=== PATIENT | female | born 1965 ===

== ENCOUNTER 2024-06-14 14:05 | Emergency (ER) | payer OTHER, SELFPAY ==
[2024-06-14 14:12] VITALS: BP 120/70; PULSE 83; RESP 18; TEMP 36.8; O2SAT 98; BMI 14.7
--- NOTE | 2024-06-14 14:12 | ED_ITS ---
HPI - General Adult General Chief complaint: GI Bleed Stated complaint: rectal bleeding Related Data Previous Rx's ?Medication ?Instructions ?Recorded ketorolac 10 mg tablet 10 mg PO TID PRN pain 5 days #15 06/15/24 tabs lidocaine 5 % topical patch 1 patch topical DAILY PRN pain #15 06/15/24 ea Allergies Allergy/AdvReac Type Severity Reaction Status Date / Time No Known Allergies Allergy Verified 06/15/24 07:52 [facility] Social History Social History Advance Directives: No Advance Directives Information Provided: No Physical Exam ED Vital Signs: BMI result Body Mass Index 14.7 Course Course Course Narrative: This is an RME performed by Valentina Sotelo CNP: Additional HPI, ROS, PE not included below will be deferred to primary provider. Patient is a 58-year-old female with past medical history of colorectal cancer For which she underwent chemotherapy and radiation in 2007, she states she was due to have a repeat colonoscopy about 6 years ago but did not 2 days ago noted small amount of bright red blood in bowel movements, has had recurrent episodes of this usually at least once a week. She is concerned today as she is experiencing diffuse abdominal pain with pain radiating to her back. Medical Decision Making Lab Data 06/14/24 15:18 06/14/24 15:18 Labs: Lab Results 06/14/24 Range/Units 15:18 WBC 5.1 (4.8-10.8) X10*3/uL RBC 3.95 L (4.20-5.50) X10*6/uL Hgb 12.7 (12.0-16.0) g/dl Hct 37.8 (37.0-47.0) % MCV 95.7 (80.0-98.0) fL MCH 32.2 (27.0-33.0) pg MCHC 33.6 (31.0-35.0) g/dl RDW 12.8 (11.0-16.0) % Plt Count 239 (160-400) X10*3/uL MPV 8.9 L (9.4-12.3) fL Immature Gran % (Auto) 0.4 (0.0-0.4) % Neut % (Auto) 60.8 (45-73) % Lymph % (Auto) 25.0 (20-40) % [place] % (Auto) 10.5 (2-11) % Eos % (Auto) 2.7 (0-4) % Baso % (Auto) 0.6 (0-2) % Lymph # (Auto) 1.3 (1.2-4.9) X10*3/uL [place] # (Auto) 0.5 (0.1-1.2) X10*3/uL Eos # (Auto) 0.1 (0.0-0.4) X10*3/uL Baso # (Auto) 0.0 (0.0-0.2) X10*3/uL Abs Immat Gran (auto) 0.02 (0.00-0.03) X10*3/uL Absolute Neuts (auto) 3.1 (2.0-8.3) x10*3/uL Absolute Nucleated RBC 0.000 (0.0-0.012) X10*3/uL Nucleated RBC % (auto) 0.0 (0.0-0.2) /100WBC Sodium 145 (135-145) mmol/L Potassium 3.5 (3.3-5.1) mmol/L Chloride 107 (96-108) mmol/L Carbon Dioxide 31 H (22-29) mmol/L Anion Gap 11 L (12-20) BUN 10 (9-16) mg/dL Creatinine 0.74 (0.5-1.4) mg/dL Estim Creat Clear Calc 57.0 Estimated GFR > 60 Random Glucose 88 (60-115) mg/dL Calcium 9.3 (8.4-10.2) mg/dL Total Bilirubin 0.3 (0.0-1.0) mg/dL AST 25 (5-31) U/L ALT 28 (0-31) U/L Alkaline Phosphatase 68 (39-117) U/L Total Protein 6.7 (6.5-8.0) g/dL Albumin 3.6 (3.5-5.0) g/dL Lipase 28 (8-78) U/L Discharge Plan Discharge Clinical Impression: Hematochezia Patient Disposition: Left W/O Completing Treatment Prescriptions: No Action ketorolac 10 mg tablet 10 mg PO TID PRN (Reason: pain) 5 Days Qty: 15 0RF Rx Instructions: Tolerated IM or IV in department lidocaine 5 % adhesive patch,medicated 1 patch topical DAILY PRN (Reason: pain) Qty: 15 0RF Rx Instructions: leave on most painful area for up to 12 hrs Discharge Date/Time: 06/14/24 20:19
[2024-06-14 15:27] LABS: MANUAL DIFF FLAG NO
[2024-06-14 15:29] LABS: Basophils Percent Auto 0.6 % (0-2); Eosinophils Absolute Auto 0.1 X10*3/uL (0.0-0.4); Eosinophils Percent Auto 2.7 % (0-4); Hematocrit 37.8 % (37.0-47.0); Hemoglobin 12.7 g/dl (12.0-16.0); Imm Gran Abs Auto 0.02 X10*3/uL (0.00-0.03); Imm Gran Pct Auto 0.4 % (0.0-0.4); Lymphocytes Absolute Auto 1.3 X10*3/uL (1.2-4.9); Mean Corpuscular HGB Conc 33.6 g/dl (31.0-35.0); Mean Corpuscular Hemoglobin 32.2 pg (27.0-33.0); Mean Corpuscular Volume 95.7 fL (80.0-98.0); Mean Platelet Volume 8.9 fL (9.4-12.3); Monocytes Absolute Auto 0.5 X10*3/uL (0.1-1.2); Monocytes Percent Auto 10.5 % (2-11); Neutrophils Absolute Auto 3.1 x10*3/uL (2.0-8.3); Neutrophils Percent Auto 60.8 % (45-73); Platelet Count 239 X10*3/uL (160-400); Red Blood Count 3.95 X10*6/uL (4.20-5.50); Red Cell Distribution Width 12.8 % (11.0-16.0); White Blood Count 5.1 X10*3/uL (4.8-10.8)
[2024-06-14 15:42] LABS: Alanine Aminotransferase 28 U/L (0-31); Albumin Level 3.6 g/dL (3.5-5.0); Alkaline Phosphatase 68 U/L (39-117); Anion Gap 11 (12-20); Aspartate Amino Transferase 25 U/L (5-31); Bilirubin Total 0.3 mg/dL (0.0-1.0); Blood Urea Nitrogen 10 mg/dL (9-16); Calcium 9.3 mg/dL (8.4-10.2); Carbon Dioxide 31 mmol/L (22-29); Chloride 107 mmol/L (96-108); Estimated Glomerular Filt Rate > 60; Glucose Random 88 mg/dL (60-115); Lipase 28 U/L (8-78); Potassium 3.5 mmol/L (3.3-5.1); Sodium 145 mmol/L (135-145); Total Protein 6.7 g/dL (6.5-8.0)
== END 2024-06-14 20:19 | disposition left against medical advice (07) ==
LOC: HO.ED 20:15
PROVIDERS: Nurse Practitioner Family; Emergency Provider Emergency Medicine; PCP Internal Medicine
DX: K62.5 Hemorrhage of anus and rectum (principal); Z79.899 Other long term (current) drug therapy
CPT/HCPCS: 36415; 80053; 83690; 85025; 99281

== ENCOUNTER 2024-06-15 07:44 | Emergency (ER) | payer OTHER, SELFPAY ==
--- NOTE | ~2024-06-15 | CT_ITS ---
EXAMINATION: CT ABDOMEN AND PELVIS WITH CONTRAST CLINICAL INFORMATION: History of colorectal cancer. Back pain. COMPARISON: None available. TECHNIQUE: Multidetector volumetric images were obtained from the superior aspect of the liver through the pubic symphysis following administration 85 mL of Omnipaque 350 intravenous contrast. Sagittal and coronal reformatted images were obtained on the technologist's workstation. Oral contrast: No This CT examination was performed using dose optimization techniques as appropriate, variously including the following: *Automated exposure control *Adjustment of mA and/or kV according to patient size (this includes techniques or standardized protocols for targeted exams where dose is matched to indication/reason for exam; i.e. extremities or head) *Use of iterative reconstruction technique DLP: 260 mGy-cm FINDINGS: LUNG BASES: No pleural or pericardial effusion. LIVER, GALLBLADDER, AND BILIARY TREE: The liver is normal in size and contour. Subtle periportal edema. No focal hepatic lesion or biliary ductal dilatation is present. The gallbladder is unremarkable with no evidence of radiopaque gallstones, gallbladder wall thickening, or obvious pericholecystic inflammatory changes. PANCREAS: No ductal dilatation. SPLEEN: Not enlarged. ADRENAL GLANDS: No adrenal mass. KIDNEYS AND URETERS: The kidneys are normal in size, shape, and attenuation. Bilateral subcentimeter hypodensities likely representing cysts. No hydronephrosis. No perinephric stranding. BLADDER: Decompressed. GASTROINTESTINAL TRACT: Diffuse small bowel and large bowel wall thickening with mucosal hyperenhancement and mesenteric edema and hyperemia. Small free fluid in the pelvis. ABDOMINAL WALL: No significant hernia is appreciated. LYMPH NODES: No bulky lymphadenopathy. VASCULAR: Normal caliber abdominal aorta. PELVIC VISCERA: Unremarkable. OSSEOUS STRUCTURES: L5-S1 spondylolysis and spondylolisthesis. Unilateral left L5 pars defect. Severe degenerative disc disease at L5-S1. CT/CT abdomen pelvis w IV con IMPRESSION: Diffuse small and large bowel wall thickening with mucosal hyperenhancement and mesenteric edema and hyperemia. Small free fluid in the pelvis. The differential diagnosis includes enterocolitis both infectious and inflammatory etiologies versus posttreatment changes in the setting of treatment for colorectal cancer. Advise clinical correlation. Electronically signed by: Rick Sanchez MD 06/15/2024 10:13 AM EDT
[2024-06-15 07:51] VITALS: BP 132/70; PULSE 90; RESP 18; TEMP 36.4; O2SAT 100; BMI 15.7
--- NOTE | 2024-06-15 07:59 | ED.BACK ---
HPI - Back Pain/Injury General Chief Complaint: Back Pain/Injury Stated Complaint: Back pain Time Seen by Provider: 06/15/24 07:53 Source: patient Mode of arrival: ambulatory Limitations: no limitations History of Present Illness ED Provider: Enedelia Wagner HPI Narrative: 58yo F PMHx colorectal cancer s/p chemo and radiation in remission since 2007 presenting with 9/10 low back pain and intermittent bloody stools ( none at this time) ongoing for the lasta few months. Since having the radiation, she's had residual back pain but recently she's been having more severe episodes of low back and pelvic pain. Patient endorses new weight loss, denies back injury, excessive fatigue, fevers, chills, CP, SOB, N/V/D, numbness, tingling, urine/ bowel incontinence/retention. Recently moved from [place] States her father from [place]. Related Data Previous Rx's ?Medication ?Instructions ?Recorded ketorolac 10 mg tablet 10 mg PO TID PRN pain 5 days #15 06/15/24 tabs lidocaine 5 % topical patch 1 patch topical DAILY PRN pain #15 06/15/24 ea Allergies Allergy/AdvReac Type Severity Reaction Status Date / Time No Known Allergies Allergy Verified 06/15/24 07:52 Review of Systems Review of Systems: Yes all other systems are reviewed and are negative PMFSH Past Medical History Attestation statement: The following information was validated with the patient. Source: old records reviewed and nursing notes reviewed Social History Social History Advance Directives: No Advance Directives Information Provided: No Physical Exam Vital Signs: Vital Signs: Last Vital Signs Temp 97.6 F 06/15/24 07:51 Pulse 90 06/15/24 07:51 Resp 18 06/15/24 07:51 BP 132/70 06/15/24 07:51 Pulse Ox 100 06/15/24 07:51 O2 Del Method Room Air 06/15/24 07:51 BMI result Body Mass Index 15.7 vss Appearance: Alert.? Oriented X3.? No acute distress.?Cachetic Head: Normocephalic, atraumatic Eyes: Pupils equal, round and reactive to light.? Neck: Normal inspection.? Neck supple.? CVS: Normal heart rate and rhythm.? Pulses normal.? Respiratory: No respiratory distress.? Breath sounds normal.? Abdomen: Soft and nontender.?(+) bowel sounds Skin: Skin warm and dry.? Normal skin color.? Normal skin turgor.? Extremities: No lower extremity edema.? No calf ttp. 3/5 strength to LEs b/l. No saddle paresthesias. Ambulating w/ steady gait normal corrdination Neuro: Oriented X 3.?Normal sensory and motor funtion. Course Reevaluation(s) Reevaluation #1: CBC stable x2 ( yesterday and today). No signs of acute hypovolemic shock or acute blood loss anemia. Not currently having blood in stool. She is hemodynamically stable. Chemistry no acute findings needing intervention. CT abdomen and pelvis with diffuse small and large bowel wall thickening and mucosal hyperenhancement mesenteric edema and hyperemia small free fluid in the pelvis differential is concerning for enterocolitis both infectious and inflammatory etiologies this is likely inflammatory not infectious, also concerning for inflammatory changes status post treatment for colorectal cancer or reoccurrence. Will have her follow-up with GI and Hematology Oncology. Will repeat CBC today and ensure it is stable. Time: 10:56 Reevaluation #2: CBC stable. No bleeding while here. States Toradol helped a lot. Will discharge her with the same. Will have her follow-up with GI. I did express to her that this could be a recurrence of malignancy. Educated patient on diagnosis and treatment plan, answered all question, patient verbalizes understanding. At this time patient will be discharged home, advised to return with new or worsening symptoms. Educated on worrisome signs and symptoms and when to return. At this time I feel comfortable discharge home. Time: 12:19 Reevaluation #3: patient walked out of the dept w/o difficulty Time: 12:34 Medications Administered Discontinued Medications Generic Name Dose Route Start Last Admin Trade Name Freq PRN Reason Stop Dose Admin Iohexol 100 ml 06/15/24 09:37 06/15/24 09:38 Iohexol 350 Mg/Ml 100 Ml Infus..Btl IV 06/15/24 09:38 85 ml ONCE ONE Administration Ketorolac Tromethamine 30 mg 06/15/24 10:02 06/15/24 10:24 Ketorolac Tromethamine 30 Mg/Ml Vial IM 06/15/24 10:03 30 mg ONCE ONE Administration Lidocaine 1 patch 06/15/24 10:02 06/15/24 10:24 Lidocaine 4 % Patch Adh..Patch TRANSDERMA 06/15/24 10:03 1 patch ONCE ONE Administration Protocol Magnesium Oxide 400 mg 06/15/24 10:55 06/15/24 11:56 Magnesium Oxide 400 Mg Tablet PO 06/15/24 10:56 400 mg ONCE ONE Administration Medical Decision Making Medical Decision Making MDM Narrative: 58yo F PMHx colorectal cancer s/p chemo and radiation presenting with 9/10 low back pain and intermittent bloody stools. PE: cachetic, 3/5 strength to LEs b/l, (+) bowel sounds Hx and PE concerning for metastatic colorectal cancer vs reccurance vs hemorrhoids versus acute lower GI bleed. Unlikely cauda equina, epidural abscess, vertebral fx, cord compression, acute abdomen, diverticulitis, perf, obstruction Plan: CT abd & pelvis, labs, pain control Differential Diagnosis Differential Diagnoses: The differential diagnosis associated with the presentation includes ( Hx and PE concerning for metastatic colorectal cancer vs reccurance vs hemorrhoids versus acute lower GI bleed. Unlikely cauda equina, epidural abscess, vertebral fx, cord compression, acute abdomen, diverticulitis, perf, obstruction) Admission/Observation Consideration of admission/observation: Escalation of care including admission/observation considered Likely Lab Data [facility] Lab Attestation statement: I reviewed the patient's lab results. 06/15/24 11:52 06/15/24 08:12 Labs: Lab Results 06/15/24 06/15/24 Range/Units 08:12 11:52 WBC 4.9 5.1 (4.8-10.8) X10*3/uL RBC 4.19 L 3.89 L (4.20-5.50) X10*6/uL Hgb 13.4 12.3 (12.0-16.0) g/dl Hct 40.5 36.8 L (37.0-47.0) % MCV 96.7 94.6 (80.0-98.0) fL MCH 32.0 31.6 (27.0-33.0) pg MCHC 33.1 33.4 (31.0-35.0) g/dl RDW 12.9 12.7 (11.0-16.0) % Plt Count 243 227 (160-400) X10*3/uL MPV 8.6 L 9.0 L (9.4-12.3) fL Immature Gran % (Auto) 0.4 0.4 (0.0-0.4) % Neut % (Auto) 62.1 63.2 (45-73) % Lymph % (Auto) 24.3 23.4 (20-40) % [place] % (Auto) 10.4 9.6 (2-11) % Eos % (Auto) 2.2 2.8 (0-4) % Baso % (Auto) 0.6 0.6 (0-2) % Lymph # (Auto) 1.2 1.2 (1.2-4.9) X10*3/uL [place] # (Auto) 0.5 0.5 (0.1-1.2) X10*3/uL Eos # (Auto) 0.1 0.1 (0.0-0.4) X10*3/uL Baso # (Auto) 0.0 0.0 (0.0-0.2) X10*3/uL Abs Immat Gran (auto) 0.02 0.02 (0.00-0.03) X10*3/uL Absolute Neuts (auto) 3.0 3.2 (2.0-8.3) x10*3/uL Absolute Nucleated RBC 0.000 0.000 (0.0-0.012) X10*3/uL Nucleated RBC % (auto) 0.0 0.0 (0.0-0.2) /100WBC PT 11.2 (10.9-12.4) SEC INR 1.0 (0.9-1.1) Sodium 142 (135-145) mmol/L Potassium 3.6 (3.3-5.1) mmol/L Chloride 108 (96-108) mmol/L Carbon Dioxide 28 (22-29) mmol/L Anion Gap 10 L (12-20) BUN 11 (9-16) mg/dL Creatinine 0.74 (0.5-1.4) mg/dL Estim Creat Clear Calc 60.8 Estimated GFR > 60 Random Glucose 94 (60-115) mg/dL Calcium 9.0 (8.4-10.2) mg/dL Magnesium 1.5 L (1.6-2.6) mg/dL Total Bilirubin 0.3 (0.0-1.0) mg/dL AST 30 (5-31) U/L ALT 29 (0-31) U/L Alkaline Phosphatase 77 (39-117) U/L Total Protein 6.7 (6.5-8.0) g/dL Albumin 3.5 (3.5-5.0) g/dL Lipase 33 (8-78) U/L Independent Interpretation I performed an independent interpretation of an: CT Scan (CT/CT abdomen pelvis w IV con IMPRESSION: Diffuse small and large bowel wall thickening with mucosal hyperenhancement and mesenteric edema and hyperemia. Small free fluid in the pelvis. The differential diagnosis includes enterocolitis both infectious and inflammatory etiologies versus posttreatm) Radiology Impression Discussion of test interpretation with radiology: I have reviewed the radiologist's reading. External Record Review External record reviewed: Outpatient record Critical Care Time Critical Care Time Critical Care Time: Yes Total Critical Care Time: 35 Attestation: I attest to this time spent taking care of the patient, obtaining history, physical, reviewing labs, imaging, treatment of patients condition +/- specialist/hospitalist consult Discharge Plan Discharge Clinical Impression: Lower back pain, GI bleed Patient Disposition: Home, Self-Care Instructions: Back Pain (ED) Additional Instructions: Take your medications as prescribed. If you were prescribed antibiotics today, it is important that you take your medication to their entirety, do not skip any doses, do not finish them early. Follow-up with your primary care provider this week. Return to the emergency department with new or worsening symptoms. Such as fevers, chills, chest pain, shortness of breath, nausea, vomiting, dizziness, headache, vision changes, lethargy In case of emergency call 911 Toradol has been sent to your pharmacy, you tolerated this well in the department. Please take this as prescribed do not take this with ibuprofen, or other NSAIDs, do not mix this with alcohol. Side effects of this medication including increased risk for bleeding and possible kidney injury. CT/CT abdomen pelvis w IV con IMPRESSION: Diffuse small and large bowel wall thickening with mucosal hyperenhancement and mesenteric edema and hyperemia. Small free fluid in the pelvis. The differential diagnosis includes enterocolitis both infectious and inflammatory etiologies versus posttreatment changes in the setting of treatment for colorectal cancer. Advise clinical correlation. Prescriptions: New ketorolac 10 mg tablet 10 mg PO TID PRN (Reason: pain) 5 Days Qty: 15 0RF Rx Instructions: Tolerated IM or IV in department lidocaine 5 % adhesive patch,medicated 1 patch topical DAILY PRN (Reason: pain) Qty: 15 0RF Rx Instructions: leave on most painful area for up to 12 hrs Referrals: [facility] [Provider Group] - 1 day July Aguirre MD [Primary Care Provider] - 2 days Stand Alone Forms: Work/School Release Print Language: Yakut
[2024-06-15 08:17] LABS: MANUAL DIFF FLAG NO
[2024-06-15 08:19] LABS: Basophils Percent Auto 0.6 % (0-2); Eosinophils Absolute Auto 0.1 X10*3/uL (0.0-0.4); Eosinophils Percent Auto 2.2 % (0-4); Hematocrit 40.5 % (37.0-47.0); Hemoglobin 13.4 g/dl (12.0-16.0); Imm Gran Abs Auto 0.02 X10*3/uL (0.00-0.03); Imm Gran Pct Auto 0.4 % (0.0-0.4); Lymphocytes Absolute Auto 1.2 X10*3/uL (1.2-4.9); Lymphocytes Percent Auto 24.3 % (20-40); Mean Corpuscular HGB Conc 33.1 g/dl (31.0-35.0); Mean Corpuscular Volume 96.7 fL (80.0-98.0); Mean Platelet Volume 8.6 fL (9.4-12.3); Monocytes Absolute Auto 0.5 X10*3/uL (0.1-1.2); Monocytes Percent Auto 10.4 % (2-11); Neutrophils Percent Auto 62.1 % (45-73); Platelet Count 243 X10*3/uL (160-400); Red Blood Count 4.19 X10*6/uL (4.20-5.50); Red Cell Distribution Width 12.9 % (11.0-16.0); White Blood Count 4.9 X10*3/uL (4.8-10.8)
[2024-06-15 08:23] LABS: Prothrombin Time 11.2 SEC (10.9-12.4)
[2024-06-15 08:35] LABS: Alanine Aminotransferase 29 U/L (0-31); Albumin Level 3.5 g/dL (3.5-5.0); Alkaline Phosphatase 77 U/L (39-117); Anion Gap 10 (12-20); Aspartate Amino Transferase 30 U/L (5-31); Bilirubin Total 0.3 mg/dL (0.0-1.0); Blood Urea Nitrogen 11 mg/dL (9-16); Carbon Dioxide 28 mmol/L (22-29); Chloride 108 mmol/L (96-108); Creatinine Clr Calc Pharmacy 60.8; Estimated Glomerular Filt Rate > 60; Glucose Random 94 mg/dL (60-115); Lipase 33 U/L (8-78); Magnesium 1.5 mg/dL (1.6-2.6); Potassium 3.6 mmol/L (3.3-5.1); Sodium 142 mmol/L (135-145); Total Protein 6.7 g/dL (6.5-8.0)
[2024-06-15] MEDS: iohexoL 350 MG/ML 100 ML INFUS..BTL IV (09:38)
[2024-06-15] MEDS: Ketorolac Tromethamine 30 MG/ML VIAL IM (10:24)
[2024-06-15] MEDS: Lidocaine 4 % Patch ADH..PATCH 1 PATCH TRANSDERMA (10:24)
[2024-06-15] MEDS: Magnesium Oxide 400 MG TABLET PO (11:56)
[2024-06-15 12:00] LABS: MANUAL DIFF FLAG NO
[2024-06-15 12:06] LABS: Basophils Percent Auto 0.6 % (0-2); Eosinophils Absolute Auto 0.1 X10*3/uL (0.0-0.4); Eosinophils Percent Auto 2.8 % (0-4); Hematocrit 36.8 % (37.0-47.0); Hemoglobin 12.3 g/dl (12.0-16.0); Imm Gran Abs Auto 0.02 X10*3/uL (0.00-0.03); Imm Gran Pct Auto 0.4 % (0.0-0.4); Lymphocytes Absolute Auto 1.2 X10*3/uL (1.2-4.9); Lymphocytes Percent Auto 23.4 % (20-40); Mean Corpuscular HGB Conc 33.4 g/dl (31.0-35.0); Mean Corpuscular Hemoglobin 31.6 pg (27.0-33.0); Mean Corpuscular Volume 94.6 fL (80.0-98.0); Monocytes Absolute Auto 0.5 X10*3/uL (0.1-1.2); Monocytes Percent Auto 9.6 % (2-11); Neutrophils Absolute Auto 3.2 x10*3/uL (2.0-8.3); Neutrophils Percent Auto 63.2 % (45-73); Platelet Count 227 X10*3/uL (160-400); Red Blood Count 3.89 X10*6/uL (4.20-5.50); Red Cell Distribution Width 12.7 % (11.0-16.0); White Blood Count 5.1 X10*3/uL (4.8-10.8)
[2024-06-15 13:18] VITALS: BP 132/70; PULSE 90; RESP 18; TEMP 36.4; O2SAT 100
== END 2024-06-15 13:19 | disposition home or self-care (01) ==
PROVIDERS: Physician Assistant; Emergency Provider Emergency Medicine; PCP Internal Medicine
DX: M54.50 Low back pain, unspecified (principal); K92.2 Gastrointestinal hemorrhage, unspecified
CPT/HCPCS: 36415; 74177; 80053; 83690; 83735; 85025; 85610; 96372; 99283; 99284; J1885; Q9967

== ENCOUNTER 2024-07-14 08:53 | Outpatient (REF) | payer OTHER, SELFPAY ==
[2024-07-14 10:53] LABS: MANUAL DIFF FLAG NO
[2024-07-14 10:58] LABS: Basophils Percent Auto 0.6 % (0-2); Eosinophils Absolute Auto 0.1 X10*3/uL (0.0-0.4); Eosinophils Percent Auto 2.2 % (0-4); Hematocrit 40.6 % (37.0-47.0); Hemoglobin 13.5 g/dl (12.0-16.0); Imm Gran Abs Auto 0.01 X10*3/uL (0.00-0.03); Imm Gran Pct Auto 0.2 % (0.0-0.4); Lymphocytes Absolute Auto 1.2 X10*3/uL (1.2-4.9); Lymphocytes Percent Auto 25.9 % (20-40); Mean Corpuscular HGB Conc 33.3 g/dl (31.0-35.0); Mean Corpuscular Hemoglobin 31.8 pg (27.0-33.0); Mean Corpuscular Volume 95.5 fL (80.0-98.0); Mean Platelet Volume 9.7 fL (9.4-12.3); Monocytes Absolute Auto 0.6 X10*3/uL (0.1-1.2); Monocytes Percent Auto 11.9 % (2-11); Neutrophils Absolute Auto 2.7 x10*3/uL (2.0-8.3); Neutrophils Percent Auto 59.2 % (45-73); Platelet Count 261 X10*3/uL (160-400); Red Blood Count 4.25 X10*6/uL (4.20-5.50); Red Cell Distribution Width 12.3 % (11.0-16.0); White Blood Count 4.6 X10*3/uL (4.8-10.8)
[2024-07-14 12:09] LABS: Alanine Aminotransferase 34 U/L (0-31); Albumin Level 3.7 g/dL (3.5-5.0); Alkaline Phosphatase 74 U/L (39-117); Anion Gap 9 (12-20); Aspartate Amino Transferase 39 U/L (5-31); Bilirubin Total 0.2 mg/dL (0.0-1.0); Blood Urea Nitrogen 11 mg/dL (9-16); Calcium 9.6 mg/dL (8.4-10.2); Carbon Dioxide 31 mmol/L (22-29); Chloride 105 mmol/L (96-108); Estimated Glomerular Filt Rate > 60; Glucose Random 94 mg/dL (60-115); Potassium 4.3 mmol/L (3.3-5.1); Sodium 141 mmol/L (135-145); Total Protein 7.3 g/dL (6.5-8.0)
[2024-07-14 12:15] LABS: Thyroid Stimulating Hormone 2.19 uIU/mL (0.32-4.0)
== END 2024-07-14 08:54 | disposition home or self-care (01) ==
LOC: HO.10HDL 08:53
PROVIDERS: Visit Provider Internal Medicine
DX: Z00.01 Encounter for general adult medical examination with abnormal findings (principal); F32.9 Major depressive disorder, single episode, unspecified; J45.909 Unspecified asthma, uncomplicated; R05.9 Cough, unspecified; R63.6 Underweight; Z72.0 Tobacco use; Z85.038 Personal history of other malignant neoplasm of large intestine
CPT/HCPCS: 36415; 80053; 84443; 85025

== ENCOUNTER 2024-09-23 11:27 | Outpatient (REF) | payer OTHER, SELFPAY ==
--- NOTE | ~2024-09-23 | MM_ITS ---
EXAMINATION: MM SCREENING DIGITAL BREAST TOMOSYNTHESIS, BILATERAL CLINICAL INFORMATION: Screening. Asymptomatic. COMPARISON: Mammography: Baseline. TECHNIQUE: Digital breast mammography with tomosynthesis is performed in both the craniocaudal and mediolateral oblique views along with computer-aided detection (CAD). FINDINGS: The breasts are extremely dense, which lowers the sensitivity of mammography (ACR BI-RADS breast composition Category d). There are no significant masses, abnormal calcifications, or other abnormalities. MM/MM tomosynthesis screening BI IMPRESSION: No mammographic evidence of malignancy. ASSESSMENT: BI-RADS BI-RADS 1 - Negative RECOMMENDATION: Routine annual mammography screening. 1 year F/U This examination should not preclude the clinical evaluation of a suspicious palpable abnormality. This patient's information was entered into a reminder system with a target due date for their next mammogram. Electronically signed by: Daylin Campbell DO 09/29/2024 05:53 PM [facility]
== END 2024-09-23 11:28 | disposition home or self-care (01) ==
LOC: HO.MAMMO 11:27
PROVIDERS: PCP Internal Medicine; Visit Provider Internal Medicine
DX: Z12.31 Encounter for screening mammogram for malignant neoplasm of breast (principal)
CPT/HCPCS: 77063; 77067

== ENCOUNTER → 2024-09-23 11:45 | Outpatient (BNV) | payer OTHER, SELFPAY | PROVIDERS: PCP Internal Medicine; Visit Provider Internal Medicine | DX: Z12.31 Encounter for screening mammogram for malignant neoplasm of breast (principal) | CPT/HCPCS: 77063; 77067 ==

== ENCOUNTER 2024-12-09 11:07 | Outpatient (RCR) | payer OTHER, SELFPAY ==
--- NOTE | 2024-12-09 12:34 | MHC.PT.EP ---
[facility] [place] Office [place] Office [place] Office [address] [phone] F: [phone] F: [phone] F: [phone] F: [phone] Physical Therapy Plan of Care Date of Evaluation: 12/09/24 Date of Surgery: Diagnosis: LUMBAR SPONDYLOSIS Assessment: 58 YO FEMALE REF TO PT WITH A 2+ YEAR H/O LORENA L/S PAIN AND INTERM Lt LE RADICULAR SXS- OF IMPORTANCE, SHE HAS A H/O COLORECTAL CA W RADIATION AND CHEMOTHERAPY Rx IN 2007 AND HAS HAD LBP SINCE. OBJECTIVELY THE Pt HAS DECR POSTURAL AWARENESS-> HABITUAL ANTERIOR PELVIC TILT W TISSUE TENSION IN LORENA LS PS MM, MILD SCOLIOSIS, LIMITED TRUNK AROM, STRENGTH DEFICITS IN LUMBOPELVIC / PROX HIPS, AND FLUCTUATING PAIN IN LORENA L/S AND INTERM INTO Lt LE. SHE HAS A MORE SEDENTARY LIFESTYLE- DECR BASIM TO PROLONGED STANDING, SITTING, OR FUNCTIONAL MOB. SHE TRIES TO PERFORM REG ADLs, BUT THIS IS DEPENDENT ON HER PAIN LEVEL. WE DISCUSSED A GRADUAL PROGRESSION IN PT, ADDRESSING TISSUE TENSION/ POSTURE/ BODY MECH TO EASE TISUE TENSION AND HER SXS- THE Pt IS IN AGREEMENT AND WE WILL PROCEED ACCORDINGLY. Frequency and Duration: The patient will be seen 2 x WK x 4 WKS Short Term Goals: *DECR LBP TO 2-3/10 AND Lt LE RADIC SXS DECR BY 75% *Pt INDEP W SELF CORRECTION OF POSTURE *Pt DEMON WNL SQUAT MECHANICS, WFL TRUNK AROM *INITIATE HEP Assisted Goals: *Pt INDEP W HEP AND SELF SX MGMT TECHN *Pt INCR HER ADL BASIM/ ACTIVITY LEVEL / FITNESS WALKING *IMPROVED OSWESTRY (AT EVAL ) *Pt DMEON 3:3 SIMUL ADLs W EFFICIENMT TECHN/ MECHANICS Treatment Plan: Modalities to reduce pain, spasms and effusion. Manual therapy to restore motion and function. Therapeutic exercise to improve strength and flexibility. Neuromuscular re-education for posture and balance. Therapeutic activities to return to functional activities of daily living. Electronically signed by: BRIE LLANOS,PT Please sign and return to therapist. Thank you for your referral.
== END 2024-12-25 11:30 | disposition home or self-care (01) ==
LOC: HO.PT 11:07
PROVIDERS: PCP Internal Medicine; Visit Provider Internal Medicine
DX: M47.816 Spondylosis without myelopathy or radiculopathy, lumbar region (principal)
CPT/HCPCS: 97110; 97162

== ENCOUNTER 2024-12-09 12:17 | Outpatient (REF) | payer OTHER, SELFPAY ==
[2024-12-09 14:11] LABS: Alanine Aminotransferase 18 U/L (0-31); Albumin Level 3.6 g/dL (3.5-5.0); Alkaline Phosphatase 78 U/L (39-117); Anion Gap 9 (12-20); Aspartate Amino Transferase 28 U/L (5-31); Bilirubin Total 0.2 mg/dL (0.0-1.0); Blood Urea Nitrogen 8 mg/dL (9-16); Calcium 9.4 mg/dL (8.4-10.2); Carbon Dioxide 31 mmol/L (22-29); Chloride 104 mmol/L (96-108); Estimated Glomerular Filt Rate > 60; Glucose Random 95 mg/dL (60-115); Potassium 3.6 mmol/L (3.3-5.1); Sodium 140 mmol/L (135-145); Total Protein 6.9 g/dL (6.5-8.0)
== END 2024-12-09 12:18 | disposition home or self-care (01) ==
LOC: HO.10HDL 12:17
PROVIDERS: Visit Provider Internal Medicine
DX: G47.00 Insomnia, unspecified (principal); J45.20 Mild intermittent asthma, uncomplicated; M47.816 Spondylosis without myelopathy or radiculopathy, lumbar region
CPT/HCPCS: 36415; 80053

== ENCOUNTER 2024-12-11 19:27 | Inpatient (IN) | payer OTHER, SELFPAY ==
--- NOTE | ~2024-12-11 | NM_ITS ---
EXAMINATION: NM BONE SCAN WHOLE BODY HISTORY: Lytic bone lesion seen on CT scan. TECHNIQUE: A total body bone scan was performed following intravenous administration of 20 mCi technetium 99m-MDP. Whole body planar images were obtained. COMPARISON: Correlation is made with a CT of the abdomen and pelvis dated 12/11/2024. FINDINGS: There is a bandlike focus of increased activity at the L5-S1 level corresponding to severe degenerative disc disease and spondylolisthesis on CT. The remainder of the visualized osseous structures demonstrate a normal distribution of activity. There is normal bilateral renal uptake. NM/NM bone scan whole body IMPRESSION: No evidence of osteoblastic metastatic disease. The appearance of small lucencies on CT in the hips and pelvis could represent multiple myeloma, which is occult on bone scan. Laboratory correlation is recommended. Electronically signed by: Dean Lopez MD 12/15/2024 02:57 PM EDT
--- NOTE | ~2024-12-11 | XR_ITS ---
CLINICAL HISTORY: abominal pain and distention 1 view abdomen Comparison: CT/SR - CT ABDOMEN PELVIS W IV CON - 12/11/24 21:45 EDT Findings: Suspect mural thickening normally distended air-filled loops of distal small bowel. Normal stool quantity. No pneumoperitoneum or pneumatosis. Equivocal gastric mural thickening. Renal and psoas margins are normal. No organomegaly. No acute fracture. Impression: 1. Mural thickening distal loops of small bowel. 2. Equivocal gastric mural thickening as well. Consider gastro enteritis This document has been electronically signed by: Soto Mejia MD on 12/13/2024 10:16:15
--- NOTE | ~2024-12-11 | CT_ITS ---
CLINICAL HISTORY: LLQ pain, hx colon CA in remission CT abdomen and pelvis with contrast Comparison: CT/HI/SR - CT ABDOMEN PELVIS W IV CON - 06/15/24 09:27 EDT Findings: No consolidation or effusion. Mild emphysema within the bilateral lung bases. The gallbladder and solid organs are within normal limits. No hydronephrosis. No free intraperitoneal air. There is dilation of the proximal jejunum up to 5.2 cm in diameter, best visualized on coronal image number 21 of series 5. Minimal free fluid present at the lower abdomen. Mildly limited evaluation of the stomach related to gastric underdistention. Mild bowel wall thickening identified diffusely throughout the abdomen. No intra-abdominal or intrapelvic lymphadenopathy by CT size criteria identified. Pelvic contents unremarkable. No bladder wall thickening. Nondilated tubular structure identified medial to the cecum extending toward the midline, possibly consistent with a nondilated appendix. Heterogeneity of the bone identified, most prominent at the level of the bony pelvis. There is a left L5 pars interarticularis defect with grade 2 anterolisthesis of L5 on S1. IMPRESSION: 1. Dilation of the proximal jejunum up to 5.2 cm in diameter, suggesting an underlying small bowel obstruction or bowel ileus. 2. Diffuse bowel wall thickening redemonstrated, which may be related to a nonspecific enterocolitis or posttreatment change. 3. Vague heterogeneity of the osseous structures visualized, most prominent at the level of the bony pelvis, increased in conspicuity as compared to the prior examination. This may be related to small lytic lesions in the setting of malignancy/metastatic disease or interval increase in bony demineralization. This document has been electronically signed by: Kennedy Monroe MD on 12/11/2024 22:32:50
--- NOTE | ~2024-12-11 | CT_ITS ---
CLINICAL HISTORY: headache CT head without contrast Comparison: None Findings: No intra-axial mass, midline shift, hydrocephalus, or acute hemorrhage. No significant atrophy-like change or white matter disease. There is mild left maxillary sinusitis. There is right sphenoid sinusitis. The orbits are within normal limits. There is no acute fracture. IMPRESSION: 1. No acute intracranial findings. 2. Mild left maxillary sinusitis and right sphenoid sinusitis. This document has been electronically signed by: Serge Gaona MD on 12/15/2024 13:08:27
[2024-12-11 19:36] VITALS: BP 96/52; PULSE 80; PULSE 96; RESP 14; TEMP 36.8; O2SAT 96; BMI 16.4
--- NOTE | 2024-12-11 19:55 | ECG_ITS ---
Test Reason : SOB Blood Pressure : */* mmHG Vent. Rate : 80 BPM Atrial Rate : 80 BPM P-R Int : 124 ms QRS Dur : 88 ms QT Int : 378 ms P-R-T Axes : 76 8 65 degrees QTcB Int : 435 ms Normal sinus rhythm Possible Left atrial enlargement Borderline ECG No previous ECGs available Referred By: Generic ED Physician Electronically Signed By: PAVAN HARMON MD
[2024-12-11 20:08] LABS: MANUAL DIFF FLAG NO
[2024-12-11 20:09] LABS: Basophils Percent Auto 0.4 % (0-2); Eosinophils Absolute Auto 0.1 X10*3/uL (0.0-0.4); Eosinophils Percent Auto 1.5 % (0-4); Hematocrit 34.2 % (37.0-47.0); Hemoglobin 11.5 g/dl (12.0-16.0); Imm Gran Abs Auto 0.02 X10*3/uL (0.00-0.03); Imm Gran Pct Auto 0.3 % (0.0-0.4); Lymphocytes Absolute Auto 0.9 X10*3/uL (1.2-4.9); Lymphocytes Percent Auto 12.6 % (20-40); Mean Corpuscular HGB Conc 33.6 g/dl (31.0-35.0); Mean Corpuscular Hemoglobin 30.7 pg (27.0-33.0); Mean Corpuscular Volume 91.2 fL (80.0-98.0); Mean Platelet Volume 8.8 fL (9.4-12.3); Monocytes Absolute Auto 0.6 X10*3/uL (0.1-1.2); Monocytes Percent Auto 8.3 % (2-11); Neutrophils Absolute Auto 5.6 x10*3/uL (2.0-8.3); Neutrophils Percent Auto 76.9 % (45-73); Platelet Count 332 X10*3/uL (160-400); Red Blood Count 3.75 X10*6/uL (4.20-5.50); Red Cell Distribution Width 13.6 % (11.0-16.0); White Blood Count 7.2 X10*3/uL (4.8-10.8)
[2024-12-11 20:26] LABS: Alanine Aminotransferase 17 U/L (0-31); Albumin Level 3.2 g/dL (3.5-5.0); Alkaline Phosphatase 56 U/L (39-117); Anion Gap 10 (12-20); Aspartate Amino Transferase 39 U/L (5-31); Bilirubin Total 0.4 mg/dL (0.0-1.0); Blood Urea Nitrogen 15 mg/dL (9-16); Calcium 8.4 mg/dL (8.4-10.2); Carbon Dioxide 30 mmol/L (22-29); Chloride 105 mmol/L (96-108); Estimated Glomerular Filt Rate > 60; Glucose Random 110 mg/dL (60-115); Potassium 3.8 mmol/L (3.3-5.1); Sodium 141 mmol/L (135-145); Total Protein 6.2 g/dL (6.5-8.0)
[2024-12-11 20:36] LABS: Troponin-I High Sensitivity < 2.7 ng/L (<3.5-17.0)
[2024-12-11 20:51] LABS: Influenza A PCR NEGATIVE (Negative); Influenza B PCR NEGATIVE (Negative); Resp Syncy Virus RNA Qual PCR NEGATIVE (Negative); SARS COV2 PCR INHOUSE NEGATIVE (Negative)
--- NOTE | 2024-12-11 21:27 | ED_ITS ---
HPI - Abdominal Pain General Chief Complaint: Abdominal Pain Stated Complaint: STOMACH PAIN X3DAYS, DIZZY PER EMS Time Seen by Provider: 12/11/24 20:45 Source: patient Mode of arrival: EMS Limitations: no limitations History of Present Illness ED Provider: Dr. Trinity Anguiano HPI narrative: Patient comes to the emergency room complaining of abdominal pain. Patient states that she was celebrating her birthday, And had sudden onset of lightheadedness. Emesis and started having distention and abdominal pain. Patient states that she has history of colon cancer status post chemotherapy and radiation, no resection. Patient states that she was instructed to get colonoscopies every 5 years. Patient states that she is overdue 2 years. Patient admits that over last year or so she has lost approximately 30 lb. Patient states that about 3 weeks ago she has a blood in the stool. Related Data Previous Rx's ?Medication ?Instructions ?Recorded ketorolac 10 mg tablet 10 mg PO TID PRN pain 5 days #15 06/15/24 tabs lidocaine 5 % topical patch 1 patch topical DAILY PRN pain #15 06/15/24 ea Allergies Allergy/AdvReac Type Severity Reaction Status Date / Time No Known Allergies Allergy Verified 12/11/24 19:39 Review of Systems Review of Systems Constitutional : admits to a 30 lb weight loss in 1 year, No Fever, No Chills, No Night Sweats, No Fatigue, No Malaise ENT/Mouth : No Hearing loss, No Ear Pain, No Nasal Congestion, No Sinus Pain, No Hoarseness, No sore throat, No Rhinorrhea, No Swallowing Difficulty Eyes: No Eye Pain, No Swelling, No Redness, No Foreign Body, No Discharge, No Vision Changes Cardiovascular : No Chest Pain, No SOB, No Dyspnea on Exertion, No Orthopnea, No Edema, No Palpitations Respiratory : No Cough, No Sputum, No Wheezing, No Smoke Exposure, No Dyspnea Gastrointestinal : complaining of nausea and vomiting No Diarrhea, No Constipation, No abdominal Pain, No Hematochezia, No Melena Genitourinary : no irregular bleeding, No Dysuria, No Urinary Frequency, No Hematuria, No Urinary Incontinence, No Urgency, No Flank Pain, No Urinary Flow Changes, No Hesitancy Musculoskeletal : No joint pain, No Myalgias, No Joint Swelling Skin : No Skin Lesions, No rash Neuro : No Weakness, No Numbness, No Paresthesias, No Loss of Consciousness, No Dizziness, No Headache Psych : No Anxiety/Panic, No Depression, No SI/HI/AH/VH, No Social Issues, Heme/Lymph: No Bruising, No Bleeding,No Lymphadenopathy Endocrine : No Polyuria, No Polydipsia, No Temperature Intolerance [facility] Past Medical History Medical History (Updated 12/11/24 @ 23:04 by Trinity Anguiano MD) Asthma Colon cancer Social History Social History Smoked in Last 30 Days: No Use of substances other than those prescribed or required for medical reasons: Yes Substance Use Type: Marijuana Substance Use Frequency: Daily Advance Directives: No Advance Directives Information Provided: No Do you have a plan to hurt others: No Plan Patient : No Physical Exam ED Vital Signs: Vital Signs - 24 hr 12/11/24 19:36 12/11/24 22:03 Temperature 98.2 F 98.2 F Pulse Rate 80 92 Respiratory Rate 14 19 Blood Pressure 96/52 L 103/55 L Pulse Oximetry 96 94 Oxygen Delivery Method Room Air Room Air BMI result Body Mass Index 16.4 Const Other: Appearance: Alert. Oriented X3. No acute distress. Eyes: Pupils equal, round and reactive to light. ENT: Pharynx normal. Neck: Normal inspection. Neck supple. No lymph nodes noted. No crepitus CVS: Normal heart rate and rhythm. Pulses normal. Normal S1 and S2 Respiratory: No respiratory distress. Breath sounds normal. No Wheezing. No rales Abdomen: Soft , nondistended, tenderness to palpation in the left lower quadrant Skin: Skin warm and dry. Normal skin color. Normal skin turgor. Extremities: No lower extremity edema. No Lacerations. No Rash Neuro: Oriented X 3. No motor deficit. No sensory deficit. Moving all extremities. No slurred speech. CN 2 through 12 grossly intact Psych: calm, cooperative, normal affect Course Course Course Narrative: patient receiving IV fluids, Zofran and morphine. All of patient's labs pending Medical Decision Making Medical Decision Making MDM Narrative: my interpretation of EKG: Normal sinus rhythm, heart rate 80, no ST segment depression or elevation, no T-wave inversion, QTC 435 my interpretation of labs: Patient's hemoglobin 11.5, previously 5 months ago was 13.5. No significant abnormality patient's chemistry, at baseline LFTs, normal troponin. Occult blood test positive CT scan shows dilation of the jejunum, likely an underlying small bowel obstruction or bowel ileus. Diffuse bowel wall thickening, possible enterocolitis. Increase conspicuity of heterogeneous osseous lesions in the pelvis, bony demineralization versus malignancy/metastases in the setting of malignancy after the IV medication and nausea meds, the patient has stopped vomiting. I discussed the patient with Dr. Campa, unlikely to be a small bowel obstruction, most likely ileus versus colitis, he will be consulting. Requesting admission to medicine. I discussed the patient with Dr. Waggoner, patient being admitted. it is likely that patient may need a GI consult I discussed the above-mentioned with the patient, patient agreeable with plan Differential Diagnosis Differential Diagnoses: The differential diagnosis associated with the presentation includes ( Small-bowel obstruction, malignancy, colitis) Admission/Observation Consideration of admission/observation: Escalation of care including admission/observation considered Consult Healthcare Provider Management of the patient was discussed with: Hospitalist and Continuous Process [employer] Lab Data MDM Lab Attestation statement: I reviewed the patient's lab results. 12/11/24 20:04 12/11/24 20:04 Labs: Lab Results 12/11/24 12/11/24 12/11/24 Range/Units 20:00 20:04 22:02 WBC 7.2 (4.8-10.8) X10*3/uL RBC 3.75 L (4.20-5.50) X10*6/uL Hgb 11.5 L (12.0-16.0) g/dl Hct 34.2 L (37.0-47.0) % MCV 91.2 (80.0-98.0) fL MCH 30.7 (27.0-33.0) pg MCHC 33.6 (31.0-35.0) g/dl RDW 13.6 (11.0-16.0) % Plt Count 332 D (160-400) X10*3/uL MPV 8.8 L (9.4-12.3) fL Immature Gran % (Auto) 0.3 (0.0-0.4) % Neut % (Auto) 76.9 H (45-73) % Lymph % (Auto) 12.6 L (20-40) % Kid[place] % (Auto) 8.3 (2-11) % Eos % (Auto) 1.5 (0-4) % Baso % (Auto) 0.4 (0-2) % Lymph # (Auto) 0.9 L (1.2-4.9) X10*3/uL [place] # (Auto) 0.6 (0.1-1.2) X10*3/uL Eos # (Auto) 0.1 (0.0-0.4) X10*3/uL Baso # (Auto) 0.0 (0.0-0.2) X10*3/uL Abs Immat Gran (auto) 0.02 (0.00-0.03) X10*3/uL Absolute Neuts (auto) 5.6 (2.0-8.3) x10*3/uL Absolute Nucleated RBC 0.000 (0.0-0.012) X10*3/uL Nucleated RBC % (auto) 0.0 (0.0-0.2) /100WBC Sodium 141 (135-145) mmol/L Potassium 3.8 (3.3-5.1) mmol/L Chloride 105 (96-108) mmol/L Carbon Dioxide 30 H (22-29) mmol/L Anion Gap 10 L (12-20) BUN 15 (9-16) mg/dL Creatinine 0.63 (0.5-1.4) mg/dL Estim Creat Clear Calc 74.0 Estimated GFR > 60 Random Glucose 110 (60-115) mg/dL Calcium 8.4 D (8.4-10.2) mg/dL Total Bilirubin 0.4 (0.0-1.0) mg/dL AST 39 H (5-31) U/L ALT 17 (0-31) U/L Alkaline Phosphatase 56 (39-117) U/L Troponin I High Sens < 2.7 (<3.5-17.0) ng/L Total Protein 6.2 L (6.5-8.0) g/dL Albumin 3.2 L (3.5-5.0) g/dL Lipase 24 (8-78) U/L Stool Occult Blood POSITIVE (NEGATIVE) Influenza Type A (PCR) NEGATIVE (Negative) Influenza Type B (PCR) NEGATIVE (Negative) RSV RNA Qual (PCR) NEGATIVE (Negative) SARS-CoV-2 RNA (RT-PCR) NEGATIVE (Negative) Independent Interpretation I performed an independent interpretation of an: CT Scan Radiology Impression Discussion of test interpretation with radiology: I have reviewed the radiologist's reading. Radiologist Impression: No consolidation or effusion. Mild emphysema within the bilateral lung bases. The gallbladder and solid organs are within normal limits. No hydronephrosis. No free intraperitoneal air. There is dilation of the proximal jejunum up to 5.2 cm in diameter, best visualized on coronal image number 21 of series 5. Minimal free fluid present at the lower abdomen. Mildly limited evaluation of the stomach related to gastric underdistention. Mild bowel wall thickening identified diffusely throughout the abdomen. No intra-abdominal or intrapelvic lymphadenopathy by CT size criteria identified. Pelvic contents unremarkable. No bladder wall thickening. Nondilated tubular structure identified medial to the cecum extending toward the midline, possibly consistent with a nondilated appendix. Heterogeneity of the bone identified, most prominent at the level of the bony pelvis. There is a left L5 pars interarticularis defect with grade 2 anterolisthesis of L5 on S1. IMPRESSION: 1. Dilation of the proximal jejunum up to 5.2 cm in diameter, suggesting an underlying small bowel obstruction or bowel ileus. 2. Diffuse bowel wall thickening redemonstrated, which may be related to a nonspecific enterocolitis or posttreatment change. 3. Vague heterogeneity of the osseous structures visualized, most prominent at the level of the bony pelvis, increased in conspicuity as compared to the prior examination. This may be related to small lytic lesions in the setting of malignancy/metastatic disease or interval increase in bony demineralization. Medications Administered Discontinued Medications Generic Name Dose Route Start Last Admin Trade Name Freq PRN Reason Stop Dose Admin Sodium Chloride 1,000 mls @ 999 mls/hr 12/11/24 21:23 12/11/24 21:36 Ns IVCONT 12/11/24 22:23 999 mls/hr .Q1H1M ONE Administration Iohexol 85 ml 12/11/24 22:06 12/11/24 22:07 Iohexol 350 Mg/Ml 100 Ml Infus..Btl IV 12/11/24 22:07 85 ml ONCE ONE Administration Morphine Sulfate 2 mg 12/11/24 21:23 12/11/24 21:30 Morphine Sulfate 2 Mg/Ml Cartridge IVPUSH 12/11/24 21:24 2 mg ONCE ONE Administration Protocol Ondansetron HCl 4 mg 12/11/24 21:33 12/11/24 21:33 Ondansetron Hcl 4 Mg/2 Ml Vial IVPUSH 12/11/24 21:34 4 mg ONCE ONE Administration Critical Care Time Critical Care Time Critical Care Time: Yes Total Critical Care Time: 60 Attestation: I have personally provided critical care time. Time includes review of lab data, radiology results, discussion with consultants, and monitoring for potential decompensation. Intervention performed as documented. Discharge Plan Discharge Clinical Impression: Abdominal pain, Nausea & vomiting, Occult GI bleeding Patient Disposition: Admitted As Inpatient Prescriptions: No Action ketorolac 10 mg tablet 10 mg PO TID PRN (Reason: pain) 5 Days Qty: 15 0RF Rx Instructions: Tolerated IM or IV in department lidocaine 5 % adhesive patch,medicated 1 patch topical DAILY PRN (Reason: pain) Qty: 15 0RF Rx Instructions: leave on most painful area for up to 12 hrs Print Language: Occitan
[2024-12-11] MEDS: Morphine Sulfate 2 MG/ML CARTRIDGE IVPUSH (21:30)
[2024-12-11] MEDS: ondansetron HCL 4 MG/2 ML VIAL IVPUSH (21:33)
[2024-12-11] MEDS: 0.9 % Sodium Chloride 1,000 ML 999 ML IVCONT (21:36)
[2024-12-11 21:41] LABS: Lipase 24 U/L (8-78)
[2024-12-11 22:03] VITALS: BP 103/55; PULSE 92; RESP 19; TEMP 36.8; O2SAT 94
[2024-12-11] MEDS: iohexoL 350 MG/ML 100 ML INFUS..BTL 85 ML IV (22:07)
[2024-12-11 22:08] LABS: OBS Int Ctl Valid YES; OBS1 POSITIVE (NEGATIVE)
--- NOTE | 2024-12-11 23:17 | PM.IMHP ---
History of Present Illness Date of Service: 12/11/24 Chief Complaint: Abdominal pain 59-year-old female with a past medical history of colon cancer status post chemotherapy/radiotherapy in 2010; tobacco dependence presented to the hospital today with a chief complaint of nausea vomiting and abdominal pain. Patient reports that for the past 3 days she has been having abdominal pain associated nausea and vomiting. Denies any blood in the vomitus. Also reports she has been having regular bowel movements. Last bowel movement was yesterday. And has been passing gas. Denies any chest pain or palpitations. Denies any fever chills cough or sputum production. Denies any urinary symptoms. Patient reports that she had blood in the stool recently. Denies any shortness of the dyspnea on exertion. Review of all other systems is negative except mentioned above ER course: Per ER team, patient had diffuse abdominal tenderness; CT abdomen pelvis showed findings concerning for SBO/ileus. Discussed with general surgery who suggested admission to the medicine service. Also noted to have leading bone lesions on the CT scan. [facility] Medical History (Updated 12/11/24 @ 23:04 by Trinity Anguiano MD) Asthma Colon cancer Social History Smoked in Last 30 Days: No Use of substances other than those prescribed or required for medical reasons: Yes Substance Use Type: Marijuana Substance Use Frequency: Daily Advance Directives: No Advance Directives Information Provided: No Do you have a plan to hurt others: No Plan Patient : No Meds Allergies Allergy/AdvReac Type Severity Reaction Status Date / Time No Known Allergies Allergy Verified 12/11/24 19:39 Physical Exam Vital Signs and Narrative: Vital Signs: Last Vital Signs Temp 98.2 F 12/11/24 22:03 Pulse 92 12/11/24 22:03 Resp 19 12/11/24 22:03 BP 103/55 L 12/11/24 22:03 Pulse Ox 94 12/11/24 22:03 O2 Del Method Room Air 12/11/24 22:03 BMI result Body Mass Index 16.4 Gen: Appears be in no acute distress HEENT: NCAT, Moist mucosa. Pulmonary: Vesicular breath sounds, fair air entry CVS: Normal S1-S2 Abdomen: BS+, Soft, tender diffusely, no guarding no rigidity Extremities: Warm well perfused Neuro: Alert and awake. Results Labs 12/11/24 20:04 12/11/24 20:04 Labs: Laboratory Results - last 24 hr 12/11/24 12/11/24 12/11/24 20:00 20:04 22:02 MCV 91.2 MCH 30.7 MCHC 33.6 RDW 13.6 Plt Count 332 D MPV 8.8 L Immature Gran % (Auto) 0.3 Neut % (Auto) 76.9 H Lymph % (Auto) 12.6 L [place]on % (Auto) 8.3 Eos % (Auto) 1.5 Baso % (Auto) 0.4 Lymph # (Auto) 0.9 L [place] # (Auto) 0.6 Eos # (Auto) 0.1 Baso # (Auto) 0.0 Abs Immat Gran (auto) 0.02 Absolute Neuts (auto) 5.6 Absolute Nucleated RBC 0.000 Nucleated RBC % (auto) 0.0 Anion Gap 10 L Estim Creat Clear Calc 74.0 Estimated GFR > 60 Random Glucose 110 Calcium 8.4 D Total Bilirubin 0.4 AST 39 H ALT 17 Alkaline Phosphatase 56 Total Protein 6.2 L Albumin 3.2 L Lipase 24 Stool Occult Blood POSITIVE Influenza Type A (PCR) NEGATIVE Influenza Type B (PCR) NEGATIVE RSV RNA Qual (PCR) NEGATIVE SARS-CoV-2 RNA (RT-PCR) NEGATIVE Assessment and Plan (1) Occult GI bleeding: Status: Acute Plan 59-year-old female with a past medical history of colon cancer status post chemotherapy/radiotherapy in 2010; tobacco dependence presented to the hospital today with a chief complaint of nausea vomiting and abdominal pain. Admitted for following SBO/ileus: Enterocolitis: CT scan shows Dilation of the proximal jejunum up to 5.2 cm in diameter, suggesting an underlying small bowel obstruction or bowel ileus. Also concern for possible enterocolitis. Patient reports passing gas. Notify General surgery-blue suggested continuation of management. NPO Gentle IV fluids General surgery follow-up in a.m.. Empirically covered with ceftriaxone and Flagyl GI bleed: Stool guaiac positive per ER physician. Hemoglobin 11.5 compared to baseline of 13. Serial H&H GI consult IV ppi HX colon cancer: Current CT scan showed lytic lesions. Oncology follow-up. DVT prophylaxis: SCD boots Code status: Code Quality Stroke Does the patient have a stroke diagnosis?: No VTE Prior VTE?: No VTE Risk Level:: Medical - moderate - high VTE Device Contraindication: N/A - Device Ordered VTE Drug Contraindication: Treatment Not Indicated
[2024-12-11 23:50] VITALS: BP 114/66; PULSE 84; RESP 13; TEMP 36.8; O2SAT 97
[2024-12-12] VITALS (8 sets, daily range): BP systolic 91–104; BP diastolic 55–57; PULSE 58–78; RESP 14–20; TEMP 36.1–36.8; O2SAT 97–99
[2024-12-12 00:12] LABS: Appearance Urine Clear; Color Urine Yellow; Glucose Urine UA Negative (Negative); Leukocyte Esterase Urine Negative (Negative); Nitrite Urine Negative (Negative); PH 8.5 (5.0-9.0); Specific Gravity - Urine >= 1.030 (1.005-1.025); UMIC TRIGGER UACC YES; Urine Blood Negative (Negative); Urine Ketones Negative (Negative); Urine Protein 30 (1+) mg/dL (Neg-Trace)
[2024-12-12 00:23] LABS: Bacteria Urine 1+ (None Seen); Hyaline Casts Urine 0-2 /LPF (0-2); RBC Urine 0-2 /HPF (0-2); Squamous Epithelial Cell Urine 0-2 /HPF (0-2); WBC Urine 0-5 /HPF (0-5)
[2024-12-12] MEDS: 0.9 % Sodium Chloride Flush 3 ML SYRINGE IVFLUSH ×2 (00:34→20:48)
[2024-12-12] MEDS: cefTRIAXone sodium 1 GM VIAL IVPUSH ×2 (00:34→20:48)
[2024-12-12] MEDS: Dextrose 5 % and 0.45 % NaCl 1,000 ML 100 ML IVCONT (00:35)
[2024-12-12] MEDS: metroNIDAZOLE/NS 500 MG/100 ML PIGGYBACK 100 MG IV ×3 (00:35→16:13)
[2024-12-12] MEDS: HYDROmorphone HCl 0.5 MG/0.5 ML SYRINGE IVPUSH (02:43)
[2024-12-12] MEDS: Pantoprazole Sodium 40 MG/10 ML VIAL IVPUSH (06:14)
[2024-12-12 07:57] LABS: MANUAL DIFF FLAG NO
[2024-12-12 08:02] LABS: Basophils Percent Auto 0.4 % (0-2); Eosinophils Absolute Auto 0.2 X10*3/uL (0.0-0.4); Eosinophils Percent Auto 5.1 % (0-4); Hematocrit 31.6 % (37.0-47.0); Hemoglobin 10.4 g/dl (12.0-16.0); Imm Gran Abs Auto 0.01 X10*3/uL (0.00-0.03); Imm Gran Pct Auto 0.2 % (0.0-0.4); Lymphocytes Absolute Auto 1.2 X10*3/uL (1.2-4.9); Lymphocytes Percent Auto 26.7 % (20-40); Mean Corpuscular HGB Conc 32.9 g/dl (31.0-35.0); Mean Corpuscular Hemoglobin 30.8 pg (27.0-33.0); Mean Corpuscular Volume 93.5 fL (80.0-98.0); Mean Platelet Volume 9.1 fL (9.4-12.3); Monocytes Absolute Auto 0.6 X10*3/uL (0.1-1.2); Monocytes Percent Auto 12.6 % (2-11); Neutrophils Absolute Auto 2.5 x10*3/uL (2.0-8.3); Platelet Count 276 X10*3/uL (160-400); Red Blood Count 3.38 X10*6/uL (4.20-5.50); Red Cell Distribution Width 13.7 % (11.0-16.0); White Blood Count 4.5 X10*3/uL (4.8-10.8)
[2024-12-12 08:17] LABS: Alanine Aminotransferase 14 U/L (0-31); Albumin Level 2.7 g/dL (3.5-5.0); Alkaline Phosphatase 47 U/L (39-117); Anion Gap 6 (12-20); Aspartate Amino Transferase 24 U/L (5-31); Bilirubin Total 0.3 mg/dL (0.0-1.0); Blood Urea Nitrogen 12 mg/dL (9-16); Calcium 7.8 mg/dL (8.4-10.2); Carbon Dioxide 30 mmol/L (22-29); Chloride 109 mmol/L (96-108); Creatinine Clr Calc Pharmacy 77.7; Estimated Glomerular Filt Rate > 60; Glucose Random 93 mg/dL (60-115); Potassium 4.1 mmol/L (3.3-5.1); Sodium 141 mmol/L (135-145)
--- NOTE | 2024-12-12 09:00 | P.PNIM_ITS ---
Subjective Subjective Date of Service: 12/12/24 Interval History: f/u on possible sbo, enterocolitis with n/v still with abdominal pain of 8/10, no n/v Physical Exam 2 Vital Signs: Vital Signs: Last Vital Signs Temp 97.6 F 12/12/24 07:27 Pulse 78 12/12/24 07:27 Resp 18 12/12/24 07:27 BP 96/56 L 12/12/24 07:27 Pulse Ox 98 12/12/24 07:27 O2 Del Method Room Air 12/12/24 07:27 BMI result Body Mass Index 16.4 Const: Other: Appearance: Alert. Oriented X3. No acute distress. CVS: Normal heart rate and rhythm. Pulses normal. Normal S1 and S2 Respiratory: No respiratory distress. Breath sounds normal. No Wheezing. No rales Abdomen: Soft , nondistended, +tenderness to palpation in the left lower quadrant Skin: Skin warm and dry. Normal skin color. Normal skin turgor. Extremities: No lower extremity edema. No Lacerations. No Rash Neuro: Oriented X 3. No motor deficit. No sensory deficit. Moving all extremities. No slurred speech. CN 2 through 12 grossly intact Psych: calm, cooperative, normal affect Objective Data Active Medications Acetaminophen (Acetaminophen 325 Mg Tablet) 650 mg PO Q6H PRN PRN Reason: Pain, Mild 1-3,fever,headache Calcium Carbonate (Calcium Carbonate 750 Mg Tab.Chew) 750 mg PO Q4H PRN PRN Reason: Heartburn Ceftriaxone Sodium (Ceftriaxone Sodium 1 Gm Vial) 1 gm IVPUSH BEDTIME [facility] Last Admin: 12/12/24 00:34 Dose: 1 gm Documented By: SANDY Dextrose/Sodium Chloride (D51/2ns) 1,000 mls @ 100 mls/hr IVCONT .Q10H [facility] Last Infusion: 12/12/24 03:22 Dose: 100 mls/hr Documented By: MICHELLE Metronidazole (Flagyl) 500 mg in 100 mls @ 100 mls/hr IV Q8H [facility] Last Admin: 12/12/24 08:54 Dose: 100 mls/hr Documented By: GAYATRI Magnesium Hydroxide (Milk Of Magnesia 30 Ml Oral.Susp) 30 ml PO DAILY PRN PRN Reason: Constipation Melatonin (Melatonin 3 Mg Tablet) 6 mg PO BEDTIME PRN PRN Reason: Insomnia Pantoprazole Sodium (Pantoprazole Sodium 40 Mg/10 Ml Vial) 40 mg IVPUSH DAILY@0630 [facility] Last Admin: 12/12/24 06:14 Dose: 40 mg Documented By: MICHELLE Sodium Chloride (0.9 % Sodium Chloride Flush 3 Ml Syringe) 3 ml IVFLUSH QSHIFT [facility] Last Admin: 12/12/24 08:56 Dose: Not Given Documented By: GAYATRI Non-Admin Reason: IV Running Labs 12/12/24 07:37 12/12/24 07:37 Labs: Laboratory Results - last 24 hr 12/11/24 12/11/24 12/11/24 20:00 20:04 22:02 MCV 91.2 MCH 30.7 MCHC 33.6 RDW 13.6 Plt Count 332 D MPV 8.8 L Immature Gran % (Auto) 0.3 Neut % (Auto) 76.9 H Lymph % (Auto) 12.6 L Island % (Auto) 8.3 Eos % (Auto) 1.5 Baso % (Auto) 0.4 Lymph # (Auto) 0.9 L [place] # (Auto) 0.6 Eos # (Auto) 0.1 Baso # (Auto) 0.0 Abs Immat Gran (auto) 0.02 Absolute Neuts (auto) 5.6 Absolute Nucleated RBC 0.000 Nucleated RBC % (auto) 0.0 Anion Gap 10 L Estim Creat Clear Calc 74.0 Estimated GFR > 60 Random Glucose 110 Calcium 8.4 D Total Bilirubin 0.4 AST 39 H ALT 17 Alkaline Phosphatase 56 Total Protein 6.2 L Albumin 3.2 L Lipase 24 Urine Color Urine Appearance Urine pH Ur Specific [place] Urine Protein Urine Glucose (UA) Urine Ketones Urine Blood Urine Nitrite Ur Leukocyte Esterase Urine RBC Urine WBC Ur Squamous Epith Cells Urine Bacteria Hyaline Casts Stool Occult Blood POSITIVE Influenza Type A (PCR) NEGATIVE Influenza Type B (PCR) NEGATIVE RSV RNA Qual (PCR) NEGATIVE SARS-CoV-2 RNA (RT-PCR) NEGATIVE 12/12/24 12/12/24 00:01 07:37 MCV 93.5 MCH 30.8 MCHC 32.9 RDW 13.7 Plt Count 276 MPV 9.1 L Immature Gran % (Auto) 0.2 Neut % (Auto) 55.0 Lymph % (Auto) 26.7 Island % (Auto) 12.6 H Eos % (Auto) 5.1 H Baso % (Auto) 0.4 Lymph # (Auto) 1.2 [place] # (Auto) 0.6 Eos # (Auto) 0.2 Baso # (Auto) 0.0 Abs Immat Gran (auto) 0.01 Absolute Neuts (auto) 2.5 Absolute Nucleated RBC 0.000 Nucleated RBC % (auto) 0.0 Anion Gap 6 L Estim Creat Clear Calc 77.7 Estimated GFR > 60 Random Glucose 93 Calcium 7.8 L D Total Bilirubin 0.3 AST 24 ALT 14 Alkaline Phosphatase 47 Total Protein 5.0 L Albumin 2.7 L Lipase Urine Color Yellow Urine Appearance Clear Urine pH 8.5 Ur Specific [place] >= 1.030 H Urine Protein 30 (1+) H Urine Glucose (UA) Negative Urine Ketones Negative Urine Blood Negative Urine Nitrite Negative Ur Leukocyte Esterase Negative Urine RBC 0-2 Urine WBC 0-5 Ur Squamous Epith Cells 0-2 Urine Bacteria 1+ Hyaline Casts 0-2 Stool Occult Blood Influenza Type A (PCR) Influenza Type B (PCR) RSV RNA Qual (PCR) SARS-CoV-2 RNA (RT-PCR) Assessment and Plan (1) Nausea & vomiting: Status: Acute (2) Abdominal pain: Status: Acute (3) Occult GI bleeding: Status: Acute Plan 59-year-old female with a past medical history of colon cancer status post chemotherapy/radiotherapy in 2010; tobacco dependence presented to the hospital today with a chief complaint of nausea vomiting and abdominal pain and found to have Ileus vs SBO and enterocolitis SBO/ileus: Enterocolitis: CT scan shows Dilation of the proximal jejunum up to 5.2 cm in diameter, suggesting an underlying small bowel obstruction or bowel ileus. Also concern for possible enterocolitis. Patient reports passing gas. Surgery evaluation NPO Gentle IV fluids morphine for pain, zofran for n/v Empirically covered with ceftriaxone and Flagyl for possible enterocolitis GI bleed/acute blood loss anemia Stool guaiac positive per ER physician. Hemoglobin 10 compared to baseline of 13 Serial H&H GI consult IV ppi and follow H/H HX colon cancer: Current CT scan showed lytic lesions. Oncology follow-up. DVT prophylaxis: SCD boots Code status: Code Quality Stroke Does the patient have a stroke diagnosis?: No VTE Prior VTE?: No VTE Risk Level:: Medical - moderate - high VTE Device Contraindication: N/A - Device Ordered VTE Drug Contraindication: Treatment Not Indicated
--- NOTE | 2024-12-12 09:08 | PHA.MEDREC ---
Addendum entered by Gilmar Caballero [facility] 12/12/24 09:15: MED REC CHECKED BY [facility] Original Note: Pharmacy Consult ? Medication Reconciliation Pharmacy has completed the medication reconciliation. Spoke with patient to confirm medications. She currently does not have a nicotine patch on, last had one yesterday. She reports naproxen is as needed. Patient said she took her medications yesterday.
--- NOTE | 2024-12-12 09:21 | P.CONGS_ITS ---
History of Present Illness Consult details Consult date: 12/12/24 Narrative: [age] year old female referred for question of small-bowel obstruction She came to the ER yesterday because of nausea and vomiting. She describes some crampy abdominal pain as well yesterday. She describes seeing some dark blood in her stools a few weeks ago She has a history of rectal cancer in 2010 treated with chemotherapy and radiation. She says she never had surgery for this. This was done in [place]. She says she went back to [place] for several years and came back again to the [place] this year. She says that she has not had any surveillance colonoscopy in a while. She also says she has not seen any oncologist for several years She admits to having had episodes of nausea, vomiting, abdominal pain, loose stools after her radiation treatment chemotherapy. Describes some weight loss as well. Review of Systems 2 Constitutional: Constitutional: Denies chills and Denies fever(s) Cardiovascular: Cardiovascular: Denies chest pain, Denies dyspnea and Denies dyspnea on exertion Respiratory: Respiratory: Denies cough, Denies dyspnea and Denies dyspnea on exertion Gastrointestinal: Gastrointestinal: Reports GI cramping Genitourinary: Genitourinary: Denies hematuria Musculoskeletal: Musculoskeletal: Denies back pain and Denies limited range of motion Neurologic: Denies focal weakness and Denies convulsions Psychiatric: Psychiatric: Denies depression and Denies mood swings PMFSH Past Medical History Medical History Asthma Colon cancer Social History Social History Household Members: Other Household Members Other:: sister Housing: House Patient Tobacco Use Status: Current someday Tobacco user Smoked in Last 30 Days: No Use of substances other than those prescribed or required for medical reasons: Yes Substance Use Type: Marijuana Substance Use Frequency: Daily Currently Displaying Signs/Symptoms of Drug Intoxication Withdrawal: No Do you feel safe in your current relationship?: No Advance Directives: No Advance Directives Information Provided: No Do you have a plan to hurt others: No Plan Recently lost weight without trying: Yes How much weight loss: Unsure Nutrition Risks: No Nutritional Risk Patient : No service: No Meds Allergies Allergy/AdvReac Type Severity Reaction Status Date / Time No Known Allergies Allergy Verified 12/11/24 19:39 Active Medications: Current Medications Acetaminophen (Acetaminophen 325 Mg Tablet) 650 mg PO Q6H PRN PRN Reason: Pain, Mild 1-3,fever,headache Calcium Carbonate (Calcium Carbonate 750 Mg Tab.Chew) 750 mg PO Q4H PRN PRN Reason: Heartburn Ceftriaxone Sodium (Ceftriaxone Sodium 1 Gm Vial) 1 gm IVPUSH BEDTIME [facility] Last Admin: 12/12/24 00:34 Dose: 1 gm Dextrose/Sodium Chloride (D51/2ns) 1,000 mls @ 125 mls/hr IVCONT .Q8H [facility] Last Infusion: 12/12/24 03:22 Dose: 100 mls/hr Metronidazole (Flagyl) 500 mg in 100 mls @ 100 mls/hr IV Q8H [facility] Last Admin: 12/12/24 08:54 Dose: 100 mls/hr Magnesium Hydroxide (Milk Of Magnesia 30 Ml Oral.Susp) 30 ml PO DAILY PRN PRN Reason: Constipation Melatonin (Melatonin 3 Mg Tablet) 6 mg PO BEDTIME PRN PRN Reason: Insomnia Morphine Sulfate (Morphine Sulfate 2 Mg/Ml Cartridge) 2 mg IVPUSH Q4H PRN; Protocol PRN Reason: Pain, Severe (Pain Scale 7-10) Ondansetron HCl (Ondansetron Hcl 4 Mg/2 Ml Vial) 4 mg IVPUSH Q8H PRN PRN Reason: Nausea and Vomiting Pantoprazole Sodium (Pantoprazole Sodium 40 Mg/10 Ml Vial) 40 mg IVPUSH DAILY@0630 [facility] Last Admin: 12/12/24 06:14 Dose: 40 mg Sodium Chloride (0.9 % Sodium Chloride Flush 3 Ml Syringe) 3 ml IVFLUSH QSHIFT [facility] Last Admin: 12/12/24 08:56 Dose: Not Given Home Medications ?Medication ?Instructions ?Recorded ?Confirmed ?Last Taken ?Type albuterol sulfate 90 mcg/actuation 2 puff inhalation QID PRN 12/12/24 12/12/24 Unknown History aerosol inhaler (Ventolin HFA) Shortness Of Breath Or Wheezing fluticasone furoate 100 1 inh inhalation DAILY 12/12/24 12/12/24 12/11/24 History mcg/actuation blister powder for inhalation (Arnuity Ellipta) fluticasone propionate 50 1 spray intranasal BID PRN Allergy 12/12/24 12/12/24 Unknown History mcg/actuation nasal Symptoms spray,suspension loratadine 10 mg tablet 10 mg PO DAILY 12/12/24 12/12/24 12/11/24 History montelukast 10 mg tablet 10 mg PO DAILY 12/12/24 12/12/24 12/11/24 History kbfgpmkv-qfhz-nuet 8 mg-folic 400 1 tab PO DAILY 12/12/24 12/12/24 12/11/24 History mcg-K 50 mcg-lutein 300 mcg tablet (Spectravite Women 50 Plus) naproxen 500 mg tablet 500 mg PO BID PRN Pain (Scale 12/12/24 12/12/24 Unknown History Score 1-3) nicotine 21 mg/24 hr daily 1 patch topical DAILY 12/12/24 12/12/24 12/11/24 History transdermal patch sertraline 100 mg tablet 100 mg PO QAM 12/12/24 12/12/24 12/11/24 History trazodone 50 mg tablet 50 mg PO BEDTIME insomnia 12/12/24 12/12/24 Unknown History Physical Exam 2 Vital Signs: Vital Signs: Last Vital Signs Temp 97.6 F 12/12/24 07:27 Pulse 78 12/12/24 07:27 Resp 18 12/12/24 07:27 BP 96/56 L 12/12/24 07:27 Pulse Ox 98 12/12/24 07:27 O2 Del Method Room Air 12/12/24 07:27 BMI result Body Mass Index 16.4 Const: General: comfortable and no acute distress O rientation/consciousness: patient oriented x3 Neck: Neck: Yes no lymphadenopathy Resp: Auscultation: clear to auscultation bilaterally Cardio: Rhythm: regular rhythm GI: Palpation (GI): Soft to palpation, Tenderness to palpation present (GI) (Mild diffuse tenderness) and no guarding Neuro: General: patient oriented x3 Results Labs 12/13/24 07:39 12/13/24 07:39 Labs: Abnormal lab results 12/11/24 12/12/24 12/12/24 Range/Units 20:04 00:01 07:37 WBC 4.5 L (4.8-10.8) X10*3/uL RBC 3.75 L 3.38 L (4.20-5.50) X10*6/uL Hgb 11.5 L 10.4 L (12.0-16.0) g/dl Hct 34.2 L 31.6 L (37.0-47.0) % MPV 8.8 L 9.1 L (9.4-12.3) fL Neut % (Auto) 76.9 H (45-73) % Lymph % (Auto) 12.6 L (20-40) % [place] % (Auto) 12.6 H (2-11) % Eos % (Auto) 5.1 H (0-4) % Lymph # (Auto) 0.9 L (1.2-4.9) X10*3/uL Chloride 109 H (96-108) mmol/L Carbon Dioxide 30 H 30 H (22-29) mmol/L Anion Gap 10 L 6 L (12-20) Calcium 7.8 L D (8.4-10.2) mg/dL AST 39 H (5-31) U/L Total Protein 6.2 L 5.0 L (6.5-8.0) g/dL Albumin 3.2 L 2.7 L (3.5-5.0) g/dL Ur Specific [place] >= 1.030 H (1.005-1.025) Urine Protein 30 (1+) H (Neg-Trace) mg/dL Short CBC 12/11/24 12/12/24 Range/Units 20:04 07:37 WBC 7.2 4.5 L (4.8-10.8) X10*3/uL Hgb 11.5 L 10.4 L (12.0-16.0) g/dl Hct 34.2 L 31.6 L (37.0-47.0) % Plt Count 332 D 276 (160-400) X10*3/uL BMP 12/11/24 12/12/24 20:04 07:37 Sodium 141 141 Potassium 3.8 4.1 Chloride 105 109 H Carbon Dioxide 30 H 30 H BUN 15 12 Creatinine 0.63 0.60 Calcium 8.4 D 7.8 L D Liver Function 12/11/24 12/12/24 Range/Units 20:04 07:37 Total Bilirubin 0.4 0.3 (0.0-1.0) mg/dL AST 39 H 24 (5-31) U/L ALT 17 14 (0-31) U/L Alkaline Phosphatase 56 47 (39-117) U/L Albumin 3.2 L 2.7 L (3.5-5.0) g/dL Urine 12/12/24 Range/Units 00:01 Urine Color Yellow Urine Appearance Clear Urine pH 8.5 (5.0-9.0) Ur Specific [place] >= 1.030 H (1.005-1.025) Urine Protein 30 (1+) H (Neg-Trace) mg/dL Urine Glucose (UA) Negative (Negative) mg/dL All other labs normal. Assessment and Plan (1) Abdominal pain: Status: Acute She came in because of abdominal pain, nausea and vomiting. She has a history of radiation and chemotherapy for rectal cancer in 2010. She apparently has had poor follow-up and has not seen an oncologist in years Review of her CAT scan shows dilated jejunal bowel loops with an obvious transition point distally. She does have significant thickening of multiple loops of small bowel. She is passing flatus and actually has had bowel movements. Overall clinical picture suggest more of an enteritis. I would keep her NPO on bowel rest for now. Her CEA levels should be checked. It may be good to consult Gastroenterology as well. Her abdominal exam is benign at this time. I will follow along while she is in the hospital. Procedures Date of Service Date of Service: 12/13/24
--- NOTE | 2024-12-12 09:21 | MHC.CM.PN ---
CM met with Patient at bedside. Patient lives in a house with her Sister; either her Sister or her Mother will transport to home at time of dc. Patient uses a cane only when she is experiencing back pain. Home/self care is Patient's goal and CM has initiated and will follow for dc planning. PCP is Dr. Aguirre
[2024-12-12] MEDS: ondansetron HCL 4 MG/2 ML VIAL IVPUSH (10:12)
[2024-12-12] MEDS: Morphine Sulfate 2 MG/ML CARTRIDGE IVPUSH ×3 (10:12→20:49)
[2024-12-12] MEDS: Dextrose 5 % and 0.45 % NaCl 1,000 ML 125 ML IVCONT ×2 (13:47→20:48)
[2024-12-12] MEDS: Acetaminophen 325 MG TABLET 650 MG PO ×2 (16:22→22:06)
--- NOTE | 2024-12-12 17:12 | PM.EVENT ---
Event Note Date of Service: 12/12/24 Event Note: GI Consult-Full note dictated-History from patient and EMR Imp: Clinical course c/w a resolving SBO vs. ileus. She describes that things are much better, as compared to yesterday, in regard to much improved abdominal distention and discomfort, as well as no further vomiting. This may have been some type of infectious enteritis with an associated ileus vs. a mechanical obstruction. I don't think it is related to her distant history of rectal cancer in 2007 as she did not have surgery for that. She did have XRT, but it would be an unusual place for a XRT-associated stricture to cause a problem given that it was XRT for a low-lying rectal cancer. Rec: Continue supportive care. Advance diet as tolerated to low residue over the next 24-48 hours as long as it is OK with Dr. Campa. She has not had a colonoscopy in about 7 years. However, she advises me that she has a 2PM appointment on Saturday, 12/14 with what sounds like a provider at [facility]. Therefore, it would be best to try to have her be discharged on 12/14, if stable, and make that appointment. D/W patient in detail and she is comfortable with that plan. Thanks. Time Spent With Patient Time: Total time managing care of this patient today ____ minutes.
[2024-12-12] MEDS: Sertraline HCL 100 MG TABLET PO (17:43)
[2024-12-12] MEDS: Fluticasone Propionate 100 MCG BLST.W.DEV 1 PUFF INHALE (19:05)
[2024-12-12] MEDS: traZODone HCL 50 MG TABLET PO (20:48)
--- NOTE | 2024-12-12 21:48 | CONS_ITS ---
DATE OF SERVICE: 12/12/2024 REASON FOR CONSULTATION: Vomiting, diarrhea, and abnormal CT scan of GI tract. HISTORY OF PRESENT ILLNESS: The patient is a 59-year-old female with a notable history for a rectal cancer treated in 2007 in [place], [place]. She describes that she did not require surgery, but did receive chemotherapy and radiation treatments. She describes that she had periodic colonoscopies in [place] and [place] thereafter, but her last 1 was about 7 years ago. She reports that she does have intermittent problems with some diarrhea and abdominal discomfort at times, but nothing particularly prolonged or requiring hospitalization. However, she describes about 3 days now persistent issues with abdominal distention, abdominal cramping and pain, vomiting, and occasionally loose stools. Due to the symptoms, she came to the ER and was evaluated. She was admitted after a CT scan revealed a dilated area of small intestine. She has not required a nasogastric tube, but reports that things are much better today than they were yesterday. She describes that she has much less abdominal distention, is no longer vomiting, and has passed some gas rectally. She presently reports that she is comfortable and denies abdominal pain. She has been afebrile. She reports her only surgery is that of a tubal ligation. She denies any abdominal surgeries otherwise. She thinks her father may have had rectal cancer or some type of colon cancer. MEDICATIONS AT HOME: Albuterol inhaler p.r.n. MEDICATIONS HERE IN THE HOSPITAL: Include acetaminophen p.r.n., albuterol inhaler p.r.n., IV ceftriaxone, Flonase, loratadine, melatonin p.r.n., IV Flagyl, Singulair, morphine p.r.n., multivitamins, nicotine patch, Zofran p.r.n., IV pantoprazole, sertraline, and trazodone. PAST MEDICAL HISTORY: Tubal ligation. Rectal cancer as above. She describes some asthma. Anxiety. She denies any history of heart disease, diabetes, or stroke. SOCIAL HISTORY: She does smoke. She denies any significant alcohol use. FAMILY HISTORY: As above. PHYSICAL EXAMINATION: GENERAL: The patient is a pleasant, thin, alert, comfortable female in no distress. SKIN: Warm and dry. HEENT: Anicteric sclerae. Moist mucous membranes. CHEST: Clear. CARDIAC: Normal S1, S2. ABDOMEN: Soft and nondistended. Bowel sounds are present. There is no significant tenderness, rebound, or guarding. EXTREMITIES: Without edema. LABORATORY DATA: White blood cell count 4.5, hemoglobin 10.4, MCV 94, and platelets 276,000. Normal electrolytes. BUN 12, creatinine 0.6. LFTs normal. Albumin 2.7. Lipase level was 24. Stool was Hemoccult positive. Her CT scan of the abdomen and pelvis describes a dilatation of the proximal jejunum up to 5 cm in diameter. There is only minimal intraabdominal fluid. There is some mild bowel wall thickening diffusely in the abdomen, but no evidence of any significant lymphadenopathy. IMPRESSION: Given the patient's symptomatology and rapid improvement, this may very well have represented some type of ileus due to an infectious enteritis causing her presentation with fairly prompt improvement. The other possibility would be that of some type of mechanical obstruction, although she has not had any abdominal surgeries. She has had radiation treatments for the rectal cancer, but given the location of the cancer and the location of the radiation this would be unusual to cause intraabdominal adhesions and obstruction on that basis. In any event, this does seem to be improving. At this point, I will continue supportive care and advance her diet as tolerated to low residue as long as that is okay with Dr. Campa. She has not had a colonoscopy in about 7 years as mentioned above although, she does advise me that she has a 2 o'clock appointment on December 14 with what sounds like 1 of the providers at [facility]. I did advise her that would be an important appointment to keep such that she can schedule an outpatient colonoscopy for sometime down the road as she has not had 1 in many years and does have a history of rectal cancer. Hopefully she will able to be discharged by December 14 and make it over for that appointment. At this point, I do not think she needs an inpatient evaluation with colonoscopy or upper endoscopy. This has all been discussed in detail with the patient and she is comfortable with that plan. Thank you for the consultation. MD PHILLIP Diaz/KANDACE / [id number] KEV
[2024-12-13] VITALS (7 sets, daily range): BP systolic 107–117; BP diastolic 51–59; PULSE 54–67; RESP 14–20; TEMP 36.1–36.8; O2SAT 96–99
[2024-12-13] MEDS: metroNIDAZOLE/NS 500 MG/100 ML PIGGYBACK 100 MG IV ×4 (00:19→22:54)
[2024-12-13] MEDS: Acetaminophen 325 MG TABLET 650 MG PO ×2 (03:13→13:35)
[2024-12-13] MEDS: Morphine Sulfate 2 MG/ML CARTRIDGE IVPUSH ×4 (03:13→20:43)
[2024-12-13] MEDS: Dextrose 5 % and 0.45 % NaCl 1,000 ML 125 ML IVCONT ×3 (05:43→20:57)
[2024-12-13] MEDS: Pantoprazole Sodium 40 MG/10 ML VIAL IVPUSH (06:12)
[2024-12-13] MEDS: Fluticasone Propionate 100 MCG BLST.W.DEV 1 PUFF INHALE (07:41)
[2024-12-13 08:16] LABS: Hematocrit 32.2 % (37.0-47.0); Hemoglobin 10.6 g/dl (12.0-16.0); Mean Corpuscular HGB Conc 32.9 g/dl (31.0-35.0); Mean Corpuscular Hemoglobin 30.6 pg (27.0-33.0); Mean Corpuscular Volume 93.1 fL (80.0-98.0); Mean Platelet Volume 9.1 fL (9.4-12.3); Platelet Count 252 X10*3/uL (160-400); Red Blood Count 3.46 X10*6/uL (4.20-5.50); Red Cell Distribution Width 13.2 % (11.0-16.0); White Blood Count 3.2 X10*3/uL (4.8-10.8)
[2024-12-13 08:32] LABS: Iron 73 mcg/dL (30-160); Percent Iron Saturation 28 % (15-50); Total Iron Binding Capacity 259 mcg/dL (228-428); Unsaturated Iron Binding 186 ug/dL
[2024-12-13] MEDS: Nicotine 21 MG PATCH.TD24 TRANSDERMA (08:38)
[2024-12-13] MEDS: Montelukast Sodium 10 MG TABLET PO (08:38)
[2024-12-13] MEDS: Loratadine 10 MG TABLET PO (08:38)
[2024-12-13] MEDS: Sertraline HCL 100 MG TABLET PO (08:38)
[2024-12-13] MEDS: Multivitamin TABLET 1 TAB PO (08:38)
[2024-12-13 08:39] LABS: Blood Urea Nitrogen 4 mg/dL (9-16); Estimated Glomerular Filt Rate > 60; Glucose Random 95 mg/dL (60-115)
[2024-12-13 08:43] LABS: Anion Gap 11 (12-20); Carbon Dioxide 25 mmol/L (22-29); Chloride 109 mmol/L (96-108); Potassium 3.2 mmol/L (3.3-5.1); Sodium 142 mmol/L (135-145)
[2024-12-13 08:52] LABS: Ferritin 110 ng/mL (10-250)
[2024-12-13 09:07] LABS: Folate 14.3 ng/mL (> or = 4.0); Vitamin B12 263 pg/mL (200-900)
[2024-12-13] MEDS: ondansetron HCL 4 MG/2 ML VIAL IVPUSH ×2 (09:36→16:54)
--- NOTE | 2024-12-13 09:49 | PM.PNGS ---
Subjective Subjective Date of Service: 12/13/24 Interval history: Feels much better this morning Describes some mild abdominal pain this is much improved Passing flatus No nausea or vomiting Physical Exam Vital Signs: Vital Signs: Last Vital Signs Temp 97.2 F 12/13/24 07:24 Pulse 67 12/13/24 07:42 Resp 18 12/13/24 07:42 BP 112/55 L 12/13/24 07:24 Pulse Ox 98 12/13/24 07:24 O2 Del Method Room Air 12/13/24 07:24 BMI result Body Mass Index 16.4 Const: General: comfortable and no acute distress Resp: Effort & Inspection: normal respiratory effort Cardio: Rate: regular rate GI: Inspection: No distended Palpation (GI): Soft to palpation, not firm, nontender and no guarding Objective Data Active Medications Acetaminophen (Acetaminophen 325 Mg Tablet) 650 mg PO Q6H PRN PRN Reason: Pain, Mild 1-3,fever,headache Last Admin: 12/13/24 03:13 Dose: 650 mg Documented By: JANNET Albuterol Sulfate (Albuterol Sulfate 90 Mcg 8 Gm Inhaler) 2 puff INHALE QID PRN PRN Reason: Shortness Of Breath Or Wheezing Calcium Carbonate (Calcium Carbonate 750 Mg Tab.Chew) 750 mg PO Q4H PRN PRN Reason: Heartburn Ceftriaxone Sodium (Ceftriaxone Sodium 1 Gm Vial) 1 gm IVPUSH BEDTIME [facility] Last Admin: 12/12/24 20:48 Dose: 1 gm Documented By: JANNET Fluticasone Propionate (Fluticasone Propionate Nasal 16 Gm [place]) 1 spray NOSTRIL-B BID PRN PRN Reason: Allergy Symptoms Fluticasone Propionate (Fluticasone Propionate 100 Mcg Blst.W.Dev) 1 puff INHALE RBID [facility] Last Admin: 12/13/24 07:41 Dose: 1 puff Documented By: CELESTE Dextrose/Sodium Chloride (D51/2ns) 1,000 mls @ 125 mls/hr IVCONT .Q8H [facility] Last Admin: 12/13/24 05:43 Dose: 125 mls/hr Documented By: NEVIN Metronidazole (Flagyl) 500 mg in 100 mls @ 100 mls/hr IV Q8H [facility] Last Infusion: 12/13/24 09:41 Dose: Infused Documented By: GAYATRI Loratadine (Loratadine 10 Mg Tablet) 10 mg PO DAILY [facility] Last Admin: 12/13/24 08:38 Dose: 10 mg Documented By: GAYATRI Magnesium Hydroxide (Milk Of Magnesia 30 Ml Oral.Susp) 30 ml PO DAILY PRN PRN Reason: Constipation Melatonin (Melatonin 3 Mg Tablet) 6 mg PO BEDTIME PRN PRN Reason: Insomnia Montelukast Sodium (Montelukast Sodium 10 Mg Tablet) 10 mg PO DAILY [facility] Last Admin: 12/13/24 08:38 Dose: 10 mg Documented By: GAYATRI Morphine Sulfate (Morphine Sulfate 2 Mg/Ml Cartridge) 2 mg IVPUSH Q4H PRN; Protocol PRN Reason: Pain, Severe (Pain Scale 7-10) Last Admin: 12/13/24 08:40 Dose: 2 mg Documented By: GAYATRI Multivitamins/Vitamin C (Multivitamin Tablet) 1 tab PO DAILY [facility] Last Admin: 12/13/24 08:38 Dose: 1 tab Documented By: GAYATRI Nicotine (Nicotine 21 Mg Patch.Td24) 21 mg TRANSDERMA DAILY [facility] Last Admin: 12/13/24 08:38 Dose: 21 mg Documented By: GAYATRI Ondansetron HCl (Ondansetron Hcl 4 Mg/2 Ml Vial) 4 mg IVPUSH Q8H PRN PRN Reason: Nausea and Vomiting Last Admin: 12/13/24 09:36 Dose: 4 mg Documented By: GAYATRI Pantoprazole Sodium (Pantoprazole Sodium 40 Mg/10 Ml Vial) 40 mg IVPUSH DAILY@0630 [facility] Last Admin: 12/13/24 06:12 Dose: 40 mg Documented By: NEVIN Sertraline HCl (Sertraline Hcl 100 Mg Tablet) 100 mg PO DAILY [facility] Last Admin: 12/13/24 08:38 Dose: 100 mg Documented By: GAYATRI Sodium Chloride (0.9 % Sodium Chloride Flush 3 Ml Syringe) 3 ml IVFLUSH QSHIFT [facility] Last Admin: 12/13/24 07:42 Dose: Not Given Documented By: GAYATRI Non-Admin Reason: IV Running Trazodone HCl (Trazodone Hcl 50 Mg Tablet) 50 mg PO BEDTIME [facility] Last Admin: 12/12/24 20:48 Dose: 50 mg Documented By: JANNET Labs 12/13/24 07:39 12/13/24 07:39 Labs: Laboratory Results - last 24 hr 12/13/24 12/13/24 07:34 07:39 MCV 93.1 MCH 30.6 MCHC 32.9 RDW 13.2 Plt Count 252 MPV 9.1 L Absolute Nucleated RBC 0.000 Nucleated RBC % (auto) 0.0 Hold Purple Top SEE NOTE Anion Gap 11 L Estim Creat Clear Calc 74.0 Estimated GFR > 60 Random Glucose 95 Calcium 8.0 L Iron 73 TIBC 259 % Saturation 28 Unsat Iron Binding 186 Ferritin 110 Carcinoembryonic Ag 5.90 Vitamin B12 263 Folate 14.3 Microbiology Microbiology Results: Microbiology 12/12/24 00:01 Blood Culture - Preliminary Blood - Venous No growth after 24 hours. 12/12/24 00:01 Blood Culture - Preliminary Blood - Venous No growth after 24 hours. Procedures Date of Service Date of Service: 12/13/24 Progress Note: A&P Assessment and plan (1) Nausea & vomiting: Status: Acute Assessment and Plan: Clinically not obstructed She is much improved Hemoglobin steady She has a history of rectal cancer - we will need surveillance colonoscopy as she has had poor follow-up Have had some enteritis as well Okay to slowly advance diet as tolerated GI following Time Spent With Patient Time: Total time managing care of this patient today ____ minutes. Quality Stroke Does the patient have a stroke diagnosis?: No VTE Prior VTE?: No VTE Risk Level:: Medical - moderate - high VTE Device Contraindication: N/A - Device Ordered VTE Drug Contraindication: Treatment Not Indicated
--- NOTE | 2024-12-13 09:50 | PC.NURSE ---
pt did not tolerate clear liquid diet. reporting N, abd distention and increase in abd pain now 06/25. Dr. galvin notified. medicated per NOV. see new orders
--- NOTE | 2024-12-13 10:37 | HO.PM.IMPN ---
Subjective Subjective Date of Service: 12/13/24 Interval History: f/u on possible sbo, enterocolitis with n/v was feeling better this morning with minimal pain and exam bening, started on liquid and subsequently experienced nause and pain, kub showed no obstruction mural thickening as before Physical Exam Vital Signs: Vital Signs: Last Vital Signs Temp 97.2 F 12/13/24 07:24 Pulse 67 12/13/24 07:42 Resp 18 12/13/24 07:42 BP 112/55 L 12/13/24 07:24 Pulse Ox 98 12/13/24 07:24 O2 Del Method Room Air 12/13/24 07:24 BMI result Body Mass Index 16.4 Const: Other: General: AO X 3, no acute distress Resp: CTA bilateral CVS: S1,S2,RRR GI: +BS, minimal tenderness, and no distention Skin: No rash Neuro: motor grossly intact Psych: appropriate affect Objective Data Active Medications Acetaminophen (Acetaminophen 325 Mg Tablet) 650 mg PO Q6H PRN PRN Reason: Pain, Mild 1-3,fever,headache Last Admin: 12/13/24 03:13 Dose: 650 mg Documented By: JANNET Albuterol Sulfate (Albuterol Sulfate 90 Mcg 8 Gm Inhaler) 2 puff INHALE QID PRN PRN Reason: Shortness Of Breath Or Wheezing Calcium Carbonate (Calcium Carbonate 750 Mg Tab.Chew) 750 mg PO Q4H PRN PRN Reason: Heartburn Ceftriaxone Sodium (Ceftriaxone Sodium 1 Gm Vial) 1 gm IVPUSH BEDTIME [facility] Last Admin: 12/12/24 20:48 Dose: 1 gm Documented By: JANNET Fluticasone Propionate (Fluticasone Propionate Nasal 16 Gm [place]) 1 spray NOSTRIL-B BID PRN PRN Reason: Allergy Symptoms Fluticasone Propionate (Fluticasone Propionate 100 Mcg Blst.W.Dev) 1 puff INHALE RBID [facility] Last Admin: 12/13/24 07:41 Dose: 1 puff Documented By: CELESTE Dextrose/Sodium Chloride (D51/2ns) 1,000 mls @ 125 mls/hr IVCONT .Q8H [facility] Last Admin: 12/13/24 05:43 Dose: 125 mls/hr Documented By: NEVIN Metronidazole (Flagyl) 500 mg in 100 mls @ 100 mls/hr IV Q8H [facility] Last Infusion: 12/13/24 09:41 Dose: Infused Documented By: GAYATRI Loratadine (Loratadine 10 Mg Tablet) 10 mg PO DAILY [facility] Last Admin: 12/13/24 08:38 Dose: 10 mg Documented By: GAYATRI Magnesium Hydroxide (Milk Of Magnesia 30 Ml Oral.Susp) 30 ml PO DAILY PRN PRN Reason: Constipation Melatonin (Melatonin 3 Mg Tablet) 6 mg PO BEDTIME PRN PRN Reason: Insomnia Montelukast Sodium (Montelukast Sodium 10 Mg Tablet) 10 mg PO DAILY [facility] Last Admin: 12/13/24 08:38 Dose: 10 mg Documented By: GAYATRI Morphine Sulfate (Morphine Sulfate 2 Mg/Ml Cartridge) 2 mg IVPUSH Q4H PRN; Protocol PRN Reason: Pain, Severe (Pain Scale 7-10) Last Admin: 12/13/24 08:40 Dose: 2 mg Documented By: GAYATRI Multivitamins/Vitamin C (Multivitamin Tablet) 1 tab PO DAILY [facility] Last Admin: 12/13/24 08:38 Dose: 1 tab Documented By: GAYATRI Nicotine (Nicotine 21 Mg Patch.Td24) 21 mg TRANSDERMA DAILY [facility] Last Admin: 12/13/24 08:38 Dose: 21 mg Documented By: GAYATRI Ondansetron HCl (Ondansetron Hcl 4 Mg/2 Ml Vial) 4 mg IVPUSH Q8H PRN PRN Reason: Nausea and Vomiting Last Admin: 12/13/24 09:36 Dose: 4 mg Documented By: GAYATRI Pantoprazole Sodium (Pantoprazole Sodium 40 Mg/10 Ml Vial) 40 mg IVPUSH DAILY@0630 [facility] Last Admin: 12/13/24 06:12 Dose: 40 mg Documented By: NEVIN Sertraline HCl (Sertraline Hcl 100 Mg Tablet) 100 mg PO DAILY [facility] Last Admin: 12/13/24 08:38 Dose: 100 mg Documented By: GAYATRI Sodium Chloride (0.9 % Sodium Chloride Flush 3 Ml Syringe) 3 ml IVFLUSH QSHIFT [facility] Last Admin: 12/13/24 07:42 Dose: Not Given Documented By: HO.RICCIAV Non-Admin Reason: IV Running Trazodone HCl (Trazodone Hcl 50 Mg Tablet) 50 mg PO BEDTIME [facility] Last Admin: 12/12/24 20:48 Dose: 50 mg Documented By: JANNET Labs 12/13/24 07:39 12/13/24 07:39 Labs: Laboratory Results - last 24 hr 12/13/24 12/13/24 07:34 07:39 MCV 93.1 MCH 30.6 MCHC 32.9 RDW 13.2 Plt Count 252 MPV 9.1 L Absolute Nucleated RBC 0.000 Nucleated RBC % (auto) 0.0 Hold Purple Top SEE NOTE Anion Gap 11 L Estim Creat Clear Calc 74.0 Estimated GFR > 60 Random Glucose 95 Calcium 8.0 L Iron 73 TIBC 259 % Saturation 28 Unsat Iron Binding 186 Ferritin 110 Carcinoembryonic Ag 5.90 Vitamin B12 263 Folate 14.3 Microbiology Microbiology Results: Microbiology 12/12/24 00:01 Blood Culture - Preliminary Blood - Venous No growth after 24 hours. 12/12/24 00:01 Blood Culture - Preliminary Blood - Venous No growth after 24 hours. Assessment and Plan (1) Nausea & vomiting: Status: Acute (2) Abdominal pain: Status: Acute (3) Occult GI bleeding: Status: Acute Plan 59-year-old female with a past medical history of colon cancer status post chemotherapy/radiotherapy in 2010; tobacco dependence presented to the hospital today with a chief complaint of nausea vomiting and abdominal pain and found to have Ileus vs SBO and enterocolitis SBO vs ileus, no clinical evidence of obstruction, exam bening, and passing fltus, kub no evidence of obstruction. Enterocolitis: Patient reports passing gas. Surgery following advance diet, starting with clear liquid iet Gentle IV fluids morphine for pain, zofran for n/v Empirically covered with ceftriaxone and Flagyl for possible enterocolitis GI bleed/acute blood loss anemia Stool guaiac positive Hemoglobin 10 compared to baseline of 13, H/H unchanged stable at 10 GI following, no intervention at this time, but may need colonoscopy, will discuss with primary GI team tomorrow IV ppi and follow H/H HX colon cancer: Current CT scan showed lytic lesions. Oncology follow-up. DVT prophylaxis: SCD boots given anemia, positive occult blood Code status: Code Quality Stroke Does the patient have a stroke diagnosis?: No VTE Prior VTE?: No VTE Risk Level:: Medical - moderate - high VTE Device Contraindication: N/A - Device Ordered VTE Drug Contraindication: Treatment Not Indicated
[2024-12-13] MEDS: traZODone HCL 50 MG TABLET PO (20:43)
[2024-12-13] MEDS: cefTRIAXone sodium 1 GM VIAL IVPUSH (20:43)
[2024-12-14] VITALS (10 sets, daily range): BP systolic 91–124; BP diastolic 50–68; PULSE 58–73; RESP 15–20; TEMP 36.6–37.7; O2SAT 95–98; BMI 16.4
--- NOTE | 2024-12-14 | ECG_ITS ---
Test Reason : chest pain Blood Pressure : */* mmHG Vent. Rate : 66 BPM Atrial Rate : 66 BPM P-R Int : 130 ms QRS Dur : 86 ms QT Int : 416 ms P-R-T Axes : 73 -37 57 degrees QTcB Int : 436 ms Normal sinus rhythm Possible Left atrial enlargement Left axis deviation Nonspecific T wave abnormality Abnormal ECG When compared with ECG of 11-Dec-2024 20:05, QRS axis Shifted left Referred By: Jose Vasquez Electronically Signed By: DINA GARCES
[2024-12-14] MEDS: Dextrose 5 % and 0.45 % NaCl 1,000 ML 50 ML IVCONT ×2 (00:14→15:42)
--- NOTE | 2024-12-14 00:16 | MHC.PIE ---
p; ivf d5 1/2ns at 125ml/h dc'd? note; pt still on npo with abd pain i; dr kelly notified. new order d5 1/2ns at 50ml/h e; will cont to monitor
[2024-12-14] MEDS: Morphine Sulfate 2 MG/ML CARTRIDGE IVPUSH ×3 (02:24→12:53)
[2024-12-14] MEDS: Pantoprazole Sodium 40 MG/10 ML VIAL IVPUSH (05:41)
[2024-12-14 06:41] LABS: Hematocrit 34.2 % (37.0-47.0); Hemoglobin 11.6 g/dl (12.0-16.0); Mean Corpuscular HGB Conc 33.9 g/dl (31.0-35.0); Mean Corpuscular Hemoglobin 31.1 pg (27.0-33.0); Mean Corpuscular Volume 91.7 fL (80.0-98.0); Mean Platelet Volume 9.5 fL (9.4-12.3); Platelet Count 287 X10*3/uL (160-400); Red Blood Count 3.73 X10*6/uL (4.20-5.50); Red Cell Distribution Width 12.9 % (11.0-16.0); White Blood Count 3.6 X10*3/uL (4.8-10.8)
[2024-12-14 07:03] LABS: Anion Gap 9 (12-20); Blood Urea Nitrogen < 3 mg/dL (9-16); Calcium 8.6 mg/dL (8.4-10.2); Carbon Dioxide 31 mmol/L (22-29); Chloride 106 mmol/L (96-108); Creatinine Clr Calc Pharmacy 71.7; Estimated Glomerular Filt Rate > 60; Glucose Random 95 mg/dL (60-115); Potassium 3.1 mmol/L (3.3-5.1); Sodium 143 mmol/L (135-145)
[2024-12-14] MEDS: Fluticasone Propionate 100 MCG BLST.W.DEV 1 PUFF INHALE ×2 (07:46→18:51)
--- NOTE | 2024-12-14 07:52 | PM.PNGS ---
Subjective Subjective Date of Service: 12/14/24 Interval history: Main complaint is headaches Admits to having some abdominal pain periodically although less in intensity No diarrhea No vomiting Physical Exam Vital Signs: Vital Signs: Last Vital Signs Temp 98.2 F 12/14/24 07:02 Pulse 58 12/14/24 07:47 Resp 16 12/14/24 07:47 BP 121/58 L 12/14/24 07:02 Pulse Ox 97 12/14/24 07:02 O2 Del Method Room Air 12/14/24 07:02 BMI result Body Mass Index 16.4 Const: General: comfortable and no acute distress Resp: Effort & Inspection: normal respiratory effort Cardio: Rate: regular rate GI: Palpation (GI): Soft to palpation, not firm, nontender and no guarding Objective Data Active Medications Acetaminophen (Acetaminophen 325 Mg Tablet) 650 mg PO Q6H PRN PRN Reason: Pain, Mild 1-3,fever,headache Last Admin: 12/13/24 13:35 Dose: 650 mg Documented By: GAYATRI Albuterol Sulfate (Albuterol Sulfate 90 Mcg 8 Gm Inhaler) 2 puff INHALE QID PRN PRN Reason: Shortness Of Breath Or Wheezing Calcium Carbonate (Calcium Carbonate 750 Mg Tab.Chew) 750 mg PO Q4H PRN PRN Reason: Heartburn Ceftriaxone Sodium (Ceftriaxone Sodium 1 Gm Vial) 1 gm IVPUSH BEDTIME [facility] Last Admin: 12/13/24 20:43 Dose: 1 gm Documented By: DESTINEE Fluticasone Propionate (Fluticasone Propionate Nasal 16 Gm [place]) 1 spray NOSTRIL-B BID PRN PRN Reason: Allergy Symptoms Fluticasone Propionate (Fluticasone Propionate 100 Mcg Blst.W.Dev) 1 puff INHALE RBID [facility] Last Admin: 12/14/24 07:46 Dose: 1 puff Documented By: ALESSIO Metronidazole (Flagyl) 500 mg in 100 mls @ 100 mls/hr IV Q8H [facility] Last Infusion: 12/13/24 23:55 Dose: Infused Documented By: DESTINEE Dextrose/Sodium Chloride (D51/2ns) 1,000 mls @ 50 mls/hr IVCONT .Q20H [facility] Last Admin: 12/14/24 00:14 Dose: 50 mls/hr Documented By: DESTINEE Loratadine (Loratadine 10 Mg Tablet) 10 mg PO DAILY [facility] Last Admin: 12/13/24 08:38 Dose: 10 mg Documented By: GAYATRI Magnesium Hydroxide (Milk Of Magnesia 30 Ml Oral.Susp) 30 ml PO DAILY PRN PRN Reason: Constipation Melatonin (Melatonin 3 Mg Tablet) 6 mg PO BEDTIME PRN PRN Reason: Insomnia Montelukast Sodium (Montelukast Sodium 10 Mg Tablet) 10 mg PO DAILY [facility] Last Admin: 12/13/24 08:38 Dose: 10 mg Documented By: GAYATRI Morphine Sulfate (Morphine Sulfate 2 Mg/Ml Cartridge) 2 mg IVPUSH Q4H PRN; Protocol PRN Reason: Pain, Severe (Pain Scale 7-10) Last Admin: 12/14/24 02:24 Dose: 2 mg Documented By: DESTINEE Multivitamins/Vitamin C (Multivitamin Tablet) 1 tab PO DAILY [facility] Last Admin: 12/13/24 08:38 Dose: 1 tab Documented By: GAYATRI Nicotine (Nicotine 21 Mg Patch.Td24) 21 mg TRANSDERMA DAILY [facility] Last Admin: 12/13/24 08:38 Dose: 21 mg Documented By: GAYATRI Ondansetron HCl (Ondansetron Hcl 4 Mg/2 Ml Vial) 4 mg IVPUSH Q8H PRN PRN Reason: Nausea and Vomiting Last Admin: 12/13/24 16:54 Dose: 4 mg Documented By: JONH Pantoprazole Sodium (Pantoprazole Sodium 40 Mg/10 Ml Vial) 40 mg IVPUSH DAILY@0630 [facility] Last Admin: 12/14/24 05:41 Dose: 40 mg Documented By: DESTINEE Sertraline HCl (Sertraline Hcl 100 Mg Tablet) 100 mg PO DAILY [facility] Last Admin: 12/13/24 08:38 Dose: 100 mg Documented By: GAYATRI Sodium Chloride (0.9 % Sodium Chloride Flush 3 Ml Syringe) 3 ml IVFLUSH QSHIFT [facility] Last Admin: 12/13/24 22:03 Dose: Not Given Documented By: DESTINEE Non-Admin Reason: IV Running Trazodone HCl (Trazodone Hcl 50 Mg Tablet) 50 mg PO BEDTIME [facility] Last Admin: 12/13/24 20:43 Dose: 50 mg Documented By: DESTINEE Labs 12/14/24 05:43 12/14/24 05:43 Labs: Laboratory Results - last 24 hr 12/13/24 12/13/24 12/14/24 07:34 07:39 05:43 MCV 93.1 91.7 MCH 30.6 31.1 MCHC 32.9 33.9 RDW 13.2 12.9 Plt Count 252 287 MPV 9.1 L 9.5 Absolute Nucleated RBC 0.000 0.000 Nucleated RBC % (auto) 0.0 0.0 Hold Purple Top SEE NOTE Anion Gap 11 L 9 L Estim Creat Clear Calc 74.0 71.7 Estimated GFR > 60 > 60 Random Glucose 95 95 Calcium 8.0 L 8.6 D Iron 73 TIBC 259 % Saturation 28 Unsat Iron Binding 186 Ferritin 110 Carcinoembryonic Ag 5.90 Vitamin B12 263 Folate 14.3 Microbiology Microbiology Results: Microbiology 12/12/24 00:01 Blood Culture - Preliminary Blood - Venous No growth after 48 hours. 12/12/24 00:01 Blood Culture - Preliminary Blood - Venous No growth after 48 hours. Procedures Date of Service Date of Service: 12/14/24 Progress Note: A&P Assessment and plan (1) Abdominal pain: Status: Acute Assessment and Plan: Clinically not obstructed Abdomen is soft and benign Okay to advance diet again as tolerated Hemoglobin stable GI workup Looks well overall For CAT scan of the head today in view of her headaches Time Spent With Patient Time: Total time managing care of this patient today ____ minutes. Quality Stroke Does the patient have a stroke diagnosis?: No VTE Prior VTE?: No VTE Risk Level:: Medical - moderate - high VTE Device Contraindication: N/A - Device Ordered VTE Drug Contraindication: Treatment Not Indicated
[2024-12-14] MEDS: metroNIDAZOLE/NS 500 MG/100 ML PIGGYBACK 100 MG IV ×3 (08:24→23:16)
[2024-12-14] MEDS: 0.9 % Sodium Chloride Flush 3 ML SYRINGE IVFLUSH (08:25)
[2024-12-14] MEDS: Nicotine 21 MG PATCH.TD24 TRANSDERMA (08:27)
--- NOTE | 2024-12-14 08:29 | P.PNIM_ITS ---
Subjective Subjective Date of Service: 12/14/24 Interval History: f/u on possible sbo, enterocolitis with n/v still with some abdominal discomfort, nausea Physical Exam 2 Vital Signs: Vital Signs: Last Vital Signs Temp 98.2 F 12/14/24 07:02 Pulse 58 12/14/24 07:47 Resp 16 12/14/24 07:47 BP 121/58 L 12/14/24 07:02 Pulse Ox 97 12/14/24 07:02 O2 Del Method Room Air 12/14/24 07:02 BMI result Body Mass Index 16.4 Const: Other: General: AO X 3, no acute distress Resp: CTA bilateral CVS: S1,S2,RRR GI: +BS, minimal tenderness, and no distention Skin: No rash Neuro: motor grossly intact Psych: appropriate affect Objective Data Active Medications Acetaminophen (Acetaminophen 325 Mg Tablet) 650 mg PO Q6H PRN PRN Reason: Pain, Mild 1-3,fever,headache Last Admin: 12/13/24 13:35 Dose: 650 mg Documented By: GAYATRI Albuterol Sulfate (Albuterol Sulfate 90 Mcg 8 Gm Inhaler) 2 puff INHALE QID PRN PRN Reason: Shortness Of Breath Or Wheezing Calcium Carbonate (Calcium Carbonate 750 Mg Tab.Chew) 750 mg PO Q4H PRN PRN Reason: Heartburn Ceftriaxone Sodium (Ceftriaxone Sodium 1 Gm Vial) 1 gm IVPUSH BEDTIME [facility] Last Admin: 12/13/24 20:43 Dose: 1 gm Documented By: DESTINEE Fluticasone Propionate (Fluticasone Propionate Nasal 16 Gm [place]) 1 spray NOSTRIL-B BID PRN PRN Reason: Allergy Symptoms Fluticasone Propionate (Fluticasone Propionate 100 Mcg Blst.W.Dev) 1 puff INHALE RBID [facility] Last Admin: 12/14/24 07:46 Dose: 1 puff Documented By: ALESSIO Metronidazole (Flagyl) 500 mg in 100 mls @ 100 mls/hr IV Q8H [facility] Last Admin: 12/14/24 08:24 Dose: 100 mls/hr Documented By: WERO Dextrose/Sodium Chloride (D51/2ns) 1,000 mls @ 50 mls/hr IVCONT .Q20H [facility] Last Admin: 12/14/24 00:14 Dose: 50 mls/hr Documented By: DESTINEE Loratadine (Loratadine 10 Mg Tablet) 10 mg PO DAILY [facility] Last Admin: 12/13/24 08:38 Dose: 10 mg Documented By: GAYATRI Magnesium Hydroxide (Milk Of Magnesia 30 Ml Oral.Susp) 30 ml PO DAILY PRN PRN Reason: Constipation Melatonin (Melatonin 3 Mg Tablet) 6 mg PO BEDTIME PRN PRN Reason: Insomnia Montelukast Sodium (Montelukast Sodium 10 Mg Tablet) 10 mg PO DAILY [facility] Last Admin: 12/13/24 08:38 Dose: 10 mg Documented By: GAYATRI Morphine Sulfate (Morphine Sulfate 2 Mg/Ml Cartridge) 2 mg IVPUSH Q4H PRN; Protocol PRN Reason: Pain, Severe (Pain Scale 7-10) Last Admin: 12/14/24 02:24 Dose: 2 mg Documented By: DESTINEE Multivitamins/Vitamin C (Multivitamin Tablet) 1 tab PO DAILY [facility] Last Admin: 12/13/24 08:38 Dose: 1 tab Documented By: GAYATRI Nicotine (Nicotine 21 Mg Patch.Td24) 21 mg TRANSDERMA DAILY [facility] Last Admin: 12/14/24 08:27 Dose: 21 mg Documented By: WERO Ondansetron HCl (Ondansetron Hcl 4 Mg/2 Ml Vial) 4 mg IVPUSH Q8H PRN PRN Reason: Nausea and Vomiting Last Admin: 12/13/24 16:54 Dose: 4 mg Documented By: JONH Pantoprazole Sodium (Pantoprazole Sodium 40 Mg/10 Ml Vial) 40 mg IVPUSH DAILY@0630 [facility] Last Admin: 12/14/24 05:41 Dose: 40 mg Documented By: DESTINEE Potassium Chloride (Potassium Chloride Er 20 Meq Tab.Er.Prt) 40 meq PO ONCE ONE Stop: 12/14/24 08:29 Sertraline HCl (Sertraline Hcl 100 Mg Tablet) 100 mg PO DAILY [facility] Last Admin: 12/13/24 08:38 Dose: 100 mg Documented By: GAYATRI Sodium Chloride (0.9 % Sodium Chloride Flush 3 Ml Syringe) 3 ml IVFLUSH QSHIFT [facility] Last Admin: 12/14/24 08:25 Dose: 3 ml Documented By: WERO Trazodone HCl (Trazodone Hcl 50 Mg Tablet) 50 mg PO BEDTIME [facility] Last Admin: 12/13/24 20:43 Dose: 50 mg Documented By: DESTINEE Labs 12/14/24 05:43 12/14/24 05:43 Labs: Laboratory Results - last 24 hr 12/13/24 12/14/24 07:39 05:43 MCV 91.7 MCH 31.1 MCHC 33.9 RDW 12.9 Plt Count 287 MPV 9.5 Absolute Nucleated RBC 0.000 Nucleated RBC % (auto) 0.0 Anion Gap 11 L 9 L Estim Creat Clear Calc 74.0 71.7 Estimated GFR > 60 > 60 Random Glucose 95 95 Calcium 8.0 L 8.6 D Iron 73 TIBC 259 % Saturation 28 Unsat Iron Binding 186 Ferritin 110 Carcinoembryonic Ag 5.90 Vitamin B12 263 Folate 14.3 Microbiology Microbiology Results: Microbiology 12/12/24 00:01 Blood Culture - Preliminary Blood - Venous No growth after 48 hours. 12/12/24 00:01 Blood Culture - Preliminary Blood - Venous No growth after 48 hours. Assessment and Plan (1) Nausea & vomiting: Status: Acute (2) Abdominal pain: Status: Acute (3) Occult GI bleeding: Status: Acute Plan 59-year-old female with a past medical history of colon cancer status post chemotherapy/radiotherapy in 2010; tobacco dependence presented to the hospital today with a chief complaint of nausea vomiting and abdominal pain and found to have Ileus vs SBO and enterocolitis SBO vs ileus, no clinical evidence of obstruction, exam bening, and passing fltus, kub no evidence of obstruction. clinically no SBO Enterocolitis: Patient reports passing gas. Surgery following advance diet, starting with clear liquid iet Gentle IV fluids morphine for pain, zofran for n/v Empirically covered with ceftriaxone and Flagyl for possible enterocolitis GI bleed/acute blood loss anemia Stool guaiac positive Hemoglobin 10 compared to baseline of 13, H/H unchanged stable at 11 GI following, no intervention at this time, but may need colonoscopy, will discuss with primary GI team tomorrow IV ppi and follow H/H HX colon cancer: Current CT scan showed lytic lesions. Oncology follow-up. DVT prophylaxis: SCD boots given anemia, positive occult blood Code status: Code Quality Stroke Does the patient have a stroke diagnosis?: No VTE Prior VTE?: No VTE Risk Level:: Medical - moderate - high VTE Device Contraindication: N/A - Device Ordered VTE Drug Contraindication: Treatment Not Indicated
[2024-12-14] MEDS: Sertraline HCL 100 MG TABLET PO (08:38)
[2024-12-14] MEDS: Acetaminophen 325 MG TABLET 650 MG PO (08:38)
[2024-12-14] MEDS: Montelukast Sodium 10 MG TABLET PO (08:38)
[2024-12-14] MEDS: Multivitamin TABLET 1 TAB PO (08:38)
[2024-12-14] MEDS: Loratadine 10 MG TABLET PO (08:38)
[2024-12-14] MEDS: Potassium Chloride ER 20 MEQ TAB.ER.PRT 40 MEQ PO (08:46)
[2024-12-14] MEDS: Albuterol Sulfate 90 MCG 8 GM INHALER 2 PUFF INHALE (09:42)
--- NOTE | 2024-12-14 11:13 | MHC.CLN ---
NUTRITION CLEAR LIQUID DIET. ADDING ENSURE CLEAR TID (720 KCAL, 24 G PROTEIN). 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 QUALIFIES MODERATELY MALNOURISHED IN THE CONTEXT OF CHRONIC ILLNESS. FOLLOW FOR DIET ADVANCEMENT AND CONTINUE NUTRITIONAL SUPPLEMENTS. SEE CLINICAL NUTRITION ASSESSMENT 12/14/24.
--- NOTE | 2024-12-14 12:30 | PC.NURSE ---
At approx 1148, pt c/o L sided chest pain radiating down L arm. Pt unable to provide pain description, said it was lasting for approx thirty seconds, going away for approx 30 seconds, and coming back again. MD aware. EKG done. Labs ordered.
--- NOTE | 2024-12-14 12:31 | MHC.CM.PN ---
Per MD rounds patient is not clear to discharge today. MD plans to advance diet today. If patient tolerates diet she may discharge tomorrow. DP Home self care. Mother will provide transportation home.
[2024-12-14 12:46] LABS: Troponin-I High Sensitivity < 2.7 ng/L (<3.5-17.0)
[2024-12-14] MEDS: oxyCODONE HCl Immed Release 5 MG TABLET PO (18:25)
[2024-12-14] MEDS: traZODone HCL 50 MG TABLET PO (20:20)
[2024-12-14] MEDS: cefTRIAXone sodium 1 GM VIAL IVPUSH (20:21)
--- NOTE | 2024-12-14 23:32 | P.CNHO_ITS ---
Subjective - Subjective Chief complaint: Consult for: 1. H/O Rectal cancer. 2. Lytic lesions. Patient: new to practice Consult date: 12/14/24 Requesting Physician: Christina. Primary Care Provider: July Aguirre MD Family Provider: Carla. Medical Summary: DIAGNOSIS: 1. LYTIC LESIONS. 2. History of rectal carcinoma. Supervisor Mapping Utilized?: No - Kiswahili Speaking HPI - Consult Narrative Reason for consult: 1. Duodenal mass. 2. Lytic lesion. Narrative: Yamileth Contreras is a 59 year old lady, with a past medical history of colon cancer status post chemotherapy/radiotherapy in 2010. She presented to the hospital with complaints of nausea, vomiting and abdominal pain. She reported that for the past 3 days she has been having abdominal pain associated nausea and vomiting. Denies any blood in the vomitus. Also reported she had been having regular bowel movements. She has been passing gas. Patient reports that she had blood in the stool recently. Denies any chest pain or palpitations. Denies any shortness of the dyspnea on exertion. Denies any fever chills cough or sputum production. Denies any urinary symptoms. ER course: Patient had diffuse abdominal tenderness. CT abdomen pelvis showed findings concerning for SBO/ileus. Also noted to have leading bone lesions on the CT scan. Case was discussed with general surgery who suggested admission to the medicine service. Medical History:) Asthma Colon cancer Social History:) tobacco dependence. Smoked in Last 30 Days: No Use of substances other than those prescribed or required for medical reasons: Yes Substance Use Type: Marijuana Substance Use Frequency: Daily Advance Directives: No Review of all other systems is negative except mentioned above. Review of Systems - Constitutional Reports no additional constitutional complaints, Reports lack of energy, Reports malaise, Reports poor appetite, Reports weakness, Reports weight loss - Eyes Reports no additional eye complaints - ENT Reports no additional ear, nose, mouth, and throat complaints - Cardiovascular Reports no additional cardiovascular complaints - Respiratory Reports no additional respiratory complaints - Gastrointestinal Reports no additional gastrointestinal complaints - Genitourinary Reports no additional female genitourinary complaints - Musculoskeletal Reports no additional musculoskeletal complaints - Integumentary/Breasts Skin/Breast: Reports no additional skin complaints - Neurologic Denies focal weakness, Denies convulsions - Psychiatric Reports no additional psychiatric complaints - Endocrine Reports no additional endocrine complaints - Hematologic/Lymphatic Reports no additional hematologic/lymphatic complaints - Allergic/Immunologic Reports no additional allergic/immunologic complaints Oncology Screenings - ECOG Performance Status ECOG Performance Status: 2 [facility] Medical History: Medical History (Last Reviewed 12/12/24 @ 09:24 by Tye Campa MD) Asthma Colon cancer Functional capacity: wheelchair bound Patient : No Social History: Social History (Last Reviewed 12/12/24 @ 09:24 by Tye Campa MD) Living Situation History: Household Members: Other Household Members Other:: sister Housing: House Tobacco History: Patient Tobacco Use Status: Current someday Tobacco Substance Use History: Substance Use Type: Marijuana Occupation Assessmet: service: No Home Medications and Allergies Current Medications: Current Medications Acetaminophen (Acetaminophen 325 Mg Tablet) 650 mg PO Q6H PRN PRN Reason: Pain, Mild 1-3,fever,headache Last Admin: 12/14/24 08:38 Dose: 650 mg Albuterol Sulfate (Albuterol Sulfate 90 Mcg 8 Gm Inhaler) 2 puff INHALE QID PRN PRN Reason: Shortness Of Breath Or Wheezing Last Admin: 12/14/24 09:42 Dose: 2 puff Calcium Carbonate (Calcium Carbonate 750 Mg Tab.Chew) 750 mg PO Q4H PRN PRN Reason: Heartburn Ceftriaxone Sodium (Ceftriaxone Sodium 1 Gm Vial) 1 gm IVPUSH BEDTIME [facility] Last Admin: 12/14/24 20:21 Dose: 1 gm Fluticasone Propionate (Fluticasone Propionate Nasal 16 Gm [place]) 1 spray NOSTRIL-B BID PRN PRN Reason: Allergy Symptoms Fluticasone Propionate (Fluticasone Propionate 100 Mcg Blst.W.Dev) 1 puff INHALE RBID [facility] Last Admin: 12/14/24 18:51 Dose: 1 puff Metronidazole (Flagyl) 500 mg in 100 mls @ 100 mls/hr IV Q8H [facility] Last Admin: 12/14/24 23:16 Dose: 100 mls/hr Dextrose/Sodium Chloride (D51/2ns) 1,000 mls @ 50 mls/hr IVCONT .Q20H [facility] Last Infusion: 12/14/24 23:16 Dose: 0 mls/hr Loratadine (Loratadine 10 Mg Tablet) 10 mg PO DAILY [facility] Last Admin: 12/14/24 08:38 Dose: 10 mg Magnesium Hydroxide (Milk Of Magnesia 30 Ml Oral.Susp) 30 ml PO DAILY PRN PRN Reason: Constipation Melatonin (Melatonin 3 Mg Tablet) 6 mg PO BEDTIME PRN PRN Reason: Insomnia Montelukast Sodium (Montelukast Sodium 10 Mg Tablet) 10 mg PO DAILY [facility] Last Admin: 12/14/24 08:38 Dose: 10 mg Morphine Sulfate (Morphine Sulfate 2 Mg/Ml Cartridge) 2 mg IVPUSH Q4H PRN; Protocol PRN Reason: Pain, Severe (Pain Scale 7-10) Last Admin: 12/14/24 12:53 Dose: 2 mg Multivitamins/Vitamin C (Multivitamin Tablet) 1 tab PO DAILY [facility] Last Admin: 12/14/24 08:38 Dose: 1 tab Nicotine (Nicotine 21 Mg Patch.Td24) 21 mg TRANSDERMA DAILY [facility] Last Admin: 12/14/24 08:27 Dose: 21 mg Ondansetron HCl (Ondansetron Hcl 4 Mg/2 Ml Vial) 4 mg IVPUSH Q8H PRN PRN Reason: Nausea and Vomiting Last Admin: 12/13/24 16:54 Dose: 4 mg Oxycodone HCl (Oxycodone Hcl Immed Release 5 Mg Tablet) 5 mg PO Q6H PRN PRN Reason: Pain, Moderate(Pain Scale 4-6) Last Admin: 12/14/24 18:25 Dose: 5 mg Pantoprazole Sodium (Pantoprazole Sodium 40 Mg/10 Ml Vial) 40 mg IVPUSH DAILY@0630 [facility] Last Admin: 12/14/24 05:41 Dose: 40 mg Sertraline HCl (Sertraline Hcl 100 Mg Tablet) 100 mg PO DAILY [facility] Last Admin: 12/14/24 08:38 Dose: 100 mg Sodium Chloride (0.9 % Sodium Chloride Flush 3 Ml Syringe) 3 ml IVFLUSH QSHIFT [facility] Last Admin: 12/14/24 20:29 Dose: Not Given Trazodone HCl (Trazodone Hcl 50 Mg Tablet) 50 mg PO BEDTIME [facility] Last Admin: 12/14/24 20:20 Dose: 50 mg Home Medications ?Medication ?Instructions ?Recorded ?Confirmed ?Type albuterol sulfate 90 mcg/actuation 2 puff inhalation QID PRN 12/12/24 12/12/24 History aerosol inhaler (Ventolin HFA) Shortness Of Breath Or Wheezing fluticasone furoate 100 1 inh inhalation DAILY 12/12/24 12/12/24 History mcg/actuation blister powder for inhalation (Arnuity Ellipta) fluticasone propionate 50 1 spray intranasal BID PRN Allergy 12/12/24 12/12/24 History mcg/actuation nasal Symptoms spray,suspension loratadine 10 mg tablet 10 mg PO DAILY 12/12/24 12/12/24 History montelukast 10 mg tablet 10 mg PO DAILY 12/12/24 12/12/24 History morcaswu-wbcf-hmxs 8 mg-folic 400 1 tab PO DAILY 12/12/24 12/12/24 History mcg-K 50 mcg-lutein 300 mcg tablet (Spectravite Women 50 Plus) nicotine 21 mg/24 hr daily 1 patch topical DAILY 12/12/24 12/12/24 History transdermal patch sertraline 100 mg tablet 100 mg PO QAM 12/12/24 12/12/24 History trazodone 50 mg tablet 50 mg PO BEDTIME insomnia 12/12/24 12/12/24 History Allergies Allergy/AdvReac Type Severity Reaction Status Date / Time Milk Containing Products AdvReac Diarrhea Verified 12/15/24 09:17 (Dairy) Physical Exam Vital signs: Vital Signs Temp 97.8 F 12/14/24 23:17 Pulse 73 12/14/24 23:17 Resp 18 12/14/24 23:17 BP 124/66 12/14/24 19:48 Pulse Ox 96 12/14/24 23:17 O2 Del Method Room Air 12/14/24 23:17 Intake & Output 12/14/24 12/14/24 12/15/24 06:59 18:59 06:59 Intake Total 1106.250 / 3586.250 1452.5 / 1816.667 364.167 / 1816.667 Balance 1106.250 / 3586.250 1452.5 / 1816.667 364.167 / 1816.667 Intake: Intake, Oral Amount 420 / 540 120 / 540 Intake, IV Amount 1106.250 / 2306.250 1032.5 / 1276.667 244.167 / 1276.667 metroNIDAZOLE/NS 500 mg In 100 100 / 300 200 / 200 ml @ 100 mls/hr IV Q8H [facility] Rx#: [id number] Dextrose 5 % and 0.45 % NaCl 1, 1006.250 / 2006.250 832.5 / 1076.667 244.167 / 1076.667 000 ml @ 50 mls/hr IVCONT .Q20H [facility] Rx#:[id number] Other: Meal Refused No NPO Yes No Breakfast % Eaten 100% Lunch % Eaten 75% Dinner % Eaten 50% Eating (Feeding) Ability Independent Number of Unmeasured Voids 1 1 Urine Bathroom Last Bowel Movement 12/12/24 Weight 47.6 kg Weight 47.6 kg - Constitutional Present: mild distress - Routine HEENT Exam Head: Present: normal inspection, normocephalic Eye: Present: normal appearance ENT: Present: mucous membranes moist - Routine Neck Exam Present: supple - Routine Respiratory Exam Present: CTAB - Routine Cardiovascular Exam Cardiovascular: Present: RRR, S1, S2 - Routine Abdominal Exam Present: tenderness - Routine Extremities Exam Present: nontender Hem/Onc Consult Result - Labs CBC & Chem 7: 12/17/24 12:47 12/17/24 12:47 Labs: Short CBC 12/14/24 Range/Units 05:43 WBC 3.6 L (4.8-10.8) X10*3/uL Hgb 11.6 L (12.0-16.0) g/dl Hct 34.2 L (37.0-47.0) % Plt Count 287 (160-400) X10*3/uL BMP 12/14/24 05:43 Sodium 143 Potassium 3.1 L Chloride 106 Carbon Dioxide 31 H BUN < 3 L Creatinine 0.65 Calcium 8.6 D Assessment and Plan Patient Active problem list reviewed?: Yes (1) Rectal cancer Status: Acute Assessment and plan: 59 year old lady who presented with the abdominal pain nausea and vomiting. Was noted to be anemic. CT scan of abdomen pelvis from 12/11 revealed: IMPRESSION: 1. Dilation of the proximal jejunum up to 5.2 cm in diameter, suggesting an underlying small bowel obstruction or bowel ileus. 2. Diffuse bowel wall thickening redemonstrated, which may be related to a nonspecific enterocolitis or posttreatment change. 3. Vague heterogeneity of the osseous structures visualized, most prominent at the level of the bony pelvis, increased in conspicuity as compared to the prior examination. This may be related to small lytic lesions in the setting of malignancy/metastatic disease or interval increase in bony demineralization. CEA: 5.90. Initial concern was more bowel obstruction or ileus. Recent notes appear to indicate that the obstruction is clearing. Her symptoms have improved. Diet being advanced. PLAN: Colonoscopy is being contemplated, to look for any evidence of recurrent cancer. There is a question of lytic lesions in the pelvis. Will proceed with a bone scan for further clarification. This was done on 12/15 and revealed: No evidence of osteoblastic metastatic disease. The appearance of small lucencies on CT in the hips and pelvis could represent multiple myeloma, which is occult on bone scan. Laboratory correlation is recommended. Will check SIEP and free light chain ratios. Can follow her up as an outpatient. Thank you for the consult, Will follow along with you, CC: Dr. Aguirre. - Time Spent With Patient Time Spent with Patient (in minutes): 30
--- NOTE | 2024-12-15 | MHC.PIE ---
Addendum entered by Austyn Kenny RN 12/15/24 05:50: p; b/p at 0350 i; dr alegre notified e; will cont to monitor Original Note: p; b/p . note; pt b/p soft since admission. iv d5 1/2 running at 50ml/h i; dr alegre notified. no new changes at this time e; will cont to monitor
--- NOTE | 2024-12-15 01:02 | PC.NURSE ---
pt c/o itching and tenderness to iv site, offered to start new iv site with pt now refusing new iv. pt educated multiple times with pt willing to new iv insertions. new iv site placed 22 rt forearm. old iv site dc'd, now pt c/o feeling old iv needle still in arm. note; old iv removed intact, no breakage noted. pt anxious, keep on touching old iv site, hot pack and food given for distraction. now pt calm in bed watching tv, will cont to [facility]
[2024-12-15 03:40] VITALS: BP 91/51; PULSE 64; RESP 18; TEMP 36.7; O2SAT 97
[2024-12-15] MEDS: Pantoprazole Sodium 40 MG/10 ML VIAL IVPUSH (06:26)
[2024-12-15] MEDS: Acetaminophen 325 MG TABLET 650 MG PO ×2 (06:35→15:12)
[2024-12-15 06:45] LABS: Hematocrit 32.4 % (37.0-47.0); Hemoglobin 10.7 g/dl (12.0-16.0); Mean Corpuscular Hemoglobin 30.5 pg (27.0-33.0); Mean Corpuscular Volume 92.3 fL (80.0-98.0); Mean Platelet Volume 9.6 fL (9.4-12.3); Platelet Count 264 X10*3/uL (160-400); Red Blood Count 3.51 X10*6/uL (4.20-5.50); Red Cell Distribution Width 13.1 % (11.0-16.0); White Blood Count 3.6 X10*3/uL (4.8-10.8)
[2024-12-15 07:28] LABS: Anion Gap 8 (12-20); Blood Urea Nitrogen < 3 mg/dL (9-16); Calcium 8.8 mg/dL (8.4-10.2); Carbon Dioxide 33 mmol/L (22-29); Chloride 106 mmol/L (96-108); Creatinine Clr Calc Pharmacy 75.2; Estimated Glomerular Filt Rate > 60; Glucose Random 86 mg/dL (60-115); Potassium 3.8 mmol/L (3.3-5.1); Sodium 143 mmol/L (135-145)
[2024-12-15 07:49] VITALS: BP 117/61; PULSE 58; RESP 16; TEMP 36.5; O2SAT 97
[2024-12-15] MEDS: Sertraline HCL 100 MG TABLET PO (08:15)
[2024-12-15] MEDS: oxyCODONE HCl Immed Release 5 MG TABLET PO ×2 (08:15→15:12)
[2024-12-15] MEDS: Montelukast Sodium 10 MG TABLET PO (08:15)
[2024-12-15] MEDS: metroNIDAZOLE/NS 500 MG/100 ML PIGGYBACK 100 MG IV ×3 (08:15→22:06)
[2024-12-15] MEDS: Loratadine 10 MG TABLET PO (08:15)
[2024-12-15] MEDS: Multivitamin TABLET 1 TAB PO (08:16)
[2024-12-15] MEDS: Nicotine 21 MG PATCH.TD24 TRANSDERMA (08:17)
[2024-12-15 11:30] VITALS: BP 104/55; PULSE 59; RESP 16; TEMP 36.7; O2SAT 97
--- NOTE | 2024-12-15 13:36 | P.PNGI_ITS ---
Subjective Subjective Date of Service: 12/15/24 Interval History: doing well with clears no abdominal pain no anusea or vomiting no diarrhea stool is soft no rectal bleeding, dark stools, HGB stable Critical Care Time (minutes): 0 Physical Exam 2 Vital Signs: Vital Signs: Last Vital Signs Temp 98.0 F 12/15/24 11:30 Pulse 59 12/15/24 11:30 Resp 16 12/15/24 11:30 BP 104/55 L 12/15/24 11:30 Pulse Ox 97 12/15/24 11:30 O2 Del Method Room Air 12/15/24 11:30 BMI result Body Mass Index 16.4 EXAM: GENERAL: The patient is thin VITAL SIGNS:see workflow HEENT: Nonicteric sclerae, PERRLA, EOMI. Oropharynx clear. Moist mucous membranes. Conjunctivae appear well perfused. No thyroid mass. CHEST: Chest wall is nontender. HEART: Regular rate and rhythm without murmurs. LUNGS: Clear to auscultation bilaterally. ABDOMEN: Soft, positive bowel sounds, nontender, no organomegaly.no flank tenderness SKIN: No rash, no excessive bruising, petechiae, or purpura. NEUROLOGIC: Cranial nerves II-XII intact without motor/sensory deficit. Psych: normal affect Objective Data Labs 12/15/24 05:30 12/15/24 05:30 Labs: Laboratory Results - last 24 hr 12/15/24 05:30 WBC 3.6 L RBC 3.51 L Hgb 10.7 L Hct 32.4 L MCV 92.3 MCH 30.5 MCHC 33.0 RDW 13.1 Plt Count 264 MPV 9.6 Absolute Nucleated RBC 0.000 Nucleated RBC % (auto) 0.0 Sodium 143 Potassium 3.8 D Chloride 106 Carbon Dioxide 33 H Anion Gap 8 L BUN < 3 L Creatinine 0.62 Estim Creat Clear Calc 75.2 Estimated GFR > 60 Random Glucose 86 Calcium 8.8 Microbiology Microbiology Results: Microbiology 12/12/24 00:01 Blood - Venous Blood Culture - Preliminary No growth after 48 hours. 12/12/24 00:01 Blood - Venous Blood Culture - Preliminary No growth after 48 hours. Procedures Date of Service Date of Service: 12/15/24 Progress Note: A&P Assessment and plan (1) Enterocolitis: Status: Acute Plan 1/ enterocolitis with hx of rectal cancer, seems to be improving--hgb and vital stable PLAN: 1/ advance diet 2/ if tolerating PO and vitals, labs stable can f/u for outpatient EGD/push enteroscopy and colo in about 2-4 week 3/ check b12, ferritin, folate Time Spent With Patient Time: Total time managing care of this patient today ____ minutes. Quality Stroke Does the patient have a stroke diagnosis?: No VTE Prior VTE?: No VTE Risk Level:: Medical - moderate - high VTE Device Contraindication: N/A - Device Ordered VTE Drug Contraindication: Treatment Not Indicated
[2024-12-15 15:05] VITALS: BP 120/65; PULSE 61; RESP 18; TEMP 37; O2SAT 96
--- NOTE | 2024-12-15 15:05 | PM.PNGS ---
Subjective Subjective Date of Service: 12/16/24 Interval history: Passing flatus Mild abdominal pain No nausea or vomiting Complains of headaches Physical Exam Vital Signs: Vital Signs: Last Vital Signs Temp 98.0 F 12/15/24 11:30 Pulse 59 12/15/24 11:30 Resp 16 12/15/24 11:30 BP 104/55 L 12/15/24 11:30 Pulse Ox 97 12/15/24 11:30 O2 Del Method Room Air 12/15/24 11:30 BMI result Body Mass Index 16.4 Const: General: comfortable and no acute distress Resp: Effort & Inspection: normal respiratory effort Cardio: Rate: regular rate GI: Palpation (GI): Soft to palpation, not firm and no guarding Objective Data Active Medications Acetaminophen (Acetaminophen 325 Mg Tablet) 650 mg PO Q6H PRN PRN Reason: Pain, Mild 1-3,fever,headache Last Admin: 12/15/24 06:35 Dose: 650 mg Documented By: DESTINEE Albuterol Sulfate (Albuterol Sulfate 90 Mcg 8 Gm Inhaler) 2 puff INHALE QID PRN PRN Reason: Shortness Of Breath Or Wheezing Last Admin: 12/14/24 09:42 Dose: 2 puff Documented By: ALESSIO Calcium Carbonate (Calcium Carbonate 750 Mg Tab.Chew) 750 mg PO Q4H PRN PRN Reason: Heartburn Ceftriaxone Sodium (Ceftriaxone Sodium 1 Gm Vial) 1 gm IVPUSH BEDTIME [facility] Last Admin: 12/14/24 20:21 Dose: 1 gm Documented By: DESTINEE Fluticasone Propionate (Fluticasone Propionate Nasal 16 Gm [place]) 1 spray NOSTRIL-B BID PRN PRN Reason: Allergy Symptoms Fluticasone Propionate (Fluticasone Propionate 100 Mcg Blst.W.Dev) 1 puff INHALE RBID [facility] Last Admin: 12/15/24 08:25 Dose: Not Given Documented By: NEO Non-Admin Reason: Patient Refused Metronidazole (Flagyl) 500 mg in 100 mls @ 100 mls/hr IV Q8H [facility] Last Infusion: 12/15/24 09:15 Dose: Infused Documented By: WERO Dextrose/Sodium Chloride (D51/2ns) 1,000 mls @ 50 mls/hr IVCONT .Q20H [facility] Last Infusion: 12/15/24 00:17 Dose: 50 mls/hr Documented By: DESTINEE Loratadine (Loratadine 10 Mg Tablet) 10 mg PO DAILY [facility] Last Admin: 12/15/24 08:15 Dose: 10 mg Documented By: WERO Magnesium Hydroxide (Milk Of Magnesia 30 Ml Oral.Susp) 30 ml PO DAILY PRN PRN Reason: Constipation Melatonin (Melatonin 3 Mg Tablet) 6 mg PO BEDTIME PRN PRN Reason: Insomnia Montelukast Sodium (Montelukast Sodium 10 Mg Tablet) 10 mg PO DAILY [facility] Last Admin: 12/15/24 08:15 Dose: 10 mg Documented By: WERO Morphine Sulfate (Morphine Sulfate 2 Mg/Ml Cartridge) 2 mg IVPUSH Q4H PRN; Protocol PRN Reason: Pain, Severe (Pain Scale 7-10) Last Admin: 12/14/24 12:53 Dose: 2 mg Documented By: WERO Multivitamins/Vitamin C (Multivitamin Tablet) 1 tab PO DAILY [facility] Last Admin: 12/15/24 08:16 Dose: 1 tab Documented By: WERO Nicotine (Nicotine 21 Mg Patch.Td24) 21 mg TRANSDERMA DAILY [facility] Last Admin: 12/15/24 08:17 Dose: 21 mg Documented By: WERO Ondansetron HCl (Ondansetron Hcl 4 Mg/2 Ml Vial) 4 mg IVPUSH Q8H PRN PRN Reason: Nausea and Vomiting Last Admin: 12/13/24 16:54 Dose: 4 mg Documented By: JONH Oxycodone HCl (Oxycodone Hcl Immed Release 5 Mg Tablet) 5 mg PO Q6H PRN PRN Reason: Pain, Moderate(Pain Scale 4-6) Last Admin: 12/15/24 08:15 Dose: 5 mg Documented By: WERO Sertraline HCl (Sertraline Hcl 100 Mg Tablet) 100 mg PO DAILY [facility] Last Admin: 12/15/24 08:15 Dose: 100 mg Documented By: WERO Sodium Chloride (0.9 % Sodium Chloride Flush 3 Ml Syringe) 3 ml IVFLUSH QSHIFT [facility] Last Admin: 12/15/24 08:17 Dose: Not Given Documented By: WERO Non-Admin Reason: IV Running Trazodone HCl (Trazodone Hcl 50 Mg Tablet) 50 mg PO BEDTIME [facility] Last Admin: 12/14/24 20:20 Dose: 50 mg Documented By: DESTINEE Labs 12/15/24 05:30 12/15/24 05:30 Labs: Laboratory Results - last 24 hr 12/15/24 05:30 MCV 92.3 MCH 30.5 MCHC 33.0 RDW 13.1 Plt Count 264 MPV 9.6 Absolute Nucleated RBC 0.000 Nucleated RBC % (auto) 0.0 Anion Gap 8 L Estim Creat Clear Calc 75.2 Estimated GFR > 60 Random Glucose 86 Calcium 8.8 Procedures Date of Service Date of Service: 12/16/24 Progress Note: A&P Assessment and plan (1) Abdominal pain: Status: Acute Assessment and Plan: Passing flatus Abdomen is soft and benign Clinically obstructed Okay to try to advance diet as tolerated CAT scan of the head yesterday does not show any intracranial pathology Time Spent With Patient Time: Total time managing care of this patient today ____ minutes. Quality Stroke Does the patient have a stroke diagnosis?: No VTE Prior VTE?: No VTE Risk Level:: Medical - moderate - high VTE Device Contraindication: N/A - Device Ordered VTE Drug Contraindication: Treatment Not Indicated
[2024-12-15] MEDS: ondansetron HCL 4 MG/2 ML VIAL IVPUSH ×2 (15:15→22:31)
[2024-12-15 16:10] LABS: Ferritin 176 ng/mL (10-250)
--- NOTE | 2024-12-15 16:12 | HO.PM.IMPN ---
Subjective Subjective Date of Service: 12/15/24 Interval History: f/u on possible sbo, enterocolitis with n/v Review of Systems abd discomfort somewhat improving has nausea Physical Exam Vital Signs: Vital Signs: Last Vital Signs Temp 98.6 F 12/15/24 15:05 Pulse 61 12/15/24 15:05 Resp 18 12/15/24 15:05 BP 120/65 12/15/24 15:05 Pulse Ox 96 12/15/24 15:05 O2 Del Method Room Air 12/15/24 15:05 BMI result Body Mass Index 16.4 General: AO X 3, no acute distress Resp: CTA bilateral CVS: S1,S2,RRR GI: +BS, minimal tenderness, and no distention Skin: No rash Neuro: motor grossly intact Psych: appropriate affect Objective Data Active Medications Acetaminophen (Acetaminophen 325 Mg Tablet) 650 mg PO Q6H PRN PRN Reason: Pain, Mild 1-3,fever,headache Last Admin: 12/15/24 15:12 Dose: 650 mg Documented By: WERO Albuterol Sulfate (Albuterol Sulfate 90 Mcg 8 Gm Inhaler) 2 puff INHALE QID PRN PRN Reason: Shortness Of Breath Or Wheezing Last Admin: 12/14/24 09:42 Dose: 2 puff Documented By: ALESSIO Calcium Carbonate (Calcium Carbonate 750 Mg Tab.Chew) 750 mg PO Q4H PRN PRN Reason: Heartburn Ceftriaxone Sodium (Ceftriaxone Sodium 1 Gm Vial) 1 gm IVPUSH BEDTIME [facility] Last Admin: 12/14/24 20:21 Dose: 1 gm Documented By: DESTINEE Fluticasone Propionate (Fluticasone Propionate Nasal 16 Gm [place]) 1 spray NOSTRIL-B BID PRN PRN Reason: Allergy Symptoms Fluticasone Propionate (Fluticasone Propionate 100 Mcg Blst.W.Dev) 1 puff INHALE RBID [facility] Last Admin: 12/15/24 08:25 Dose: Not Given Documented By: NEO Non-Admin Reason: Patient Refused Metronidazole (Flagyl) 500 mg in 100 mls @ 100 mls/hr IV Q8H [facility] Last Admin: 12/15/24 15:12 Dose: 100 mls/hr Documented By: WERO Dextrose/Sodium Chloride (D51/2ns) 1,000 mls @ 50 mls/hr IVCONT .Q20H [facility] Last Infusion: 12/15/24 15:11 Dose: Infused Documented By: WERO Loratadine (Loratadine 10 Mg Tablet) 10 mg PO DAILY [facility] Last Admin: 12/15/24 08:15 Dose: 10 mg Documented By: WERO Magnesium Hydroxide (Milk Of Magnesia 30 Ml Oral.Susp) 30 ml PO DAILY PRN PRN Reason: Constipation Melatonin (Melatonin 3 Mg Tablet) 6 mg PO BEDTIME PRN PRN Reason: Insomnia Montelukast Sodium (Montelukast Sodium 10 Mg Tablet) 10 mg PO DAILY [facility] Last Admin: 12/15/24 08:15 Dose: 10 mg Documented By: WERO Morphine Sulfate (Morphine Sulfate 2 Mg/Ml Cartridge) 2 mg IVPUSH Q4H PRN; Protocol PRN Reason: Pain, Severe (Pain Scale 7-10) Last Admin: 12/14/24 12:53 Dose: 2 mg Documented By: WERO Multivitamins/Vitamin C (Multivitamin Tablet) 1 tab PO DAILY [facility] Last Admin: 12/15/24 08:16 Dose: 1 tab Documented By: WERO Nicotine (Nicotine 21 Mg Patch.Td24) 21 mg TRANSDERMA DAILY [facility] Last Admin: 12/15/24 08:17 Dose: 21 mg Documented By: WERO Ondansetron HCl (Ondansetron Hcl 4 Mg/2 Ml Vial) 4 mg IVPUSH Q8H PRN PRN Reason: Nausea and Vomiting Last Admin: 12/15/24 15:15 Dose: 4 mg Documented By: WERO Oxycodone HCl (Oxycodone Hcl Immed Release 5 Mg Tablet) 5 mg PO Q6H PRN PRN Reason: Pain, Moderate(Pain Scale 4-6) Last Admin: 12/15/24 15:12 Dose: 5 mg Documented By: WERO Sertraline HCl (Sertraline Hcl 100 Mg Tablet) 100 mg PO DAILY [facility] Last Admin: 12/15/24 08:15 Dose: 100 mg Documented By: WERO Sodium Chloride (0.9 % Sodium Chloride Flush 3 Ml Syringe) 3 ml IVFLUSH QSHIFT [facility] Last Admin: 12/15/24 08:17 Dose: Not Given Documented By: WERO Non-Admin Reason: IV Running Trazodone HCl (Trazodone Hcl 50 Mg Tablet) 50 mg PO BEDTIME [facility] Last Admin: 12/14/24 20:20 Dose: 50 mg Documented By: DESTINEE Labs 12/15/24 05:30 12/15/24 05:30 Labs: Laboratory Results - last 24 hr 12/15/24 12/15/24 05:30 15:03 MCV 92.3 MCH 30.5 MCHC 33.0 RDW 13.1 Plt Count 264 MPV 9.6 Absolute Nucleated RBC 0.000 Nucleated RBC % (auto) 0.0 Anion Gap 8 L Estim Creat Clear Calc 75.2 Estimated GFR > 60 Random Glucose 86 Calcium 8.8 Ferritin 176 Assessment and Plan (1) Nausea & vomiting: Status: Acute (2) Abdominal pain: Status: Acute (3) Occult GI bleeding: Status: Acute Plan 59-year-old female with a past medical history of colon cancer status post chemotherapy/radiotherapy in 2010; tobacco dependence presented to the hospital today with a chief complaint of nausea vomiting and abdominal pain and found to have Ileus vs SBO and enterocolitis SBO vs ileus, no clinical evidence of obstruction, exam bening, and passing fltus, kub no evidence of obstruction. clinically no SBO Enterocolitis: Patient reports passing gas. Surgery following advance diet, starting with clear liquid iet Gentle IV fluids morphine for pain, zofran for n/v Empirically covered with ceftriaxone and Flagyl for possible enterocolitis GI bleed/acute blood loss anemia Stool guaiac positive Hemoglobin 10 compared to baseline of 13, H/H unchanged stable at 11 GI following, no intervention at this time, but may need colonoscopy IV ppi and follow H/H Gi input for possible colonscopy HX colon cancer: Current CT scan showed lytic lesions. Oncology follow-up. DVT prophylaxis: SCD boots given anemia, positive occult blood Code status: Code Quality Stroke Does the patient have a stroke diagnosis?: No VTE Prior VTE?: No VTE Risk Level:: Medical - moderate - high VTE Device Contraindication: N/A - Device Ordered VTE Drug Contraindication: Treatment Not Indicated
[2024-12-15 16:24] LABS: Folate 13.9 ng/mL (> or = 4.0); Vitamin B12 438 pg/mL (200-900)
[2024-12-15] MEDS: Morphine Sulfate 2 MG/ML CARTRIDGE IVPUSH ×2 (18:18→22:12)
[2024-12-15] MEDS: Dextrose 5 % and 0.9 % NaCl 1,000 ML 80 ML IVCONT (18:23)
--- NOTE | 2024-12-15 19:32 | PC.NURSE ---
Pt graduated to regular diet around lunch time after being found eating food brought in from home. pt later found to be vomiting and c/o nausea at approx 1500 .MD aware. Diet changed to clear liquids. Pt medicated per NOV. Plan of care ongoing.
[2024-12-15 20:00] VITALS: BP 124/75; PULSE 63; RESP 18; TEMP 36.6; O2SAT 98
[2024-12-15] MEDS: cefTRIAXone sodium 1 GM VIAL IVPUSH (22:05)
[2024-12-15] MEDS: traZODone HCL 50 MG TABLET PO (22:06)
[2024-12-15 23:37] VITALS: BP 120/61; PULSE 68; RESP 16; TEMP 36.1; O2SAT 96
[2024-12-16] VITALS (7 sets, daily range): BP systolic 104–124; BP diastolic 56–66; PULSE 66–70; RESP 16–20; TEMP 36–37.4; O2SAT 96–99
[2024-12-16] MEDS: Morphine Sulfate 2 MG/ML CARTRIDGE IVPUSH ×2 (03:23→08:33)
--- NOTE | 2024-12-16 08:11 | P.PNGS_ITS ---
Subjective Subjective Date of Service: 12/17/24 Interval history: States she had some diarrhea after eating sandwich yesterday Describes some crampy abdominal pain Physical Exam 2 Vital Signs: Vital Signs: Last Vital Signs Temp 97.9 F 12/16/24 06:50 Pulse 70 12/16/24 06:50 Resp 17 12/16/24 06:50 BP 105/56 L 12/16/24 06:50 Pulse Ox 98 12/16/24 06:50 O2 Del Method Room Air 12/16/24 06:50 BMI result Body Mass Index 16.4 Const: General: comfortable and no acute distress Resp: Effort & Inspection: normal respiratory effort Cardio: Rate: regular rate GI: Palpation (GI): Soft to palpation, not firm, Tenderness to palpation present (GI) (Mild diffuse tenderness) and no guarding Objective Data Active Medications Acetaminophen (Acetaminophen 325 Mg Tablet) 650 mg PO Q6H PRN PRN Reason: Pain, Mild 1-3,fever,headache Last Admin: 12/15/24 15:12 Dose: 650 mg Documented By: WERO Albuterol Sulfate (Albuterol Sulfate 90 Mcg 8 Gm Inhaler) 2 puff INHALE QID PRN PRN Reason: Shortness Of Breath Or Wheezing Last Admin: 12/14/24 09:42 Dose: 2 puff Documented By: ALESSIO Calcium Carbonate (Calcium Carbonate 750 Mg Tab.Chew) 750 mg PO Q4H PRN PRN Reason: Heartburn Ceftriaxone Sodium (Ceftriaxone Sodium 1 Gm Vial) 1 gm IVPUSH BEDTIME [facility] Last Admin: 12/15/24 22:05 Dose: 1 gm Documented By: DESTINEE Fluticasone Propionate (Fluticasone Propionate Nasal 16 Gm [place]) 1 spray NOSTRIL-B BID PRN PRN Reason: Allergy Symptoms Fluticasone Propionate (Fluticasone Propionate 100 Mcg Blst.W.Dev) 1 puff INHALE RBID [facility] Last Admin: 12/16/24 07:53 Dose: Not Given Documented By: NEO Non-Admin Reason: Patient Refused Metronidazole (Flagyl) 500 mg in 100 mls @ 100 mls/hr IV Q8H [facility] Last Infusion: 12/15/24 23:06 Dose: Infused Documented By: DESTINEE Dextrose/Sodium Chloride (D5ns) 1,000 mls @ 80 mls/hr IVCONT .[id number] [facility] Last Admin: 12/16/24 05:55 Dose: Not Given Documented By: DESTINEE Non-Admin Reason: IV Running Loratadine (Loratadine 10 Mg Tablet) 10 mg PO DAILY [facility] Last Admin: 12/15/24 08:15 Dose: 10 mg Documented By: WERO Magnesium Hydroxide (Milk Of Magnesia 30 Ml Oral.Susp) 30 ml PO DAILY PRN PRN Reason: Constipation Melatonin (Melatonin 3 Mg Tablet) 6 mg PO BEDTIME PRN PRN Reason: Insomnia Montelukast Sodium (Montelukast Sodium 10 Mg Tablet) 10 mg PO DAILY [facility] Last Admin: 12/15/24 08:15 Dose: 10 mg Documented By: WERO Morphine Sulfate (Morphine Sulfate 2 Mg/Ml Cartridge) 2 mg IVPUSH Q4H PRN; Protocol PRN Reason: Pain, Severe (Pain Scale 7-10) Last Admin: 12/16/24 03:23 Dose: 2 mg Documented By: DESTINEE Multivitamins/Vitamin C (Multivitamin Tablet) 1 tab PO DAILY [facility] Last Admin: 12/15/24 08:16 Dose: 1 tab Documented By: WERO Nicotine (Nicotine 21 Mg Patch.Td24) 21 mg TRANSDERMA DAILY [facility] Last Admin: 12/15/24 08:17 Dose: 21 mg Documented By: WERO Ondansetron HCl (Ondansetron Hcl 4 Mg/2 Ml Vial) 4 mg IVPUSH Q6H PRN PRN Reason: Nausea and Vomiting Last Admin: 12/15/24 22:31 Dose: 4 mg Documented By: DESTINEE Oxycodone HCl (Oxycodone Hcl Immed Release 5 Mg Tablet) 5 mg PO Q6H PRN PRN Reason: Pain, Moderate(Pain Scale 4-6) Last Admin: 12/15/24 15:12 Dose: 5 mg Documented By: WERO Sertraline HCl (Sertraline Hcl 100 Mg Tablet) 100 mg PO DAILY [facility] Last Admin: 12/15/24 08:15 Dose: 100 mg Documented By: WERO Sodium Chloride (0.9 % Sodium Chloride Flush 3 Ml Syringe) 3 ml IVFLUSH QSHIFT [facility] Last Admin: 12/15/24 22:13 Dose: Not Given Documented By: DESTINEE Non-Admin Reason: IV Running Trazodone HCl (Trazodone Hcl 50 Mg Tablet) 50 mg PO BEDTIME [facility] Last Admin: 12/15/24 22:06 Dose: 50 mg Documented By: DESTINEE Labs 12/17/24 12:47 12/17/24 12:47 Labs: Laboratory Results - last 24 hr 12/15/24 15:03 Ferritin 176 Vitamin B12 438 Folate 13.9 Procedures Date of Service Date of Service: 12/17/24 Progress Note: A&P Assessment and plan (1) Abdominal pain: Status: Acute Assessment and Plan: Clinically obstructed Previous CAT scan from last year reviewed with similar findings suggestive of enterocolitis as well Question of myeloma on bone scan Input from Gastroenterology If unable to tolerate regular diet, okay to stay on liquids for now Exam otherwise benign Time Spent With Patient Time: Total time managing care of this patient today ____ minutes. Quality Stroke Does the patient have a stroke diagnosis?: No VTE Prior VTE?: No VTE Risk Level:: Medical - moderate - high VTE Device Contraindication: N/A - Device Ordered VTE Drug Contraindication: Treatment Not Indicated
[2024-12-16] MEDS: metroNIDAZOLE/NS 500 MG/100 ML PIGGYBACK 100 MG IV ×3 (08:31→23:15)
[2024-12-16] MEDS: 0.9 % Sodium Chloride Flush 3 ML SYRINGE IVFLUSH ×3 (08:32→21:14)
[2024-12-16] MEDS: Multivitamin TABLET 1 TAB PO (08:41)
[2024-12-16] MEDS: Calcium Carbonate 750 MG TAB.CHEW PO (08:41)
[2024-12-16] MEDS: Nicotine 21 MG PATCH.TD24 TRANSDERMA (08:41)
[2024-12-16] MEDS: Loratadine 10 MG TABLET PO (08:41)
[2024-12-16] MEDS: Montelukast Sodium 10 MG TABLET PO (08:41)
[2024-12-16] MEDS: Sertraline HCL 100 MG TABLET PO (08:41)
--- NOTE | 2024-12-16 09:44 | MHC.CLN ---
Addendum entered by Kristen Fox, RD 12/16/24 14:42: NUTRITION CONSULT FOR UNDERWEIGHT. DIET ADVANCED TO REGULAR, LACTOSE CONTROLLED. ADDING ENSURE BID TO INCREASE NUTRITIONAL INTAKE. SUPPLEMENT PROVIDES 700 KCALS, 40 G PROTEIN AND IS SUITABLE FOR PATIENTS WITH LACTOSE INTOLERANCE. CONTINUE TO MONITOR PO INTAKE. Original Note: F/U FULL LIQUID DIET. CONTINUE ENSURE CLEAR TID (720 KCAL, 24 G PROTEIN). 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 PATIENT WITH VOMITING 4/ AND LOOSE STOOL NOTED. DX ENTEROCOLITIS WITH NAUSEA AND VOMITING. MONITOR FOR PO INTAKE AND DIET ADVANCEMENT.
--- NOTE | 2024-12-16 11:19 | HO.PM.IMPN ---
Subjective Subjective Date of Service: 12/16/24 Interval History: nauseated ,diarrhae Review of Systems vomiting improving trial of diet Physical Exam Vital Signs: Vital Signs: Last Vital Signs Temp 97.9 F 12/16/24 06:50 Pulse 70 12/16/24 06:50 Resp 18 12/16/24 08:33 BP 105/56 L 12/16/24 06:50 Pulse Ox 98 12/16/24 06:50 O2 Del Method Room Air 12/16/24 06:50 BMI result Body Mass Index 16.4 General: AO X 3, no acute distress Resp: CTA bilateral CVS: S1,S2,RRR GI: +BS, minimal tenderness, and no distention Skin: No rash Neuro: motor grossly intact Psych: appropriate affect Objective Data Active Medications Acetaminophen (Acetaminophen 325 Mg Tablet) 650 mg PO Q6H PRN PRN Reason: Pain, Mild 1-3,fever,headache Last Admin: 12/15/24 15:12 Dose: 650 mg Documented By: WERO Albuterol Sulfate (Albuterol Sulfate 90 Mcg 8 Gm Inhaler) 2 puff INHALE QID PRN PRN Reason: Shortness Of Breath Or Wheezing Last Admin: 12/14/24 09:42 Dose: 2 puff Documented By: ALESSIO Calcium Carbonate (Calcium Carbonate 750 Mg Tab.Chew) 750 mg PO Q4H PRN PRN Reason: Heartburn Last Admin: 12/16/24 08:41 Dose: 750 mg Documented By: AUBREY Ceftriaxone Sodium (Ceftriaxone Sodium 1 Gm Vial) 1 gm IVPUSH BEDTIME [facility] Last Admin: 12/15/24 22:05 Dose: 1 gm Documented By: DESTINEE Fluticasone Propionate (Fluticasone Propionate Nasal 16 Gm [place]) 1 spray NOSTRIL-B BID PRN PRN Reason: Allergy Symptoms Fluticasone Propionate (Fluticasone Propionate 100 Mcg Blst.W.Dev) 1 puff INHALE RBID [facility] Last Admin: 12/16/24 07:53 Dose: Not Given Documented By: NEO Non-Admin Reason: Patient Refused Metronidazole (Flagyl) 500 mg in 100 mls @ 100 mls/hr IV Q8H [facility] Last Infusion: 12/16/24 09:37 Dose: Infused Documented By: AUBREY Dextrose/Sodium Chloride (D5ns) 1,000 mls @ 80 mls/hr IVCONT .[id number] [facility] Last Infusion: 12/16/24 08:32 Dose: Infused Documented By: AUBREY Loratadine (Loratadine 10 Mg Tablet) 10 mg PO DAILY [facility] Last Admin: 12/16/24 08:41 Dose: 10 mg Documented By: AUBREY Magnesium Hydroxide (Milk Of Magnesia 30 Ml Oral.Susp) 30 ml PO DAILY PRN PRN Reason: Constipation Melatonin (Melatonin 3 Mg Tablet) 6 mg PO BEDTIME PRN PRN Reason: Insomnia Montelukast Sodium (Montelukast Sodium 10 Mg Tablet) 10 mg PO DAILY [facility] Last Admin: 12/16/24 08:41 Dose: 10 mg Documented By: AUBREY Morphine Sulfate (Morphine Sulfate 2 Mg/Ml Cartridge) 2 mg IVPUSH Q4H PRN; Protocol PRN Reason: Pain, Severe (Pain Scale 7-10) Last Admin: 12/16/24 08:33 Dose: 2 mg Documented By: AUBREY Multivitamins/Vitamin C (Multivitamin Tablet) 1 tab PO DAILY [facility] Last Admin: 12/16/24 08:41 Dose: 1 tab Documented By: AUBREY Nicotine (Nicotine 21 Mg Patch.Td24) 21 mg TRANSDERMA DAILY [facility] Last Admin: 12/16/24 08:41 Dose: 21 mg Documented By: AUBREY Ondansetron HCl (Ondansetron Hcl 4 Mg/2 Ml Vial) 4 mg IVPUSH Q6H PRN PRN Reason: Nausea and Vomiting Last Admin: 12/15/24 22:31 Dose: 4 mg Documented By: DESTINEE Oxycodone HCl (Oxycodone Hcl Immed Release 5 Mg Tablet) 5 mg PO Q6H PRN PRN Reason: Pain, Moderate(Pain Scale 4-6) Last Admin: 12/15/24 15:12 Dose: 5 mg Documented By: WERO Sertraline HCl (Sertraline Hcl 100 Mg Tablet) 100 mg PO DAILY [facility] Last Admin: 12/16/24 08:41 Dose: 100 mg Documented By: AUBREY Sodium Chloride (0.9 % Sodium Chloride Flush 3 Ml Syringe) 3 ml IVFLUSH [facility] Last Admin: 12/16/24 08:32 Dose: 3 ml Documented By: AUBREY Trazodone HCl (Trazodone Hcl 50 Mg Tablet) 50 mg PO BEDTIME [facility] Last Admin: 12/15/24 22:06 Dose: 50 mg Documented By: DESTINEE Labs 12/15/24 05:30 12/15/24 05:30 Labs: Laboratory Results - last 24 hr 12/15/24 15:03 Ferritin 176 Vitamin B12 438 Folate 13.9 Assessment and Plan (1) Enterocolitis: Status: Acute Assessment and Plan: 59-year-old female with a past medical history of colon cancer status post chemotherapy/radiotherapy in 2010; tobacco dependence presented to the hospital today with a chief complaint of nausea vomiting and abdominal pain and found to have Ileus vs SBO and enterocolitis SBO vs ileus, no clinical evidence of obstruction, exam bening, and passing fltus, kub no evidence of obstruction. clinically no SBO Enterocolitis: Patient reports passing gas. Surgery following advance diet, starting with clear liquid iet Gentle IV fluids morphine for pain, zofran for n/v Empirically covered with ceftriaxone and Flagyl for possible enterocolitis GI bleed/acute blood loss anemia Stool guaiac positive Hemoglobin 10 compared to baseline of 13, H/H unchanged stable at 11 GI following, no intervention at this time, but may need colonoscopy IV ppi and follow H/H Gi input for possible colonscopy HX colon cancer: Current CT scan showed lytic lesions. Oncology follow-up. DVT prophylaxis: SCD boots given anemia, positive occult blood Code status: Code Quality Stroke Does the patient have a stroke diagnosis?: No VTE Prior VTE?: No VTE Risk Level:: Medical - moderate - high VTE Device Contraindication: N/A - Device Ordered VTE Drug Contraindication: Treatment Not Indicated
--- NOTE | 2024-12-16 12:30 | MHC.CM.PN ---
EMR REVIEWED AND PER MD ROUNDS, PT IS NOT MEDICALLY CLEAR FOR DC (TOLERANCE OF DIET) CM WILL CONTINUE TO FOLLOW FOR ANY CHANGE TO DC PLAN
--- NOTE | 2024-12-16 13:11 | P.CDIM_ITS ---
PROVIDER RESPONSE TEXT: To clarify, the appropriate diagnosis supported by the clinical indicators: Underweight QUERY TEXT: PHYSICIAN'S DOCUMENTATION REQUEST Date of Query: 12/16/2024 12:22 PM EDT Patient Name: Yamileth Contreras Admit Date: 12/12/2024 Dear Bridgett Guerrero MD, A review of the medical record indicates additional documentation may be needed. Please review below and update the documentation accordingly. Clinical Indicators: Height: ( ) 5'7 Weight: ( ) 47.6 kg BMI: ( ) 16.4 Other Clinical Notes Supporting Significance of the BMI: Per Clinical Nutrition Assessment 12/14/24: Malnutrition, increased calorie/protein demand, prong catabolic illness mild depletion of body fat and moderate depletion of muscle mass hx colorectal cancer qualifies a moderately malnourished If possible, please provide an associated diagnosis related to the abnormal BMI, such as: Underweight Weight loss Cachexia Anorexia Moderate Protein Calorie Malnutrition Other (explain) Clinically unable to determine (explain) Thank you, Skylar Brewer RN Use of terms such as suspected, likely, concern for, or probable (associated with a specific diagnosi s that is being evaluated, monitored, or treated as if it exists) are acceptable and can be coded in the inpatient se tting, when documented at the time of discharge. Please use your independent medical judgment in providing your response. THIS QUERY IS PART OF THE PERMANENT MEDICAL RECORD
[2024-12-16] MEDS: oxyCODONE HCl Immed Release 5 MG TABLET PO ×2 (15:17→21:13)
[2024-12-16] MEDS: Albuterol Sulfate 90 MCG 8 GM INHALER 2 PUFF INHALE (16:51)
[2024-12-16] MEDS: Acetaminophen 325 MG TABLET 650 MG PO (17:14)
[2024-12-16 17:36] LABS: CDiff Gene PCR NEGATIVE (Negative)
[2024-12-16] MEDS: cefTRIAXone sodium 1 GM VIAL IVPUSH (21:13)
[2024-12-16] MEDS: traZODone HCL 50 MG TABLET PO (21:14)
[2024-12-17] VITALS (11 sets, daily range): BP systolic 80–132; BP diastolic 49–63; PULSE 62–95; RESP 16–18; TEMP 36.3–37.3; O2SAT 93–100
[2024-12-17] MEDS: oxyCODONE HCl Immed Release 5 MG TABLET PO ×2 (05:45→19:26)
[2024-12-17] MEDS: Acetaminophen 325 MG TABLET 650 MG PO (05:48)
[2024-12-17] MEDS: Fluticasone Propionate 100 MCG BLST.W.DEV 1 PUFF INHALE ×2 (08:05→19:42)
[2024-12-17] MEDS: metroNIDAZOLE/NS 500 MG/100 ML PIGGYBACK 100 MG IV (08:32)
[2024-12-17] MEDS: 0.9 % Sodium Chloride Flush 3 ML SYRINGE IVFLUSH ×2 (08:32→15:02)
[2024-12-17] MEDS: Loratadine 10 MG TABLET PO (08:42)
[2024-12-17] MEDS: Nicotine 21 MG PATCH.TD24 TRANSDERMA (08:42)
[2024-12-17] MEDS: Sertraline HCL 100 MG TABLET PO (08:42)
[2024-12-17] MEDS: Multivitamin TABLET 1 TAB PO (08:42)
[2024-12-17] MEDS: Montelukast Sodium 10 MG TABLET PO (08:42)
[2024-12-17 09:51] LABS: Adenovirus F 40/41 Not Detected (Not Detect.); Astrovirus Not Detected (Not Detect.); Campylobacter Not Detected (Not Detect.); Cryptosporidium Not Detected (Not Detect.); Cyclospora cayetanensis Not Detected (Not Detect.); E. coli EAEC Not Detected (Not Detect.); E. coli EPEC Not Detected (Not Detect.); E. coli ETEC Not Detected (Not Detect.); E. coli STEC Not Detected (Not Detect.); Entamoeba histolytica Not Detected (Not Detect.); Giardia lamblia Not Detected (Not Detect.); Norovirus GI/GII Not Detected (Not Detect.); Plesiomonas shigelloides Not Detected (Not Detect.); Rotavirus A Not Detected (Not Detect.); Salmonella Not Detected (Not Detect.); Sapovirus Not Detected (Not Detect.); Shigella sp./EIEC Not Detected (Not Detect.); Vibrio Not Detected (Not Detect.); Vibrio Cholerae Not Detected (Not Detect.); Yersinia enterocolitica Not Detected (Not Detect.)
[2024-12-17] MEDS: 0.9 % Sodium Chloride 1,000 ML 999 ML IVCONT ×2 (12:58→14:19)
[2024-12-17] MEDS: Albumin Human 25 % 100 ML IV ×2 (13:03→17:53)
[2024-12-17 13:06] LABS: Hematocrit 32.1 % (37.0-47.0); Hemoglobin 10.8 g/dl (12.0-16.0); Mean Corpuscular HGB Conc 33.6 g/dl (31.0-35.0); Mean Corpuscular Volume 92.2 fL (80.0-98.0); Mean Platelet Volume 9.3 fL (9.4-12.3); Platelet Count 217 X10*3/uL (160-400); Red Blood Count 3.48 X10*6/uL (4.20-5.50); Red Cell Distribution Width 13.6 % (11.0-16.0); White Blood Count 4.6 X10*3/uL (4.8-10.8)
--- NOTE | 2024-12-17 13:14 | P.PNIM_ITS ---
Subjective Subjective Date of Service: 12/17/24 Interval History: hypotension dec po intake hypoalbuminemia Review of Systems denies abd pain or nausea ,vomiting Physical Exam 2 Vital Signs: Vital Signs: Last Vital Signs Temp 98.2 F 12/17/24 11:59 Pulse 68 12/17/24 11:59 Resp 17 12/17/24 11:59 BP 88/49 L 12/17/24 11:59 Pulse Ox 94 12/17/24 11:59 O2 Del Method Room Air 12/17/24 11:59 BMI result Body Mass Index 16.4 General: AO X 3. Resp: CTA bilateral CVS: S1,S2,RRR GI: +BS, nt , and no distention Skin: No rash Neuro: motor grossly intact Psych: appropriate affect Objective Data Active Medications Acetaminophen (Acetaminophen 325 Mg Tablet) 650 mg PO Q6H PRN PRN Reason: Pain, Mild 1-3,fever,headache Last Admin: 12/17/24 05:48 Dose: 650 mg Documented By: MARISELA Albuterol Sulfate (Albuterol Sulfate 90 Mcg 8 Gm Inhaler) 2 puff INHALE QID PRN PRN Reason: Shortness Of Breath Or Wheezing Last Admin: 12/16/24 16:51 Dose: 2 puff Documented By: ALESSIO Calcium Carbonate (Calcium Carbonate 750 Mg Tab.Chew) 750 mg PO Q4H PRN PRN Reason: Heartburn Last Admin: 12/16/24 08:41 Dose: 750 mg Documented By: AUBREY Fluticasone Propionate (Fluticasone Propionate Nasal 16 Gm [place]) 1 spray NOSTRIL-B BID PRN PRN Reason: Allergy Symptoms Fluticasone Propionate (Fluticasone Propionate 100 Mcg Blst.W.Dev) 1 puff INHALE RBID JUAN LUIS Last Admin: 12/17/24 08:05 Dose: 1 puff Documented By: YESENIA Piperacillin Sod/Tazobactam (Sod 3.375 gm/ Sodium Chloride) 50 mls @ 100 mls/hr IV Q6H [facility] Sodium Chloride (Ns) 1,000 mls @ 999 mls/hr IVCONT .Q1H1M [facility] Stop: 12/17/24 14:30 Last Admin: 12/17/24 12:58 Dose: 999 mls/hr Documented By: AUBREY Albumin Human (Kedbumin 25 %) 100 mls @ 100 mls/hr IV Q6H [facility] Stop: 12/18/24 07:29 Last Admin: 12/17/24 13:03 Dose: 100 mls/hr Documented By: AUBREY Loratadine (Loratadine 10 Mg Tablet) 10 mg PO DAILY [facility] Last Admin: 12/17/24 08:42 Dose: 10 mg Documented By: AUBREY Magnesium Hydroxide (Milk Of Magnesia 30 Ml Oral.Susp) 30 ml PO DAILY PRN PRN Reason: Constipation Melatonin (Melatonin 3 Mg Tablet) 6 mg PO BEDTIME PRN PRN Reason: Insomnia Montelukast Sodium (Montelukast Sodium 10 Mg Tablet) 10 mg PO DAILY [facility] Last Admin: 12/17/24 08:42 Dose: 10 mg Documented By: AUBREY Multivitamins/Vitamin C (Multivitamin Tablet) 1 tab PO DAILY [facility] Last Admin: 12/17/24 08:42 Dose: 1 tab Documented By: AUBREY Nicotine (Nicotine 21 Mg Patch.Td24) 21 mg TRANSDERMA DAILY [facility] Last Admin: 12/17/24 08:42 Dose: 21 mg Documented By: AUBREY Ondansetron HCl (Ondansetron Hcl 4 Mg/2 Ml Vial) 4 mg IVPUSH Q6H PRN PRN Reason: Nausea and Vomiting Last Admin: 12/15/24 22:31 Dose: 4 mg Documented By: DESTINEE Oxycodone HCl (Oxycodone Hcl Immed Release 5 Mg Tablet) 5 mg PO Q6H PRN PRN Reason: Pain, Moderate(Pain Scale 4-6) Last Admin: 12/17/24 05:45 Dose: 5 mg Documented By: MARISELA Sertraline HCl (Sertraline Hcl 100 Mg Tablet) 100 mg PO DAILY [facility] Last Admin: 12/17/24 08:42 Dose: 100 mg Documented By: AUBREY Sodium Chloride (0.9 % Sodium Chloride Flush 3 Ml Syringe) 3 ml IVFLUSH QSHIFT [facility] Last Admin: 12/17/24 08:32 Dose: 3 ml Documented By: AUBREY Trazodone HCl (Trazodone Hcl 50 Mg Tablet) 50 mg PO BEDTIME [facility] Last Admin: 12/16/24 21:14 Dose: 50 mg Documented By: MARISELA Labs 12/17/24 12:47 12/17/24 12:47 Labs: Laboratory Results - last 24 hr 12/16/24 12/17/24 16:14 12:47 MCV 92.2 MCH 31.0 MCHC 33.6 RDW 13.6 Plt Count 217 MPV 9.3 L Absolute Nucleated RBC 0.000 Nucleated RBC % (auto) 0.0 Stl C. cayetanensis PCR Not Detected Stool Rotavirus A PCR Not Detected Stl Adenov F 40/41 PCR Not Detected Stool Astrovirus (PCR) Not Detected Stool Campylobacter PCR Not Detected Stool Cryptosporidium PCR Not Detected Stl Sh Tox Pr E STEC PCR Not Detected Stool E coli O157 PCR Not applicable Stl Enterotoxigenic E PCR Not Detected Stool EPEC (PCR) Not Detected Stool EAEC (PCR) Not Detected Stl E. histolytica PCR Not Detected Stool Giardia Lamblia PCR Not Detected Stl P. shigelloides PCR Not Detected Stool Salmonella PCR Not Detected Stool Sapovirus (PCR) Not Detected Stl Shigella/EIEC PCR Not Detected St Y.enterocolitica PCR Not Detected Stool Vibrio (PCR) Not Detected Stl Vibrio cholerae PCR Not Detected Stl Norovirus GI/GII PCR Not Detected C. difficile Tox B Gene NEGATIVE Microbiology Microbiology Results: Microbiology 12/12/24 00:01 Blood Culture - Final Blood - Venous No growth after 5 days. 12/12/24 00:01 Blood Culture - Final Blood - Venous No growth after 5 days. Assessment and Plan (1) Enterocolitis: Status: Acute Assessment and Plan: 59-year-old female with a past medical history of colon cancer status post chemotherapy/radiotherapy in 2010; tobacco dependence presented to the hospital today with a chief complaint of nausea vomiting and abdominal pain and found to have Ileus vs SBO and enterocolitis hypotension:likely due to dec po intake ,dehydration,Hypoalbuminemia lactic acid normal. bmp seems fine. WBC count 4.6, no fever or tachycardia -no sepsis at present. Patient was given 1 L normal saline ivf and albumin -blood pressure seems to be improved. Will add gentle hydration SBO vs ileus, no clinical evidence of obstruction, exam bening, and passing fltus, kub no evidence of obstruction. clinically no SBO Enterocolitis: passing bm cdiff and gip negative will follow blood cultures . advance diet, trial of diet, zofran for n/v, chnaged to zosyn GI bleed/acute blood loss anemia Stool guaiac positive Hemoglobin 10 compared to baseline of 13, H/H unchanged stable at 11 GI following, no intervention at this time, but may need colonoscopy IV ppi and follow H/H Gi input for possible outpatient colonscopy HX colon cancer: Current CT scan-No evidence of osteoblastic metastatic disease. The appearance of small lucencies on CT in the hips and pelvis could represent multiple myeloma, which is occult on bone scan. Laboratory correlation is recommended. Oncology follow-up outpatient. DVT prophylaxis: SCD boots given anemia, positive occult blood Code status: Code Quality Stroke Does the patient have a stroke diagnosis?: No VTE Prior VTE?: No VTE Risk Level:: Medical - moderate - high VTE Device Contraindication: N/A - Device Ordered VTE Drug Contraindication: Treatment Not Indicated
[2024-12-17 13:35] LABS: Anion Gap 10 (12-20); Blood Urea Nitrogen 5 mg/dL (9-16); Calcium 8.5 mg/dL (8.4-10.2); Carbon Dioxide 31 mmol/L (22-29); Chloride 106 mmol/L (96-108); Creatinine Clr Calc Pharmacy 76.4; Estimated Glomerular Filt Rate > 60; Glucose Random 93 mg/dL (60-115); Potassium 3.6 mmol/L (3.3-5.1); Sodium 143 mmol/L (135-145)
[2024-12-17 13:36] LABS: Lactic Acid 1.5 mmol/L (0.5-2.0)
[2024-12-17] MEDS: Piperacillin Sodium/Tazobactam 3.375 GM in 0.9 % Sodium Chloride 50 ML IV ×2 (14:20→19:27)
[2024-12-17] MEDS: 0.9 % Sodium Chloride 1,000 ML 100 ML IVCONT (17:50)
[2024-12-17] MEDS: ondansetron HCL 4 MG/2 ML VIAL IVPUSH (18:00)
[2024-12-17] MEDS: Albuterol Sulfate 90 MCG 8 GM INHALER 2 PUFF INHALE (19:43)
[2024-12-17] MEDS: traZODone HCL 50 MG TABLET PO (21:01)
[2024-12-18] MEDS: Albumin Human 25 % 100 ML IV ×2 (00:07→06:18)
[2024-12-18] MEDS: Piperacillin Sodium/Tazobactam 3.375 GM in 0.9 % Sodium Chloride 50 ML IV ×3 (01:16→12:49)
[2024-12-18 03:13] VITALS: BP 104/53; PULSE 75; RESP 18; TEMP 36.8; O2SAT 95
[2024-12-18] MEDS: oxyCODONE HCl Immed Release 5 MG TABLET PO (06:18)
[2024-12-18] MEDS: 0.9 % Sodium Chloride 1,000 ML 100 ML IVCONT (06:18)
[2024-12-18 06:36] VITALS: BP 112/54; PULSE 68; RESP 16; TEMP 36.6; O2SAT 95
[2024-12-18] MEDS: Montelukast Sodium 10 MG TABLET PO (07:43)
[2024-12-18] MEDS: Loratadine 10 MG TABLET PO (07:43)
[2024-12-18] MEDS: Sertraline HCL 100 MG TABLET PO (07:43)
[2024-12-18] MEDS: Multivitamin TABLET 1 TAB PO (07:43)
--- NOTE | 2024-12-18 09:26 | P.PNGS_ITS ---
Subjective Subjective Date of Service: 12/18/24 Interval history: Says she feels better Able to tolerate regular diet now No nausea or vomiting Has BMs and flatus Physical Exam 2 Vital Signs: Vital Signs: Last Vital Signs Temp 97.9 F 12/18/24 06:36 Pulse 68 12/18/24 06:36 Resp 16 12/18/24 06:36 BP 112/54 L 12/18/24 06:36 Pulse Ox 95 12/18/24 06:36 O2 Del Method Room Air 12/18/24 06:36 BMI result Body Mass Index 16.4 Const: General: comfortable and no acute distress Resp: Effort & Inspection: normal respiratory effort Cardio: Rate: regular rate GI: Palpation (GI): Soft to palpation, not firm, Tenderness to palpation present (GI) (Diffuse tenderness) and no guarding Objective Data Active Medications Acetaminophen (Acetaminophen 325 Mg Tablet) 650 mg PO Q6H PRN PRN Reason: Pain, Mild 1-3,fever,headache Last Admin: 12/17/24 05:48 Dose: 650 mg Documented By: MARISELA Albuterol Sulfate (Albuterol Sulfate 90 Mcg 8 Gm Inhaler) 2 puff INHALE QID PRN PRN Reason: Shortness Of Breath Or Wheezing Last Admin: 12/17/24 19:43 Dose: 2 puff Documented By: WILDER Calcium Carbonate (Calcium Carbonate 750 Mg Tab.Chew) 750 mg PO Q4H PRN PRN Reason: Heartburn Last Admin: 12/16/24 08:41 Dose: 750 mg Documented By: AUBREY Fluticasone Propionate (Fluticasone Propionate Nasal 16 Gm [place]) 1 spray NOSTRIL-B BID PRN PRN Reason: Allergy Symptoms Fluticasone Propionate (Fluticasone Propionate 100 Mcg Blst.W.Dev) 1 puff INHALE RBID [facility] Last Admin: 12/18/24 08:24 Dose: Not Given Documented By: ALESSIO Non-Admin Reason: Patient Refused Piperacillin Sod/Tazobactam (Sod 3.375 gm/ Sodium Chloride) 50 mls @ 100 mls/hr IV Q6H [facility] Last Infusion: 12/18/24 09:15 Dose: Infused Documented By: JAMES Loratadine (Loratadine 10 Mg Tablet) 10 mg PO DAILY [facility] Last Admin: 12/18/24 07:43 Dose: 10 mg Documented By: JAMES Magnesium Hydroxide (Milk Of Magnesia 30 Ml Oral.Susp) 30 ml PO DAILY PRN PRN Reason: Constipation Melatonin (Melatonin 3 Mg Tablet) 6 mg PO BEDTIME PRN PRN Reason: Insomnia Montelukast Sodium (Montelukast Sodium 10 Mg Tablet) 10 mg PO DAILY [facility] Last Admin: 12/18/24 07:43 Dose: 10 mg Documented By: JAMES Multivitamins/Vitamin C (Multivitamin Tablet) 1 tab PO DAILY [facility] Last Admin: 12/18/24 07:43 Dose: 1 tab Documented By: JAMES Nicotine (Nicotine 21 Mg Patch.Td24) 21 mg TRANSDERMA DAILY [facility] Last Admin: 12/17/24 08:42 Dose: 21 mg Documented By: AUBREY Ondansetron HCl (Ondansetron Hcl 4 Mg/2 Ml Vial) 4 mg IVPUSH Q6H PRN PRN Reason: Nausea and Vomiting Last Admin: 12/17/24 18:00 Dose: 4 mg Documented By: AUBREY Oxycodone HCl (Oxycodone Hcl Immed Release 5 Mg Tablet) 5 mg PO Q6H PRN PRN Reason: Pain, Moderate(Pain Scale 4-6) Last Admin: 12/18/24 06:18 Dose: 5 mg Documented By: ROMMEL Sertraline HCl (Sertraline Hcl 100 Mg Tablet) 100 mg PO DAILY [facility] Last Admin: 12/18/24 07:43 Dose: 100 mg Documented By: AJMES Sodium Chloride (0.9 % Sodium Chloride Flush 3 Ml Syringe) 3 ml IVFLUSH QSHIFT [facility] Last Admin: 12/18/24 07:44 Dose: Not Given Documented By: JAMES Non-Admin Reason: IV Running Trazodone HCl (Trazodone Hcl 50 Mg Tablet) 50 mg PO BEDTIME [facility] Last Admin: 12/17/24 21:01 Dose: 50 mg Documented By: ROMMEL Labs 12/17/24 12:47 12/17/24 12:47 Labs: Laboratory Results - last 24 hr 12/16/24 12/17/24 16:14 12:47 MCV 92.2 MCH 31.0 MCHC 33.6 RDW 13.6 Plt Count 217 MPV 9.3 L Absolute Nucleated RBC 0.000 Nucleated RBC % (auto) 0.0 Anion Gap 10 L Estim Creat Clear Calc 76.4 Estimated GFR > 60 Random Glucose 93 Lactic Acid 1.5 Calcium 8.5 Stl C. cayetanensis PCR Not Detected Stool Rotavirus A PCR Not Detected Stl Adenov F 40/41 PCR Not Detected Stool Astrovirus (PCR) Not Detected Stool Campylobacter PCR Not Detected Stool Cryptosporidium PCR Not Detected Stl Sh Tox Pr E STEC PCR Not Detected Stool E coli O157 PCR Not applicable Stl Enterotoxigenic E PCR Not Detected Stool EPEC (PCR) Not Detected Stool EAEC (PCR) Not Detected Stl E. histolytica PCR Not Detected Stool Giardia Lamblia PCR Not Detected Stl P. shigelloides PCR Not Detected Stool Salmonella PCR Not Detected Stool Sapovirus (PCR) Not Detected Stl Shigella/EIEC PCR Not Detected St Y.enterocolitica PCR Not Detected Stool Vibrio (PCR) Not Detected Stl Vibrio cholerae PCR Not Detected Stl Norovirus GI/GII PCR Not Detected Procedures Date of Service Date of Service: 12/18/24 Progress Note: A&P Assessment and plan (1) Abdominal pain: Status: Acute Assessment and Plan: Clinically not obstructed Exam remains very benign Likely enterocolitis as etiology I reminded her that she should have a colonoscopy She understands the plan Diet as tolerated Time Spent With Patient Time: Total time managing care of this patient today ____ minutes. Quality Stroke Does the patient have a stroke diagnosis?: No VTE Prior VTE?: No VTE Risk Level:: Medical - moderate - high VTE Device Contraindication: N/A - Device Ordered VTE Drug Contraindication: Treatment Not Indicated
[2024-12-18] MEDS: Nicotine 21 MG PATCH.TD24 TRANSDERMA (10:27)
--- NOTE | 2024-12-18 11:02 | P.DS_ITS ---
DS: Providers Provider Date of Service: 12/18/24 Date of admission: 12/11/24 23:14 Date of discharge: 12/18/24 Primary care physician: July Aguirre MD Consults: 12/11/24 23:14 Consult to Gastroenterology Routine Consulting Provider: Maicol Murray Reason for consultation: GI bleed; SBO/Ileus Consult to General [place] [facility] [place] Reason for consultation: SBO Consult to Hematology / Oncology [place]ine [place]ing [place] [facility] [place] Reason for consultation: hx colon ca; lytic lesions Has provider been notified: No Attending physician on discharge: Bridgett Guerrero Discharging clinician: Bridgett Guerrero DS: Diagnosis Discharge Diagnosis (1) Abdominal pain: Status: Acute DS: Summary Hospital Course Hospital Course: HPI:59-year-old female with a past medical history of colon cancer status post chemotherapy/radiotherapy in 2010; tobacco dependence presented to the hospital today with a chief complaint of nausea vomiting and abdominal pain. Patient reports that for the past 3 days she has been having abdominal pain associated nausea and vomiting. Denies any blood in the vomitus. Also reports she has been having regular bowel movements. Last bowel movement was yesterday. And has been passing gas. Denies any chest pain or palpitations. Denies any fever chills cough or sputum production. Denies any urinary symptoms. Patient reports that she had blood in the stool recently. Denies any shortness of the dyspnea on exertion. Review of all other systems is negative except mentioned above ER course: Per ER team, patient had diffuse abdominal tenderness; CT abdomen pelvis showed findings concerning for SBO/ileus. Discussed with general surgery who suggested admission to the medicine service. Also noted to have leading bone lesions on the CT scan. Hospital course: 59-year-old female with a past medical history of colon cancer status post chemotherapy/radiotherapy in 2010; tobacco dependence presented to the hospital today with a chief complaint of nausea vomiting and abdominal pain and found to have Ileus vs SBO and enterocolitis hypotension:likely due to dec po intake ,dehydration,Hypoalbuminemia lactic acid normal. bmp seems fine,WBC count 4.6, no fever or tachycardia -no sepsis at present. blood cultures negative @24hrs hypotension Improved with hydration and albumin. Currently blood pressure is stable, patient denies any new symptoms. SBO vs ileus, no clinical evidence of obstruction, exam bening, and passing fltus, kub no evidence of obstruction. clinically no SBO Enterocolitis: passing bm cdiff and gip negative Patient was given IV antibiotics seems to improved,asymptomtaic, patient will go home with p.o. Augmentin. GI bleed/acute blood loss anemia:Stool guaiac positive Hemoglobin 10 compared to baseline of 13, H/H unchanged stable at 11 GI following, no intervention at this time, but may need colonoscopy H&H stable, patient will go home on omeprazole. Gi input for possible outpatient colonscopy HX colon cancer: Current CT scan-No evidence of osteoblastic metastatic disease. The appearance of small lucencies on CT in the hips and pelvis could represent multiple myeloma, which is occult on bone scan. Laboratory correlation is recommended. Oncology follow-up outpatient. plan: continue omeprazole 20 mg qd augmentin 875 mg po bid for 5 days moniter cbc and bmp outpatient. follow up with Gi (Dr quiroz's office ) as well as Dr greenberg;'s office outpatient( for abnormal bone scan and immunology results for IgG,IgA,IgM,free kappa ,lamda,free kappa/lamda). Assessment and plan coordination time spent 40 minute. Patient understand and in agreement with the above plan. Time Attestation Total time managing care of this patient today: 40 mintues. Discharge Coordination Time (in mins): 40 min Quality: Safe Use of Opioids Does Pt have an Active Cancer Diagnosis on the Problem List?: No Quality: Stroke Does the patient have a stroke diagnosis?: No Physical Exam Vital Signs: Vital Signs: Last Vital Signs Temp 97.9 F 12/18/24 06:36 Pulse 68 12/18/24 06:36 Resp 16 12/18/24 06:36 BP 112/54 L 12/18/24 06:36 Pulse Ox 95 12/18/24 06:36 O2 Del Method Room Air 12/18/24 06:36 BMI result Body Mass Index 16.4 General: AO X 3. Resp: CTA bilateral CVS: S1,S2,RRR GI: +BS, nt , and no distention Skin: No rash Neuro: motor grossly intact Psych: appropriate affect DS: Data Data Completed and Pending Labs on day of discharge: Laboratory Results - last 24 hr 12/17/24 12:47 WBC 4.6 L RBC 3.48 L Hgb 10.8 L Hct 32.1 L MCV 92.2 MCH 31.0 MCHC 33.6 RDW 13.6 Plt Count 217 MPV 9.3 L Absolute Nucleated RBC 0.000 Nucleated RBC % (auto) 0.0 Sodium 143 Potassium 3.6 Chloride 106 Carbon Dioxide 31 H Anion Gap 10 L BUN 5 L Creatinine 0.61 Estim Creat Clear Calc 76.4 Estimated GFR > 60 Random Glucose 93 Lactic Acid 1.5 Calcium 8.5 Imaging Chest x-ray: Radiologist's impression: ITS Impressions Bone Scan Nuclear Medicine 12/15/24 10:45 IMPRESSION: No evidence of osteoblastic metastatic disease. The appearance of small lucencies on CT in the hips and pelvis could represent multiple myeloma, which is occult on bone scan. Laboratory correlation is recommended. Discharge Plan Discharge Anticipated Discharge Date/Time: 12/18/24 10:53 Patient Disposition: Home, Self-Care Discharge Diagnosis: enterocolitis ,abnormal bone scan ,gib Referrals: July Aguirre MD [Primary Care Provider] - 1 Week Damari Greenberg MD [Physician] - 2 Weeks Discharge Medications: New amoxicillin-pot clavulanate 875-125 mg Tablet 1 tab PO BID Qty: 10 0RF omeprazole 20 mg Capsule,Delayed Release(Dr/Ec) 20 mg PO DAILY@0630 Qty: 60 0RF Continued trazodone 50 mg tablet 50 mg PO BEDTIME sertraline 100 mg tablet 100 mg PO QAM nicotine 21 mg/24 hr patch 24 hour 1 patch topical DAILY montelukast 10 mg tablet 10 mg PO DAILY albuterol sulfate [Ventolin HFA] 90 mcg/actuation HFA aerosol inhaler 2 puff INHALATION QID PRN (Reason: Shortness Of Breath Or Wheezing) fluticasone propionate 50 mcg/actuation spray,suspension 1 spray intranasal BID PRN (Reason: Allergy Symptoms) loratadine 10 mg tablet 10 mg PO DAILY naproxen 500 mg tablet 500 mg PO BID PRN (Reason: Pain (Scale Score 1-3)) Spectravite Women 50 Plus 8 mg iron-400 mcg-50 mcg tablet 1 tab PO DAILY Arnuity Ellipta 100 mcg/actuation blister with device 1 inh INHALATION DAILY Discharge Orders: Discharge Order (Routine); Ordered 12/18/24 Ordered By: Bridgett Guerrero Diet: Advance to usual diet Activity on Discharge: As tolerated Stand Alone Forms: Patient Portal Discharge page Print Language: Mongolian Other Ambulatory Orders: Basic Metabolic Panel (Routine) Timeframe: 1 Week Facility: [facility] - Location: Laboratory Ordered By: Bridgett Guerrero Complete Blood Count no Diff (Routine) Timeframe: 1 Week Facility: [facility] - Location: Laboratory Ordered By: Bridgett Guerrero Care Plan Goals: 59-year-old female with a past medical history of colon cancer status post chemotherapy/radiotherapy in 2010; tobacco dependence presented to the hospital today with a chief complaint of nausea vomiting and abdominal pain and found to have Ileus vs SBO and enterocolitis hypotension:likely due to dec po intake ,dehydration,Hypoalbuminemia lactic acid normal. bmp seems fine,WBC count 4.6, no fever or tachycardia -no sepsis at present. blood cultures negative @24hrs Improved with hydration and albumin. Currently blood pressure is stable, patient denies any new symptoms. SBO vs ileus, no clinical evidence of obstruction, exam bening, and passing fltus, kub no evidence of obstruction. clinically no SBO Enterocolitis: passing bm cdiff and gip negative Patient was given IV antibiotics seems to improved, patient will go home with p.o. Augmentin. GI bleed/acute blood loss anemia:Stool guaiac positive Hemoglobin 10 compared to baseline of 13, H/H unchanged stable at 11 GI following, no intervention at this time, but may need colonoscopy H&H stable, patient will go home on omeprazole. Gi input for possible outpatient colonscopy HX colon cancer: Current CT scan-No evidence of osteoblastic metastatic disease. The appearance of small lucencies on CT in the hips and pelvis could represent multiple myeloma, which is occult on bone scan. Laboratory correlation is recommended. Oncology follow-up outpatient. Health Concerns: continue omeprazole 20 mg qd augmentin 875 mg po bid for 5 days moniter cbc and bmp outpatient. follow up with Gi (Dr quiroz's office ) as well as Dr greenberg;'s office outpatient( for abnormal bone scan and immunology results for IgG,IgA,IgM,free kappa ,lamda,free kappa/lamda) Plan of Treatment: as above. Assessment: as above.
--- NOTE | 2024-12-18 11:07 | MHC.CM.PN ---
Addendum entered by Mandy Caceres 12/18/24 16:21: Cultures are negative. Patient discharged to home with Family support and transport. Addendum entered by Mandy Caceres 12/18/24 14:22: Discharge today is contingent on Culture results still pending. Original Note: Patient is discharged today to home self care. A family member will provide transportation home.
[2024-12-18 11:50] VITALS: BP 108/54; PULSE 71; RESP 15; TEMP 36.6; O2SAT 97
[2024-12-18] MEDS: Omeprazole 20 MG CAPSULE.DR PO (11:59)
[2024-12-18 15:23] VITALS: BP 127/63; PULSE 66; RESP 18; TEMP 36.6; O2SAT 98
[2024-12-18] MEDS: Amoxicillin/Potassium Clav 875 MG TABLET PO (15:27)
[2024-12-21 10:54] LABS: Kappa Light Chain, Free Serum 30.6 mg/L (3.3-19.4); Kappa/Lambda Lt Ch Free Ratio 1.59 (0.26-1.65); Lambda Light Chain, Free Serum 19.2 mg/L (5.7-26.3)
[2024-12-21 17:38] LABS: IgA 189 mg/dL (47-310); IgG 950 mg/dL (600-1640); IgM 238 mg/dL (50-300)
== END 2024-12-18 15:45 | disposition home or self-care (01) | DRG 249 ==
LOC: HO.ED 23:04 → HO.EDOVER 23:30 → HO.IMC 23:43 → HO.S3 12-13 14:26
PROVIDERS: Internal Medicine; Internal Medicine Gastroenterology; Internal Medicine Medical Oncology; Surgery; Admitting Provider Hospitalist; Emergency Provider Emergency Medicine; PCP Internal Medicine; Visit Provider Internal Medicine
DX: K52.9 Noninfective gastroenteritis and colitis, unspecified (principal); D62 Acute posthemorrhagic anemia; I95.9 Hypotension, unspecified; F17.210 Nicotine dependence, cigarettes, uncomplicated; K56.7 Ileus, unspecified; E88.09 Other disorders of plasma-protein metabolism, not elsewhere classified; E86.0 Dehydration; K92.1 Melena; Z20.822 Contact with and (suspected) exposure to COVID-19; R63.6 Underweight; R94.8 Abnormal results of function studies of other organs and systems; Z68.1 Body mass index [BMI] 19.9 or less, adult; Z71.6 Tobacco abuse counseling; Z91.199 Patient's noncompliance with other medical treatment and regimen due to unspecified reason; Z85.038 Personal history of other malignant neoplasm of large intestine; Z79.899 Other long term (current) drug therapy
CPT/HCPCS: 0241U; 36415; 70450; 74018; 74177; 78306; 80048; 80053; 81001; 82272; 82378; 82607; 82728; 82746; 82784; 83521; 83540; 83605; 83690; 84484; 85025; 85027; 86334; 87040; 87493; 87507; 93005; 94640; 99285; A9503; J0696; J1171; J1836; J2270; J2405; J2470; J2543; P9047; Q9967

== ENCOUNTER → 2024-12-11 19:55 | Outpatient (BNV) | payer OTHER, SELFPAY | PROVIDERS: Admitting Provider Hospitalist; Emergency Provider Emergency Medicine; Visit Provider Internal Medicine Cardiovascular Disease | DX: R06.02 Shortness of breath (principal) | CPT/HCPCS: 93010 ==

== ENCOUNTER → 2024-12-11 21:23 | Outpatient (BNV) | payer OTHER, SELFPAY | PROVIDERS: Emergency Provider Emergency Medicine; Visit Provider Radiology Diagnostic Radiology | DX: K63.89 Other specified diseases of intestine (principal) | CPT/HCPCS: 74177 ==

== ENCOUNTER 2024-12-11 23:14 | Outpatient (BNV) | payer OTHER, SELFPAY | END 2024-12-15 10:45 | PROVIDERS: Admitting Provider Hospitalist; Emergency Provider Emergency Medicine; PCP Internal Medicine; Visit Provider Radiology Diagnostic Radiology | DX: M89.9 Disorder of bone, unspecified (principal) | CPT/HCPCS: 78306 ==

== ENCOUNTER 2024-12-11 23:14 | Outpatient (BNV) | payer OTHER, SELFPAY | END 2024-12-14 11:54 | PROVIDERS: Admitting Provider Hospitalist; Emergency Provider Emergency Medicine; PCP Internal Medicine; Visit Provider Internal Medicine | DX: R07.9 Chest pain, unspecified (principal); R94.31 Abnormal electrocardiogram [ECG] [EKG] | CPT/HCPCS: 93010 ==

== ENCOUNTER 2024-12-11 23:14 | Outpatient (BNV) | payer OTHER, SELFPAY | END 2024-12-14 16:14 | PROVIDERS: Admitting Provider Hospitalist; Emergency Provider Emergency Medicine; PCP Internal Medicine; Visit Provider Radiology Diagnostic Radiology | DX: R51.9 Headache, unspecified (principal) | CPT/HCPCS: 70450 ==

== ENCOUNTER 2024-12-11 23:14 | Outpatient (BNV) | payer OTHER, SELFPAY | END 2024-12-13 09:42 | PROVIDERS: Admitting Provider Hospitalist; Emergency Provider Emergency Medicine; Visit Provider Radiology Diagnostic Radiology | DX: K63.89 Other specified diseases of intestine (principal) | CPT/HCPCS: 74018 ==

== ENCOUNTER → 2024-12-11 23:14 | Outpatient (BNV) | payer OTHER, SELFPAY | PROVIDERS: Admitting Provider Hospitalist; Emergency Provider Emergency Medicine; PCP Internal Medicine; Visit Provider Internal Medicine Medical Oncology | DX: K56.609 Unspecified intestinal obstruction, unspecified as to partial versus complete obstruction (principal); Z85.048 Personal history of other malignant neoplasm of rectum, rectosigmoid junction, and anus; M89.9 Disorder of bone, unspecified | CPT/HCPCS: 99222 ==

== ENCOUNTER → 2024-12-11 23:14 | Outpatient (BNV) | payer OTHER, SELFPAY | PROVIDERS: Admitting Provider Hospitalist; Emergency Provider Emergency Medicine; Visit Provider Surgery | DX: R10.9 Unspecified abdominal pain (principal); R11.2 Nausea with vomiting, unspecified | CPT/HCPCS: 99222; 99232 ==

== ENCOUNTER → 2024-12-11 23:14 | Outpatient (BNV) | payer OTHER, SELFPAY | PROVIDERS: Admitting Provider Hospitalist; Emergency Provider Emergency Medicine; PCP Internal Medicine; Visit Provider Internal Medicine Gastroenterology | DX: K52.9 Noninfective gastroenteritis and colitis, unspecified (principal) | CPT/HCPCS: 99232 ==

== ENCOUNTER → 2024-12-11 23:14 | Outpatient (BNV) | payer OTHER, SELFPAY | PROVIDERS: Admitting Provider Hospitalist; Emergency Provider Emergency Medicine; Visit Provider Internal Medicine | DX: R11.2 Nausea with vomiting, unspecified (principal); R10.9 Unspecified abdominal pain; R19.5 Other fecal abnormalities | CPT/HCPCS: 99232 ==

== ENCOUNTER 2025-01-25 15:50 | Inpatient (IN) | payer OTHER, SELFPAY ==
--- NOTE | ~2025-01-25 | XR_ITS ---
EXAMINATION: XR ABDOMEN KUB CLINICAL INDICATION: follow up for ileus vs pSBO COMPARISON: None available. TECHNIQUE: AP view of the abdomen. FINDINGS: Bowel gas pattern demonstrates a prominent dilated loop of small bowel in the lower abdomen, similar to the prior CT exam. Suggestion of mild wall thickening. Gaseous distention of the stomach is noted. No indirect evidence of free air. No abnormal dilated large bowel seen. No organomegaly or abnormal soft tissue calcifications. There is contrast within the bladder from recent CT scan. No osseous abnormalities. XR/XR KUB IMPRESSION: Persistent small bowel dilatation in the inferior abdomen/superior pelvis, consistent with persistent small bowel obstruction versus ileus. Electronically signed by: Seymour Maldonado MD 01/26/2025 08:44 AM EDT
--- NOTE | ~2025-01-25 | MR_ITS ---
EXAMINATION: MR LUMBAR SPINE WITH AND WITHOUT CONTRAST CLINICAL INFORMATION: Pain, possible lytic lesions. History of colorectal cancer. Back pain. COMPARISON: Bone scan 12/15/2024. CT abdomen and pelvis 01/25/2025. TECHNIQUE: Multiplanar multisequence MR imaging of the lumbar spine was done both before and after the administration of 4.5 mL IV Gadavist contrast. Examination was performed on a 1.5 Petra Siemens magnet, utilizing standard sequences. FINDINGS: CORONAL ALIGNMENT: -Normal. SAGITTAL ALIGNMENT: - Mild straightening of the normal lordosis. -There is a 10 mm, grade 2, spondylolisthesis L5 on S1. There are full-thickness L5 pars defects. -No additional subluxations. LUMBOSACRAL JUNCTION: -Normal. There are 5 [id number] lumbar-type vertebral bodies. VERTEBRAL BODIES/BONE MARROW: -Extensive degenerative edematous and enhancing endplate changes are present at L5-S1, and to a lesser degree at L4-5. -There are no suspicious lytic lesions within the skeletal structures, or abnormal regions of signal side from L4-5 and L5-S1. -There are no compression deformities. There are no fractures. DISCS: -Severe loss of disc and signal at L4-5 and L5-S1, with high T2 signal and mild enhancement within the disc spaces. -Disc levels above L4 are normal in height and signal. SPINAL CANAL: -No abnormal developmental findings. CONUS MEDULLARIS: -Terminates at superior L2 level. Morphology and signal is normal. INTRADURAL NERVE ROOTS: - Within normal limits. No abnormal nerve root clumping or mass. -No abnormal intra-axial or extra medullary enhancement is identified. Axial Disc Space Images: T12-L1: No central canal or neural foraminal narrowing. L1-L2: No central canal or neural foraminal narrowing. L2-L3: No central canal or neural foraminal narrowing. L3-L4: No central canal or neural foraminal narrowing. L4-L5: Shallow disc osteophytic ridge complex is present with severe disc degeneration, and a superimposed right foraminal disc extrusion. There is central annular fissuring. There are mild hypertrophic degenerative facet changes bilaterally with mild posterior ligamentous thickening/infolding. There is no significant central canal or subarticular recess stenosis. There is moderate right and mild left neural foraminal narrowing. There is no definite impingement of the exiting right L4 nerve root. L5-S1: There is disc uncovering secondary to grade 2 spondylolisthesis. Severe disc degeneration with irregular endplate changes present. Severe bilateral hypertrophic degenerative facet changes. There is mild central canal narrowing, and mild bilateral subarticular recess narrowing. There is severe bilateral neural foraminal impingement, with likely impingement of the exiting bilateral L5 nerve roots. IMAGED SI JOINTS: -Mild degenerative changes bilaterally. PARAVERTEBRAL AND INCLUDED EXTRASPINAL SOFT TISSUES: -There are small cysts within both kidneys. -The aorta is normal in caliber. MR/MR lumbar spine wo/w con IMPRESSION: 1. There are no suspicious lytic or blastic bone lesions identified on MRI. 2. There is a grade 2, 10 mm spondylolisthesis L5-S1. There are full-thickness L5 pars defects. There is severe bilateral neural foraminal stenosis at this level. 3. There is severe edematous and enhancing endplate changes at L5-S1, and lesser changes at L4-5. 4. There is no significant central canal or subarticular recess stenosis at any level. Electronically signed by: Seymour Maldonado MD 01/26/2025 04:07 PM EDT
--- NOTE | ~2025-01-25 | CT_ITS ---
CLINICAL HISTORY: LLQ pain tendernss loose stools CT abdomen and pelvis with contrast Comparison: CT/SR - CT ABDOMEN PELVIS W IV CON - 12/11/24 21:45 EDT Findings: Bibasilar atelectatic/dependent changes. Subcentimeter cysts are noted within upper poles of both kidneys. No hydronephrosis no nephrolithiasis. Gallbladder is mostly contracted. Solid organs are otherwise unremarkable. Multiple dilated jejunal loops measuring up to 4.0 cm. Mucosal thickening and enhancement of the stomach, duodenum and multiple jejunal loops. Distal ileal loops are normal in caliber. Moderate stool burden is noted within the colon. Pelvic contents unremarkable. Appendix is not definitely visualized however, no evidence of acute appendicitis. No acute fracture. IMPRESSION: Mucosal thickening and enhancement of the stomach, duodenum and multiple jejunal loops which are mildly dilated measuring up to 4.0 cm however, improved in the interval. No definite transition point is identified. Findings most likely represent gastritis/enteritis. Partial small bowel obstruction or ileus are in the differential. Moderate colonic stool burden. This document has been electronically signed by: Meliton Gee MD on 01/25/2025 19:28:58
--- NOTE | ~2025-01-25 | IR_ITS ---
EXAMINATION: Fluoroscopy-guided L5-S1 epidural injection. CLINICAL INFORMATION: Low back pain radiating to left leg. COMPARISON: MRI lumbar spine 01/26/2025 TECHNIQUE: Following explaining fluoroscopy-guided L5-S1 epidural steroid injection procedure, benefits and risk, a written consent was obtained . Patient was placed prone on fluoroscopy table and L5-S1 disc level is localized on the skin. The area was marked, cleaned and draped in usual sterile manner. 1% lidocaine was injected puncture site. A 22-gauge spinal needle was then inserted from the skin into the left posterior pleural space under fluoroscopy and 1 mL of contrast was injected. A single image was obtained for documentation. Subsequently 40 mg/5 mL of Celestone and 1% lidocaine was injected as 8mL volume and needle withdrawn. Complete hemostasis achieved at puncture site. Sterile dressing applied post procedure. FINDINGS: There is loss of L5-S1 disc height with endplate sclerosis and periocular spurring. Successful fluoroscopy-guided L5-S1 epidural steroid injection performed without immediate complications. FLUOROSCOPY TIME: 1.4 minutes DOSE AREA PRODUCT: 20.43 mg uGy-m2 (microgray-meter squared) IR/IR inj epidural lumb/sac IMPRESSION: Successful fluoroscopy-guided left L5-S1 epidural steroid injection performed. Electronically signed by: Valentin Hernandez MD 01/28/2025 02:10 PM EDT
[2025-01-25 16:01] VITALS: BP 107/42; BP 108/78; PULSE 78; RESP 18; TEMP 36.6; O2SAT 97; O2SAT 99; BMI 16.7
--- NOTE | 2025-01-25 16:32 | ED.GENADULT ---
HPI - General Adult General Chief complaint: GI Bleed Stated complaint: lower back pain , pain radiating to lower abd Time Seen by Provider: 01/25/25 16:32 History of Present Illness ED Provider: Pauline LANDA narrative: The patient is a 59-year-old woman who was admitted to the hospital on December 11 for abdominal pain. She was thought to possibly have an ileus or small-bowel obstruction. She was admitted to the medical service and observed. She was placed on antibiotics. She was discharged on December 18 for a total of a 1 week hospitalization. She was discharged on 5 days of Augmentin and also on 20 mg of omeprazole daily. The patient says that she did well for few weeks until about 3 days ago when she started to have a recurrence of abdominal pain similar to the abdominal pain for which he was hospitalized at the end of November. She has also had loose stools. She feels that there has been a small amounts of blood in her loose stools. No definite fevers. She took an ambulance to come to the hospital today because she felt so bad. Related Data Home Medications ?Medication ?Instructions ?Recorded ?Confirmed albuterol sulfate 90 mcg/actuation 2 puff inhalation QID PRN 12/12/24 01/25/25 aerosol inhaler (Ventolin HFA) Shortness Of Breath Or Wheezing fluticasone furoate 100 1 inh inhalation DAILY 12/12/24 01/25/25 mcg/actuation blister powder for inhalation (Arnuity Ellipta) fluticasone propionate 50 1 spray intranasal BID PRN Allergy 12/12/24 01/25/25 mcg/actuation nasal Symptoms spray,suspension loratadine 10 mg tablet 10 mg PO DAILY 12/12/24 01/25/25 nicotine 21 mg/24 hr daily 1 patch topical DAILY PRN Smoking 12/12/24 01/25/25 transdermal patch Cessation sertraline 100 mg tablet 100 mg PO DAILY 12/12/24 01/25/25 trazodone 50 mg tablet 50 mg PO BEDTIME insomnia 12/12/24 01/25/25 albuterol sulfate 2.5 mg/3 mL 3 mg inhalation BID PRN sort 01/25/25 01/25/25 (0.083 %) solution for nebulization aripiprazole 15 mg tablet 15 mg PO DAILY depressive disorder 01/25/25 01/25/25 melatonin 3 mg tablet 3 mg PO BEDTIME PRN insomnia 01/25/25 01/25/25 mirtazapine 15 mg tablet 15 mg PO BEDTIME depressive 01/25/25 01/25/25 disorder [id number]-[id number] 8 mg-folic 400 1 tab PO DAILY 01/25/25 01/25/25 mcg-K 50 mcg-lutein 300 mcg tablet (Spectravite Women 50 Plus) naproxen 500 mg tablet 500 mg PO BID 01/25/25 01/25/25 prazosin 2 mg capsule 2 mg PO BEDTIME nightmares 01/25/25 01/25/25 Previous Rx's ?Medication ?Instructions ?Recorded omeprazole 20 mg capsule,delayed 20 mg PO DAILY@0630 #60 caps 12/18/24 release Allergies Allergy/AdvReac Type Severity Reaction Status Date / Time Milk Containing Products AdvReac Diarrhea Verified 01/25/25 16:04 (Dairy) Review of Systems Review of Systems: Yes all other systems are reviewed and are negative [facility] Past Medical History Medical History Asthma Colon cancer Social History Social History Household Members: Other Household Members Other:: sister Housing: House Patient Tobacco Use Status: Current someday Tobacco user Substance Use Type: Marijuana service: No Physical Exam ED Vital Signs: Vital Signs - 24 hr 01/25/25 16:01 01/25/25 19:22 Temperature 97.8 F 98.8 F Pulse Rate 78 87 Respiratory Rate 18 18 Blood Pressure 107/42 L 105/50 L Pulse Oximetry 99 99 Oxygen Delivery Method Room Air Room Air BMI result Body Mass Index 16.7 Const Other: The patient is a 59-year-old woman who looks somewhat chronically ill. She also looks as if she does not feel very well. She is awake and alert with a normal mental status. HENMT Other: Face is symmetrical, mucous membranes not obviously dry. Eyes General: appearance normal, both eyes and all related structures Sclerae: sclerae normal Pupils: Equal, round and reactive pupils present Neck Neck: Yes full ROM and Yes no lymphadenopathy Resp Effort & Inspection: normal respiratory effort Auscultation: clear to auscultation bilaterally Cardio Rate: regular rate Rhythm: regular rhythm Heart sounds: S1 normal heart sound present and S2 normal heart sound present GI Other: The patient's abdomen is flat but diffusely tender. No rigidity. Skin Other: Skin is dry and unremarkable Neuro Other: The patient is awake and alert with a normal mental status. Cranial nerves are grossly intact. She moves her extremities normally and appropriately. She seems grossly neurologically intact. Cranial nerves: Yes Equal, round and reactive pupils present Extrem Other: No peripheral edema Medications Administered Generic Name Dose Route Start Last Admin Trade Name Freq PRN Reason Stop Dose Admin Lactated Ringer's 1,000 mls @ 100 mls/hr 01/25/25 20:45 01/25/25 22:49 Lr IVCONT 100 mls/hr .Q10H JUAN LUIS Administration Pantoprazole Sodium 40 mg 01/25/25 20:50 01/25/25 21:48 Pantoprazole Sodium 40 Mg/10 Ml Vial IVPUSH 40 mg BID@0630,1630 JUAN LUIS Administration Sodium Chloride 3 ml 01/26/25 00:00 01/25/25 23:09 0.9 % Sodium Chloride Flush 3 Ml Syringe IVFLUSH Not Given QSHIFT JUAN LUIS Discontinued Medications Generic Name Dose Route Start Last Admin Trade Name Freq PRN Reason Stop Dose Admin Bisacodyl 10 mg 01/25/25 20:33 01/25/25 21:48 Bisacodyl 10 Mg Supp.Rect CO 01/25/25 20:34 Not Given ONCE ONE Diphenhydramine HCl 25 mg 01/25/25 16:38 01/25/25 17:00 Diphenhydramine Hcl 50 Mg/Ml Vial IVPUSH 01/25/25 16:39 25 mg ONCE ONE Administration Magnesium Sulfate 2 gm in 50 mls @ 150 mls/hr 01/25/25 17:32 01/25/25 18:41 Magnesium Sulfate/H2o IV 01/25/25 17:51 Infused ONCE ONE Infusion Acetaminophen 1,000 mg in 100 mls @ 400 mls/hr 01/25/25 20:33 01/25/25 22:39 Ofirmev IV 01/25/25 20:47 Infused ONCE ONE Infusion Iohexol 85 ml 01/25/25 18:39 01/25/25 18:39 Iohexol 350 Mg/Ml 100 Ml Infus..Btl IV 01/25/25 18:40 85 ml ONCE ONE Administration Metoclopramide HCl 10 mg 01/25/25 16:38 01/25/25 17:00 Metoclopramide Hcl 10 Mg/2 Ml Vial IVPUSH 01/25/25 16:39 10 mg ONCE ONE Administration Morphine Sulfate 4 mg 01/25/25 16:34 01/25/25 17:01 Morphine Sulfate 4 Mg/Ml Cartridge IVPUSH 01/25/25 16:35 4 mg ONCE ONE Administration Protocol Morphine Sulfate 6 mg 01/25/25 19:01 01/25/25 19:23 Morphine Sulfate 10 Mg/Ml Cartridge IVPUSH 01/25/25 19:02 6 mg ONCE ONE Administration Protocol Medical Decision Making Medical Decision Making [facility] Narrative: The patient is a 59-year-old female with a history of colon cancer who was hospitalized a month ago for similar symptoms. At that time she had an abnormal CT scan of the abdomen and pelvis that showed some degree of enteritis and probable ileus. She returns today with 3 days of worsening abdominal symptoms similar to the symptoms she had at the end of November. The patient does not appear toxic or septic. Nevertheless she did seem uncomfortable and she had loose stools. Since she was on antibiotics a little over a month ago a stool sample was sent for C diff which is negative. An additional stool panel is pending. The patient's labs were for the most part fairly reassuring. She did not have a significantly elevated white count. Her basic metabolic panel was normal with a normal renal function. Her magnesium was low at 1.4. LFTs show an AST of 36. C-reactive protein slightly elevated at 2.08 lipase normal. Procalcitonin 0.02 Since the patient was complaining of significant abdominal pain we obtained another CT scan of the abdomen and pelvis. This shows findings quite similar to her CT scan at the end of November which suggested the possibility of an ileus. On today's CT scan she has many dilated loops of small bowel without any clear transition point. There also seems to be some findings consistent with enteritis. The patient was given morphine, metoclopramide, and diphenhydramine for symptomatic treatment. She still complained of feeling unwell. She was given an additional dose of morphine IV. She was given IV fluids. Given the findings on the patient's CT scan and I think that the patient is having another acute gastrointestinal illness although I do not think this is a surgical process. Nevertheless I think that the patient has probably quite uncomfortable and will be admitted to the hospitalist service for further care. Lab Data 01/25/25 16:47 01/25/25 16:47 Labs: Lab Results 01/25/25 01/25/25 Range/Units 16:47 17:03 WBC 6.5 (4.8-10.8) X10*3/uL RBC 3.55 L (4.20-5.50) X10*6/uL Hgb 10.7 L (12.0-16.0) g/dl Hct 33.2 L (37.0-47.0) % MCV 93.5 (80.0-98.0) fL MCH 30.1 (27.0-33.0) pg MCHC 32.2 (31.0-35.0) g/dl RDW 12.7 (11.0-16.0) % Plt Count 262 (160-400) X10*3/uL MPV 8.8 L (9.4-12.3) fL Immature Gran % (Auto) 0.3 (0.0-0.4) % Neut % (Auto) 72.8 (45-73) % Lymph % (Auto) 12.7 L (20-40) % Brantley % (Auto) 12.1 H (2-11) % Eos % (Auto) 1.8 (0-4) % Baso % (Auto) 0.3 (0-2) % Lymph # (Auto) 0.8 L (1.2-4.9) X10*3/uL Brantley # (Auto) 0.8 (0.1-1.2) X10*3/uL Eos # (Auto) 0.1 (0.0-0.4) X10*3/uL Baso # (Auto) 0.0 (0.0-0.2) X10*3/uL Abs Immat Gran (auto) 0.02 (0.00-0.03) X10*3/uL Absolute Neuts (auto) 4.7 (2.0-8.3) x10*3/uL Absolute Nucleated RBC 0.000 (0.0-0.012) X10*3/uL Nucleated RBC % (auto) 0.0 (0.0-0.2) /100WBC Sodium 143 (135-145) mmol/L Potassium 3.3 (3.3-5.1) mmol/L Chloride 105 (96-108) mmol/L Carbon Dioxide 29 (22-29) mmol/L Anion Gap 12 (12-20) BUN 16 (9-16) mg/dL Creatinine 0.63 (0.5-1.4) mg/dL Estim Creat Clear Calc 75.1 Estimated GFR > 60 Random Glucose 102 (60-115) mg/dL Calcium 8.9 (8.4-10.2) mg/dL Magnesium 1.4 L* (1.6-2.6) mg/dL Total Bilirubin 0.2 (0.0-1.0) mg/dL Direct Bilirubin < 0.2 (0.0-0.5) mg/dL AST 36 H (5-31) U/L ALT 23 (0-31) U/L Alkaline Phosphatase 78 (39-117) U/L C-Reactive Protein 2.08 H (< or = 0.50) mg/dL Total Protein 6.2 L (6.5-8.0) g/dL Albumin 3.3 L (3.5-5.0) g/dL Lipase 9 (8-78) U/L Ethyl Alcohol < 10 mg/dL C. difficile Tox B Gene NEGATIVE (Negative) Blood Type O Positive Antibody Screen NEGATIVE Discharge Plan Discharge Clinical Impression: Abdominal pain, Diarrhea, Hypomagnesemia Patient Disposition: Admitted As Inpatient Interventions: Admission Worksheet (ED) Last Done: 01/25/25 21:59 Discharge Date/Time: 01/25/25 22:48
--- NOTE | 2025-01-25 16:37 | ECG_ITS ---
Test Reason : WEAKNESS Blood Pressure : */* mmHG Vent. Rate : 72 BPM Atrial Rate : 72 BPM P-R Int : 124 ms QRS Dur : 90 ms QT Int : 412 ms P-R-T Axes : 70 23 61 degrees QTcB Int : 451 ms Normal sinus rhythm Possible Left atrial enlargement Nonspecific T wave abnormality Abnormal ECG When compared with ECG of 14-Dec-2024 11:54, QRS axis Shifted right Referred By: Duran Carpenter Electronically Signed By: PAVAN HARMON MD
[2025-01-25 16:51] LABS: MANUAL DIFF FLAG NO
[2025-01-25 16:53] LABS: Basophils Percent Auto 0.3 % (0-2); Eosinophils Absolute Auto 0.1 X10*3/uL (0.0-0.4); Eosinophils Percent Auto 1.8 % (0-4); Hematocrit 33.2 % (37.0-47.0); Hemoglobin 10.7 g/dl (12.0-16.0); Imm Gran Abs Auto 0.02 X10*3/uL (0.00-0.03); Imm Gran Pct Auto 0.3 % (0.0-0.4); Lymphocytes Absolute Auto 0.8 X10*3/uL (1.2-4.9); Lymphocytes Percent Auto 12.7 % (20-40); Mean Corpuscular HGB Conc 32.2 g/dl (31.0-35.0); Mean Corpuscular Hemoglobin 30.1 pg (27.0-33.0); Mean Corpuscular Volume 93.5 fL (80.0-98.0); Mean Platelet Volume 8.8 fL (9.4-12.3); Monocytes Absolute Auto 0.8 X10*3/uL (0.1-1.2); Monocytes Percent Auto 12.1 % (2-11); Neutrophils Absolute Auto 4.7 x10*3/uL (2.0-8.3); Neutrophils Percent Auto 72.8 % (45-73); Platelet Count 262 X10*3/uL (160-400); Red Blood Count 3.55 X10*6/uL (4.20-5.50); Red Cell Distribution Width 12.7 % (11.0-16.0); White Blood Count 6.5 X10*3/uL (4.8-10.8)
[2025-01-25] MEDS: diphenhydrAMINE HCL 50 MG/ML VIAL 25 MG IVPUSH (17:00)
[2025-01-25] MEDS: Metoclopramide HCl 10 MG/2 ML VIAL IVPUSH (17:00)
[2025-01-25] MEDS: Morphine Sulfate 4 MG/ML CARTRIDGE IVPUSH (17:01)
[2025-01-25 17:23] LABS: Alanine Aminotransferase 23 U/L (0-31); Albumin Level 3.3 g/dL (3.5-5.0); Alkaline Phosphatase 78 U/L (39-117); Anion Gap 12 (12-20); Aspartate Amino Transferase 36 U/L (5-31); Bilirubin Direct < 0.2 mg/dL (0.0-0.5); Bilirubin Total 0.2 mg/dL (0.0-1.0); Blood Urea Nitrogen 16 mg/dL (9-16); C Reactive Protein 2.08 mg/dL (< or = 0.50); Calcium 8.9 mg/dL (8.4-10.2); Carbon Dioxide 29 mmol/L (22-29); Chloride 105 mmol/L (96-108); Creatinine Clr Calc Pharmacy 75.1; Estimated Glomerular Filt Rate > 60; Glucose Random 102 mg/dL (60-115); Lipase 9 U/L (8-78); Magnesium 1.4 mg/dL (1.6-2.6); Potassium 3.3 mmol/L (3.3-5.1); Sodium 143 mmol/L (135-145); Total Protein 6.2 g/dL (6.5-8.0)
[2025-01-25] MEDS: Magnesium Sulfate/H2O 2 GM/50 ML PIGGYBACK IV (17:52)
[2025-01-25 18:17] LABS: CDiff Gene PCR NEGATIVE (Negative)
[2025-01-25 18:29] LABS: Ethanol < 10 mg/dL
[2025-01-25] MEDS: iohexoL 350 MG/ML 100 ML INFUS..BTL 85 ML IV (18:39)
[2025-01-25 19:22] VITALS: BP 105/50; PULSE 87; RESP 18; TEMP 37.1; O2SAT 99
[2025-01-25] MEDS: Morphine Sulfate 10 MG/ML CARTRIDGE 6 MG IVPUSH (19:23)
--- NOTE | 2025-01-25 20:39 | P.HPHOSP_ITS ---
History of Present Illness Date of Service: 01/25/25 <[facility] - Last Filed: 01/25/25 21:27> Attending physician on admission: Dre Sorto <[facility] - Last Filed: 01/25/25 21:27> Chief Complaint: abdominal and back pain <[facility] - Last Filed: 01/25/25 21:27> Patient is a 59-year-old female with past medical history rectal cancer treated with chemo and radiation, GI bleed, chronic low back pain, unexplained weight loss, sciatica, depression and anxiety with history of suicidal ideations and inpatient psychiatric admission, recent cocaine use via inhalation, history of alcohol abuse, tobacco use 2-3 cigarettes per day, COPD/emphysema, UTI, poor dentition, lactose intolerance and patient states she can not eat red meat, fiber or dairy products presents to the emergency room via EMS having significant lower back pain over the last 4 days with notable rectal bleeding on tissue paper with bowel movement. Patient then reported intermittent diarrhea and blood in the stool. Patient denies history of hemorrhoids. Patient does have history of rectal cancer and is overdue for her colonoscopy by 2 years. Patient states the back pain is unexplainable. Upon review of previous CT scan on 12/11/2024 during previous admission, there was a question of lytic lesions indicating possible metastatic/ malignancy versus interval increase in bony demineralization. Patient believes that she is eventually going to have surgery for her lower back issues. Patient has only been taking Naprosyn for her pain control at home. Patient also reports unexplained weight loss that has continued over the last 6 months and BMI is currently 16.7. CT of the abdomen and pelvis are negative for any nephrolithiasis and indicate that the gallbladder is mostly contracted. Evidence of multiple dilated jejunal loops measuring up to 4 cm found. Moderate stool burden also noted within the colon. No evidence of appendicitis and no acute fracture. Findings most likely indicate gastritis/enteritis but partial small-bowel obstruction or ileus are also included in the differential. Patient is currently not having any nausea or vomiting requiring NG tube placement. Patient denies any fever or chills, chest pain, shortness of breath at rest or with exertion, history of blood clot in the leg or lung, and patient does not use oxygen at home. Patient has no leukocytosis. Lactic acid and procalcitonin pending. Could be viral infection, will consult GI. Patient states she did use cocaine via snorting 2 weeks prior and usually uses cocaine twice per month. Patient denies any history of IV drug abuse or hepatitis-B or C or HIV. Patient is currently smoking cigarettes 2-3 per day and nicotine patch has been ordered. <Sabina Preciadosharon [facility] - Last Filed: 01/25/25 21:27> Review of Systems 2 Review of Systems: Patient denies any current chest pain, shortness of breath at rest or with exertion. Patient is not having any current nausea or vomiting. Patient reports 3/10 abdominal pain mostly in the left lower quadrant. Patient is reporting 7/10 lower back pain which has worsened over the last 4 days. Patient is having intermittent diarrhea. <Sabina Preciadosharon [facility] - Last Filed: 01/25/25 21:27> Yes all other systems are reviewed and are negative <[facility] - Last Filed: 01/25/25 21:27> [facility] Medical History: Medical History Asthma Colon cancer <[place] [facility] - Last Filed: 01/25/25 21:27> Social History: Social History Household Members: Other Household Members Other:: sister Housing: House Patient Tobacco Use Status: Current someday Tobacco user Substance Use Type: Marijuana Advance Directives: No Advance Directives Information Provided: Yes service: No <[place] [facility] - Last Filed: 01/25/25 21:27> Meds Allergies/Adverse reactions: Allergies Allergy/AdvReac Type Severity Reaction Status Date / Time Milk Containing Products AdvReac Diarrhea Verified 01/25/25 16:04 (Dairy) <[place] [facility] - Last Filed: 01/25/25 21:27> Active Medications: Current Medications Acetaminophen (Acetaminophen 325 Mg Tablet) 650 mg PO Q6H PRN PRN Reason: Pain, Mild 1-3,fever,headache Albuterol/Ipratropium (Albuterol/Iprat 2.5/0.5mg 3 Ml Ampul.Neb) 3 ml INHALE Q4H PRN PRN Reason: Shortness of Breath/Wheezing Acetaminophen (Ofirmev) 1,000 mg in 100 mls @ 400 mls/hr IV ONCE ONE Stop: 01/25/25 20:47 Lactated Ringer's (Lr) 1,000 mls @ 100 mls/hr IVCONT .Q10H JUAN LUIS Melatonin (Melatonin 3 Mg Tablet) 6 mg PO BEDTIME PRN PRN Reason: Insomnia Nicotine (Nicotine 14 Mg Patch.Td24) 14 mg TRANSDERMA DAILY JUAN LUIS Ondansetron HCl (Ondansetron Hcl 4 Mg/2 Ml Vial) 4 mg IVPUSH Q8H PRN PRN Reason: Nausea and Vomiting Sodium Chloride (0.9 % Sodium Chloride Flush 3 Ml Syringe) 3 ml IVFLUSH QSHIFT JUAN LUIS <Sabina Betancourt, [employer] - Last Filed: 01/25/25 21:27> Home medications: Home Medications ?Medication ?Instructions ?Recorded ?Confirmed ?Last Taken ?Type albuterol sulfate 90 mcg/actuation 2 puff inhalation QID PRN 12/12/24 01/25/25 Unknown History aerosol inhaler (Ventolin HFA) Shortness Of Breath Or Wheezing fluticasone furoate 100 1 inh inhalation DAILY 12/12/24 01/25/25 01/24/25 History mcg/actuation blister powder for inhalation (Arnuity Ellipta) fluticasone propionate 50 1 spray intranasal BID PRN Allergy 12/12/24 01/25/25 Unknown History mcg/actuation nasal Symptoms spray,suspension loratadine 10 mg tablet 10 mg PO DAILY 12/12/24 01/25/25 01/24/25 History nicotine 21 mg/24 hr daily 1 patch topical DAILY PRN Smoking 12/12/24 01/25/25 12/11/24 History transdermal patch Cessation sertraline 100 mg tablet 100 mg PO DAILY 12/12/24 01/25/25 01/24/25 History trazodone 50 mg tablet 50 mg PO BEDTIME insomnia 12/12/24 01/25/25 01/24/25 History albuterol sulfate 2.5 mg/3 mL 3 mg inhalation BID PRN sort 01/25/25 01/25/25 Unknown History (0.083 %) solution for nebulization aripiprazole 15 mg tablet 15 mg PO DAILY depressive disorder 01/25/25 01/25/25 01/24/25 History melatonin 3 mg tablet 3 mg PO BEDTIME PRN insomnia 01/25/25 01/25/25 Unknown History mirtazapine 15 mg tablet 15 mg PO BEDTIME depressive 01/25/25 01/25/25 01/24/25 History disorder [id number]-[id number]-flfa 8 mg-folic 400 1 tab PO DAILY 01/25/25 01/25/25 01/24/25 History mcg-K 50 mcg-lutein 300 mcg tablet (Spectravite Women 50 Plus) naproxen 500 mg tablet 500 mg PO BID 01/25/25 01/25/25 01/24/25 History prazosin 2 mg capsule 2 mg PO BEDTIME nightmares 01/25/25 01/25/25 01/24/25 History <[facility] - Last Filed: 01/25/25 21:27> Physical Exam 2 Vital Signs and Narrative: Vital Signs: Last Vital Signs Temp 98.8 F 01/25/25 19:22 Pulse 87 01/25/25 19:22 Resp 18 01/25/25 19:22 BP 105/50 L 01/25/25 19:22 Pulse Ox 99 01/25/25 19:22 O2 Del Method Room Air 01/25/25 19:22 BMI result Body Mass Index 16.7 <Sabina Betancourt [facility] - Last Filed: 01/25/25 21:27> Alert and orientated X3, able to give good history. Pt is thin, low weight. Neuro: CN II-X11 intact, no deficits, visual acuity intact EYES: PERRLA, EOM intact ENT: dentiton in fair repair, hearing intact, no issues with swallowing, uvula midline, lips moist, nares patent no epistaxis Cardiac: S1 S2 RRR, no murmur, no JVD, no edema in Lower ext Pulmonary: lungs clear to ausculation B Abdominal: BS active in all 4 quadrants, some guarding LLQ, active tenderness,no rebounding, abdomen is firm to palpation MSK: strength 5/5 upper and lower extremities : no CVA tenderness no bladder distension Extremities: no edema in lower extremities, PT and DP pulses palpable +2, variscosities B Psych: mood stable, judgement and insight good Skin: no open wounds <[facility] - Last Filed: 01/25/25 21:27> Results Labs CBC and Chem 7: 01/25/25 16:47 01/25/25 16:47 <[facility] - Last Filed: 01/25/25 21:27> Labs: Laboratory Results - last 24 hr 01/25/25 01/25/25 16:47 17:03 MCV 93.5 MCH 30.1 MCHC 32.2 RDW 12.7 Plt Count 262 MPV 8.8 L Immature Gran % (Auto) 0.3 Neut % (Auto) 72.8 Lymph % (Auto) 12.7 L [place] % (Auto) 12.1 H Eos % (Auto) 1.8 Baso % (Auto) 0.3 Lymph # (Auto) 0.8 L [place] # (Auto) 0.8 Eos # (Auto) 0.1 Baso # (Auto) 0.0 Abs Immat Gran (auto) 0.02 Absolute Neuts (auto) 4.7 Absolute Nucleated RBC 0.000 Nucleated RBC % (auto) 0.0 Anion Gap 12 Estim Creat Clear Calc 75.1 Estimated GFR > 60 Random Glucose 102 Calcium 8.9 Magnesium 1.4 L* Total Bilirubin 0.2 Direct Bilirubin < 0.2 AST 36 H ALT 23 Alkaline Phosphatase 78 C-Reactive Protein 2.08 H Total Protein 6.2 L Albumin 3.3 L Lipase 9 Ethyl Alcohol < 10 C. difficile Tox B Gene NEGATIVE Blood Type O Positive Antibody Screen NEGATIVE <[facility] - Last Filed: 01/25/25 21:27> Imaging Radiologist's Impressions: CT ABD pelvis IMPRESSION: Mucosal thickening and enhancement of the stomach, duodenum and multiple jejunal loops which are mildly dilated measuring up to 4.0 cm however, improved in the interval. No definite transition point is identified. Findings most likely represent gastritis/enteritis. Partial small bowel obstruction or ileus are in the differential. Moderate colonic stool burden. <[facility] - Last Filed: 01/25/25 21:27> Assessment and Plan (1) Abdominal pain: Qualifiers: Abdominal location: left lower quadrant Qualified Code(s): R10.32 - Left lower quadrant pain <[facility]OC[facility] S[facility] - Last Filed: 01/25/25 21:27> Status: Acute <ROCIO Sosa- - Last Filed: 01/25/25 21:27> Patient is a 59-year-old female with past medical history rectal cancer treated with chemo and radiation, GI bleed, chronic low back pain, unexplained weight loss, sciatica, depression and anxiety with history of suicidal ideations and inpatient psychiatric admission, recent cocaine use via inhalation, history of alcohol abuse, tobacco use 2-3 cigarettes per day, COPD/emphysema, UTI, poor dentition, lactose intolerance and patient states she can not eat red meat, fiber or dairy products is being admitted for GI work up for possible PSBO/Ileus with enteritis/gastritis and possible lytic lesions on spine causing increased pain. Pt has noted wt loss as well. Partial bowel obstruction versus ileus suspected, abdominal pain X 4days -No definite point of transition identified on CT -Patient currently NPO -NG not indicated as patient is not experiencing vomiting or persistent nausea -Stool burden noted on CT scan, Dulcolax suppository x1 -Gallbladder contracted on CT scan -General surgery consult if indicated -KUB in AM -IVF ordered -pain noted on exam, avoid narcotics, Ofirmev 1GM IV prn Q8H X 24 Enteritis/gastritis/diarrhea -C diff negative, stool cultures pending -Protonix 40 mg IV BID -Patient afebrile with no leukocytosis, lactic acid and procalcitonin pending, ABX empirically if indicated -LR at 100 mls per hour -Avoid immodium noting possible PSBO vs Ileus History of rectal colon cancer/ current rectal bleeding -Pt is overdue for colonoscopy for follow up to cancer by 2 years -No current N/V -no hx of hemorrhoids, bleeding noted 4 days prior -Stool for occult ordered, H/H currently stable -GI consulted -Second hospitalization in less than 1.5 months, pt may benefit from inpt scope if indicated -Consider oncology consult if needed Sacral spinal pain/ chronic history of lower back pain and disc disease -Chronic back issues with increased lower back pain over last 4 days -CT ABD neg for nephrolithiasis -Heat application to lower back ordered -Previous abdominal pelvis CT scan previous admission December 11 noted possible small lytic lesions in the setting of malignancy or metastatic disease versus interval increase in bony demineralization -MRI lumbar and thoracic with contrast ordered Hypomagnesemia -magnesium 1.4, patient received 2 g in the ED -magnesium ordered for the a.m. -QTC within normal limits Protein malnourishment/underweight -nutritional consultation requested -patient has been trying to gain weight but has been unsuccessful -patient currently NPO due to possible partial bowel obstruction versus ileus, unable to start supplements on admission Normocytic anemia -H&H currently stable in comparison to previous admission -monitor CBC -we will check iron studies and vitamin B12 Depression and anxiety -patient recently released from [facility] having had suicidal ideations, I wanted to throw myself in front of a car -patient currently denies any active suicidal ideations or homicidal ideations. -patient is scheduled to start with the psychiatrist next month -we will continue patient's ariprazole and sertraline -patient does not require a section 12 at this time or a psychiatric consultation or one-to-one observation Nicotine dependence -low-dose nicotine patch ordered -patient counseled on the benefits of smoking cessation -gurwinder mcdonald p.r.n. DVT prophylaxis: held, rule out GIB PPI prophylaxis: Protonix 40 mg IV BID MED REC Pending, will complete if done by 11PM Full Code Status <Sabina Betancourt, [facility]- - Last Filed: 01/25/25 21:27> Patient is a 59-year-old female with past medical history rectal cancer treated with chemo and radiation, GI bleed, chronic low back pain, unexplained weight loss, sciatica, depression and anxiety with history of suicidal ideations and inpatient psychiatric admission, recent cocaine use via inhalation, history of alcohol abuse, tobacco use 2-3 cigarettes per day, COPD/emphysema, UTI, poor dentition, lactose intolerance and patient states she can not eat red meat, fiber or dairy products is being admitted for GI work up for possible PSBO/Ileus with enteritis/gastritis and possible lytic lesions on spine causing increased pain. Pt has noted wt loss as well. Partial bowel obstruction versus ileus suspected, abdominal pain X 4days -No definite point of transition identified on CT -Patient currently NPO -NG not indicated as patient is not experiencing vomiting or persistent nausea -Stool burden noted on CT scan, Dulcolax suppository x1 -Gallbladder contracted on CT scan -General surgery consult if indicated -KUB in AM -IVF ordered -pain noted on exam, avoid narcotics, Ofirmev 1GM IV prn Q8H X 24 Enteritis/gastritis/diarrhea -C diff negative, stool cultures pending -Protonix 40 mg IV BID -Patient afebrile with no leukocytosis, lactic acid and procalcitonin pending, ABX empirically if indicated -LR at 100 mls per hour -Avoid immodium noting possible PSBO vs Ileus History of rectal colon cancer/ current rectal bleeding -Pt is overdue for colonoscopy for follow up to cancer by 2 years -No current N/V -no hx of hemorrhoids, bleeding noted 4 days prior -Stool for occult ordered, H/H currently stable -GI consulted -Second hospitalization in less than 1.5 months, pt may benefit from inpt scope if indicated -Consider oncology consult if needed Sacral spinal pain/ chronic history of lower back pain and disc disease -Chronic back issues with increased lower back pain over last 4 days -CT ABD neg for nephrolithiasis -Heat application to lower back ordered -Previous abdominal pelvis CT scan previous admission December 11 noted possible small lytic lesions in the setting of malignancy or metastatic disease versus interval increase in bony demineralization -MRI lumbar and thoracic with contrast ordered Hypomagnesemia -magnesium 1.4, patient received 2 g in the ED -magnesium ordered for the a.m. -QTC within normal limits Protein malnourishment/underweight -nutritional consultation requested -patient has been trying to gain weight but has been unsuccessful -patient currently NPO due to possible partial bowel obstruction versus ileus, unable to start supplements on admission Normocytic anemia -H&H currently stable in comparison to previous admission -monitor CBC -we will check iron studies and vitamin B12 Depression and anxiety -patient recently released from [facility] having had suicidal ideations, I wanted to throw myself in front of a car -patient currently denies any active suicidal ideations or homicidal ideations. -patient is scheduled to start with the psychiatrist next month -we will continue patient's ariprazole and sertraline -patient does not require a section 12 at this time or a psychiatric consultation or one-to-one observation Nicotine dependence -low-dose nicotine patch ordered -patient counseled on the benefits of smoking cessation -duo nebs p.r.n. DVT prophylaxis: held, rule out GIB PPI prophylaxis: Protonix 40 mg IV BID MED REC Pending, will complete if done by 11PM Full Code Status Admit as inpatient and will require two night minimum hospital stay for intractable abdominal pain, back pain (as above), which is not possible in a lesser acute setting. <Dre Sorto MD - Last Filed: 01/25/25 22:17> Quality Stroke Does the patient have a stroke diagnosis?: No <Sabina Asia, [facility]- - Last Filed: 01/25/25 21:27> Reason for No Anti-thrombotic by Day Two: Contraindicated <Sabina Asia, [facility] - Last Filed: 01/25/25 21:27> VTE Prior VTE?: No <[place], [facility] - Last Filed: 01/25/25 21:27> VTE Risk Level:: Medical - moderate - high <Sabina Asia, [facility] - Last Filed: 01/25/25 21:27> VTE Device Contraindication: N/A - Device Ordered [facility] - Last Filed: 01/25/25 21:27> VTE Drug Contraindication: Treatment Not Indicated <[facility] - Last Filed: 01/25/25 21:27>
[2025-01-25 21:04] LABS: Lactic Acid 0.7 mmol/L (0.5-2.0)
--- NOTE | 2025-01-25 21:06 | PHA.MEDREC ---
Addendum entered by Renita Douglas RPh 01/25/25 21:51: [facility] REVIEWED Original Note: Pharmacy Consult ? Medication Reconciliation Pharmacy has completed the medication reconciliation. Spoke to patient to confirm med list. Patient states she is no longer taking Montelukast 10 mg. patient last took her medications last night.
[2025-01-25 21:09] VITALS: BP 102/55; PULSE 75; RESP 20; TEMP 37.3; O2SAT 98
[2025-01-25 21:25] LABS: Procalcitonin 0.02 ng/mL
[2025-01-25] MEDS: Acetaminophen 1,000 MG/100 ML PIGGYBACK 400 MG IV (21:47)
[2025-01-25] MEDS: Pantoprazole Sodium 40 MG/10 ML VIAL IVPUSH (21:48)
[2025-01-25 22:45] VITALS: BP 96/68; PULSE 67; RESP 18; TEMP 36.2; O2SAT 95
[2025-01-25] MEDS: Lactated Ringers 1,000 ML 100 ML IVCONT (22:49)
[2025-01-25 23:00] VITALS: BMI 18.7
[2025-01-25 23:55] VITALS: BP 94/68
[2025-01-26] VITALS (7 sets, daily range): BP systolic 99–126; BP diastolic 52–71; PULSE 73–92; RESP 16–18; TEMP 36.1–36.5; O2SAT 94–98; BMI 18.7
[2025-01-26] MEDS: ondansetron HCL 4 MG/2 ML VIAL IVPUSH ×2 (02:19→14:28)
[2025-01-26] MEDS: Morphine Sulfate 4 MG/ML CARTRIDGE IVPUSH ×5 (03:54→22:22)
[2025-01-26 06:08] LABS: MANUAL DIFF FLAG NO
[2025-01-26] MEDS: Pantoprazole Sodium 40 MG/10 ML VIAL IVPUSH ×2 (06:15→17:22)
[2025-01-26 06:23] LABS: Basophils Percent Auto 0.2 % (0-2); Eosinophils Absolute Auto 0.1 X10*3/uL (0.0-0.4); Eosinophils Percent Auto 1.2 % (0-4); Hematocrit 34.3 % (37.0-47.0); Hemoglobin 11.4 g/dl (12.0-16.0); Imm Gran Abs Auto 0.04 X10*3/uL (0.00-0.03); Imm Gran Pct Auto 0.5 % (0.0-0.4); Lymphocytes Absolute Auto 0.7 X10*3/uL (1.2-4.9); Lymphocytes Percent Auto 7.3 % (20-40); Mean Corpuscular HGB Conc 33.2 g/dl (31.0-35.0); Mean Corpuscular Hemoglobin 30.6 pg (27.0-33.0); Mean Platelet Volume 8.7 fL (9.4-12.3); Neutrophils Absolute Auto 7.1 x10*3/uL (2.0-8.3); Neutrophils Percent Auto 79.8 % (45-73); Platelet Count 278 X10*3/uL (160-400); Red Blood Count 3.73 X10*6/uL (4.20-5.50); White Blood Count 8.9 X10*3/uL (4.8-10.8)
[2025-01-26 06:35] LABS: Alanine Aminotransferase 21 U/L (0-31); Albumin Level 3.2 g/dL (3.5-5.0); Alkaline Phosphatase 70 U/L (39-117); Anion Gap 12 (12-20); Aspartate Amino Transferase 27 U/L (5-31); Bilirubin Total 0.3 mg/dL (0.0-1.0); Blood Urea Nitrogen 9 mg/dL (9-16); Calcium 8.6 mg/dL (8.4-10.2); Carbon Dioxide 28 mmol/L (22-29); Chloride 105 mmol/L (96-108); Creatinine Clr Calc Pharmacy 88.5; Estimated Glomerular Filt Rate > 60; Glucose Random 110 mg/dL (60-115); Iron 20 mcg/dL (30-160); Magnesium 1.9 mg/dL (1.6-2.6); Percent Iron Saturation 9 % (15-50); Potassium 3.7 mmol/L (3.3-5.1); Sodium 141 mmol/L (135-145); Total Iron Binding Capacity 232 mcg/dL (228-428); Total Protein 6.1 g/dL (6.5-8.0); Unsaturated Iron Binding 212 ug/dL
[2025-01-26 06:37] LABS: Appearance Urine Clear; Color Urine Yellow; Glucose Urine UA Negative (Negative); Leukocyte Esterase Urine Negative (Negative); Nitrite Urine Negative (Negative); PH 6.5 (5.0-9.0); Specific Gravity - Urine >= 1.030 (1.005-1.025); UMIC TRIGGER UACC YES; Urine Blood Trace (Negative); Urine Ketones Negative (Negative); Urine Protein Negative (Neg-Trace)
[2025-01-26 06:54] LABS: Bacteria Urine None Seen (None Seen); Calcium Oxalate Crystals Urine Present; Hyaline Casts Urine 0-2 /LPF (0-2); RBC Urine 0-2 /HPF (0-2); Squamous Epithelial Cell Urine 0-2 /HPF (0-2); WBC Urine 0-5 /HPF (0-5)
[2025-01-26 07:04] LABS: Vitamin B12 304 pg/mL (200-900)
[2025-01-26] MEDS: Fluticasone Propionate 100 MCG BLST.W.DEV 1 PUFF INHALE (07:37)
[2025-01-26] MEDS: 0.9 % Sodium Chloride Flush 3 ML SYRINGE IVFLUSH ×2 (08:16→17:22)
[2025-01-26] MEDS: Lactated Ringers 1,000 ML 100 ML IVCONT ×2 (08:16→18:39)
[2025-01-26] MEDS: Sertraline HCL 100 MG TABLET PO (08:47)
[2025-01-26] MEDS: Nicotine 14 MG PATCH.TD24 TRANSDERMA (08:47)
[2025-01-26] MEDS: ARIPiprazole 15 MG TABLET PO (08:47)
--- NOTE | 2025-01-26 09:37 | HE.CSO ---
EMR REVIEWED, PT W/PARTIAL SBO VS ILEUS, CM MET W/PT WHO REPORTS SHE LIVES W/HER SISTER, IS FULLY INDEP W/CARE, PT DOES HAVE A CANE SHE USES WHEN SHE HAS BACK PAIN AND NO HOME SERVICES, PT'S GOAL FOR DC IS HOME NO SERVICES. PT VERIFIES MERLINE ROUSSEAU MD IS HER PCP AND PT HAS BEEN EDUCATED ON AND COMPLETED A HCP NAMING HER MOTHER FALLON BUTLER [phone] HER [facility] AND DTR [facility] [place] [phone] HER ALTERNATE, PT PROVIDED W/EDUCATIONAL HANDOUT AND ORGINAL, COPY UPLOADED TO [facility] AND PLACED IN CHART.
--- NOTE | 2025-01-26 10:12 | PM.CNGS ---
History of Present Illness Consult details Consult date: 01/26/25 <Kelvin Lanza PA-C - Last Filed: 01/26/25 13:23> Reason for consult: other (abdominal pain, possible partial SBO vs illeus) <Kelvin Lanza PA-C - Last Filed: 01/26/25 13:23> Narrative: Patient saying 4 days of diarrhea and intermittent crampy abdominal pain. She endorses mostly left lower quadrant pain, states she feels a little bit bloated. She experienced nausea and 1 bout of vomiting this morning, currently not experiencing nausea. She also notes rectal bleeding, blood on toilet paper after bowel movement. She experienced a similar episode about a month ago which hospitalization and resolved, suspected gastroenteritis. Patient has a history of rectal cancer (2010), states she this treated with chemo and radiation. States she has not had a colonoscopy in 7 years. She reports history of tubal ligation, denies additional abdominal surgery.. She denies travel, new foods, recent sick contacts <Kelvin Lanza PA-C - Last Filed: 01/26/25 13:23> Review of Systems Constitutional: Constitutional: Reports chills ( felt cold ) and Denies fever(s) <Kelvin Lanza PA-C - Last Filed: 01/26/25 13:23> Gastrointestinal: Gastrointestinal: Reports as per HPI and Reports abdominal pain (All over, mostly left lower quadrant) <Kelvin Lanza PA-C - Last Filed: 01/26/25 13:23> Musculoskeletal: Musculoskeletal: Reports back pain <Kelvin Lanza PA-C - Last Filed: 01/26/25 13:23> [facility] Past Medical History Medical History: Medical History (Updated 01/26/25 @ 10:31 by Kelvin Lanza PA-C) Asthma Colon cancer <Kelvin Lanza PA-C - Last Filed: 01/26/25 13:23> Surgical History Surgical History: Surgical History (Updated 01/26/25 @ 13:23 by Kelvin Lanza PA-C) H/O tubal ligation <Kelvin Lanza PA-C - Last Filed: 01/26/25 13:23> Social History Social History: Social History Household Members: Family and Other Household Members Other:: sister Housing: House Patient Tobacco Use Status: Current everyday Tobacco user Tobacco use type: Cigarette Cigarettes Per Day: 3 e-Cigarette/Vaping Use: Currently Using Second Hand Smoke Exposure: No Substance Use Type: Marijuana and Other service: No <Kelvin Lanza PA-C - Last Filed: 01/26/25 13:23> Travel History History of recent travel: No <Kelvin Lanza PA-C - Last Filed: 01/26/25 13:23> Meds Allergies/Adverse reactions: Allergies Allergy/AdvReac Type Severity Reaction Status Date / Time Milk Containing Products AdvReac Diarrhea Verified 01/25/25 16:04 (Dairy) <Kelvin Lanza PA-C - Last Filed: 01/26/25 13:23> Active Medications: Current Medications Acetaminophen (Acetaminophen 325 Mg Tablet) 650 mg PO Q6H PRN PRN Reason: Pain, Mild 1-3,fever,headache Albuterol/Ipratropium (Albuterol/Iprat 2.5/0.5mg 3 Ml Ampul.Neb) 3 ml INHALE Q4H PRN PRN Reason: Shortness of Breath/Wheezing Aripiprazole (Aripiprazole 15 Mg Tablet) 15 mg PO DAILY [facility] Last Admin: 01/26/25 08:47 Dose: 15 mg Fluticasone Propionate (Fluticasone Propionate 100 Mcg Blst.W.Dev) 1 puff INHALE RDAILY [facility] Last Admin: 01/26/25 07:37 Dose: 1 puff Fluticasone Propionate (Fluticasone Propionate Nasal 16 Gm [place]) 1 spray NOSTRIL-B BID PRN PRN Reason: Allergy Symptoms Lactated Ringer's (Lr) 1,000 mls @ 100 mls/hr IVCONT .Q10H [facility] Last Admin: 01/26/25 08:16 Dose: 100 mls/hr Melatonin (Melatonin 3 Mg Tablet) 3 mg PO BEDTIME PRN PRN Reason: insomnia Mirtazapine (Mirtazapine 15 Mg Tablet) 15 mg PO BEDTIME [facility] Morphine Sulfate (Morphine Sulfate 4 Mg/Ml Cartridge) 4 mg IVPUSH Q4H PRN; Protocol PRN Reason: Pain, Severe (Pain Scale 7-10) Last Admin: 01/26/25 08:47 Dose: 4 mg Nicotine (Nicotine 14 Mg Patch.Td24) 14 mg TRANSDERMA DAILY [facility] Last Admin: 01/26/25 08:47 Dose: 14 mg Ondansetron HCl (Ondansetron Hcl 4 Mg/2 Ml Vial) 4 mg IVPUSH Q8H PRN PRN Reason: Nausea and Vomiting Last Admin: 01/26/25 02:19 Dose: 4 mg Pantoprazole Sodium (Pantoprazole Sodium 40 Mg/10 Ml Vial) 40 mg IVPUSH BID@0630,1630 [facility] Last Admin: 01/26/25 06:15 Dose: 40 mg Prazosin HCl (Prazosin Hcl 1 Mg Capsule) 2 mg PO BEDTIME JUAN LUIS; Protocol Sertraline HCl (Sertraline Hcl 100 Mg Tablet) 100 mg PO DAILY [facility] Last Admin: 01/26/25 08:47 Dose: 100 mg Sodium Chloride (0.9 % Sodium Chloride Flush 3 Ml Syringe) 3 ml IVFLUSH QSHIFT [facility] Last Admin: 01/26/25 08:16 Dose: 3 ml Trazodone HCl (Trazodone Hcl 50 Mg Tablet) 50 mg PO BEDTIME [facility] <Kelvin Lanza PA-C - Last Filed: 01/26/25 13:23> Home medications: Home Medications ?Medication ?Instructions ?Recorded ?Confirmed ?Last Taken ?Type albuterol sulfate 90 mcg/actuation 2 puff inhalation QID PRN 12/12/24 01/25/25 Unknown History aerosol inhaler (Ventolin HFA) Shortness Of Breath Or Wheezing fluticasone furoate 100 1 inh inhalation DAILY 12/12/24 01/25/25 01/24/25 History mcg/actuation blister powder for inhalation (Arnuity Ellipta) fluticasone propionate 50 1 spray intranasal BID PRN Allergy 12/12/24 01/25/25 Unknown History mcg/actuation nasal Symptoms spray,suspension loratadine 10 mg tablet 10 mg PO DAILY 12/12/24 01/25/25 01/24/25 History nicotine 21 mg/24 hr daily 1 patch topical DAILY PRN Smoking 12/12/24 01/25/25 12/11/24 History transdermal patch Cessation sertraline 100 mg tablet 100 mg PO DAILY 12/12/24 01/25/25 01/24/25 History trazodone 50 mg tablet 50 mg PO BEDTIME insomnia 12/12/24 01/25/25 01/24/25 History albuterol sulfate 2.5 mg/3 mL 3 mg inhalation BID PRN sort 01/25/25 01/25/25 Unknown History (0.083 %) solution for nebulization aripiprazole 15 mg tablet 15 mg PO DAILY depressive disorder 01/25/25 01/25/25 01/24/25 History melatonin 3 mg tablet 3 mg PO BEDTIME PRN insomnia 01/25/25 01/25/25 Unknown History mirtazapine 15 mg tablet 15 mg PO BEDTIME depressive 01/25/25 01/25/25 01/24/25 History disorder [id number] 8 mg-folic 400 1 tab PO DAILY 01/25/25 01/25/25 01/24/25 History mcg-K 50 mcg-lutein 300 mcg tablet (Spectravite Women 50 Plus) naproxen 500 mg tablet 500 mg PO BID 01/25/25 01/25/25 01/24/25 History prazosin 2 mg capsule 2 mg PO BEDTIME nightmares 01/25/25 01/25/25 01/24/25 History <Kelvin Lanza PA-C - Last Filed: 01/26/25 13:23> Physical Exam Vital Signs: Vital Signs: Last Vital Signs Temp 97.0 F 01/26/25 07:53 Pulse 73 01/26/25 07:53 Resp 18 01/26/25 07:38 BP 116/58 L 01/26/25 07:53 Pulse Ox 96 01/26/25 07:53 O2 Del Method Room Air 01/26/25 07:53 BMI result Body Mass Index 18.7 <Kelvin Lanza PA-C - Last Filed: 01/26/25 13:23> Const: General: no acute distress, alert and awake <DARON Carbajal Last Filed: 01/26/25 13:23> Orientation/consciousness: patient oriented x3 <DARON Carbajal Last Filed: 01/26/25 13:23> Resp: Effort & Inspection: normal respiratory effort and able to speak in complete sentences <DARON Carbajal Last Filed: 01/26/25 13:23> GI: Inspection: Yes distended (Mild) and No scar <Kelvin Lanza PA-C - Last Filed: 01/26/25 13:23> Palpation (GI): Soft to palpation, not firm, Tenderness to palpation present (GI) (Generalized, primarily lower), no guarding and not rigid <Kelvin Lanza PA-C - Last Filed: 01/26/25 13:23> Percussion: Yes tympanic to percussion <DARON Carbajal Last Filed: 01/26/25 13:23> Neuro: General: patient oriented x3 <DARON Carbajal Last Filed: 01/26/25 13:23> Results Labs Result diagrams: 01/26/25 06:04 01/26/25 06:04 <DARON Carbajal Last Filed: 01/26/25 13:23> Labs: Abnormal lab results 01/25/25 01/26/25 01/26/25 Range/Units 16:47 06:04 06:15 RBC 3.55 L 3.73 L (4.20-5.50) X10*6/uL Hgb 10.7 L 11.4 L (12.0-16.0) g/dl Hct 33.2 L 34.3 L (37.0-47.0) % MPV 8.8 L 8.7 L (9.4-12.3) fL Immature Gran % (Auto) 0.5 H (0.0-0.4) % Neut % (Auto) 79.8 H (45-73) % Lymph % (Auto) 12.7 L 7.3 L (20-40) % [place] % (Auto) 12.1 H (2-11) % Lymph # (Auto) 0.8 L 0.7 L (1.2-4.9) X10*3/uL Abs Immat Gran (auto) 0.04 H (0.00-0.03) X10*3/uL Magnesium 1.4 L* (1.6-2.6) mg/dL Iron 20 L (30-160) mcg/dL % Saturation 9 L (15-50) % AST 36 H (5-31) U/L C-Reactive Protein 2.08 H (< or = 0.50) mg/dL Total Protein 6.2 L 6.1 L (6.5-8.0) g/dL Albumin 3.3 L 3.2 L (3.5-5.0) g/dL Ur Specific [place] >= 1.030 H (1.005-1.025) Urine Blood Trace H (Negative) Short CBC 01/25/25 01/26/25 Range/Units 16:47 06:04 WBC 6.5 8.9 (4.8-10.8) X10*3/uL Hgb 10.7 L 11.4 L (12.0-16.0) g/dl Hct 33.2 L 34.3 L (37.0-47.0) % Plt Count 262 278 (160-400) X10*3/uL BMP 01/25/25 01/26/25 16:47 06:04 Sodium 143 141 Potassium 3.3 3.7 Chloride 105 105 Carbon Dioxide 29 28 BUN 16 9 Creatinine 0.63 0.60 Calcium 8.9 8.6 Liver Function 01/25/25 01/26/25 Range/Units 16:47 06:04 Total Bilirubin 0.2 0.3 (0.0-1.0) mg/dL Direct Bilirubin < 0.2 (0.0-0.5) mg/dL AST 36 H 27 (5-31) U/L ALT 23 21 (0-31) U/L Alkaline Phosphatase 78 70 (39-117) U/L Albumin 3.3 L 3.2 L (3.5-5.0) g/dL Urine 01/26/25 Range/Units 06:15 Urine Color Yellow Urine Appearance Clear Urine pH 6.5 (5.0-9.0) Ur Specific [place] >= 1.030 H (1.005-1.025) Urine Protein Negative (Neg-Trace) mg/dL Urine Glucose (UA) Negative (Negative) mg/dL All other labs normal. <DARON Carbajal Last Filed: 01/26/25 13:23> Imaging Abdomen CT scan report/results: report reviewed and image reviewed <DARON Carbajal Last Filed: 01/26/25 13:23> Assessment and Plan (1) Diarrhea: Qualifiers: Diarrhea type: unspecified type Qualified Code(s): R19.7 - Diarrhea, unspecified <DARON Carbajal Last Filed: 01/26/25 13:23> Status: Acute <DARON Carbajal Last Filed: 01/26/25 13:23> (2) Occult GI bleeding: Status: Acute <Kelvin Lanza PA-C - Last Filed: 01/26/25 13:23> (3) Abdominal pain: Qualifiers: Abdominal location: left lower quadrant Qualified Code(s): R10.32 - Left lower quadrant pain <Kelvin Lanza PA-C - Last Filed: 01/26/25 13:23> Status: Acute <Kelvin Lanza PA-C - Last Filed: 01/26/25 13:23> [age] year old female with diarrhea and left lower quadrant pain She has a remote history of rectal cancer She has not had any recent surveillance for her history of rectal cancer Cat scan reviewed - findings suggestive of enteritis, not obstructed Abdomen is soft and benign Okay to have some clear liquids and slowly advance as clinically appropriate No surgical intervention necessary currently Seen and examined independently We will continue to follow <Tye Campa MD - Last Filed: 01/26/25 15:42> 59-year-old female with a pmhx significant for rectal cancer, asthma, lower back pain seen in consult for 4 day history of diarrhea, abdominal pain rectal bleeding. Patient found to have wall thickening, mild dilation of the small bowel on CT, questioning gastroenteritis versus partial small bowel obstruction versus ileus. She continues to have diarrhea with some crampy abdominal pain and experienced nausea and 1 episode of vomiting this morning. Abdominal exam shows mild distention of the abdomen and mild diffuse tenderness with a focal point in the left lower quadrant. She is not currently nauseous and continues to pass diarrhea and gas. She has not clinically obstructed, it is possible she has ileus secondary to enteritis. NG tube not indicated at this time. She states she continues to see bright red blood on the toilet tissue after passing a bowel movement Patient has a history of rectal cancer treated with chemo/radiation test 11, patient has not been following up with screening, overdue for colonoscopy. Would recommend colonoscopy while she is admitted. Recommend GI consult for rectal bleeding, history of rectal cancer Recommend ambulation as tolerated NG tube not clinically indicated at this time, we will continue to monitor her symptoms No indications for surgical intervention at this time Patient okay to start on clear liquid diet. We will continue to follow <Kelvin Lanza PA-C - Last Filed: 01/26/25 13:23> Procedures Date of Service Date of Service: 01/26/25 <Kelvin Lanza PA-C - Last Filed: 01/26/25 13:23> 01/26/25 <Tye Campa MD - Last Filed: 01/26/25 15:42>
--- NOTE | 2025-01-26 10:39 | P.CNGI_ITS ---
History of Present Illness Data of Consult Service Date: 01/26/25 Primary Care Provider: Unknown Physician HPI Reason for consult: SBO 59-year-old female with past medical history of rectal cancer treated with chemo and radiation, GI bleed, chronic low back pain, unexplained weight loss, sciatica, depression and anxiety with history of suicidal ideations and inpatient psychiatric admission, recent cocaine use via inhalation, history of alcohol abuse, tobacco use 2-3 cigarettes per day, COPD/emphysema, UTI, poor dentition, lactose intolerance who I am seeing for assessment for abn bowel habits and blood in stools. Patient has been having intermittent diarrhea and blood in the stool for about 4 d. She also notes worsening lower back pain. She has also been having worsening weight loss over 6 months. Patient denies any fever or chills, chest pain, shortness of breath at rest or with exertion, passing gas IMAGING: CT: gastritis/enteritis but partial small-bowel obstruction or ileus also possible with dialted jejunal loops. Review of Systems 2 Review of Systems: Constitutional : + Weight loss, No Fever, No Chills ENT/Mouth : No sore throat, No Rhinorrhea Eyes: No Swelling, No Redness Cardiovascular : No Chest Pain, No SOB, No Edema Respiratory : No Cough, No Sputum, No Wheezing Gastrointestinal : see HPI Genitourinary : NO Dysuria, No Urinary Frequency, No Hematuria, No Urgency Musculoskeletal : + joint pain, No Myalgias, No Joint Swelling Skin : No Skin Lesions, No rash Neuro : No Weakness, No Numbness, No Dizziness, No Headache Psych : No Anxiety/Panic, No Depression Heme/Lymph: No Bruising, No Lymphadenopathy Endocrine : No Polyuria, No Polydipsia All other systems reviewed and are negative. [facility] Past Medical History Medical History (Updated 01/26/25 @ 17:14 by Aaliyah Cerda MD) Asthma Colon cancer Family History Pertinent family history: no fh of CRC Surgical History Surgical History (Updated 01/26/25 @ 13:23 by Kelvin Lanza PA-C) H/O tubal ligation Social History Social History Household Members: Family and Other Household Members Other:: sister Housing: House Patient Tobacco Use Status: Current everyday Tobacco user Tobacco use type: Cigarette Cigarettes Per Day: 3 e-Cigarette/Vaping Use: Currently Using Second Hand Smoke Exposure: No Substance Use Type: Marijuana and Other service: No Meds Allergies Allergy/AdvReac Type Severity Reaction Status Date / Time Milk Containing Products AdvReac Diarrhea Verified 01/25/25 16:04 (Dairy) Active Medications: Current Medications Acetaminophen (Acetaminophen 325 Mg Tablet) 650 mg PO Q6H PRN PRN Reason: Pain, Mild 1-3,fever,headache Albuterol/Ipratropium (Albuterol/Iprat 2.5/0.5mg 3 Ml Ampul.Neb) 3 ml INHALE Q4H PRN PRN Reason: Shortness of Breath/Wheezing Aripiprazole (Aripiprazole 15 Mg Tablet) 15 mg PO DAILY [facility] BEDS AT [facility] Last Admin: 01/26/25 08:47 Dose: 15 mg Fluticasone Propionate (Fluticasone Propionate 100 Mcg Blst.W.Dev) 1 puff INHALE RDAILY [facility]S [facility]CLUDE 234 BEDS AT [facility] Last Admin: 01/26/25 07:37 Dose: 1 puff Fluticasone Propionate (Fluticasone Propionate Nasal 16 Gm [place]) 1 spray NOSTRIL-B BID PRN PRN Reason: Allergy Symptoms Lactated Ringer's (Lr) 1,000 mls @ 100 mls/hr IVCONT .Q10H [facility]S [facility]CLUDE 234 BEDS AT [facility] Last Admin: 01/26/25 08:16 Dose: 100 mls/hr Melatonin (Melatonin 3 Mg Tablet) 3 mg PO BEDTIME PRN PRN Reason: insomnia Mirtazapine (Mirtazapine 15 Mg Tablet) 15 mg PO BEDTIME [facility]S [facility]CLUDE 234 BEDS AT [facility] Morphine Sulfate (Morphine Sulfate 4 Mg/Ml Cartridge) 4 mg IVPUSH Q4H PRN; Protocol PRN Reason: Pain, Severe (Pain Scale 7-10) Last Admin: 01/26/25 08:47 Dose: 4 mg Nicotine (Nicotine 14 Mg Patch.Td24) 14 mg TRANSDERMA DAILY [facility]CLUDE 234 BEDS AT [facility] Last Admin: 01/26/25 08:47 Dose: 14 mg Ondansetron HCl (Ondansetron Hcl 4 Mg/2 Ml Vial) 4 mg IVPUSH Q8H PRN PRN Reason: Nausea and Vomiting Last Admin: 01/26/25 02:19 Dose: 4 mg Pantoprazole Sodium (Pantoprazole Sodium 40 Mg/10 Ml Vial) 40 mg IVPUSH BID@0630,1630 [facility]S [facility]CLUDE 234 BEDS AT [facility] Last Admin: 01/26/25 06:15 Dose: 40 mg Prazosin HCl (Prazosin Hcl 1 Mg Capsule) 2 mg PO BEDTIME [facility]S [facility]CLUDE 234 BEDS AT [facility]; Protocol Sertraline HCl (Sertraline Hcl 100 Mg Tablet) 100 mg PO DAILY [facility] 234 BEDS AT [facility] Last Admin: 01/26/25 08:47 Dose: 100 mg Sodium Chloride (0.9 % Sodium Chloride Flush 3 Ml Syringe) 3 ml IVFLUSH QSHIFT [facility]S [facility]CLUDE 234 BEDS AT [facility] Last Admin: 01/26/25 08:16 Dose: 3 ml Trazodone HCl (Trazodone Hcl 50 Mg Tablet) 50 mg PO BEDTIME [facility]S [facility]CLUDE 234 BEDS AT [facility] Home Medications ?Medication ?Instructions ?Recorded ?Confirmed ?Last Taken ?Type albuterol sulfate 90 mcg/actuation 2 puff inhalation QID PRN 12/12/24 01/25/25 Unknown History aerosol inhaler (Ventolin HFA) Shortness Of Breath Or Wheezing fluticasone furoate 100 1 inh inhalation DAILY 12/12/24 01/25/25 01/24/25 History mcg/actuation blister powder for inhalation (Arnuity Ellipta) fluticasone propionate 50 1 spray intranasal BID PRN Allergy 12/12/24 01/25/25 Unknown History mcg/actuation nasal Symptoms spray,suspension loratadine 10 mg tablet 10 mg PO DAILY 12/12/24 01/25/25 01/24/25 History nicotine 21 mg/24 hr daily 1 patch topical DAILY PRN Smoking 12/12/24 01/25/25 12/11/24 History transdermal patch Cessation sertraline 100 mg tablet 100 mg PO DAILY 12/12/24 01/25/25 01/24/25 History trazodone 50 mg tablet 50 mg PO BEDTIME insomnia 12/12/24 01/25/25 01/24/25 History albuterol sulfate 2.5 mg/3 mL 3 mg inhalation BID PRN sort 01/25/25 01/25/25 Unknown History (0.083 %) solution for nebulization aripiprazole 15 mg tablet 15 mg PO DAILY depressive disorder 01/25/25 01/25/25 01/24/25 History melatonin 3 mg tablet 3 mg PO BEDTIME PRN insomnia 01/25/25 01/25/25 Unknown History mirtazapine 15 mg tablet 15 mg PO BEDTIME depressive 01/25/25 01/25/25 01/24/25 History disorder jghqdgnb-cper-iptk 8 mg-folic 400 1 tab PO DAILY 01/25/25 01/25/25 01/24/25 History mcg-K 50 mcg-lutein 300 mcg tablet (Spectravite Women 50 Plus) naproxen 500 mg tablet 500 mg PO BID 01/25/25 01/25/25 01/24/25 History prazosin 2 mg capsule 2 mg PO BEDTIME nightmares 01/25/25 01/25/25 01/24/25 History Physical Exam 2 Vital Signs: Vital Signs: Last Vital Signs Temp 97.0 F 01/26/25 07:53 Pulse 73 01/26/25 07:53 Resp 18 01/26/25 07:38 BP 116/58 L 01/26/25 07:53 Pulse Ox 96 01/26/25 07:53 O2 Del Method Room Air 01/26/25 07:53 BMI result Body Mass Index 18.7 EXAM: GENERAL: The patient is frail, malnourished appearing VITAL SIGNS:see workflow HEENT: Nonicteric sclerae, PERRLA, EOMI. Oropharynx clear. Moist mucous membranes. Conjunctivae appear well perfused. No thyroid mass. CHEST: Chest wall is nontender. HEART: Regular rate and rhythm without murmurs. LUNGS: Clear to auscultation bilaterally. ABDOMEN: Soft, positive bowel sounds, nontender, no organomegaly.no flank tenderness SKIN: No rash, no excessive bruising, petechiae, or purpura. NEUROLOGIC: Cranial nerves II-XII intact without motor/sensory deficit. Psych: normal affect Results Labs 01/26/25 06:04 01/26/25 06:04 Labs: Short CBC 01/25/25 01/26/25 Range/Units 16:47 06:04 WBC 6.5 8.9 (4.8-10.8) X10*3/uL Hgb 10.7 L 11.4 L (12.0-16.0) g/dl Hct 33.2 L 34.3 L (37.0-47.0) % Plt Count 262 278 (160-400) X10*3/uL BMP 01/25/25 01/26/25 16:47 06:04 Sodium 143 141 Potassium 3.3 3.7 Chloride 105 105 Carbon Dioxide 29 28 BUN 16 9 Creatinine 0.63 0.60 Calcium 8.9 8.6 Liver Function 01/25/25 01/26/25 Range/Units 16:47 06:04 Total Bilirubin 0.2 0.3 (0.0-1.0) mg/dL Direct Bilirubin < 0.2 (0.0-0.5) mg/dL AST 36 H 27 (5-31) U/L ALT 23 21 (0-31) U/L Alkaline Phosphatase 78 70 (39-117) U/L Albumin 3.3 L 3.2 L (3.5-5.0) g/dL Urine 01/26/25 Range/Units 06:15 Urine Color Yellow Urine Appearance Clear Urine pH 6.5 (5.0-9.0) Ur Specific [place] >= 1.030 H (1.005-1.025) Urine Protein Negative (Neg-Trace) mg/dL Urine Glucose (UA) Negative (Negative) mg/dL Assessment and Plan (1) Diarrhea: Qualifiers: Diarrhea type: unspecified type Qualified Code(s): R19.7 - Diarrhea, unspecified Status: Acute (2) Enterocolitis: Status: Acute Plan 1/ Infectious, or inflammatory vs neoplasia or infiltrative disease causing enterocolitis, prior hx of chemo and XRT stool panel neg. Clinically does not appear obstructed, passing gas, no nausea or vomiting PLAN 1/ [place] on Thrusday, if can tolerate PO clears. Procedures Date of Service Date of Service: 01/27/25
--- NOTE | 2025-01-26 10:56 | P.PNIM_ITS ---
Subjective Subjective Date of Service: 01/27/25 Interval History: abd pain Review of Systems abd pain and nausea somewhat improving no fevers says has back pain/left leg pain intermittent Review of Systems: Yes all other systems are reviewed and are negative Physical Exam 2 Vital Signs: Vital Signs: Last Vital Signs Temp 97.0 F 01/26/25 07:53 Pulse 73 01/26/25 07:53 Resp 18 01/26/25 07:38 BP 116/58 L 01/26/25 07:53 Pulse Ox 96 01/26/25 07:53 O2 Del Method Room Air 01/26/25 07:53 BMI result Body Mass Index 18.7 Appearance: Alert.? Oriented X3. cvs: rrr, [id number] . res: clear to auscultation ,no rhonchii or wheezing abd: no rebound or guarding ,nt, bs present. ext pulses present , no cyanosis neuro: axo3 , nonfocal. Objective Data Active Medications Acetaminophen (Acetaminophen 325 Mg Tablet) 650 mg PO Q6H PRN PRN Reason: Pain, Mild 1-3,fever,headache Albuterol/Ipratropium (Albuterol/Iprat 2.5/0.5mg 3 Ml Ampul.Neb) 3 ml INHALE Q4H PRN PRN Reason: Shortness of Breath/Wheezing Aripiprazole (Aripiprazole 15 Mg Tablet) 15 mg PO DAILY [facility] Last Admin: 01/26/25 08:47 Dose: 15 mg Documented By: KATERINE Fluticasone Propionate (Fluticasone Propionate 100 Mcg Blst.W.Dev) 1 puff INHALE RDAILY [facility] Last Admin: 01/26/25 07:37 Dose: 1 puff Documented By: ALESSIO Fluticasone Propionate (Fluticasone Propionate Nasal 16 Gm [place]) 1 spray NOSTRIL-B BID PRN PRN Reason: Allergy Symptoms Lactated Ringer's (Lr) 1,000 mls @ 100 mls/hr IVCONT .Q10H [facility] Last Admin: 01/26/25 08:16 Dose: 100 mls/hr Documented By: KATERINE Melatonin (Melatonin 3 Mg Tablet) 3 mg PO BEDTIME PRN PRN Reason: insomnia Mirtazapine (Mirtazapine 15 Mg Tablet) 15 mg PO BEDTIME [facility] Morphine Sulfate (Morphine Sulfate 4 Mg/Ml Cartridge) 4 mg IVPUSH Q4H PRN; Protocol PRN Reason: Pain, Severe (Pain Scale 7-10) Last Admin: 01/26/25 08:47 Dose: 4 mg Documented By: KATERINE Nicotine (Nicotine 14 Mg Patch.Td24) 14 mg TRANSDERMA DAILY [facility] Last Admin: 01/26/25 08:47 Dose: 14 mg Documented By: KATERINE Ondansetron HCl (Ondansetron Hcl 4 Mg/2 Ml Vial) 4 mg IVPUSH Q8H PRN PRN Reason: Nausea and Vomiting Last Admin: 01/26/25 02:19 Dose: 4 mg Documented By: AISSATOU Pantoprazole Sodium (Pantoprazole Sodium 40 Mg/10 Ml Vial) 40 mg IVPUSH BID@0630,1630 [facility] Last Admin: 01/26/25 06:15 Dose: 40 mg Documented By: AISSATOU Prazosin HCl (Prazosin Hcl 1 Mg Capsule) 2 mg PO BEDTIME [facility]; Protocol Sertraline HCl (Sertraline Hcl 100 Mg Tablet) 100 mg PO DAILY [facility] Last Admin: 01/26/25 08:47 Dose: 100 mg Documented By: KATERINE Sodium Chloride (0.9 % Sodium Chloride Flush 3 Ml Syringe) 3 ml IVFLUSH QSHIFT [facility] Last Admin: 01/26/25 08:16 Dose: 3 ml Documented By: KATERINE Trazodone HCl (Trazodone Hcl 50 Mg Tablet) 50 mg PO BEDTIME [facility] Labs 01/26/25 06:04 01/26/25 06:04 Labs: Laboratory Results - last 24 hr 01/25/25 01/25/25 01/25/25 16:47 17:03 20:45 MCV 93.5 MCH 30.1 MCHC 32.2 RDW 12.7 Plt Count 262 MPV 8.8 L Immature Gran % (Auto) 0.3 Neut % (Auto) 72.8 Lymph % (Auto) 12.7 L [place] % (Auto) 12.1 H Eos % (Auto) 1.8 Baso % (Auto) 0.3 Lymph # (Auto) 0.8 L [place] # (Auto) 0.8 Eos # (Auto) 0.1 Baso # (Auto) 0.0 Abs Immat Gran (auto) 0.02 Absolute Neuts (auto) 4.7 Absolute Nucleated RBC 0.000 Nucleated RBC % (auto) 0.0 Anion Gap 12 Estim Creat Clear Calc 75.1 Estimated GFR > 60 Random Glucose 102 Lactic Acid 0.7 Calcium 8.9 Magnesium 1.4 L* Iron TIBC % Saturation Unsat Iron Binding Total Bilirubin 0.2 Direct Bilirubin < 0.2 AST 36 H ALT 23 Alkaline Phosphatase 78 C-Reactive Protein 2.08 H Total Protein 6.2 L Albumin 3.3 L Lipase 9 Vitamin B12 Procalcitonin Urine Color Urine Appearance Urine pH Ur Specific [place] Urine Protein Urine Glucose (UA) Urine Ketones Urine Blood Urine Nitrite Ur Leukocyte Esterase Urine RBC Urine WBC Ur Squamous Epith Cells Calcium Oxalate Crystal Urine Bacteria Hyaline Casts Ethyl Alcohol < 10 C. difficile Tox B Gene NEGATIVE Blood Type O Positive Antibody Screen NEGATIVE 01/25/25 01/26/25 01/26/25 20:46 06:04 06:15 MCV 92.0 MCH 30.6 MCHC 33.2 RDW 13.0 Plt Count 278 MPV 8.7 L Immature Gran % (Auto) 0.5 H Neut % (Auto) 79.8 H Lymph % (Auto) 7.3 L [place] % (Auto) 11.0 Eos % (Auto) 1.2 Baso % (Auto) 0.2 Lymph # (Auto) 0.7 L [place] # (Auto) 1.0 Eos # (Auto) 0.1 Baso # (Auto) 0.0 Abs Immat Gran (auto) 0.04 H Absolute Neuts (auto) 7.1 Absolute Nucleated RBC 0.000 Nucleated RBC % (auto) 0.0 Anion Gap 12 Estim Creat Clear Calc 88.5 Estimated GFR > 60 Random Glucose 110 Lactic Acid Calcium 8.6 Magnesium 1.9 Iron 20 L TIBC 232 % Saturation 9 L Unsat Iron Binding 212 Total Bilirubin 0.3 Direct Bilirubin AST 27 ALT 21 Alkaline Phosphatase 70 C-Reactive Protein Total Protein 6.1 L Albumin 3.2 L Lipase Vitamin B12 304 Procalcitonin 0.02 Urine Color Yellow Urine Appearance Clear Urine pH 6.5 Ur Specific [place] >= 1.030 H Urine Protein Negative Urine Glucose (UA) Negative Urine Ketones Negative Urine Blood Trace H Urine Nitrite Negative Ur Leukocyte Esterase Negative Urine RBC 0-2 Urine WBC 0-5 Ur Squamous Epith Cells 0-2 Calcium Oxalate Crystal Present Urine Bacteria None Seen Hyaline Casts 0-2 Ethyl Alcohol C. difficile Tox B Gene Blood Type Antibody Screen Assessment and Plan (1) Hypomagnesemia: Status: Acute (2) Diarrhea: Status: Acute (3) Abdominal pain: Status: Acute Plan 59-year-old female with past medical history rectal cancer treated with chemo and radiation, GI bleed, chronic low back pain, unexplained weight loss, sciatica, depression and anxiety with history of suicidal ideations and inpatient psychiatric admission, recent cocaine use via inhalation, history of alcohol abuse, tobacco use 2-3 cigarettes per day, COPD/emphysema, UTI, poor dentition, lactose intolerance and patient states she can not eat red meat, fiber or dairy products is being admitted for GI work up for possible PSBO/Ileus with enteritis/gastritis and possible lytic lesions on spine causing increased pain. Pt has noted wt loss as well. Partial bowel obstruction versus ileus suspected, abdominal pain X 4days No definite point of transition identified on CT KUB :Persistent small bowel dilatation in the inferior abdomen/superior pelvis, consistent with persistent small bowel obstruction versus ileus. plan: IVF,npo,passing gases ,iv morphine surgery eval noted-continues to pass diarrhea and gas,nausea improving Gi eval pending Enteritis/gastritis/diarrhea: C diff negative, stool cultures pending Patient afebrile with no leukocytosis, lactic acid normal and procalcitonin0.02 Plan:continue ivf , no fevers ,abd pain improving on ppi ,not on antibiotics. GI eval History of rectal colon cancer/ current rectal bleeding -Pt is overdue for colonoscopy for follow up to cancer by 2 years No current N/V,no hx of hemorrhoids, bleeding noted 4 days prior Stool for occult positive on 11/2024, H/H currently stable fobt added again Gi eval. Sacral spinal pain/ chronic history of lower back pain and disc disease-Chronic back issues with increased lower back pain .,she says it also radiates to left leg intermitent. CT ABD neg for nephrolithiasis plan: Heat application to lower back ordered Previous abdominal pelvis CT scan previous admission December 11 noted possible small lytic lesions in the setting of malignancy or metastatic disease versus interval increase in bony demineralization her free [place] LC is 30.6 bone scan:No evidence of osteoblastic metastatic disease. The appearance of small lucencies on CT in the hips and pelvis could represent multiple myeloma, which is occult on bone scan MRI lumbar spine oncology eval Hypomagnesemia:repleted and resolved. Protein malnourishment/underweight nutritional eval npo Normocytic anemia -H&H stable 11.4/34.3 iron studies-iron and iron sats low side ,tibc normal vitamin B12-no Depression and anxiety: recently released from [facility] having had suicidal ideations, I wanted to throw myself in front of a car currently denies any active suicidal ideations or homicidal ideations. she scheduled to start with the psychiatrist next month continue patient's ariprazole and sertraline does not require a section 12 at this time or a psychiatric consultation or one-to-one observation Nicotine [id number] nicotine patch. counseled on the benefits of smoking cessation DVT prophylaxis: held, rule out GIB PPI prophylaxis: Protonix 40 mg IV BID ongoing need :? psbo-unable to tolerate diet,need iv fluids -need further gi/neuroworkup Quality Stroke Does the patient have a stroke diagnosis?: No Reason for No Anti-thrombotic by Day Two: Contraindicated VTE Prior VTE?: No VTE Risk Level:: Medical - moderate - high VTE Device Contraindication: N/A - Device Ordered VTE Drug Contraindication: Treatment Not Indicated
--- NOTE | 2025-01-26 11:18 | MHC.CLN ---
CONSULT PT IS MODERATELY MALNOURISHED PT WITH MILDLY DEPLETED SUBCUTANEOUS FAT AND MUSCLE MASS WITH BMI 18.7 FAMILIAR WITH PT FROM PREVIOUS ADMISSION SEE NUTRITION ASSESSMENT DATED 12/14/24 DX MPCM PT REPORTS WT LOSS HOWEVER CURRENT WT REVEALS 54.2KG AND PREVIOUS WT HX SHOWS 45.4KG (06/15/24) PT WITH 19% SIGNIFICANT WT GAIN X 8 MONTHS HOWEVER PT REMAINS BELOW IBW RANGE AND CONTINUES TO SHOW SIGNS OF MALNUTRITION PT IS CURRENTLY NPO WHEN DIET TO ADVANCE, RECOMMEND LACTOSE CONTROLLED DIET WITH ENSURE CLEAR TID TO INCREASE KCALS SUPP TO PROVIDE 720KCALS, 24G PROTEIN FOLLOWING FOR DIET ADVANCEMENT SEE FULL CLINICAL NUTRITION ASSESSMENT
[2025-01-26 13:10] LABS: Adenovirus F 40/41 Not Detected (Not Detect.); Astrovirus Not Detected (Not Detect.); Campylobacter Not Detected (Not Detect.); Cryptosporidium Not Detected (Not Detect.); Cyclospora cayetanensis Not Detected (Not Detect.); E. coli EAEC Not Detected (Not Detect.); E. coli EPEC Not Detected (Not Detect.); E. coli ETEC Not Detected (Not Detect.); E. coli STEC Not Detected (Not Detect.); Entamoeba histolytica Not Detected (Not Detect.); Giardia lamblia Not Detected (Not Detect.); Norovirus GI/GII Not Detected (Not Detect.); Plesiomonas shigelloides Not Detected (Not Detect.); Rotavirus A Not Detected (Not Detect.); Salmonella Not Detected (Not Detect.); Sapovirus Not Detected (Not Detect.); Shigella sp./EIEC Not Detected (Not Detect.); Vibrio Not Detected (Not Detect.); Vibrio Cholerae Not Detected (Not Detect.); Yersinia enterocolitica Not Detected (Not Detect.)
[2025-01-26] MEDS: gadobutroL 7.5 ML VIAL IVPUSH (15:16)
--- NOTE | 2025-01-26 16:49 | PM.NEUROCN ---
History of Present Illness Data of Consult Service Date: 01/26/25 Primary Care Provider: Unknown Physician HPI Reason for consult: Low back pain This is a 59-year-old female who presented to the emergency room via EMS with significant lower back pain over the last 4 days radiating down left leg intermittently. She also notes rectal bleeding on tissue paper with bowel movement. She has a past medical history of rectal cancer treated with chemo and radiation, GI bleed, chronic low back pain, unexplained weight loss, sciatica, depression and anxiety with history of suicidal ideations and inpatient psychiatric admission, recent cocaine use via inhalation, history of alcohol abuse, tobacco use 2-3 cigarettes per day, COPD/emphysema, UTI, poor dentition, lactose intolerance and patient states she can not eat red meat, fiber or dairy products. CT scan on 12/11/2024 during previous admission, there was a question of lytic lesions indicating possible metastatic/ malignancy versus interval increase in bony demineralization. Patient believes that she is eventually going to have surgery for her lower back issues. Patient has only been taking Naprosyn for her pain control at home. Patient also reports unexplained weight loss that has continued over the last 6 months and BMI is currently 16.7. CT of the abdomen and pelvis are negative for any nephrolithiasis and indicate that the gallbladder is mostly contracted. Evidence of multiple dilated jejunal loops measuring up to 4 cm found. Moderate stool burden also noted within the colon. No evidence of appendicitis and no acute fracture. Findings most likely indicate gastritis/enteritis but partial small-bowel obstruction or ileus are also included in the differential. Patient is currently not having any nausea or vomiting requiring NG tube placement. MRI lS spine shows no lytic lesions or mass. There is chronic Gr2 10mm spondylolisthesis of L5-S1 with severe impingement of neural foramina and exiting roots. [facility] Past Medical History Medical History (Updated 01/26/25 @ 17:14 by Aaliyah Cerda MD) Asthma Colon cancer Surgical History Surgical History (Updated 01/26/25 @ 13:23 by Kelvin Lanza PA-C) H/O tubal ligation Social History Social History Household Members: Family and Other Household Members Other:: sister Housing: House Patient Tobacco Use Status: Current everyday Tobacco user Tobacco use type: Cigarette Cigarettes Per Day: 3 e-Cigarette/Vaping Use: Currently Using Second Hand Smoke Exposure: No Substance Use Type: Marijuana and Other service: No Meds Allergies Allergy/AdvReac Type Severity Reaction Status Date / Time Milk Containing Products AdvReac Diarrhea Verified 01/25/25 16:04 (Dairy) Active Medications: Current Medications Acetaminophen (Acetaminophen 325 Mg Tablet) 650 mg PO Q6H PRN PRN Reason: Pain, Mild 1-3,fever,headache Albuterol/Ipratropium (Albuterol/Iprat 2.5/0.5mg 3 Ml Ampul.Neb) 3 ml INHALE Q4H PRN PRN Reason: Shortness of Breath/Wheezing Aripiprazole (Aripiprazole 15 Mg Tablet) 15 mg PO DAILY [facility]PLAC[facility] BY [facility] Last Admin: 01/26/25 08:47 Dose: 15 mg Fluticasone Propionate (Fluticasone Propionate 100 Mcg Blst.W.Dev) 1 puff INHALE RDAILY REPLACED BY [facility] Last Admin: 01/26/25 07:37 Dose: 1 puff Fluticasone Propionate (Fluticasone Propionate Nasal 16 Gm [place]) 1 spray NOSTRIL-B BID PRN PRN Reason: Allergy Symptoms Lactated Ringer's (Lr) 1,000 mls @ 100 mls/hr IVCONT .Q10H REPLACED [facility] Last Admin: 01/26/25 08:16 Dose: 100 mls/hr Melatonin (Melatonin 3 Mg Tablet) 3 mg PO BEDTIME PRN PRN Reason: insomnia Mirtazapine (Mirtazapine 15 Mg Tablet) 15 mg PO BEDTIME REPLACED BY [facility] Morphine Sulfate (Morphine Sulfate 4 Mg/Ml Cartridge) 4 mg IVPUSH Q4H PRN; Protocol PRN Reason: Pain, Severe (Pain Scale 7-10) Last Admin: 01/26/25 14:22 Dose: 4 mg Nicotine (Nicotine 14 Mg Patch.Td24) 14 mg TRANSDERMA DAILY [facility] Last Admin: 01/26/25 08:47 Dose: 14 mg Ondansetron HCl (Ondansetron Hcl 4 Mg/2 Ml Vial) 4 mg IVPUSH Q8H PRN PRN Reason: Nausea and Vomiting Last Admin: 01/26/25 14:28 Dose: 4 mg Pantoprazole Sodium (Pantoprazole Sodium 40 Mg/10 Ml Vial) 40 mg IVPUSH BID@0630,1630 REPLACED BY [facility] Last Admin: 01/26/25 06:15 Dose: 40 mg Prazosin HCl (Prazosin Hcl 1 Mg Capsule) 2 mg PO BEDTIME REPLACED BY [facility]; Protocol Sertraline HCl (Sertraline Hcl 100 Mg Tablet) 100 mg PO DAILY [facility]PL[facility]ED BY [facility] Last Admin: 01/26/25 08:47 Dose: 100 mg Sodium Chloride (0.9 % Sodium Chloride Flush 3 Ml Syringe) 3 ml IVFLUSH QSHIFT REPLACED BY [facility] Last Admin: 01/26/25 08:16 Dose: 3 ml Trazodone HCl (Trazodone Hcl 50 Mg Tablet) 50 mg PO BEDTIME REPLACED BY [facility] Home Medications ?Medication ?Instructions ?Recorded ?Confirmed ?Last Taken ?Type albuterol sulfate 90 mcg/actuation 2 puff inhalation QID PRN 12/12/24 01/25/25 Unknown History aerosol inhaler (Ventolin HFA) Shortness Of Breath Or Wheezing fluticasone furoate 100 1 inh inhalation DAILY 12/12/24 01/25/25 01/24/25 History mcg/actuation blister powder for inhalation (Arnuity Ellipta) fluticasone propionate 50 1 spray intranasal BID PRN Allergy 12/12/24 01/25/25 Unknown History mcg/actuation nasal Symptoms spray,suspension loratadine 10 mg tablet 10 mg PO DAILY 12/12/24 01/25/25 01/24/25 History nicotine 21 mg/24 hr daily 1 patch topical DAILY PRN Smoking 12/12/24 01/25/25 12/11/24 History transdermal patch Cessation sertraline 100 mg tablet 100 mg PO DAILY 12/12/24 01/25/25 01/24/25 History trazodone 50 mg tablet 50 mg PO BEDTIME insomnia 12/12/24 01/25/25 01/24/25 History albuterol sulfate 2.5 mg/3 mL 3 mg inhalation BID PRN sort 01/25/25 01/25/25 Unknown History (0.083 %) solution for nebulization aripiprazole 15 mg tablet 15 mg PO DAILY depressive disorder 01/25/25 01/25/25 01/24/25 History melatonin 3 mg tablet 3 mg PO BEDTIME PRN insomnia 01/25/25 01/25/25 Unknown History mirtazapine 15 mg tablet 15 mg PO BEDTIME depressive 01/25/25 01/25/25 01/24/25 History disorder [id number] 8 mg-folic 400 1 tab PO DAILY 01/25/25 01/25/25 01/24/25 History mcg-K 50 mcg-lutein 300 mcg tablet (Spectravite Women 50 Plus) naproxen 500 mg tablet 500 mg PO BID 01/25/25 01/25/25 01/24/25 History prazosin 2 mg capsule 2 mg PO BEDTIME nightmares 01/25/25 01/25/25 01/24/25 History Physical Exam Vital Signs: Vital Signs: Last Vital Signs Temp 97.2 F 01/26/25 16:00 Pulse 75 01/26/25 16:00 Resp 18 01/26/25 16:00 BP 126/58 L 01/26/25 16:00 Pulse Ox 97 01/26/25 16:00 O2 Del Method Room Air 01/26/25 16:00 BMI result Body Mass Index 18.7 Neuro: Other: Normal neuro exam Results Labs 01/26/25 06:04 01/26/25 06:04 Labs: Short CBC 01/25/25 01/26/25 Range/Units 16:47 06:04 WBC 6.5 8.9 (4.8-10.8) X10*3/uL Hgb 10.7 L 11.4 L (12.0-16.0) g/dl Hct 33.2 L 34.3 L (37.0-47.0) % Plt Count 262 278 (160-400) X10*3/uL BMP 01/25/25 01/26/25 16:47 06:04 Sodium 143 141 Potassium 3.3 3.7 Chloride 105 105 Carbon Dioxide 29 28 BUN 16 9 Creatinine 0.63 0.60 Calcium 8.9 8.6 Liver Function 01/25/25 01/26/25 Range/Units 16:47 06:04 Total Bilirubin 0.2 0.3 (0.0-1.0) mg/dL Direct Bilirubin < 0.2 (0.0-0.5) mg/dL AST 36 H 27 (5-31) U/L ALT 23 21 (0-31) U/L Alkaline Phosphatase 78 70 (39-117) U/L Albumin 3.3 L 3.2 L (3.5-5.0) g/dL Urine 01/26/25 Range/Units 06:15 Urine Color Yellow Urine Appearance Clear Urine pH 6.5 (5.0-9.0) Ur Specific [place] >= 1.030 H (1.005-1.025) Urine Protein Negative (Neg-Trace) mg/dL Urine Glucose (UA) Negative (Negative) mg/dL Assessment and Plan (1) Spondylolisthesis of lumbar region: Status: Acute Treatment options include Epidural injections or surgical intervention for stabilization of L5-S1 spondylolisthesis Gr 2 Procedures Date of Service Date of Service: 01/26/25
[2025-01-26] MEDS: Prazosin HCL 1 MG CAPSULE 2 MG PO (20:43)
[2025-01-26] MEDS: Mirtazapine 15 MG TABLET PO (20:43)
[2025-01-26] MEDS: traZODone HCL 50 MG TABLET PO (20:43)
[2025-01-26] MEDS: Melatonin 3 MG TABLET PO (22:21)
[2025-01-27] VITALS (8 sets, daily range): BP systolic 120–134; BP diastolic 56–73; PULSE 68–80; RESP 16–18; TEMP 36.1–37; O2SAT 95–99
[2025-01-27] MEDS: Morphine Sulfate 4 MG/ML CARTRIDGE IVPUSH ×5 (04:01→22:12)
[2025-01-27] MEDS: Lactated Ringers 1,000 ML 100 ML IVCONT ×3 (04:04→22:17)
[2025-01-27] MEDS: Pantoprazole Sodium 40 MG/10 ML VIAL IVPUSH ×2 (06:26→16:47)
[2025-01-27] MEDS: Fluticasone Propionate 100 MCG BLST.W.DEV 1 PUFF INHALE (07:42)
--- NOTE | 2025-01-27 07:46 | PM.PNGS ---
Subjective Subjective Date of Service: 01/27/25 <Kelvin Lanza PA-C - Last Filed: 01/27/25 07:56> 01/28/25 <Tye Campa MD - Last Filed: 01/28/25 12:56> Patient reports: no new complaints, still having pain (mild LLQ), flatus and bowel movement <DARON Carbajal Last Filed: 01/27/25 07:56> Interval history: patient states she doing well this morning. Her pain is improving, still c/o intermittent LLQ pain. Most of her pain is back pain. She denies nausea or vomiting. She states she feels less bloated today. Tolerating clear liquids well. She states she has been passing gas, passed one BM last night. <DARON Carbajal Last Filed: 01/27/25 07:56> Physical Exam Vital Signs: Vital Signs: Last Vital Signs Temp 98.6 F 01/27/25 07:26 Pulse 78 01/27/25 07:42 Resp 16 01/27/25 07:42 BP 120/63 01/27/25 07:26 Pulse Ox 96 01/27/25 07:26 O2 Del Method Room Air 01/27/25 07:26 BMI result Body Mass Index 18.7 <DARON Carbajal Last Filed: 01/27/25 07:56> Const: General: comfortable and no acute distress <DARON Carbajal Last Filed: 01/27/25 07:56> Orientation/consciousness: patient oriented x3 <DARON Carbajal Last Filed: 01/27/25 07:56> Resp: Effort & Inspection: normal respiratory effort and able to speak in complete sentences <Kelvin aLnza PA-C - Last Filed: 01/27/25 07:56> GI: Inspection: No distended <DARON Carbajal Last Filed: 01/27/25 07:56> Palpation (GI): Soft to palpation, not firm, Tenderness to palpation present (GI) (mild tenderness in LLQ), no guarding and not rigid <DARON Carbajal Last Filed: 01/27/25 07:56> Percussion: Yes normal to percussion <DARON Carbajal Last Filed: 01/27/25 07:56> Neuro: General: patient oriented x3 <Kelvin Lanza PA-C - Last Filed: 01/27/25 07:56> Objective Data Active Medications Acetaminophen (Acetaminophen 325 Mg Tablet) 650 mg PO Q6H PRN PRN Reason: Pain, Mild 1-3,fever,headache Albuterol/Ipratropium (Albuterol/Iprat 2.5/0.5mg 3 Ml Ampul.Neb) 3 ml INHALE Q4H PRN PRN Reason: Shortness of Breath/Wheezing Aripiprazole (Aripiprazole 15 Mg Tablet) 15 mg PO DAILY [facility] Last Admin: 01/26/25 08:47 Dose: 15 mg Documented By: KATERINE Fluticasone Propionate (Fluticasone Propionate 100 Mcg Blst.W.Dev) 1 puff INHALE RDAILY [facility] Last Admin: 01/27/25 07:42 Dose: 1 puff Documented By: ALESSIO Fluticasone Propionate (Fluticasone Propionate Nasal 16 Gm [place]) 1 spray NOSTRIL-B BID PRN PRN Reason: Allergy Symptoms Lactated Ringer's (Lr) 1,000 mls @ 100 mls/hr IVCONT .Q10H [facility] Last Admin: 01/27/25 04:04 Dose: 100 mls/hr Documented By: BIN Melatonin (Melatonin 3 Mg Tablet) 3 mg PO BEDTIME PRN PRN Reason: insomnia Last Admin: 01/26/25 22:21 Dose: 3 mg Documented By: AISSATOU Mirtazapine (Mirtazapine 15 Mg Tablet) 15 mg PO BEDTIME [facility] Last Admin: 01/26/25 20:43 Dose: 15 mg Documented By: AISSATOU Morphine Sulfate (Morphine Sulfate 4 Mg/Ml Cartridge) 4 mg IVPUSH Q4H PRN; Protocol PRN Reason: Pain, Severe (Pain Scale 7-10) Last Admin: 01/27/25 04:01 Dose: 4 mg Documented By: BIN Nicotine (Nicotine 14 Mg Patch.Td24) 14 mg TRANSDERMA DAILY [facility] Last Admin: 01/26/25 08:47 Dose: 14 mg Documented By: KATERINE Ondansetron HCl (Ondansetron Hcl 4 Mg/2 Ml Vial) 4 mg IVPUSH Q8H PRN PRN Reason: Nausea and Vomiting Last Admin: 01/26/25 14:28 Dose: 4 mg Documented By: KATERINE Pantoprazole Sodium (Pantoprazole Sodium 40 Mg/10 Ml Vial) 40 mg IVPUSH BID@0630,1630 [facility] Last Admin: 01/27/25 06:26 Dose: 40 mg Documented By: BIN Prazosin HCl (Prazosin Hcl 1 Mg Capsule) 2 mg PO BEDTIME [facility]; Protocol Last Admin: 01/26/25 20:43 Dose: 2 mg Documented By: AISSATOU Sertraline HCl (Sertraline Hcl 100 Mg Tablet) 100 mg PO DAILY [facility] Last Admin: 01/26/25 08:47 Dose: 100 mg Documented By: KATERINE Sodium Chloride (0.9 % Sodium Chloride Flush 3 Ml Syringe) 3 ml IVFLUSH QSHIFT [facility] Last Admin: 01/26/25 20:54 Dose: Not Given Documented By: AISSATOU Non-Admin Reason: IV Running Trazodone HCl (Trazodone Hcl 50 Mg Tablet) 50 mg PO BEDTIME [facility] Last Admin: 01/26/25 20:43 Dose: 50 mg Documented By: AISSATOU <Kelvin Lanza PA-C - Last Filed: 01/27/25 07:56> Labs CBC & Chem 7: 01/28/25 08:37 01/26/25 06:04 <Kelvin Lanza PA-C - Last Filed: 01/27/25 07:56> Labs: Laboratory Results - last 24 hr 01/25/25 17:03 Stl C. cayetanensis PCR Not Detected Stool Rotavirus A PCR Not Detected Stl Adenov F 40/41 PCR Not Detected Stool Astrovirus (PCR) Not Detected Stool Campylobacter PCR Not Detected Stool Cryptosporidium PCR Not Detected Stl Sh Tox Pr E STEC PCR Not Detected Stool E coli O157 PCR Not applicable Stl Enterotoxigenic E PCR Not Detected Stool EPEC (PCR) Not Detected Stool EAEC (PCR) Not Detected Stl E. histolytica PCR Not Detected Stool Giardia Lamblia PCR Not Detected Stl P. shigelloides PCR Not Detected Stool Salmonella PCR Not Detected Stool Sapovirus (PCR) Not Detected Stl Shigella/EIEC PCR Not Detected St Y.enterocolitica PCR Not Detected Stool Vibrio (PCR) Not Detected Stl Vibrio cholerae PCR Not Detected Stl Norovirus GI/GII PCR Not Detected <Kelvin Lanza PA-C - Last Filed: 01/27/25 07:56> Procedures Date of Service Date of Service: 01/27/25 <Kelvin Lanza PA-C - Last Filed: 01/27/25 07:56> 01/28/25 <Tye Campa MD - Last Filed: 01/28/25 12:56> Progress Note: A&P Assessment and plan (1) Abdominal pain: Status: Acute <Kelvin Lanza PA-C - Last Filed: 01/27/25 07:56> Assessment and Plan: She feels much better this morning Minimal pain mostly in the left lower quadrant No nausea or vomiting Hungry and wants to try food Abdomen is soft, benign, nondistended Clinically doing well Scheduled for colonoscopy tomorrow? Otherwise okay to advance diet as tolerated We will continue to follow up <Tye Campa MD - Last Filed: 01/28/25 12:56> Assessment and Plan: Patient improving. Pain improving. Passing gas and small BM. Tolerating clear liquid diet. Improvement noted on exam, less distention. Continues to have mild LLQ pain to palpation. No nausea or vomiting. Patient ambulating. She is scheduled for colonoscopy tomorrow. Okay to advance diet as tolerated, would recommend clear liquid until after colonoscopy tomorrow Continue pain management Will continue to follow. <Kelvin Lanza PA-C - Last Filed: 01/27/25 07:56> Time Spent With Patient Time: Total time managing care of this patient today ____ minutes. <Kelvin Lanza PA-C - Last Filed: 01/27/25 07:56> Quality Stroke Does the patient have a stroke diagnosis?: No <DARON Carbajal Last Filed: 01/27/25 07:56> Reason for No Anti-thrombotic by Day Two: Contraindicated <Kelvin Lanza PA-C - Last Filed: 01/27/25 07:56> VTE Prior VTE?: No <DARON Carbajal Last Filed: 01/27/25 07:56> VTE Risk Level:: Medical - moderate - high <DARON Carbajal Last Filed: 01/27/25 07:56> VTE Device Contraindication: N/A - Device Ordered <Kelvin Lanza PA-C - Last Filed: 01/27/25 07:56> VTE Drug Contraindication: Treatment Not Indicated <Kelvin Lanza PA-C - Last Filed: 01/27/25 07:56>
[2025-01-27] MEDS: Sertraline HCL 100 MG TABLET PO (08:00)
[2025-01-27] MEDS: Nicotine 14 MG PATCH.TD24 TRANSDERMA (08:00)
[2025-01-27] MEDS: ARIPiprazole 15 MG TABLET PO (08:00)
--- NOTE | 2025-01-27 09:25 | MHC.CLN ---
F/U TOLERATING CLEAR LIQUID DIET. PLAN FOR COLONOSCOPY 01/28. WHEN DIET TO ADVANCE, RECOMMEND LACTOSE CONTROLLED DIET WITH ENSURE CLEAR TID TO INCREASE KCALS. SUPPLEMENT TO PROVIDE 720KCALS, 24G PROTEIN. PATIENT IS MODERATELY MALNOURISHED. FOLLOWING FOR DIET ADVANCEMENT AND PO INTAKE.
--- NOTE | 2025-01-27 10:16 | MHC.CM.PN ---
EMR REVIEWED, T STILL C/O 06/25 PAIN, PER HOSPITALIST PT W/SPPONDYLOSIS AND PLAN FOR CONSULT W/SPINE DR, NO PLAN FOR DC AT THIS TIME, CM WILL CONT TO FOLLOW DC NEEDS.
--- NOTE | 2025-01-27 15:43 | HO.PM.IMPN ---
Subjective Subjective Date of Service: 01/27/25 Interval History: abd pain Review of Systems back pain similar ,has less leg pain ,able to walk few steps with walker no bowel or bladder incontinence Physical Exam Vital Signs: Vital Signs: Last Vital Signs Temp 97.5 F 01/27/25 15:36 Pulse 69 01/27/25 15:36 Resp 18 01/27/25 15:36 BP 128/59 L 01/27/25 15:36 Pulse Ox 97 01/27/25 15:36 O2 Del Method Room Air 01/27/25 15:36 BMI result Body Mass Index 18.7 Appearance: Alert.? Oriented X3. cvs: rrr, [id number] . res: clear to auscultation ,no rhonchii or wheezing abd: no rebound or guarding ,nt, bs present. ext pulses present , no cyanosis neuro: axo3 , nonfocal. Objective Data Active Medications Acetaminophen (Acetaminophen 325 Mg Tablet) 650 mg PO Q6H PRN PRN Reason: Pain, Mild 1-3,fever,headache Albuterol/Ipratropium (Albuterol/Iprat 2.5/0.5mg 3 Ml Ampul.Neb) 3 ml INHALE Q4H PRN PRN Reason: Shortness of Breath/Wheezing Aripiprazole (Aripiprazole 15 Mg Tablet) 15 mg PO DAILY [facility] Last Admin: 01/27/25 08:00 Dose: 15 mg Documented By: JONH Fluticasone Propionate (Fluticasone Propionate 100 Mcg Blst.W.Dev) 1 puff INHALE RDAILY [facility] Last Admin: 01/27/25 07:42 Dose: 1 puff Documented By: ALESSIO Fluticasone Propionate (Fluticasone Propionate Nasal 16 Gm [place]) 1 spray NOSTRIL-B BID PRN PRN Reason: Allergy Symptoms Lactated Ringer's (Lr) 1,000 mls @ 100 mls/hr IVCONT .Q10H [facility] Last Admin: 01/27/25 13:27 Dose: 100 mls/hr Documented By: JONH Melatonin (Melatonin 3 Mg Tablet) 3 mg PO BEDTIME PRN PRN Reason: insomnia Last Admin: 01/26/25 22:21 Dose: 3 mg Documented By: AISSATOU Mirtazapine (Mirtazapine 15 Mg Tablet) 15 mg PO BEDTIME [facility] Last Admin: 01/26/25 20:43 Dose: 15 mg Documented By: AISSATOU Morphine Sulfate (Morphine Sulfate 4 Mg/Ml Cartridge) 4 mg IVPUSH Q4H PRN; Protocol PRN Reason: Pain, Severe (Pain Scale 7-10) Last Admin: 01/27/25 13:30 Dose: 4 mg Documented By: JONH Nicotine (Nicotine 14 Mg Patch.Td24) 14 mg TRANSDERMA DAILY [facility] Last Admin: 01/27/25 08:00 Dose: 14 mg Documented By: JONH Ondansetron HCl (Ondansetron Hcl 4 Mg/2 Ml Vial) 4 mg IVPUSH Q8H PRN PRN Reason: Nausea and Vomiting Last Admin: 01/26/25 14:28 Dose: 4 mg Documented By: KATERINE Pantoprazole Sodium (Pantoprazole Sodium 40 Mg/10 Ml Vial) 40 mg IVPUSH BID@0630,1630 [facility] Last Admin: 01/27/25 06:26 Dose: 40 mg Documented By: BIN Prazosin HCl (Prazosin Hcl 1 Mg Capsule) 2 mg PO BEDTIME [facility]; Protocol Last Admin: 01/26/25 20:43 Dose: 2 mg Documented By: AISSATOU Sertraline HCl (Sertraline Hcl 100 Mg Tablet) 100 mg PO DAILY [facility] Last Admin: 01/27/25 08:00 Dose: 100 mg Documented By: JONH Sodium Chloride (0.9 % Sodium Chloride Flush 3 Ml Syringe) 3 ml IVFLUSH QSHIFT [facility] Last Admin: 01/27/25 07:57 Dose: Not Given Documented By: JONH Non-Admin Reason: IV Running Trazodone HCl (Trazodone Hcl 50 Mg Tablet) 50 mg PO BEDTIME [facility] Last Admin: 01/26/25 20:43 Dose: 50 mg Documented By: AISSATOU Labs 01/26/25 06:04 01/26/25 06:04 Assessment and Plan (1) Hypomagnesemia: Status: Acute (2) Diarrhea: Status: Acute (3) Abdominal pain: Status: Acute Plan 59-year-old female with past medical history rectal cancer treated with chemo and radiation, GI bleed, chronic low back pain, unexplained weight loss, sciatica, depression and anxiety with history of suicidal ideations and inpatient psychiatric admission, recent cocaine use via inhalation, history of alcohol abuse, tobacco use 2-3 cigarettes per day, COPD/emphysema, UTI, poor dentition, lactose intolerance and patient states she can not eat red meat, fiber or dairy products is being admitted for GI work up for possible PSBO/Ileus with enteritis/gastritis and possible lytic lesions on spine causing increased pain. Pt has noted wt loss as well. Partial bowel obstruction versus ileus suspected, abdominal pain X 4days No definite point of transition identified on CT KUB :Persistent small bowel dilatation in the inferior abdomen/superior pelvis, consistent with persistent small bowel obstruction versus ileus. plan: clear liquid diet,npo past midnight for possible colonoscopy,passing gases ,iv morphine surgery eval noted-abd pain improving,has some llq pain , possible colonoscopy in am. Enteritis/gastritis/diarrhea: C diff negative, Gi panel negative Patient afebrile with no leukocytosis, lactic acid normal and procalcitonin0.02 Plan:continue ivf , no fevers ,abd pain improving on ppi ,not on antibiotics. GI eval-possible colonoscopy in am. History of rectal colon cancer/ current rectal bleeding -Pt is overdue for colonoscopy for follow up to cancer by 2 years No current N/V,no hx of hemorrhoids, bleeding noted 4 days prior Stool for occult positive on 11/2024, H/H currently stable fobt added again Gi eval. Sacral spinal pain/ chronic history of lower back pain and disc disease-Chronic back issues with increased lower back pain .,she says it also radiates to left leg intermitent. CT ABD neg for nephrolithiasis plan: Heat application to lower back ordered Previous abdominal pelvis CT scan previous admission December 11 noted possible small lytic lesions in the setting of malignancy or metastatic disease versus interval increase in bony demineralization her free [place] LC is 30.6 bone scan:No evidence of osteoblastic metastatic disease. The appearance of small lucencies on CT in the hips and pelvis could represent multiple myeloma, which is occult on bone scan MRI lS spine shows no lytic lesions or mass. There is chronic Gr2 10mm spondylolisthesis of L5-S1 with severe impingement of neural foramina and exiting roots neurology eval noted-epidural injection in the a.m. Also spoke to neurosurgical team in [facility] [place]: Since patient is more mobile and pain is somewhat improving, currently does not require inpatient neurosurgical intervention. Recommended to continue with pain meds and possible epidural injection. Hypomagnesemia:repleted and resolved. Protein malnourishment/underweight nutritional eval Normocytic anemia -H&H stable 11.4/34.3 iron studies-iron and iron sats low side ,tibc normal vitamin B12-no Depression and anxiety: recently released from [facility] having had suicidal ideations, I wanted to throw myself in front of a car currently denies any active suicidal ideations or homicidal ideations. she scheduled to start with the psychiatrist next month continue patient's ariprazole and sertraline does not require a section 12 at this time or a psychiatric consultation or one-to-one observation Nicotine [id number] nicotine patch. counseled on the benefits of smoking cessation DVT prophylaxis: held, rule out GIB PPI prophylaxis: ppi. ongoing need : Multiple issues abdominal pain: Need further workup with colonoscopy, also has spondylolisthesis -need epidural injection, also PT evaluation and pain meds IV. Quality Stroke Does the patient have a stroke diagnosis?: No Reason for No Anti-thrombotic by Day Two: Contraindicated VTE Prior VTE?: No VTE Risk Level:: Medical - moderate - high VTE Device Contraindication: N/A - Device Ordered VTE Drug Contraindication: Treatment Not Indicated
[2025-01-27] MEDS: Prazosin HCL 1 MG CAPSULE 2 MG PO (21:01)
[2025-01-27] MEDS: traZODone HCL 50 MG TABLET PO (21:01)
[2025-01-27] MEDS: PEG 3350/Na Sulf,Bicarb,Cl/KCL 4,000 ML SOLN.RECON 4000 ML PO (21:02)
[2025-01-27] MEDS: Mirtazapine 15 MG TABLET PO (21:02)
[2025-01-27 21:38] LABS: OBS Int Ctl Valid YES; OBS1 NEGATIVE (NEGATIVE)
[2025-01-28] VITALS (8 sets, daily range): BP systolic 112–148; BP diastolic 48–79; PULSE 63–77; RESP 16–18; TEMP 36.1–37.2; O2SAT 95–98
[2025-01-28] MEDS: Morphine Sulfate 4 MG/ML CARTRIDGE IVPUSH ×4 (03:28→20:22)
[2025-01-28] MEDS: Pantoprazole Sodium 40 MG/10 ML VIAL IVPUSH ×2 (06:17→16:30)
[2025-01-28] MEDS: Lactated Ringers 1,000 ML 100 ML IVCONT ×3 (06:38→19:23)
--- NOTE | 2025-01-28 08:06 | P.PNIM_ITS ---
Subjective Subjective Date of Service: 01/28/25 Review of Systems Review of Systems: Yes all other systems are reviewed and are negative Physical Exam 2 Vital Signs: Vital Signs: Last Vital Signs Temp 98.0 F 01/28/25 07:31 Pulse 65 01/28/25 07:31 Resp 16 01/28/25 07:31 BP 143/67 H 01/28/25 07:31 Pulse Ox 97 01/28/25 07:31 O2 Del Method Room Air 01/28/25 07:31 BMI result Body Mass Index 18.7 Objective Data Active Medications Acetaminophen (Acetaminophen 325 Mg Tablet) 650 mg PO Q6H PRN PRN Reason: Pain, Mild 1-3,fever,headache Albuterol/Ipratropium (Albuterol/Iprat 2.5/0.5mg 3 Ml Ampul.Neb) 3 ml INHALE Q4H PRN PRN Reason: Shortness of Breath/Wheezing Aripiprazole (Aripiprazole 15 Mg Tablet) 15 mg PO DAILY [facility] Last Admin: 01/27/25 08:00 Dose: 15 mg Documented By: JONH Fluticasone Propionate (Fluticasone Propionate 100 Mcg Blst.W.Dev) 1 puff INHALE RDAILY [facility] Last Admin: 01/28/25 07:57 Dose: Not Given Documented By: NEO Non-Admin Reason: Not In Room Fluticasone Propionate (Fluticasone Propionate Nasal 16 Gm [place]) 1 spray NOSTRIL-B BID PRN PRN Reason: Allergy Symptoms Lactated Ringer's (Lr) 1,000 mls @ 100 mls/hr IVCONT .Q10H [facility] Last Admin: 01/28/25 06:38 Dose: 100 mls/hr Documented By: FRANKIE Melatonin (Melatonin 3 Mg Tablet) 3 mg PO BEDTIME PRN PRN Reason: insomnia Last Admin: 01/26/25 22:21 Dose: 3 mg Documented By: AISSATOU Mirtazapine (Mirtazapine 15 Mg Tablet) 15 mg PO BEDTIME [facility] Last Admin: 01/27/25 21:02 Dose: 15 mg Documented By: FRANKIE Morphine Sulfate (Morphine Sulfate 4 Mg/Ml Cartridge) 4 mg IVPUSH Q4H PRN; Protocol PRN Reason: Pain, Severe (Pain Scale 7-10) Last Admin: 01/28/25 03:28 Dose: 4 mg Documented By: FRANKIE Nicotine (Nicotine 14 Mg Patch.Td24) 14 mg TRANSDERMA DAILY [facility] Last Admin: 01/27/25 08:00 Dose: 14 mg Documented By: JONH Ondansetron HCl (Ondansetron Hcl 4 Mg/2 Ml Vial) 4 mg IVPUSH Q8H PRN PRN Reason: Nausea and Vomiting Last Admin: 01/26/25 14:28 Dose: 4 mg Documented By: KATERINE Pantoprazole Sodium (Pantoprazole Sodium 40 Mg/10 Ml Vial) 40 mg IVPUSH BID@0630,1630 [facility] Last Admin: 01/28/25 06:17 Dose: 40 mg Documented By: FRANKIE Prazosin HCl (Prazosin Hcl 1 Mg Capsule) 2 mg PO BEDTIME [facility]; Protocol Last Admin: 01/27/25 21:01 Dose: 2 mg Documented By: FRANKIE Sertraline HCl (Sertraline Hcl 100 Mg Tablet) 100 mg PO DAILY [facility] Last Admin: 01/27/25 08:00 Dose: 100 mg Documented By: JONH Sodium Chloride (0.9 % Sodium Chloride Flush 3 Ml Syringe) 3 ml IVFLUSH QSHIFT [facility] Last Admin: 01/28/25 00:38 Dose: Not Given Documented By: FRANKIE Non-Admin Reason: IV Running Trazodone HCl (Trazodone Hcl 50 Mg Tablet) 50 mg PO BEDTIME [facility] Last Admin: 01/27/25 21:01 Dose: 50 mg Documented By: FRANKIE Labs 01/28/25 08:37 01/26/25 06:04 Labs: Laboratory Results - last 24 hr 01/27/25 21:26 Stool Occult Blood NEGATIVE Assessment and Plan (1) Hypomagnesemia: Status: Acute (2) Diarrhea: Status: Acute (3) Abdominal pain: Status: Acute Plan 59-year-old female with past medical history rectal cancer treated with chemo and radiation, GI bleed, chronic low back pain, unexplained weight loss, sciatica, depression and anxiety with history of suicidal ideations and inpatient psychiatric admission, recent cocaine use via inhalation, history of alcohol abuse, tobacco use 2-3 cigarettes per day, COPD/emphysema, UTI, poor dentition, lactose intolerance and patient states she can not eat red meat, fiber or dairy products is being admitted for GI work up for possible PSBO/Ileus with enteritis/gastritis and possible lytic lesions on spine causing increased pain. Pt has noted wt loss as well. Partial bowel obstruction versus ileus suspected, abdominal pain X 4days No definite point of transition identified on CT KUB :Persistent small bowel dilatation in the inferior abdomen/superior pelvis, consistent with persistent small bowel obstruction versus ileus. plan: clear liquid diet,npo past midnight for possible colonoscopy,passing gases ,iv morphine surgery eval noted-abd pain improving,has some llq pain , possible colonoscopy in am. Enteritis/gastritis/diarrhea: C diff negative, Gi panel negative Patient afebrile with no leukocytosis, lactic acid normal and procalcitonin0.02 Plan:continue ivf , no fevers ,abd pain improving on ppi ,not on antibiotics. GI eval-possible colonoscopy: Impression and Post Procedure Diagnosis: colon polyp x 1 internal hemorrhoids Plan: High fiber diet leaflet Avoid straining at stool, epsom salts and sitz bath, anusol supps or cream Repeat Colonoscopy in 6-12 months due to fair prep on the left or earlier if clinically indicated . History of rectal colon cancer/ current rectal bleeding -Pt is overdue for colonoscopy for follow up to cancer by 2 years No current N/V,no hx of hemorrhoids, bleeding noted 4 days prior Stool for occult positive on 11/2024, H/H currently stable fobt added again Gi eval. Sacral spinal pain/ chronic history of lower back pain and disc disease-Chronic back issues with increased lower back pain .,she says it also radiates to left leg intermitent. CT ABD neg for nephrolithiasis plan: Heat application to lower back ordered Previous abdominal pelvis CT scan previous admission December 11 noted possible small lytic lesions in the setting of malignancy or metastatic disease versus interval increase in bony demineralization her free [place] LC is 30.6 bone scan:No evidence of osteoblastic metastatic disease. The appearance of small lucencies on CT in the hips and pelvis could represent multiple myeloma, which is occult on bone scan MRI lS spine shows no lytic lesions or mass. There is chronic Gr2 10mm spondylolisthesis of L5-S1 with severe impingement of neural foramina and exiting roots neurology eval noted-epidural injection in the a.m. Also spoke to neurosurgical team in [facility] [place]: Since patient is more mobile and pain is somewhat improving, currently does not require inpatient neurosurgical intervention. Recommended to continue with pain meds and possible epidural injection. Hypomagnesemia:repleted and resolved. Protein malnourishment/underweight nutritional eval Normocytic anemia -H&H stable 11.4/34.3 iron studies-iron and iron sats low side ,tibc normal vitamin B12-no Depression and anxiety: recently released from [facility] having had suicidal ideations, I wanted to throw myself in front of a car currently denies any active suicidal ideations or homicidal ideations. she scheduled to start with the psychiatrist next month continue patient's ariprazole and sertraline does not require a section 12 at this time or a psychiatric consultation or one-to-one observation Nicotine [id number] nicotine patch. counseled on the benefits of smoking cessation DVT prophylaxis: held, rule out GIB PPI prophylaxis: ppi. ongoing need : Multiple issues abdominal pain: Need further workup with colonoscopy, also has spondylolisthesis -need epidural injection, also PT evaluation and pain meds IV. Quality Stroke Does the patient have a stroke diagnosis?: No Reason for No Anti-thrombotic by Day Two: Contraindicated VTE Prior VTE?: No VTE Risk Level:: Medical - moderate - high VTE Device Contraindication: N/A - Device Ordered VTE Drug Contraindication: Treatment Not Indicated
--- NOTE | 2025-01-28 08:15 | PM.PNGS ---
Subjective Subjective Date of Service: 01/28/25 <Kelvin Lanza PA-C - Last Filed: 01/28/25 10:04> 01/28/25 <Tye Campa MD - Last Filed: 01/28/25 12:55> Patient reports: no new complaints, feels better and bowel movement <DARON Carbajal Last Filed: 01/28/25 10:04> Interval history: Patient has no new complaints. States she is doing well today. Admits to intermittent mild left lower abdominal pain. She denies nausea, vomiting. She reports passing a moderate sized bowel movement this morning. she continues to prep for colonoscopy this afternoon <Kelvin Lanza PA-C - Last Filed: 01/28/25 10:04> Physical Exam Vital Signs: Vital Signs: Last Vital Signs Temp 98.0 F 01/28/25 07:31 Pulse 65 01/28/25 07:31 Resp 16 01/28/25 07:31 BP 143/67 H 01/28/25 07:31 Pulse Ox 97 01/28/25 07:31 O2 Del Method Room Air 01/28/25 07:31 BMI result Body Mass Index 18.7 <Kelvin Lanza PA-C - Last Filed: 01/28/25 10:04> Const: General: comfortable and no acute distress <DARON Carbajal Last Filed: 01/28/25 10:04> Resp: Effort & Inspection: normal respiratory effort and able to speak in complete sentences <DARON Carbajal Last Filed: 01/28/25 10:04> GI: Inspection: No distended <DARON Carbajal Last Filed: 01/28/25 10:04> Palpation (GI): Soft to palpation, not firm, Tenderness to palpation present (GI) (mild LLQ), no guarding and not rigid <DARON Carbajal Last Filed: 01/28/25 10:04> Objective Data Active Medications Acetaminophen (Acetaminophen 325 Mg Tablet) 650 mg PO Q6H PRN PRN Reason: Pain, Mild 1-3,fever,headache Albuterol/Ipratropium (Albuterol/Iprat 2.5/0.5mg 3 Ml Ampul.Neb) 3 ml INHALE Q4H PRN PRN Reason: Shortness of Breath/Wheezing Aripiprazole (Aripiprazole 15 Mg Tablet) 15 mg PO DAILY [facility] Last Admin: 01/27/25 08:00 Dose: 15 mg Documented By: JONH Fluticasone Propionate (Fluticasone Propionate 100 Mcg Blst.W.Dev) 1 puff INHALE RDAILY [facility] Last Admin: 01/28/25 07:57 Dose: Not Given Documented By: NEO Non-Admin Reason: Not In Room Fluticasone Propionate (Fluticasone Propionate Nasal 16 Gm [place]) 1 spray NOSTRIL-B BID PRN PRN Reason: Allergy Symptoms Lactated Ringer's (Lr) 1,000 mls @ 100 mls/hr IVCONT .Q10H [facility] Last Admin: 01/28/25 06:38 Dose: 100 mls/hr Documented By: FRANKIE Melatonin (Melatonin 3 Mg Tablet) 3 mg PO BEDTIME PRN PRN Reason: insomnia Last Admin: 01/26/25 22:21 Dose: 3 mg Documented By: AISSATOU Mirtazapine (Mirtazapine 15 Mg Tablet) 15 mg PO BEDTIME [facility] Last Admin: 01/27/25 21:02 Dose: 15 mg Documented By: FRANKIE Morphine Sulfate (Morphine Sulfate 4 Mg/Ml Cartridge) 4 mg IVPUSH Q4H PRN; Protocol PRN Reason: Pain, Severe (Pain Scale 7-10) Last Admin: 01/28/25 03:28 Dose: 4 mg Documented By: FRANKIE Nicotine (Nicotine 14 Mg Patch.Td24) 14 mg TRANSDERMA DAILY [facility] Last Admin: 01/27/25 08:00 Dose: 14 mg Documented By: JONH Ondansetron HCl (Ondansetron Hcl 4 Mg/2 Ml Vial) 4 mg IVPUSH Q8H PRN PRN Reason: Nausea and Vomiting Last Admin: 01/26/25 14:28 Dose: 4 mg Documented By: KATERINE Pantoprazole Sodium (Pantoprazole Sodium 40 Mg/10 Ml Vial) 40 mg IVPUSH BID@0630,1630 [facility] Last Admin: 01/28/25 06:17 Dose: 40 mg Documented By: FRANKIE Prazosin HCl (Prazosin Hcl 1 Mg Capsule) 2 mg PO BEDTIME [facility]; Protocol Last Admin: 01/27/25 21:01 Dose: 2 mg Documented By: FRANKIE Sertraline HCl (Sertraline Hcl 100 Mg Tablet) 100 mg PO DAILY [facility] Last Admin: 01/27/25 08:00 Dose: 100 mg Documented By: JONH Sodium Chloride (0.9 % Sodium Chloride Flush 3 Ml Syringe) 3 ml IVFLUSH QSHIFT [facility] Last Admin: 01/28/25 00:38 Dose: Not Given Documented By: FRANKIE Non-Admin Reason: IV Running Trazodone HCl (Trazodone Hcl 50 Mg Tablet) 50 mg PO BEDTIME [facility] Last Admin: 01/27/25 21:01 Dose: 50 mg Documented By: FRANKIE <Kelvin Lanza PA-C - Last Filed: 01/28/25 10:04> Labs CBC & Chem 7: 01/28/25 08:37 01/26/25 06:04 <Kelvin Lanza PA-C - Last Filed: 01/28/25 10:04> Labs: Laboratory Results - last 24 hr 01/27/25 21:26 Stool Occult Blood NEGATIVE <Kelvin Lanza PA-C - Last Filed: 01/28/25 10:04> Procedures Date of Service Date of Service: 01/28/25 <Kelvin Lanza PA-C - Last Filed: 01/28/25 10:04> 01/28/25 <Tye Campa MD - Last Filed: 01/28/25 12:55> Progress Note: A&P Assessment and plan (1) Diarrhea: Status: Acute <Kelvin Lanza PA-C - Last Filed: 01/28/25 10:04> Assessment and Plan: Feels well Denies abdominal pain Tolerated bowel prep well Awaiting colonoscopy Abdomen is soft and benign Seen and examined independently <Tye Campa MD - Last Filed: 01/28/25 12:55> (2) Abdominal pain: Status: Acute <Kelvin Lanza PA-C - Last Filed: 01/28/25 10:04> Assessment and Plan: 59 year old female being followed for abdominal pain and diarrhea. Patient is doing well, currently experiencing mild intermittent abdominal pain. Not experiencing n/v. Continuing to pass bowel movements and flatus Abdominal exam soft and nondistended, benign aside from some mild left lower quadrant tenderness to palpation. Passing bowel movements, on bowel prep. She remains NPO for colonoscopy this afternoon Continue NPO prior to colonoscopy, can advance diet as tolerated after procedure Pain management as needed We will continue to monitor patient <Kelvin Lanza PA-C - Last Filed: 01/28/25 10:04> Time Spent With Patient Time: Total time managing care of this patient today ____ minutes. <Kelvin Lanza PA-C - Last Filed: 01/28/25 10:04> Quality Stroke Does the patient have a stroke diagnosis?: No <Kelvin Lanza PA-C - Last Filed: 01/28/25 10:04> Reason for No Anti-thrombotic by Day Two: Contraindicated <Kelvin Lanza PA-C - Last Filed: 01/28/25 10:04> VTE Prior VTE?: No <Kelvin Lanza PA-C - Last Filed: 01/28/25 10:04> VTE Risk Level:: Medical - moderate - high <Kelvin Lanza PA-C - Last Filed: 01/28/25 10:04> VTE Device Contraindication: N/A - Device Ordered <Kelvin Lanza PA-C - Last Filed: 01/28/25 10:04> VTE Drug Contraindication: Treatment Not Indicated <Kelvin Lanza PA-C - Last Filed: 01/28/25 10:04>
[2025-01-28 08:56] LABS: Hematocrit 35.9 % (37.0-47.0)
--- NOTE | 2025-01-28 09:17 | P.PNGI_ITS ---
Subjective Subjective Date of Service: 01/28/25 Interval History: feeling much better no abdominal pain no rectal bleeding Critical Care Time (minutes): 0 Physical Exam 2 Vital Signs: Vital Signs: Last Vital Signs Temp 99.0 F 01/28/25 09:03 Pulse 64 01/28/25 09:03 Resp 16 01/28/25 09:03 BP 148/79 H 01/28/25 09:03 Pulse Ox 98 01/28/25 09:03 O2 Del Method Room Air 01/28/25 09:03 BMI result Body Mass Index 18.7 EXAM: GENERAL: The patient is thin, gaunt VITAL SIGNS:see workflow HEENT: Nonicteric sclerae, PERRLA, EOMI. Oropharynx clear. Moist mucous membranes. Conjunctivae appear well perfused. No thyroid mass. CHEST: Chest wall is nontender. HEART: Regular rate and rhythm without murmurs. LUNGS: Clear to auscultation bilaterally. ABDOMEN: Soft, positive bowel sounds, nontender, no organomegaly.no flank tenderness SKIN: No rash, no excessive bruising, petechiae, or purpura. NEUROLOGIC: Cranial nerves II-XII intact without motor/sensory deficit. Psych: normal affect Objective Data Labs 01/28/25 08:37 01/26/25 06:04 Labs: Laboratory Results - last 24 hr 01/27/25 01/28/25 21:26 08:37 Hgb 12.0 Hct 35.9 L Stool Occult Blood NEGATIVE Procedures Date of Service Date of Service: 01/28/25 Progress Note: A&P Assessment and plan (1) Diarrhea: Status: Acute Plan 1/ enterocolitis with hx of colon cancer, doing much better PLAN: 1/ colonoscopy today make sure no recurrence of cancer Time Spent With Patient Time: Total time managing care of this patient today ____ minutes. Quality Stroke Does the patient have a stroke diagnosis?: No Reason for No Anti-thrombotic by Day Two: Contraindicated VTE Prior VTE?: No VTE Risk Level:: Medical - moderate - high VTE Device Contraindication: N/A - Device Ordered VTE Drug Contraindication: Treatment Not Indicated
--- NOTE | 2025-01-28 09:17 | HO.ANESPROP2 ---
HPI - Anesthesia Eval Consult details Narrative: For colonoscopy PMF Active Problems Active Problems: All Active Problems Spondylolisthesis of lumbar region (Acute) Hypomagnesemia (Acute) Diarrhea (Acute) Abdominal pain (Acute) Free monoclonal light chain (Acute) Enterocolitis (Acute) Rectal cancer (Acute) Occult GI bleeding (Acute) Nausea & vomiting (Acute) Abdominal pain (Acute) Past Medical History Medical History (Updated 01/26/25 @ 17:14 by Aaliyah Cerda MD) Asthma Colon cancer Family History Family history of problems with anesthesia: No Surgical History Surgical History H/O tubal ligation History of Problems with Anesthesia: No Social History Social History Household Members: Family and Other Household Members Other:: sister Housing: House Are you a primary intensive care nurse to a significant other at home: No Do you presently have visiting nurse or other home services: No Patient Tobacco Use Status: Current everyday Tobacco user Tobacco use type: Cigarette Cigarettes Per Day: 1 Years Smoked: 40 e-Cigarette/Vaping Use: Currently Using Second Hand Smoke Exposure: No Substance Use Type: Marijuana and Other service: No Meds Allergies Allergy/AdvReac Type Severity Reaction Status Date / Time Milk Containing Products AdvReac Severe Diarrhea Verified 01/28/25 09:03 (Dairy) Active Medications: Current Medications Acetaminophen (Acetaminophen 325 Mg Tablet) 650 mg PO Q6H PRN PRN Reason: Pain, Mild 1-3,fever,headache Albuterol/Ipratropium (Albuterol/Iprat 2.5/0.5mg 3 Ml Ampul.Neb) 3 ml INHALE Q4H PRN PRN Reason: Shortness of Breath/Wheezing Aripiprazole (Aripiprazole 15 Mg Tablet) 15 mg PO DAILY [facility] Last Admin: 01/27/25 08:00 Dose: 15 mg Fluticasone Propionate (Fluticasone Propionate 100 Mcg Blst.W.Dev) 1 puff INHALE RDAILY [facility] Last Admin: 01/28/25 07:57 Dose: Not Given Fluticasone Propionate (Fluticasone Propionate Nasal 16 Gm [place]) 1 spray NOSTRIL-B BID PRN PRN Reason: Allergy Symptoms Lactated Ringer's (Lr) 1,000 mls @ 100 mls/hr IVCONT .Q10H [facility] Last Admin: 01/28/25 06:38 Dose: 100 mls/hr Melatonin (Melatonin 3 Mg Tablet) 3 mg PO BEDTIME PRN PRN Reason: insomnia Last Admin: 01/26/25 22:21 Dose: 3 mg Mirtazapine (Mirtazapine 15 Mg Tablet) 15 mg PO BEDTIME [facility] Last Admin: 01/27/25 21:02 Dose: 15 mg Morphine Sulfate (Morphine Sulfate 4 Mg/Ml Cartridge) 4 mg IVPUSH Q4H PRN; Protocol PRN Reason: Pain, Severe (Pain Scale 7-10) Last Admin: 01/28/25 03:28 Dose: 4 mg Nicotine (Nicotine 14 Mg Patch.Td24) 14 mg TRANSDERMA DAILY [facility] Last Admin: 01/27/25 08:00 Dose: 14 mg Ondansetron HCl (Ondansetron Hcl 4 Mg/2 Ml Vial) 4 mg IVPUSH Q8H PRN PRN Reason: Nausea and Vomiting Last Admin: 01/26/25 14:28 Dose: 4 mg Pantoprazole Sodium (Pantoprazole Sodium 40 Mg/10 Ml Vial) 40 mg IVPUSH BID@0630,1630 [facility] Last Admin: 01/28/25 06:17 Dose: 40 mg Prazosin HCl (Prazosin Hcl 1 Mg Capsule) 2 mg PO BEDTIME [facility]; Protocol Last Admin: 01/27/25 21:01 Dose: 2 mg Sertraline HCl (Sertraline Hcl 100 Mg Tablet) 100 mg PO DAILY [facility] Last Admin: 01/27/25 08:00 Dose: 100 mg Sodium Chloride (0.9 % Sodium Chloride Flush 3 Ml Syringe) 3 ml IVFLUSH QSHIFT [facility] Last Admin: 01/28/25 00:38 Dose: Not Given Trazodone HCl (Trazodone Hcl 50 Mg Tablet) 50 mg PO BEDTIME [facility] Last Admin: 01/27/25 21:01 Dose: 50 mg Home Medications ?Medication ?Instructions ?Recorded ?Confirmed ?Last Taken ?Type albuterol sulfate 90 mcg/actuation 2 puff inhalation QID PRN 12/12/24 01/25/25 Unknown History aerosol inhaler (Ventolin HFA) Shortness Of Breath Or Wheezing fluticasone furoate 100 1 inh inhalation DAILY 12/12/24 01/25/25 01/24/25 History mcg/actuation blister powder for inhalation (Arnuity Ellipta) fluticasone propionate 50 1 spray intranasal BID PRN Allergy 12/12/24 01/25/25 Unknown History mcg/actuation nasal Symptoms spray,suspension loratadine 10 mg tablet 10 mg PO DAILY 12/12/24 01/25/25 01/24/25 History nicotine 21 mg/24 hr daily 1 patch topical DAILY PRN Smoking 12/12/24 01/25/25 12/11/24 History transdermal patch Cessation sertraline 100 mg tablet 100 mg PO DAILY 12/12/24 01/25/25 01/24/25 History trazodone 50 mg tablet 50 mg PO BEDTIME insomnia 12/12/24 01/25/25 01/24/25 History albuterol sulfate 2.5 mg/3 mL 3 mg inhalation BID PRN sort 01/25/25 01/25/25 Unknown History (0.083 %) solution for nebulization aripiprazole 15 mg tablet 15 mg PO DAILY depressive disorder 01/25/25 01/25/25 01/24/25 History melatonin 3 mg tablet 3 mg PO BEDTIME PRN insomnia 01/25/25 01/25/25 Unknown History mirtazapine 15 mg tablet 15 mg PO BEDTIME depressive 01/25/25 01/25/25 01/24/25 History disorder [id number] 8 mg-folic 400 1 tab PO DAILY 01/25/25 01/25/25 01/24/25 History mcg-K 50 mcg-lutein 300 mcg tablet (Spectravite Women 50 Plus) naproxen 500 mg tablet 500 mg PO BID 01/25/25 01/25/25 01/24/25 History prazosin 2 mg capsule 2 mg PO BEDTIME nightmares 01/25/25 01/25/25 01/24/25 History Exam Height,Weight and Vital Signs: Height 5 ft 7 in Weight 54.2 kg Last Vital Signs Temp 99.0 F 01/28/25 09:03 Pulse 64 01/28/25 09:03 Resp 16 01/28/25 09:03 BP 148/79 H 01/28/25 09:03 Pulse Ox 98 01/28/25 09:03 O2 Del Method Room Air 01/28/25 09:03 Pertinent Lab Results Pertinent Lab Results: Laboratory Tests 01/25/25 01/25/25 01/25/25 16:47 17:03 20:45 WBC 6.5 RBC 3.55 L Hgb 10.7 L Hct 33.2 L MCV 93.5 MCH 30.1 MCHC 32.2 RDW 12.7 Plt Count 262 MPV 8.8 L Immature Gran % (Auto) 0.3 Neut % (Auto) 72.8 Lymph % (Auto) 12.7 L Addison % (Auto) 12.1 H Eos % (Auto) 1.8 Baso % (Auto) 0.3 Lymph # (Auto) 0.8 L Addison # (Auto) 0.8 Eos # (Auto) 0.1 Baso # (Auto) 0.0 Abs Immat Gran (auto) 0.02 Absolute Neuts (auto) 4.7 Absolute Nucleated RBC 0.000 Nucleated RBC % (auto) 0.0 Sodium 143 Potassium 3.3 Chloride 105 Carbon Dioxide 29 Anion Gap 12 BUN 16 Creatinine 0.63 Estim Creat Clear Calc 75.1 Estimated GFR > 60 Random Glucose 102 Lactic Acid 0.7 Calcium 8.9 Magnesium 1.4 L* Iron TIBC % Saturation Unsat Iron Binding Total Bilirubin 0.2 Direct Bilirubin < 0.2 AST 36 H ALT 23 Alkaline Phosphatase 78 C-Reactive Protein 2.08 H Total Protein 6.2 L Albumin 3.3 L Lipase 9 Vitamin B12 Procalcitonin Urine Color Urine Appearance Urine pH Ur Specific Kinsley Urine Protein Urine Glucose (UA) Urine Ketones Urine Blood Urine Nitrite Ur Leukocyte Esterase Urine RBC Urine WBC Ur Squamous Epith Cells Calcium Oxalate Crystal Urine Bacteria Hyaline Casts Stool Occult Blood Stl C. cayetanensis PCR Not Detected Stool Rotavirus A PCR Not Detected Stl Adenov F 40/41 PCR Not Detected Stool Astrovirus (PCR) Not Detected Stool Campylobacter PCR Not Detected Stool Cryptosporidium PCR Not Detected Stl Sh Tox Pr E STEC PCR Not Detected Stool E coli O157 PCR Not applicable Stl Enterotoxigenic E PCR Not Detected Stool EPEC (PCR) Not Detected Stool EAEC (PCR) Not Detected Stl E. histolytica PCR Not Detected Stool Giardia Lamblia PCR Not Detected Stl P. shigelloides PCR Not Detected Stool Salmonella PCR Not Detected Stool Sapovirus (PCR) Not Detected Stl Shigella/EIEC PCR Not Detected St Y.enterocolitica PCR Not Detected Stool Vibrio (PCR) Not Detected Stl Vibrio cholerae PCR Not Detected Stl Norovirus GI/GII PCR Not Detected Ethyl Alcohol < 10 C. difficile Tox B Gene NEGATIVE Blood Type O Positive Antibody Screen NEGATIVE 01/25/25 01/26/25 01/26/25 20:46 06:04 06:15 WBC 8.9 RBC 3.73 L Hgb 11.4 L Hct 34.3 L MCV 92.0 MCH 30.6 MCHC 33.2 RDW 13.0 Plt Count 278 MPV 8.7 L Immature Gran % (Auto) 0.5 H Neut % (Auto) 79.8 H Lymph % (Auto) 7.3 L Addison % (Auto) 11.0 Eos % (Auto) 1.2 Baso % (Auto) 0.2 Lymph # (Auto) 0.7 L Addison # (Auto) 1.0 Eos # (Auto) 0.1 Baso # (Auto) 0.0 Abs Immat Gran (auto) 0.04 H Absolute Neuts (auto) 7.1 Absolute Nucleated RBC 0.000 Nucleated RBC % (auto) 0.0 Sodium 141 Potassium 3.7 Chloride 105 Carbon Dioxide 28 Anion Gap 12 BUN 9 Creatinine 0.60 Estim Creat Clear Calc 88.5 Estimated GFR > 60 Random Glucose 110 Lactic Acid Calcium 8.6 Magnesium 1.9 Iron 20 L TIBC 232 % Saturation 9 L Unsat Iron Binding 212 Total Bilirubin 0.3 Direct Bilirubin AST 27 ALT 21 Alkaline Phosphatase 70 C-Reactive Protein Total Protein 6.1 L Albumin 3.2 L Lipase Vitamin B12 304 Procalcitonin 0.02 Urine Color Yellow Urine Appearance Clear Urine pH 6.5 Ur Specific K[place]ley >= 1.030 H Urine Protein Negative Urine Glucose (UA) Negative Urine Ketones Negative Urine Blood Trace H Urine Nitrite Negative Ur Leukocyte Esterase Negative Urine RBC 0-2 Urine WBC 0-5 Ur Squamous Epith Cells 0-2 Calcium Oxalate Crystal Present Urine Bacteria None Seen Hyaline Casts 0-2 Stool Occult Blood Stl C. cayetanensis PCR Stool Rotavirus A PCR Stl Adenov F 40/41 PCR Stool Astrovirus (PCR) Stool Campylobacter PCR Stool Cryptosporidium PCR Stl Sh Tox Pr E STEC PCR Stool E coli O157 PCR Stl Enterotoxigenic E PCR Stool EPEC (PCR) Stool EAEC (PCR) Stl E. histolytica PCR Stool Giardia Lamblia PCR Stl P. shigelloides PCR Stool Salmonella PCR Stool Sapovirus (PCR) Stl Shigella/EIEC PCR St Y.enterocolitica PCR Stool Vibrio (PCR) Stl Vibrio cholerae PCR Stl Norovirus GI/GII PCR Ethyl Alcohol C. difficile Tox B Gene Blood Type Antibody Screen 01/27/25 01/28/25 21:26 08:37 WBC RBC Hgb 12.0 Hct 35.9 L MCV MCH MCHC RDW Plt Count MPV Immature Gran % (Auto) Neut % (Auto) Lymph % (Auto) Addison % (Auto) Eos % (Auto) Baso % (Auto) Lymph # (Auto) Addison # (Auto) Eos # (Auto) Baso # (Auto) Abs Immat Gran (auto) Absolute Neuts (auto) Absolute Nucleated RBC Nucleated RBC % (auto) Sodium Potassium Chloride Carbon Dioxide Anion Gap BUN Creatinine Estim Creat Clear Calc Estimated GFR Random Glucose Lactic Acid Calcium Magnesium Iron TIBC % Saturation Unsat Iron Binding Total Bilirubin Direct Bilirubin AST ALT Alkaline Phosphatase C-Reactive Protein Total Protein Albumin Lipase Vitamin B12 Procalcitonin Urine Color Urine Appearance Urine pH Ur Specific [place] Urine Protein Urine Glucose (UA) Urine Ketones Urine Blood Urine Nitrite Ur Leukocyte Esterase Urine RBC Urine WBC Ur Squamous Epith Cells Calcium Oxalate Crystal Urine Bacteria Hyaline Casts Stool Occult Blood NEGATIVE Stl C. cayetanensis PCR Stool Rotavirus A PCR Stl Adenov F 40/41 PCR Stool Astrovirus (PCR) Stool Campylobacter PCR Stool Cryptosporidium PCR Stl Sh Tox Pr E STEC PCR Stool E coli O157 PCR Stl Enterotoxigenic E PCR Stool EPEC (PCR) Stool EAEC (PCR) Stl E. histolytica PCR Stool Giardia Lamblia PCR Stl P. shigelloides PCR Stool Salmonella PCR Stool Sapovirus (PCR) Stl Shigella/EIEC PCR St Y.enterocolitica PCR Stool Vibrio (PCR) Stl Vibrio cholerae PCR Stl Norovirus GI/GII PCR Ethyl Alcohol C. difficile Tox B Gene Blood Type Antibody Screen Airway Mallampati Class: I TM Dist: >3cm Neck ROM: Full Loose/Missing/Broken Teeth: Yes, Upper and Lower Heart: ok Lungs: ok Assessment and Plan Assessment Anesthesia Assessment: Anesthesia Plan Discussed and Chart Reviewed Final Anesthetic Review Family History of Problems with Anesthesia: No History of Problems with Anesthesia: No NPO: Yes ASA Class: III Final Preanesthetic Review: No Changes in Pt Med Stat, Meds/Allgs Chart Reviewed, Consent Obtained/Reviewed and Anes Risks/Benef Reviewed Patient Risk: Intermediate Procedure Risk: Low Anesthetic Plan Anesthetic Plan: MAC: and Agree w/ Assess. and Plan Disposition: Standard PACU
--- NOTE | 2025-01-28 09:20 | MHC.SHP ---
Pre-Procedural Eval Section A - 24 Hr Update-Section A only Date of Service: 01/28/25 The patient is an INPATIENT: Yes The patient has been examined within 24 hours of the surgical procedure. The History & Physical has been completed within 30 days and I have reviewed it.: Yes Section B - Complete if H&P > 30 days Chief Complaint: Abd pain/ Diarrhea Allergies: Allergies Allergy/AdvReac Type Severity Reaction Status Date / Time Milk Containing Products AdvReac Severe Diarrhea Verified 01/28/25 09:03 (Dairy) Plan I have reviewed the history and physical and performed a pertinent physical examination on my patient. No changes have occurred unless specified. Time Spent With Patient Time: Total time managing care of this patient today ____ minutes.
--- NOTE | 2025-01-28 09:55 | HO.OPN-COLON ---
Colonoscopy Operative Note Operative Note Date of Service: 01/28/25 Narrative: Operative Information Procedure Description: Colonoscopy Indication: abn bowel habits Anesthesia: MAC COLONOSCOPY Instrument: Olympus variable stiffness pediatric scope 190L Colonoscopy Monitoring: Vital signs and clinical assessment, continuous EKG monitoring, Pulse oximetry, Carbon Dioxide monitoring and blood pressure monitoring were done throughout the procedure. Colon withdrawal time was 10 minutes. Procedure: The patient was placed in the left lateral decubitis position and pre-procedure medications were administered. After a digital rectal examination of the ano-rectum, the video colonoscope was inserted into the rectum and advanced through the colon to the cecum/TI. The colonoscope was slowly withdrawn in a retrograde panoramic fashion and the colon mucosa was carefully examined including a retroflexed view of the rectum. Findings and interventions are described below. Procedure Difficulty: moderate Findings: Terminal Ileum- mild erythema, bx taken Cecum: patchy erythema, bx taken Ascending Colon: mild erythema, bx taken Transverse Colon -normal Descending Colon: edematous appearing, granular mucosa, bx taken Sigmoid Colon: 6-7 mm sessile polyp removed with cold snare Rectum: Retroflexion with small internal hemorrhoids seen, grade I, rectal bx taken Anorectum - normal Intervention: cold forceps and cold snare Colon preparation: [place] Bowel Preparation Scale Right colon; 2 Transverse colon: 2 Left colon; 1-2 (0 = Unprepared colon segment with mucosa not seen due to solid stool that cannot be cleared. 1 = Portion of mucosa of the colon segment seen, but other areas of the colon segment not well seen due to staining, residual stool and/or opaque liquid. 2 = Minor amount of residual staining, small fragments of stool and/or opaque liquid, but mucosa of colon segment seen well. 3 = Entire mucosa of colon segment seen well with no residual staining, small fragments of stool or opaque liquid) Impression and Post Procedure Diagnosis: colon polyp x 1 internal hemorrhoids Plan: High fiber diet leaflet Avoid straining at stool, epsom salts and sitz bath, anusol supps or cream Repeat Colonoscopy in 6-12 months due to fair prep on the left or earlier if clinically indicated Above findings were reviewed with the patient and relevant handouts were provided if indicated.
[2025-01-28] MEDS: ARIPiprazole 15 MG TABLET PO (10:41)
[2025-01-28] MEDS: Sertraline HCL 100 MG TABLET PO (10:41)
[2025-01-28] MEDS: Nicotine 14 MG PATCH.TD24 TRANSDERMA (10:49)
[2025-01-28] MEDS: ondansetron HCL 4 MG/2 ML VIAL IVPUSH (14:24)
[2025-01-28] MEDS: 0.9 % Sodium Chloride Flush 3 ML SYRINGE IVFLUSH (16:30)
--- NOTE | 2025-01-28 18:38 | P.CDIM_ITS ---
PROVIDER RESPONSE TEXT: To clarify, the appropriate diagnosis supported by the clinical indicators: Moderate QUERY TEXT: PHYSICIAN'S DOCUMENTATION REQUEST Date of Query: 01/28/2025 02:02 PM EDT Patient Name: Yamileth Contreras Admit Date: 01/26/2025 Dear Bridgett Guerrero MD, A review of the medical record indicates additional documentation may be needed. Please review below and update the documentation accordingly. Documentation includes the diagnosis of malnutrition. Additional clinical indicators from the record include: Per Clinical Nutrition Assessment 01/26/25: patient with mildly depleted subcutaneous fat and muscle mass with BMI 18.7 Patient is Moderately malnourished If possible, please provide additional specificity regarding the severity of the malnutrition using t he above information: Mild Moderate Severe Other (explain) Clinically unable to determine (explain) Thank you, Skylar Brewer RN Use of terms such as suspected, likely, concern for, or probable (associated with a specific diagnosi s that is being evaluated, monitored, or treated as if it exists) are acceptable and can be coded in the inpatient se tting, when documented at the time of discharge. Please use your independent medical judgment in providing your response. THIS QUERY IS PART OF THE PERMANENT MEDICAL RECORD
[2025-01-28] MEDS: Metoclopramide HCl 10 MG/2 ML VIAL IVPUSH (20:20)
[2025-01-29] MEDS: ondansetron HCL 4 MG/2 ML VIAL IVPUSH (00:23)
[2025-01-29 00:26] VITALS: RESP 18
[2025-01-29] MEDS: Morphine Sulfate 4 MG/ML CARTRIDGE IVPUSH (00:26)
[2025-01-29 03:37] VITALS: BP 141/65; PULSE 62; RESP 17; TEMP 36.5; O2SAT 97
[2025-01-29] MEDS: Lactated Ringers 1,000 ML 100 ML IVCONT (05:00)
[2025-01-29 06:11] LABS: Anion Gap 14 (12-20); Blood Urea Nitrogen 10 mg/dL (9-16); Carbon Dioxide 29 mmol/L (22-29); Chloride 103 mmol/L (96-108); Creatinine Clr Calc Pharmacy 85.6; Estimated Glomerular Filt Rate > 60; Glucose Random 136 mg/dL (60-115); Potassium 4.6 mmol/L (3.3-5.1); Sodium 141 mmol/L (135-145)
[2025-01-29] MEDS: ARIPiprazole 15 MG TABLET PO (07:42)
[2025-01-29] MEDS: Sertraline HCL 100 MG TABLET PO (07:42)
[2025-01-29] MEDS: Nicotine 14 MG PATCH.TD24 TRANSDERMA (07:42)
[2025-01-29 07:51] VITALS: BP 115/64; PULSE 64; RESP 14; TEMP 36.6; O2SAT 97
--- NOTE | 2025-01-29 08:26 | P.PNGS_ITS ---
Subjective Subjective Date of Service: 01/29/25 Patient reports: no new complaints, flatus and bowel movement (small ) Interval history: Patient doing well. Continues to have some mild LLQ pain, but feels improvment. tolerated colonoscopy well. continues to pass some small stool this morning. Tolerating diet, endorses some mild nausea after eating. Physical Exam 2 Vital Signs: Vital Signs: Last Vital Signs Temp 97.9 F 01/29/25 07:51 Pulse 64 01/29/25 07:51 Resp 14 01/29/25 07:51 BP 115/64 01/29/25 07:51 Pulse Ox 97 01/29/25 07:51 O2 Del Method Room Air 01/29/25 07:51 BMI result Body Mass Index 18.7 Const: General: comfortable and no acute distress O rientation/consciousness: patient oriented x3 GI: Inspection: No distended Palpation (GI): Soft to palpation, not firm, Tenderness to palpation present (GI) (mild LLQ), no guarding and not rigid P ercussion: Yes normal to percussion Neuro: General: patient oriented x3 Objective Data Active Medications Acetaminophen (Acetaminophen 325 Mg Tablet) 650 mg PO Q6H PRN PRN Reason: Pain, Mild 1-3,fever,headache Albuterol/Ipratropium (Albuterol/Iprat 2.5/0.5mg 3 Ml Ampul.Neb) 3 ml INHALE Q4H PRN PRN Reason: Shortness of Breath/Wheezing Aripiprazole (Aripiprazole 15 Mg Tablet) 15 mg PO DAILY PENDING SALE TO [facility] Last Admin: 01/29/25 07:42 Dose: 15 mg Documented By: KARLEY Fluticasone Propionate (Fluticasone Propionate 100 Mcg Blst.W.Dev) 1 puff INHALE RDAILY PENDING SALE TO [facility] Last Admin: 01/29/25 08:19 Dose: Not Given Documented By: NEO Non-Admin Reason: Patient Refused Fluticasone Propionate (Fluticasone Propionate Nasal 16 Gm [place]) 1 spray NOSTRIL-B BID PRN PRN Reason: Allergy Symptoms Lactated Ringer's (Lr) 1,000 mls @ 100 mls/hr IVCONT .Q10H PENDING SALE TO [facility] Last Admin: 01/29/25 05:00 Dose: 100 mls/hr Documented By: ROSSI Melatonin (Melatonin 3 Mg Tablet) 3 mg PO BEDTIME PRN PRN Reason: insomnia Last Admin: 01/26/25 22:21 Dose: 3 mg Documented By: AISSATOU Mirtazapine (Mirtazapine 15 Mg Tablet) 15 mg PO BEDTIME PENDING SALE TO [facility] Last Admin: 01/28/25 21:15 Dose: Not Given Documented By: FRANKIE Non-Admin Reason: pt has n/v Naloxone HCl (Naloxone Hcl 0.4 Mg/Ml Vial) 0.04 mg IVPUSH Q5M PRN PRN Reason: Excessive sedation or RR < 8 Nicotine (Nicotine 14 Mg Patch.Td24) 14 mg TRANSDERMA DAILY PENDING SALE TO [facility] Last Admin: 01/29/25 07:42 Dose: 14 mg Documented By: KARLEY Ondansetron HCl (Ondansetron Hcl 4 Mg/2 Ml Vial) 4 mg IVPUSH Q8H PRN PRN Reason: Nausea and Vomiting Last Admin: 01/29/25 00:23 Dose: 4 mg Documented By: ROSSI Prazosin HCl (Prazosin Hcl 1 Mg Capsule) 2 mg PO BEDTIME PENDING SALE TO [facility]; Protocol Last Admin: 01/28/25 21:15 Dose: Not Given Documented By: FRANKIE Non-Admin Reason: pt has n/v Sertraline HCl (Sertraline Hcl 100 Mg Tablet) 100 mg PO DAILY PENDING SALE TO [facility] Last Admin: 01/29/25 07:42 Dose: 100 mg Documented By: KARLEY Sodium Chloride (0.9 % Sodium Chloride Flush 3 Ml Syringe) 3 ml IVFLUSH QSHIFT PENDING SALE TO [facility] Last Admin: 01/29/25 07:41 Dose: Not Given Documented By: KARLEY Non-Admin Reason: IV Running Tramadol HCl (Tramadol Hcl 50 Mg Tablet) 25 mg PO Q6H PRN PRN Reason: Pain, Severe (Pain Scale 7-10) Trazodone HCl (Trazodone Hcl 50 Mg Tablet) 50 mg PO BEDTIME PENDING SALE TO [facility] Last Admin: 01/28/25 21:15 Dose: Not Given Documented By: FRANKIE Non-Admin Reason: pt has n/v Labs 01/28/25 08:37 01/29/25 05:47 Labs: Laboratory Results - last 24 hr 01/29/25 05:47 Anion Gap 14 Estim Creat Clear Calc 85.6 Estimated GFR > 60 Random Glucose 136 H Calcium 9.0 Procedures Date of Service Date of Service: 01/29/25 Progress Note: A&P Assessment and plan (1) Diarrhea: Status: Acute (2) Abdominal pain: Status: Acute Plan 59-year-old female being followed for abdominal pain and diarrhea. She is clinically improving. Continues mild intermittent LLQ pain, patient notes improving since admission. She had colonoscopy yesterday, tolerated well. Continues to pass small amounts of stool. Tolerating full diet. Some mild nausea with diet. Abdominal exam soft and benign, mild LLQ tenderness to palpation. No current indication for surgical intervention. General surgery will sign off at this time. Please reconsult as needed Time Spent With Patient Time: Total time managing care of this patient today ___31_ minutes. Quality Stroke Does the patient have a stroke diagnosis?: No Reason for No Anti-thrombotic by Day Two: Contraindicated VTE Prior VTE?: No VTE Risk Level:: Medical - moderate - high VTE Device Contraindication: N/A - Device Ordered VTE Drug Contraindication: Treatment Not Indicated
[2025-01-29] MEDS: oxyCODONE HCl Immed Release 5 MG TABLET PO (08:44)
--- NOTE | 2025-01-29 11:06 | MHC.CLN ---
F/U DIET ADVANCED TO REGULAR YESTERDAY. ADDING LACTOSE CONTROLLED TO DIET ORDER AND ENSURE CLEAR TID TO INCREASE KCALS. SUPPLEMENT TO PROVIDE 720KCALS, 24G PROTEIN. PATIENT IS MODERATELY MALNOURISHED. FOLLOWING FOR DIET TOLERANCE AND PO INTAKE.
--- NOTE | 2025-01-29 11:58 | P.DS_ITS ---
DS: Providers Provider Date of Service: 01/29/25 Date of admission: 01/25/25 20:06 Date of discharge: 01/29/25 Primary care physician: July Aguirre MD Consults: 01/25/25 20:37 Consult to Gastroenterology Routine Consulting Provider: Donavon George Reason for consultation: abdominal pain, rectal bleeding, hx of rectal CA, ? pSBO Has provider been notified: No 01/26/25 09:13 Consult to General Surgery Routine Consulting Provider: [facility] General Surgeons Reason for consultatel killing DS: Diagnosis Discharge Diagnosis (1) Diarrhea: Status: Acute (2) Abdominal pain: Status: Acute DS: Summary Hospital Course Hospital Course: HPI:59-year-old female with past medical history rectal cancer treated with chemo and radiation, GI bleed, chronic low back pain, unexplained weight loss, sciatica, depression and anxiety with history of suicidal ideations and inpatient psychiatric admission, recent cocaine use via inhalation, history of alcohol abuse, tobacco use 2-3 cigarettes per day, COPD/emphysema, UTI, poor dentition, lactose intolerance and patient states she can not eat red meat, fiber or dairy products presents to the emergency room via EMS having significant lower back pain over the last 4 days with notable rectal bleeding on tissue paper with bowel movement. Patient then reported intermittent diarrhea and blood in the stool. Patient denies history of hemorrhoids. Patient does have history of rectal cancer and is overdue for her colonoscopy by 2 years. Patient states the back pain is unexplainable. Upon review of previous CT scan on 12/11/2024 during previous admission, there was a question of lytic lesions indicating possible metastatic/ malignancy versus interval increase in bony demineralization. Patient believes that she is eventually going to have surgery for her lower back issues. Patient has only been taking Naprosyn for her pain control at home. Patient also reports unexplained weight loss that has continued over the last 6 months and BMI is currently 16.7. CT of the abdomen and pelvis are negative for any nephrolithiasis and indicate that the gallbladder is mostly contracted. Evidence of multiple dilated jejunal loops measuring up to 4 cm found. Moderate stool burden also noted within the colon. No evidence of appendicitis and no acute fracture. Findings most likely indicate gastritis/enteritis but partial small-bowel obstruction or ileus are also included in the differential. Patient is currently not having any nausea or vomiting requiring NG tube placement. Patient denies any fever or chills, chest pain, shortness of breath at rest or with exertion, history of blood clot in the leg or lung, and patient does not use oxygen at home. Patient has no leukocytosis. Lactic acid and procalcitonin pending. Could be viral infection, will consult GI. Patient states she did use cocaine via snorting 2 weeks prior and usually uses cocaine twice per month. Patient denies any history of IV drug abuse or hepatitis-B or C or HIV. Patient is currently smoking cigarettes 2-3 per day and nicotine patch has been ordered. Hospital course: 59-year-old female with past medical history rectal cancer treated with chemo and radiation, GI bleed, chronic low back pain, unexplained weight loss, sciatica, depression and anxiety with history of suicidal ideations and inpatient psychiatric admission, recent cocaine use via inhalation, history of alcohol abuse, tobacco use 2-3 cigarettes per day, COPD/emphysema, UTI, poor dentition, lactose intolerance and patient states she can not eat red meat, fiber or dairy products is being admitted for GI work up for possible PSBO/Ileus with enteritis/gastritis : Admitted for possible ileus versus partial bowel obstruction, possible enterocolitis: Placed on bowel rest, Patient was started on IV fluid, stool studies sent, in addition patient was seen by GI and surgery: As per the surgery patient is passing bowels, and improving less likely ileus or partial bowel obstruction. Patient seen by GI: Patient has no leukocytosis, diarrhea improved, also had colonoscopy-has hemorrhoids, 1 polyp-pathology sent by GI. Currently seems probably viral enterocolitis-patient seems to be improved, no need for antibiotic currently. Added hydrocortisone cream for hemorrhoids, patient is to follow-up with GI out patiently for biopsy results as well as need repeat colonoscopy in 6-12 months. Acute Hypomagnesemia: Repleted and resolved. Monitor renal function electrolytes. Patient had CT abdomen last admission-had some possible bone area changes, bone scan-No evidence of osteoblastic metastatic disease. The appearance of small lucencies on CT in the hips and pelvis could represent multiple myeloma, which is occult on bone scan. mri Lumbar spine -MRI lS spine shows no lytic lesions or mass. her free [place] LC is 30.6 Patient is to follow-up with Dr. Duarte's office, called Oncology office she has appointment to follow-up outpatient. moderate malnutrition: Patient was encouraged to eating better she is already doing that. 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 Nicotine [id number] nicotine patch. counseled on the benefits of smoking cessation. Sacral spinal pain:MRI lS spine shows no lytic lesions or mass. There is chronic Gr2 10mm spondylolisthesis of L5-S1 with severe impingement of neural foramina and exiting roots neurology eval noted-epidural injection yesterday-pain seems to be improved significantly,walking with our assistance. No bowel or bladder incontinence or weakness or numbness. added tramdol prn , lidocaine patch. Above was discussed with the [facility] neurosurgery team: Patient was given information to follow-up with Dr. Segovia office, also given her phone number to Dr. Segovia office for appointment. plan: magnesium 250 mg po bidx10 days supply tramadol 25 mg po q6hr prn Hydrocortisone cream for hemorrhoids. If any new symptoms abdominal pain nausea vomiting or fever or worsening back pain go to the nearest emergency room. Above was discussed with the patient -in detail, she understand and in agreement with the above plan, time spent 40 minute. all questions answered. Staff present during the conversation. Time Attestation Total time managing care of this patient today: 40 mintues. Discharge Coordination Time (in mins): 40 min Quality: Safe Use of Opioids Does Pt have an Active Cancer Diagnosis on the Problem List?: Yes Opioid Measure Date for [facility] Report: 12/30/24 Opioid Measure Time for [facility] Report: 15:37 Quality: Stroke Does the patient have a stroke diagnosis?: No Physical Exam Vital Signs: Vital Signs: Last Vital Signs Temp 97.9 F 01/29/25 07:51 Pulse 64 01/29/25 07:51 Resp 14 01/29/25 07:51 BP 115/64 01/29/25 07:51 Pulse Ox 97 01/29/25 07:51 O2 Del Method Room Air 01/29/25 07:51 BMI result Body Mass Index 18.7 DS: Data Data Completed and Pending Pending studies at discharge: Pending at discharge 01/28/25 09:44 Surgical [PTH] Routine Labs on day of discharge: Laboratory Results - last 24 hr 01/29/25 05:47 Sodium 141 Potassium 4.6 D Chloride 103 Carbon Dioxide 29 Anion Gap 14 BUN 10 Creatinine 0.62 Estim Creat Clear Calc 85.6 Estimated GFR > 60 Random Glucose 136 H Calcium 9.0 Discharge Plan Discharge Anticipated Discharge Date/Time: 01/29/25 11:21 Patient Disposition: Home, Self-Care Discharge Diagnosis: abd pain , back pain Referrals: July Aguirre MD [Primary Care Provider] - 1 Week Donavon George MD [Physician] - 1 Week Damari Duarte MD [Physician] - 1 Week Discharge Medications: New tramadol 50 mg Tablet 25 mg PO Q6H PRN (Reason: Pain, Severe (Pain Scale 7-10)) Qty: 20 0RF hydrocortisone [Proctozone-HC] 2.5 % Cream With Perineal Applicator 1 appl RI BEDTIME Qty: 2 0RF magnesium gluconate 12.5 mg magne- sium (250 mg) tablet 250 mg PO BID Qty: 20 0RF lidocaine HCl-menthol 4-1 % adhesive patch,medicated 1 patch topical BID Qty: 5 0RF Rx Instructions: may leave on area for up to 8 hrs acetaminophen [Tylenol] 325 mg tablet 650 mg PO Q6H PRN (Reason: pain) Qty: 14 0RF Continued trazodone 50 mg tablet 50 mg PO BEDTIME sertraline 100 mg tablet 100 mg PO DAILY nicotine 21 mg/24 hr patch 24 hour 1 patch topical DAILY PRN (Reason: Smoking Cessation) albuterol sulfate [Ventolin HFA] 90 mcg/actuation HFA aerosol inhaler 2 puff INHALATION QID PRN (Reason: Shortness Of Breath Or Wheezing) fluticasone propionate 50 mcg/actuation spray,suspension 1 spray intranasal BID PRN (Reason: Allergy Symptoms) loratadine 10 mg tablet 10 mg PO DAILY Arnuity Ellipta 100 mcg/actuation blister with device 1 inh INHALATION DAILY omeprazole 20 mg Capsule,Delayed Release(Dr/Ec) 20 mg PO DAILY@0630 Qty: 60 0RF albuterol sulfate 2.5 mg /3 mL (0.083 %) solution for nebulization 3 mg inhalation BID PRN (Reason: sort) melatonin 3 mg tablet 3 mg PO BEDTIME PRN (Reason: insomnia) mirtazapine 15 mg tablet 15 mg PO BEDTIME prazosin 2 mg capsule 2 mg PO BEDTIME aripiprazole 15 mg tablet 15 mg PO DAILY Spectravite Women 50 Plus 8 mg iron-400 mcg-50 mcg tablet 1 tab PO DAILY Discontinued naproxen 500 mg tablet 500 mg PO BID Discharge Orders: Discharge Order (Routine); Ordered 01/29/25 Ordered By: Bridgett Guerrero Diet: Advance to usual diet Activity on Discharge: As tolerated Stand Alone Forms: Patient Portal Discharge page Print Language: Lithuanian Care Plan Goals: see below. Health Concerns: moniter bmp/magneisum levels outpatient . magnesium 250 mg po bidx10 days supply tramadol 25 mg po q6hr prn Hydrocortisone cream for hemorrhoids. If any new symptoms abdominal pain nausea vomiting or fever or worsening back pain go to the nearest emergency room. follow up neurosurgery Dr. Segovia , GI Dr. Medley, hematology oncology Dr. Duarte's office. Plan of Treatment: as above. Assessment: as above. Patient Instructions: Abdominal Pain (DC), Hypomagnesemia (DC), Back Pain (GEN) Discharge Date/Time: 01/29/25 13:29
[2025-01-29 12:00] VITALS: BP 139/65; PULSE 64; RESP 16; O2SAT 97
--- NOTE | 2025-01-29 12:13 | MHC.CM.PN ---
Patient medically cleared for dc home self care. Friend will transport.
--- NOTE | 2025-01-29 13:42 | HO.POSTANES ---
Post Anesthesia Evaluation Post Anesthesia Evaluation Date of Service: 01/29/25 Vital Signs: Vital Signs Temp Pulse Resp BP Pulse Ox O2 Del Method 01/29/25 12:00 64 16 139/65 97 Room Air 01/29/25 07:51 97.9 F 64 14 115/64 97 Room Air 01/29/25 03:37 97.7 F 62 17 141/65 H 97 Room Air Anesthesia: Monitored Mental Status: Awake Pain Control: Satisfactory Nausea/Vomiting: None Hydration: Adequate Anesthesia-Related Issues: No Anes. Related Issues
[2025-01-29 14:11] VITALS: BP 129/60; PULSE 75; RESP 18; TEMP 36.3; O2SAT 97
== END 2025-01-29 13:29 | disposition home or self-care (01) | DRG 249 ==
LOC: HO.ED 20:27 → HO.EDOVER 21:13 → HO.S3 21:28
PROVIDERS: Internal Medicine Gastroenterology; Nurse Practitioner Family; Admitting Provider Student in an Organized Health Care Education/Training Program; Emergency Provider Emergency Medicine; PCP Internal Medicine; Visit Provider Internal Medicine
PROC: 0DJD8ZZ Inspection of Lower Intestinal Tract, Via Natural or Artificial Opening Endoscopic (ICD-10-PCS; CPT 45378; principal; 2025-01-28 12:50)
DX: A08.4 Viral intestinal infection, unspecified (principal); K56.600 Partial intestinal obstruction, unspecified as to cause; E44.0 Moderate protein-calorie malnutrition; K92.2 Gastrointestinal hemorrhage, unspecified; E83.42 Hypomagnesemia; F17.210 Nicotine dependence, cigarettes, uncomplicated; K64.0 First degree hemorrhoids; D64.9 Anemia, unspecified; K63.5 Polyp of colon; M43.17 Spondylolisthesis, lumbosacral region; F32.A Depression, unspecified; Z68.1 Body mass index [BMI] 19.9 or less, adult; K56.7 Ileus, unspecified; Z71.6 Tobacco abuse counseling; F41.9 Anxiety disorder, unspecified; Z85.048 Personal history of other malignant neoplasm of rectum, rectosigmoid junction, and anus; Z79.899 Other long term (current) drug therapy
CPT/HCPCS: 36415; 62323; 72158; 74018; 74177; 80048; 80053; 80076; 80307; 81001; 82272; 82607; 83540; 83605; 83690; 83735; 84145; 85014; 85018; 85025; 85027; 86140; 86850; 86900; 86901; 87493; 87507; 88305; 93005; 94640; 97161; 99285; A9585; J0131; J0665; J0702; J1200; J2003; J2270; J2405; J2470; J2704; J2765; J3475; J7120; Q9967

== ENCOUNTER → 2025-01-25 16:37 | Outpatient (BNV) | payer OTHER, SELFPAY | PROVIDERS: Admitting Provider Student in an Organized Health Care Education/Training Program; Emergency Provider Emergency Medicine; Visit Provider Internal Medicine Cardiovascular Disease | DX: R94.31 Abnormal electrocardiogram [ECG] [EKG] (principal); R53.1 Weakness | CPT/HCPCS: 93010 ==

== ENCOUNTER → 2025-01-25 17:31 | Outpatient (BNV) | payer OTHER, SELFPAY | PROVIDERS: Emergency Provider Emergency Medicine; Visit Provider Student in an Organized Health Care Education/Training Program | DX: R10.32 Left lower quadrant pain (principal) | CPT/HCPCS: 74177 ==

== ENCOUNTER 2025-01-25 20:06 | Outpatient (BNV) | payer OTHER, SELFPAY | END 2025-01-28 07:30 | PROVIDERS: Admitting Provider Student in an Organized Health Care Education/Training Program; Emergency Provider Emergency Medicine; PCP Internal Medicine; Visit Provider Radiology Diagnostic Radiology | DX: M54.50 Low back pain, unspecified (principal) | CPT/HCPCS: 62323 ==

== ENCOUNTER 2025-01-25 20:06 | Outpatient (BNV) | payer OTHER, SELFPAY | END 2025-01-26 08:00 | PROVIDERS: Admitting Provider Student in an Organized Health Care Education/Training Program; Emergency Provider Emergency Medicine; Visit Provider Radiology Diagnostic Radiology | DX: M99.63 Osseous and subluxation stenosis of intervertebral foramina of lumbar region (principal); R14.0 Abdominal distension (gaseous) | CPT/HCPCS: 72158; 74018 ==

== ENCOUNTER → 2025-01-25 20:06 | Outpatient (BNV) | payer OTHER, SELFPAY | PROVIDERS: Admitting Provider Student in an Organized Health Care Education/Training Program; Emergency Provider Emergency Medicine; Visit Provider Nurse Practitioner Family | DX: E83.42 Hypomagnesemia (principal); R19.7 Diarrhea, unspecified; R10.32 Left lower quadrant pain | CPT/HCPCS: 99223; 99232 ==

== ENCOUNTER → 2025-01-25 20:06 | Outpatient (BNV) | payer OTHER, SELFPAY | PROVIDERS: Admitting Provider Student in an Organized Health Care Education/Training Program; Emergency Provider Emergency Medicine; Visit Provider Internal Medicine Gastroenterology | DX: R19.7 Diarrhea, unspecified (principal); D12.5 Benign neoplasm of sigmoid colon; K64.0 First degree hemorrhoids | CPT/HCPCS: 45385; 99232; 99233 ==

== ENCOUNTER → 2025-01-25 20:06 | Outpatient (BNV) | payer OTHER, SELFPAY | PROVIDERS: Admitting Provider Student in an Organized Health Care Education/Training Program; Emergency Provider Emergency Medicine | DX: R19.7 Diarrhea, unspecified (principal); R19.5 Other fecal abnormalities; R10.32 Left lower quadrant pain | CPT/HCPCS: 99222 ==

== ENCOUNTER → 2025-01-25 20:06 | Outpatient (BNV) | payer OTHER, SELFPAY | PROVIDERS: Admitting Provider Student in an Organized Health Care Education/Training Program; Emergency Provider Emergency Medicine; Visit Provider Psychiatry & Neurology Neurology | DX: M43.16 Spondylolisthesis, lumbar region (principal) | CPT/HCPCS: 99222 ==

== ENCOUNTER 2025-02-14 15:20 | Emergency (ER) | payer OTHER, SELFPAY ==
[2025-02-14] VITALS (7 sets, daily range): BP systolic 96–126; BP diastolic 58–90; PULSE 66–96; RESP 16–20; TEMP 36.6–36.9; O2SAT 96–99; BMI 15.7
--- NOTE | ~2025-02-14 | CT_ITS ---
CLINICAL HISTORY: Left lower quadrant pain and tenderness CT abdomen and pelvis with contrast Comparison: CT - CT ABDOMEN PELVIS W IV CON - 02/14/25 16:34 EDT Findings: There are minimal opacities at the lung bases likely secondary to atelectasis. There are small bilateral kidney cysts. There is mild periportal edema. The spleen, pancreas and adrenal glands are unremarkable. There are no calcified gallstones. There is thickening of small bowel within the pelvis and left lower quadrant. Interval worsening of involvement of a segment of small bowel within the pelvis. There are tiny peripheral pockets of gas within a small portion of this small bowel segment. Remaining small bowel appears improved. There is no pneumatosis or portal venous gas. There is dilatation of multiple segments of small bowel, similar to the prior study. There is no obvious focal transition point. Air-fluid levels are present within the colon. There is a small amount of pelvic free fluid, new since the prior exam. There is no extraluminal gas or abscess. Unremarkable uterus and urinary bladder. The appendix is not definitively seen. There are no secondary findings to suggest appendicitis. There is a chronic left-sided pars defect at L5-S1 associated with grade 2 spondylolisthesis and advanced degenerative changes of the L5-S1 level, similar to the prior study. IMPRESSION: 1. Interval worsening of enteritis of a segment of small bowel within the pelvis. This is associated with a very short segment of pneumatosis versus pseudo pneumatosis. Recommend clinical correlation to exclude ischemia. 2. Distention of both large and small bowel with fluid, similar to the prior study, most likely secondary to gastroenteritis. Small bowel dilatation is present without change. As before, a partial degree of small-bowel obstruction is not excluded. 3. There is a small amount of pelvic free fluid. 4. There is a mild degree of periportal edema. This document has been electronically signed by: Tawny Valle MD on 02/14/2025 17:17:34
--- NOTE | 2025-02-14 15:25 | ED_ITS ---
HPI - Abdominal Pain General Chief Complaint: Abdominal Pain Stated Complaint: dizziness abd pain, n/v/d, red stools , hemmroids Time Seen by Provider: 02/14/25 15:24 Source: patient Mode of arrival: ambulatory Limitations: no limitations History of Present Illness ED Provider: Yassine Lopez DO HPI narrative: 59-year-old female with past medical history of colon cancer in 2007 in remission, internal hemorrhoids, and asthma presents to the ED due to left lower quadrant abdominal pain with many episodes of brown diarrhea since yesterday. Patient estimates having 15 episodes of diarrhea today. Denies recent antibiotic use or travel history. Denies reports nausea without vomiting. Denies fevers or rigors. Denies difficulty breathing or chest pain. She also endorses dysuria, and urinary urgency and frequency. She took Imodium at home without relief of her diarrhea. She states she has had loose stools for the past month and previous to that had normal bowel movements. 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 Related Data Home Medications ?Medication ?Instructions ?Recorded ?Confirmed albuterol sulfate 90 mcg/actuation 2 puff inhalation QID PRN 12/12/24 01/25/25 aerosol inhaler (Ventolin HFA) Shortness Of Breath Or Wheezing fluticasone furoate 100 1 inh inhalation DAILY 12/12/24 01/25/25 mcg/actuation blister powder for inhalation (Arnuity Ellipta) fluticasone propionate 50 1 spray intranasal BID PRN Allergy 12/12/24 01/25/25 mcg/actuation nasal Symptoms spray,suspension loratadine 10 mg tablet 10 mg PO DAILY 12/12/24 01/25/25 nicotine 21 mg/24 hr daily 1 patch topical DAILY PRN Smoking 12/12/24 01/25/25 transdermal patch Cessation sertraline 100 mg tablet 100 mg PO DAILY 12/12/24 01/25/25 trazodone 50 mg tablet 50 mg PO BEDTIME insomnia 12/12/24 01/25/25 albuterol sulfate 2.5 mg/3 mL 3 mg inhalation BID PRN sort 01/25/25 01/25/25 (0.083 %) solution for nebulization aripiprazole 15 mg tablet 15 mg PO DAILY depressive disorder 01/25/25 01/25/25 melatonin 3 mg tablet 3 mg PO BEDTIME PRN insomnia 01/25/25 01/25/25 mirtazapine 15 mg tablet 15 mg PO BEDTIME depressive 01/25/25 01/25/25 disorder [id number]-[id number]-quna 8 mg-folic 400 1 tab PO DAILY 01/25/25 01/25/25 mcg-K 50 mcg-lutein 300 mcg tablet (Spectravite Women 50 Plus) prazosin 2 mg capsule 2 mg PO BEDTIME nightmares 01/25/25 01/25/25 Previous Rx's ?Medication ?Instructions ?Recorded omeprazole 20 mg capsule,delayed 20 mg PO DAILY@0630 #60 caps 12/18/24 release acetaminophen 325 mg tablet 650 mg (2 x 325 mg) PO Q6H PRN 01/29/25 (Tylenol) pain #14 tabs hydrocortisone 2.5 % topical cream 1 appl MS BEDTIME #2 grams 01/29/25 with perineal applicator (Proctozone-HC) lidocaine HCl 4 %-menthol 1 % 1 patch topical BID #5 ea 01/29/25 topical patch magnesium gluconate 12.5 mg 250 mg (20 x 12.5 mg magne- sium 01/29/25 magnesium (250 mg) tablet (250 mg)) PO BID #20 tabs tramadol 50 mg tablet 25 mg (1/2 x 50 mg) PO Q6H PRN 01/29/25 Pain, Severe (Pain Scale 7-10) #20 tabs ondansetron 4 mg disintegrating 4 mg PO Q8H PRN nausea and 02/14/25 tablet vomiting #10 tabs Allergies Allergy/AdvReac Type Severity Reaction Status Date / Time Milk Containing Products AdvReac Severe Diarrhea Verified 02/14/25 15:40 (Dairy) Review of Systems Review of Systems Yes all other systems are reviewed and are negative FOR[facility] Past Medical History Medical History (Updated 02/14/25 @ 19:57 by Yassine Lopez DO) Hypomagnesemia Diarrhea Abdominal pain Enterocolitis Occult GI bleeding Abdominal pain Asthma Colon cancer Surgical History H/O tubal ligation Social History Social History Household Members: Family and Other Household Members Other:: sister Housing: House Are you a primary customer care coordinator to a significant other at home: No Do you presently have visiting nurse or other home services: No Patient Tobacco Use Status: Current everyday Tobacco user Tobacco use type: Cigarette Cigarettes Per Day: 1 Years Smoked: 40 Smoked in Last 30 Days: No e-Cigarette/Vaping Use: Currently Using Second Hand Smoke Exposure: No Use of substances other than those prescribed or required for medical reasons: No Substance Use Type: Marijuana and Other Advance Directives: No Advance Directives Information Provided: No Do you have a plan to hurt others: No Plan Patient : No service: No Physical Exam ED Vital Signs: Vital Signs - 24 hr 02/14/25 15:38 02/14/25 15:58 02/14/25 15:58 Temperature 98.5 F 98.5 F Pulse Rate 77 72 Respiratory Rate 20 20 20 Blood Pressure 96/61 120/69 Pulse Oximetry 99 96 Oxygen Delivery Method Room Air Room Air 02/14/25 18:07 02/14/25 19:03 Temperature 97.9 F 98.2 F Pulse Rate 66 70 Respiratory Rate 16 17 Blood Pressure 119/70 122/58 L Pulse Oximetry 99 98 Oxygen Delivery Method Room Air Room Air BMI result Body Mass Index 15.7 Constitutional: ?Alert, oriented, speaking in full sentences HEENT: ?Normocephalic, atraumatic. ?Dry mucous membranes Eyes: ?PERRL, EOMI Neck: ?Supple, nontender Chest: ?No chest wall tenderness Respiratory: ?Lungs clear to auscultation, no increased work of breathing Cardio: ?Regular rate and rhythm, no murmur, 2+ radial and DP pulses symmetrically GI: ?Soft, nondistended, tenderness located over the left lower quadrant without rebound tenderness. There is some guarding in this region as well. Back: ?Normal range of motion, nontender Skin: ?No rash, no lesions Neuro: ?Alert and oriented to person, place and time, moves all 4 extremities, no focal deficits Extremities: ?No swelling or tenderness, full range of motion Psych: ?Calm, alert and cooperative, appropriate behavior Medical Decision Making Medical Decision Making MDM Narrative: Patient presenting with urinary symptoms, abdominal pain and diarrhea. Differential diagnosis includes enteritis, colitis, diverticulitis, and urinary tract infection. Given the level of tenderness localized in the left lower quadrant, we will further evaluate with CT imaging. The patient also appears clinically dehydrated and will receive IV fluids, antiemetics and analgesics. Less likelihood of acute pancreatitis or biliary pathology without tenderness in these regions. Potential COVID-19. Labs reviewed and show hypomagnesemia and hypokalemia which have been replaced. She has baseline anemia which is mild, no leukocytosis, elevation in bicarb secondary to fluid loss, no anion gap mild acidosis, unremarkable LFTs, unremarkable lipase, unremarkable urinalysis with no signs of cystitis and negative C diff and respiratory swabs. Stool studies are pending. The patient has had 2 additional episodes of diarrhea since arrival. No episodes of vomiting. The patient reports improvement from 820/10 to a 7/10 with ketorolac, acetaminophen and 2 mg of morphine as well as IV fluids. Her pain worsened to a 9/10 on re-evaluation and she is given prochlorperazine, diphenhydramine and Bentyl. CT imaging shows evidence consistent with enteritis. The results were equivocal for pneumatosis and small bowel obstruction although the patient has no clinical features of this with no peritonitis on exam and I discussed the image findings with the reading radiologist who states this is a very typical reading for my clinical with a cholesterol of gastroenteritis. Repeat vital signs are unremarkable. We will monitor for pain control to determine disposition. The patient is sleeping comfortably on re-evaluation at 19:50 and has improvement in pain, has not had any recurrent vomiting or diarrhea and has a relatively nontender exam. Findings are consistent with enteritis. Very strict return precautions have been provided as well as a prescription for ondansetron and instructions to continue ibuprofen and acetaminophen at home. Patient agrees with plan Admission/Observation Consideration of admission/observation: Escalation of care including admission/observation considered Lab Data MDM Lab Attestation statement: I reviewed the patient's lab results. 02/14/25 15:48 02/14/25 15:48 Labs: Lab Results 02/14/25 02/14/25 Range/Units 15:48 16:42 WBC 5.1 (4.8-10.8) X10*3/uL RBC 3.83 L (4.20-5.50) X10*6/uL Hgb 11.6 L (12.0-16.0) g/dl Hct 34.5 L (37.0-47.0) % MCV 90.1 (80.0-98.0) fL MCH 30.3 (27.0-33.0) pg MCHC 33.6 (31.0-35.0) g/dl RDW 13.6 (11.0-16.0) % Plt Count 273 (160-400) X10*3/uL MPV 8.2 L (9.4-12.3) fL Immature Gran % (Auto) 0.6 H (0.0-0.4) % Neut % (Auto) 68.3 (45-73) % Lymph % (Auto) 18.7 L (20-40) % Branch % (Auto) 9.1 (2-11) % Eos % (Auto) 2.9 (0-4) % Baso % (Auto) 0.4 (0-2) % Lymph # (Auto) 1.0 L (1.2-4.9) X10*3/uL Branch # (Auto) 0.5 (0.1-1.2) X10*3/uL Eos # (Auto) 0.2 (0.0-0.4) X10*3/uL Baso # (Auto) 0.0 (0.0-0.2) X10*3/uL Abs Immat Gran (auto) 0.03 (0.00-0.03) X10*3/uL Absolute Neuts (auto) 3.5 (2.0-8.3) x10*3/uL Absolute Nucleated RBC 0.000 (0.0-0.012) X10*3/uL Nucleated RBC % (auto) 0.0 (0.0-0.2) /100WBC Sodium 146 H (135-145) mmol/L Potassium 3.2 L D (3.3-5.1) mmol/L Chloride 107 (96-108) mmol/L Carbon Dioxide 30 H (22-29) mmol/L Anion Gap 12 (12-20) BUN 10 (9-16) mg/dL Creatinine 0.60 (0.5-1.4) mg/dL Estim Creat Clear Calc 74.0 Estimated GFR > 60 Random Glucose 103 (60-115) mg/dL Calcium 8.9 (8.4-10.2) mg/dL Magnesium 1.4 L* (1.6-2.6) mg/dL Total Bilirubin 0.2 (0.0-1.0) mg/dL Direct Bilirubin < 0.2 (0.0-0.5) mg/dL AST 17 (5-31) U/L ALT 9 (0-31) U/L Alkaline Phosphatase 82 (39-117) U/L Total Protein 5.9 L (6.5-8.0) g/dL Albumin 3.2 L (3.5-5.0) g/dL Lipase 7 L (8-78) U/L Urine Color Yellow Urine Appearance Cloudy Urine pH 7.0 (5.0-9.0) Ur Specific [place] 1.025 (1.005-1.025) Urine Protein Negative (Neg-Trace) mg/dL Urine Glucose (UA) Negative (Negative) mg/dL Urine Ketones Negative (Negative) mg/dL Urine Blood Trace H (Negative) Urine Nitrite Negative (Negative) Ur Leukocyte Esterase Negative (Negative) Urine RBC 0-2 (0-2) /HPF Urine WBC 0-5 (0-5) /HPF Ur Squamous Epith Cells 0-2 (0-2) /HPF Other Crystals Present Urine Bacteria 4+ (None Seen) Hyaline Casts 0-2 (0-2) /LPF C. difficile Tox B Gene NEGATIVE (Negative) Influenza Type A (PCR) NEGATIVE (Negative) Influenza Type B (PCR) NEGATIVE (Negative) RSV RNA Qual (PCR) NEGATIVE (Negative) SARS-CoV-2 RNA (RT-PCR) NEGATIVE (Negative) Radiology Impression Discussion of test interpretation with radiology: I have reviewed the radiologist's reading. Radiologist Impression: Findings: There are minimal opacities at the lung bases likely secondary to atelectasis. There are small bilateral kidney cysts. There is mild periportal edema. The spleen, pancreas and adrenal glands are unremarkable. There are no calcified gallstones. There is thickening of small bowel within the pelvis and left lower quadrant. Interval worsening of involvement of a segment of small bowel within the pelvis. There are tiny peripheral pockets of gas within a small portion of this small bowel segment. Remaining small bowel appears improved. There is no pneumatosis or portal venous gas. There is dilatation of multiple segments of small bowel, similar to the prior study. There is no obvious focal transition point. Air-fluid levels are present within the colon. There is a small amount of pelvic free fluid, new since the prior exam. There is no extraluminal gas or abscess. Unremarkable uterus and urinary bladder. The appendix is not definitively seen. There are no secondary findings to suggest appendicitis. There is a chronic left-sided pars defect at L5-S1 associated with grade 2 spondylolisthesis and advanced degenerative changes of the L5-S1 level, similar to the prior study. IMPRESSION: 1. Interval worsening of enteritis of a segment of small bowel within the pelvis. This is associated with a very short segment of pneumatosis versus pseudo pneumatosis. Recommend clinical correlation to exclude ischemia. 2. Distention of both large and small bowel with fluid, similar to the prior study, most likely secondary to gastroenteritis. Small bowel dilatation is present without change. As before, a partial degree of small-bowel obstruction is not excluded. 3. There is a small amount of pelvic free fluid. 4. There is a mild degree of periportal edema. This document has been electronically signed by: Tawny Valle MD on 02/14/2025 17:17:34 Medications Administered Discontinued Medications Generic Name Dose Route Start Last Admin Trade Name Freq PRN Reason Stop Dose Admin Dicyclomine HCl 10 mg 02/14/25 18:35 02/14/25 18:42 Dicyclomine Hcl 10 Mg Capsule PO 02/14/25 18:36 10 mg ONCE ONE Administration Diphenhydramine HCl 25 mg 02/14/25 18:35 02/14/25 18:42 Diphenhydramine Hcl 50 Mg/Ml Vial IVPUSH 02/14/25 18:36 25 mg ONCE ONE Administration Acetaminophen 1,000 mg in 100 mls @ 400 mls/hr 02/14/25 15:35 02/14/25 16:15 Ofirmev IV 02/14/25 15:49 Infused ONCE ONE Infusion Sodium Chloride 1,000 mls @ 999 mls/hr 02/14/25 15:45 02/14/25 17:16 Ns IV 02/14/25 16:45 Infused .Q1H1M JUAN LUIS Infusion Magnesium Sulfate 2 gm in 50 mls @ 25 mls/hr 02/14/25 16:37 02/14/25 19:12 Magnesium Sulfate/H2o IV 02/14/25 18:36 Infused ONCE ONE Infusion Iohexol 100 ml 02/14/25 16:50 02/14/25 16:50 Iohexol 350 Mg/Ml 100 Ml Infus..Btl IV 02/14/25 16:51 85 ml ONCE ONE Administration Ketorolac Tromethamine 15 mg 02/14/25 15:35 02/14/25 15:58 Ketorolac Tromethamine 15 Mg/Ml Vial IVPUSH 02/14/25 15:36 15 mg ONCE ONE Administration Morphine Sulfate 2 mg 02/14/25 15:35 02/14/25 15:58 Morphine Sulfate 2 Mg/Ml Cartridge IVPUSH 02/14/25 15:36 2 mg ONCE ONE Administration Protocol Ondansetron HCl 4 mg 02/14/25 15:35 02/14/25 15:58 Ondansetron Hcl 4 Mg/2 Ml Vial IVPUSH 02/14/25 15:36 4 mg ONCE ONE Administration Potassium Chloride 40 meq 02/14/25 16:37 02/14/25 17:16 Potassium Chloride Er 20 Meq Tab.Er.Prt PO 02/14/25 16:38 40 meq ONCE ONE Administration Prochlorperazine Edisylate 10 mg 02/14/25 18:35 02/14/25 18:42 Prochlorperazine Edisylate 10 Mg/2 Ml Vial IVPUSH 02/14/25 18:36 10 mg ONCE ONE Administration Discharge Plan Discharge Clinical Impression: Enteritis Patient Disposition: Home, Self-Care Instructions: Acute Diarrhea (ED), Enteritis (ED) Additional Instructions: If the stool culture is positive for any concerning bacterial you receive a call back. Take the Zofran as needed up to every 8 hours for severe nausea or vomiting. Please return to the emergency department if you have any severe pain that is not controlled with ibuprofen 400 mg every 6 hours with food at home, or acetaminophen 500 mg every 6 hours, persistent frequent diarrhea, bloody diarrhea, persistent vomiting, fevers over 100 degrees F or any other new symptoms or concerns that you have. Prescriptions: New ondansetron 4 mg tablet,disintegrating 4 mg PO Q8H PRN (Reason: nausea and vomiting) Qty: 10 0RF No Action trazodone 50 mg tablet 50 mg PO BEDTIME sertraline 100 mg tablet 100 mg PO DAILY nicotine 21 mg/24 hr patch 24 hour 1 patch topical DAILY PRN (Reason: Smoking Cessation) albuterol sulfate [Ventolin HFA] 90 mcg/actuation HFA aerosol inhaler 2 puff INHALATION QID PRN (Reason: Shortness Of Breath Or Wheezing) fluticasone propionate 50 mcg/actuation spray,suspension 1 spray intranasal BID PRN (Reason: Allergy Symptoms) loratadine 10 mg tablet 10 mg PO DAILY Arnuity Ellipta 100 mcg/actuation blister with device 1 inh INHALATION DAILY omeprazole 20 mg Capsule,Delayed Release(Dr/Ec) 20 mg PO DAILY@0630 Qty: 60 0RF albuterol sulfate 2.5 mg /3 mL (0.083 %) solution for nebulization 3 mg inhalation BID PRN (Reason: sort) melatonin 3 mg tablet 3 mg PO BEDTIME PRN (Reason: insomnia) mirtazapine 15 mg tablet 15 mg PO BEDTIME prazosin 2 mg capsule 2 mg PO BEDTIME aripiprazole 15 mg tablet 15 mg PO DAILY Spectravite Women 50 Plus 8 mg iron-400 mcg-50 mcg tablet 1 tab PO DAILY tramadol 50 mg Tablet 25 mg PO Q6H PRN (Reason: Pain, Severe (Pain Scale 7-10)) Qty: 20 0RF hydrocortisone [Proctozone-HC] 2.5 % Cream With Perineal Applicator 1 appl MS BEDTIME Qty: 2 0RF magnesium gluconate 12.5 mg magne- sium (250 mg) tablet 250 mg PO BID Qty: 20 0RF lidocaine HCl-menthol 4-1 % adhesive patch,medicated 1 patch topical BID Qty: 5 0RF Rx Instructions: may leave on area for up to 8 hrs acetaminophen [Tylenol] 325 mg tablet 650 mg PO Q6H PRN (Reason: pain) Qty: 14 0RF Print Language: Bulgarian
[2025-02-14 15:53] LABS: MANUAL DIFF FLAG NO
[2025-02-14 15:54] LABS: Basophils Percent Auto 0.4 % (0-2); Eosinophils Absolute Auto 0.2 X10*3/uL (0.0-0.4); Eosinophils Percent Auto 2.9 % (0-4); Hematocrit 34.5 % (37.0-47.0); Hemoglobin 11.6 g/dl (12.0-16.0); Imm Gran Abs Auto 0.03 X10*3/uL (0.00-0.03); Imm Gran Pct Auto 0.6 % (0.0-0.4); Lymphocytes Percent Auto 18.7 % (20-40); Mean Corpuscular HGB Conc 33.6 g/dl (31.0-35.0); Mean Corpuscular Hemoglobin 30.3 pg (27.0-33.0); Mean Corpuscular Volume 90.1 fL (80.0-98.0); Mean Platelet Volume 8.2 fL (9.4-12.3); Monocytes Absolute Auto 0.5 X10*3/uL (0.1-1.2); Monocytes Percent Auto 9.1 % (2-11); Neutrophils Absolute Auto 3.5 x10*3/uL (2.0-8.3); Neutrophils Percent Auto 68.3 % (45-73); Platelet Count 273 X10*3/uL (160-400); Red Blood Count 3.83 X10*6/uL (4.20-5.50); Red Cell Distribution Width 13.6 % (11.0-16.0); White Blood Count 5.1 X10*3/uL (4.8-10.8)
[2025-02-14] MEDS: 0.9 % Sodium Chloride 1,000 ML 999 ML IV (15:57)
[2025-02-14] MEDS: Acetaminophen 1,000 MG/100 ML PIGGYBACK 400 MG IV (15:57)
[2025-02-14] MEDS: Ketorolac Tromethamine 15 MG/ML VIAL IVPUSH (15:58)
[2025-02-14] MEDS: ondansetron HCL 4 MG/2 ML VIAL IVPUSH (15:58)
[2025-02-14] MEDS: Morphine Sulfate 2 MG/ML CARTRIDGE IVPUSH (15:58)
[2025-02-14 16:08] LABS: Lipase 7 U/L (8-78)
[2025-02-14 16:10] LABS: Alanine Aminotransferase 9 U/L (0-31); Albumin Level 3.2 g/dL (3.5-5.0); Alkaline Phosphatase 82 U/L (39-117); Anion Gap 12 (12-20); Aspartate Amino Transferase 17 U/L (5-31); Bilirubin Direct < 0.2 mg/dL (0.0-0.5); Bilirubin Total 0.2 mg/dL (0.0-1.0); Blood Urea Nitrogen 10 mg/dL (9-16); Calcium 8.9 mg/dL (8.4-10.2); Carbon Dioxide 30 mmol/L (22-29); Chloride 107 mmol/L (96-108); Estimated Glomerular Filt Rate > 60; Glucose Random 103 mg/dL (60-115); Potassium 3.2 mmol/L (3.3-5.1); Sodium 146 mmol/L (135-145); Total Protein 5.9 g/dL (6.5-8.0)
[2025-02-14 16:30] LABS: Influenza A PCR NEGATIVE (Negative); Influenza B PCR NEGATIVE (Negative); Resp Syncy Virus RNA Qual PCR NEGATIVE (Negative); SARS COV2 PCR INHOUSE NEGATIVE (Negative)
[2025-02-14 16:34] LABS: Magnesium 1.4 mg/dL (1.6-2.6)
[2025-02-14 16:50] LABS: Appearance Urine Cloudy; Color Urine Yellow; Glucose Urine UA Negative (Negative); Leukocyte Esterase Urine Negative (Negative); Nitrite Urine Negative (Negative); Specific Gravity - Urine 1.025 (1.005-1.025); UMIC TRIGGER UACC YES; Urine Blood Trace (Negative); Urine Ketones Negative (Negative); Urine Protein Negative (Neg-Trace)
[2025-02-14] MEDS: iohexoL 350 MG/ML 100 ML INFUS..BTL IV (16:50)
[2025-02-14 17:06] LABS: Bacteria Urine 4+ (None Seen); Hyaline Casts Urine 0-2 /LPF (0-2); Other Crystals Urine Present; RBC Urine 0-2 /HPF (0-2); Squamous Epithelial Cell Urine 0-2 /HPF (0-2); WBC Urine 0-5 /HPF (0-5)
[2025-02-14] MEDS: Potassium Chloride ER 20 MEQ TAB.ER.PRT 40 MEQ PO (17:16)
[2025-02-14] MEDS: Magnesium Sulfate/H2O 2 GM/50 ML PIGGYBACK IV (17:16)
[2025-02-14 17:33] LABS: CDiff Gene PCR NEGATIVE (Negative)
[2025-02-14] MEDS: diphenhydrAMINE HCL 50 MG/ML VIAL 25 MG IVPUSH (18:42)
[2025-02-14] MEDS: Dicyclomine HCl 10 MG CAPSULE PO (18:42)
[2025-02-14] MEDS: Prochlorperazine Edisylate 10 MG/2 ML VIAL IVPUSH (18:42)
--- NOTE | 2025-02-14 19:01 | PC.NURSE ---
assumed care of patient at this time, patient reporting decrease in pain. resting quietly watching phone in stretcher, bed locked in lowest position call nevarez within reach. Plan of care ongoing
[2025-02-15 09:04] LABS: Adenovirus F 40/41 Not Detected (Not Detect.); Astrovirus Not Detected (Not Detect.); Campylobacter Not Detected (Not Detect.); Cryptosporidium Not Detected (Not Detect.); Cyclospora cayetanensis Not Detected (Not Detect.); E. coli EAEC Not Detected (Not Detect.); E. coli EPEC Not Detected (Not Detect.); E. coli ETEC Not Detected (Not Detect.); E. coli STEC Not Detected (Not Detect.); Entamoeba histolytica Not Detected (Not Detect.); Giardia lamblia Not Detected (Not Detect.); Norovirus GI/GII Not Detected (Not Detect.); Plesiomonas shigelloides Not Detected (Not Detect.); Rotavirus A Not Detected (Not Detect.); Salmonella Not Detected (Not Detect.); Sapovirus Not Detected (Not Detect.); Shigella sp./EIEC Not Detected (Not Detect.); Vibrio Not Detected (Not Detect.); Vibrio Cholerae Not Detected (Not Detect.); Yersinia enterocolitica Not Detected (Not Detect.)
== END 2025-02-14 22:02 | disposition home or self-care (01) ==
PROVIDERS: Emergency Provider Emergency Medicine; PCP Internal Medicine
DX: K52.9 Noninfective gastroenteritis and colitis, unspecified (principal); R10.32 Left lower quadrant pain; Z79.899 Other long term (current) drug therapy; Z03.818 Encounter for observation for suspected exposure to other biological agents ruled out
CPT/HCPCS: 0241U; 36415; 74177; 80048; 80076; 81001; 81003; 83690; 83735; 85025; 87493; 87507; 96361; 96365; 96366; 96367; 96375; 99285; J0131; J0737; J1200; J1885; J2270; J2405; J3475; Q9967

== ENCOUNTER → 2025-02-14 15:35 | Outpatient (BNV) | payer OTHER, SELFPAY | PROVIDERS: Emergency Provider Emergency Medicine; PCP Internal Medicine; Visit Provider Radiology Diagnostic Radiology | DX: R14.0 Abdominal distension (gaseous) (principal); R10.32 Left lower quadrant pain | CPT/HCPCS: 74177 ==

== ENCOUNTER 2025-03-02 15:46 | Emergency (ER) | payer OTHER, SELFPAY ==
--- NOTE | 2025-03-02 | ECG_ITS ---
Test Reason : DIZZINESS Blood Pressure : */* mmHG Vent. Rate : 71 BPM Atrial Rate : 71 BPM P-R Int : 132 ms QRS Dur : 90 ms QT Int : 388 ms P-R-T Axes : 46 11 56 degrees QTcB Int : 421 ms Normal sinus rhythm Nonspecific T wave abnormality Abnormal ECG When compared with ECG of 25-Jan-2025 17:04, No significant change was found Referred By: Generic ED Physician Electronically Signed By: David Garza
--- NOTE | ~2025-03-02 | CT_ITS ---
CLINICAL HISTORY: lower abd pain CT abdomen and pelvis with IV contrast. COMPARISON: CT abdomen and pelvis dated 02/14/25 at 16:38 EDT FINDINGS: Emphysema of the partially visualized lung bases. Gallbladder is contracted. Periportal edema. No focal hepatic lesion. Normal spleen. Normal pancreas. Normal adrenal glands. Symmetric renal enhancement. No hydronephrosis. Zinqiean-ux-himjw colonic stool burden. Diffuse thickening of the mucosa of the small bowel. No bowel obstruction. No mesenteric or retroperitoneal lymphadenopathy. Mild aortoiliac atherosclerotic vascular calcifications. Normal appearance of the urinary bladder. No adnexal mass. Grade 2 anterolisthesis of L5 on S1 degenerative and secondary to chronic pars defect on the left at L5. Advanced degenerative changes at L4-5 and L5-S1. No acute fracture. Degenerative changes of the bilateral hips. Osteopenia. IMPRESSION: 1. Diffuse thickening of the mucosa of the small bowel consistent with an enteritis. No bowel obstruction. 2. Kdvmhvfc-no-ctnmp colonic stool burden most pronounced within the ascending and transverse colon. 3. Mild periportal edema. Nonspecific finding can be associated with increased fluid volume status (favored) or hepatitis and appears similar to prior imaging. This document has been electronically signed by: Trent Ortiz MD on 03/02/2025 18:58:19
[2025-03-02 16:14] VITALS: BP 110/68; BP 123/64; PULSE 76; PULSE 89; RESP 24; TEMP 36.8; O2SAT 99; BMI 15.7
[2025-03-02 16:47] LABS: MANUAL DIFF FLAG NO
[2025-03-02 16:48] LABS: Basophils Percent Auto 0.4 % (0-2); Eosinophils Absolute Auto 0.1 X10*3/uL (0.0-0.4); Eosinophils Percent Auto 2.5 % (0-4); Hematocrit 32.8 % (37.0-47.0); Hemoglobin 10.8 g/dl (12.0-16.0); Imm Gran Abs Auto 0.01 X10*3/uL (0.00-0.03); Imm Gran Pct Auto 0.2 % (0.0-0.4); Lymphocytes Percent Auto 19.3 % (20-40); Mean Corpuscular HGB Conc 32.9 g/dl (31.0-35.0); Mean Corpuscular Hemoglobin 30.3 pg (27.0-33.0); Mean Corpuscular Volume 92.1 fL (80.0-98.0); Mean Platelet Volume 9.3 fL (9.4-12.3); Monocytes Absolute Auto 0.4 X10*3/uL (0.1-1.2); Monocytes Percent Auto 8.4 % (2-11); Neutrophils Absolute Auto 3.5 x10*3/uL (2.0-8.3); Neutrophils Percent Auto 69.2 % (45-73); Platelet Count 302 X10*3/uL (160-400); Red Blood Count 3.56 X10*6/uL (4.20-5.50); Red Cell Distribution Width 14.4 % (11.0-16.0); White Blood Count 5.1 X10*3/uL (4.8-10.8)
[2025-03-02 17:17] LABS: Alanine Aminotransferase 15 U/L (0-31); Alkaline Phosphatase 66 U/L (39-117); Anion Gap 9 (12-20); Aspartate Amino Transferase 24 U/L (5-31); Bilirubin Total 0.1 mg/dL (0.0-1.0); Blood Urea Nitrogen 11 mg/dL (9-16); Calcium 8.6 mg/dL (8.4-10.2); Carbon Dioxide 31 mmol/L (22-29); Chloride 111 mmol/L (96-108); Creatinine Clr Calc Pharmacy 71.7; Estimated Glomerular Filt Rate > 60; Glucose Random 91 mg/dL (60-115); Lipase 13 U/L (8-78); Potassium 3.7 mmol/L (3.3-5.1); Sodium 147 mmol/L (135-145); Total Protein 5.6 g/dL (6.5-8.0)
[2025-03-02] MEDS: ondansetron HCL 4 MG/2 ML VIAL IVPUSH (17:35)
[2025-03-02] MEDS: Ketorolac Tromethamine 15 MG/ML VIAL IVPUSH (17:35)
[2025-03-02] MEDS: 0.9 % Sodium Chloride 1,000 ML 999 ML IV ×2 (17:36)
--- NOTE | 2025-03-02 18:25 | ED_ITS ---
HPI - General Adult General Chief complaint: GI Bleed Stated complaint: Abd pain Time Seen by Provider: 03/02/25 16:53 History of Present Illness HPI narrative: Patient is a 59-year-old female presents today with having lower abdominal pain. Nausea diarrhea. The diarrhea is yellow in color. There is question blood noted earlier but patient give a stool that is completely yellow there is no fever no chills. There has cramping in the abdomen. There is no history of abdominal surgery done in the past. There is no travel. Patient is from home. No coughing or congestion or upper respiratory symptoms. Related Data Home Medications ?Medication ?Instructions ?Recorded ?Confirmed albuterol sulfate 90 mcg/actuation 2 puff inhalation QID PRN 12/12/24 01/25/25 aerosol inhaler (Ventolin HFA) Shortness Of Breath Or Wheezing fluticasone furoate 100 1 inh inhalation DAILY 12/12/24 01/25/25 mcg/actuation blister powder for inhalation (Arnuity Ellipta) fluticasone propionate 50 1 spray intranasal BID PRN Allergy 12/12/24 01/25/25 mcg/actuation nasal Symptoms spray,suspension loratadine 10 mg tablet 10 mg PO DAILY 12/12/24 01/25/25 nicotine 21 mg/24 hr daily 1 patch topical DAILY PRN Smoking 12/12/24 01/25/25 transdermal patch Cessation sertraline 100 mg tablet 100 mg PO DAILY 12/12/24 01/25/25 trazodone 50 mg tablet 50 mg PO BEDTIME insomnia 12/12/24 01/25/25 albuterol sulfate 2.5 mg/3 mL 3 mg inhalation BID PRN sort 01/25/25 01/25/25 (0.083 %) solution for nebulization aripiprazole 15 mg tablet 15 mg PO DAILY depressive disorder 01/25/25 01/25/25 melatonin 3 mg tablet 3 mg PO BEDTIME PRN insomnia 01/25/25 01/25/25 mirtazapine 15 mg tablet 15 mg PO BEDTIME depressive 01/25/25 01/25/25 disorder [id number]-rimn-[id number] 8 mg-folic 400 1 tab PO DAILY 01/25/25 01/25/25 mcg-K 50 mcg-lutein 300 mcg tablet (Spectravite Women 50 Plus) prazosin 2 mg capsule 2 mg PO BEDTIME nightmares 01/25/25 01/25/25 Previous Rx's ?Medication ?Instructions ?Recorded omeprazole 20 mg capsule,delayed 20 mg PO DAILY@0630 #60 caps 12/18/24 release acetaminophen 325 mg tablet 650 mg (2 x 325 mg) PO Q6H PRN 01/29/25 (Tylenol) pain #14 tabs hydrocortisone 2.5 % topical cream 1 appl WI BEDTIME #2 grams 01/29/25 with perineal applicator (Proctozone-HC) lidocaine HCl 4 %-menthol 1 % 1 patch topical BID #5 ea 01/29/25 topical patch magnesium gluconate 12.5 mg 250 mg (20 x 12.5 mg magne- sium 01/29/25 magnesium (250 mg) tablet (250 mg)) PO BID #20 tabs tramadol 50 mg tablet 25 mg (1/2 x 50 mg) PO Q6H PRN 01/29/25 Pain, Severe (Pain Scale 7-10) #20 tabs ondansetron 4 mg disintegrating 4 mg PO Q8H PRN nausea and 02/14/25 tablet vomiting #10 tabs ondansetron 4 mg disintegrating 4 mg PO TID PRN nausea and 03/02/25 tablet vomiting 5 days #10 tabs Allergies Allergy/AdvReac Type Severity Reaction Status Date / Time Milk Containing Products AdvReac Severe Diarrhea Verified 03/02/25 16:19 (Dairy) Review of Systems 2 Review of Systems: Positive lower abdominal cramping Yes all other systems are reviewed and are negative PMFSH Past Medical History Attestation statement: The following information was validated with the patient. Medical History Hypomagnesemia Diarrhea Abdominal pain Enterocolitis Occult GI bleeding Abdominal pain Asthma Colon cancer Surgical History H/O tubal ligation Social History Social History Household Members: Family and Other Household Members Other:: sister Housing: House Are you a primary home health care respiratory therapist to a significant other at home: No Do you presently have visiting nurse or other home services: No Alcohol intake: never Patient Tobacco Use Status: Current everyday Tobacco user Tobacco use type: Cigarette Cigarettes Per Day: 1 Years Smoked: 40 Smoked in Last 30 Days: No e-Cigarette/Vaping Use: Currently Using Second Hand Smoke Exposure: No Use of substances other than those prescribed or required for medical reasons: No Substance Use Type: Marijuana and Other Advance Directives: No Advance Directives Information Provided: No Do you have a plan to hurt others: No Plan service: No Physical Exam ED Vital Signs: Vital Signs - 24 hr 03/02/25 16:14 03/02/25 19:16 Temperature 98.2 F 98.0 F Pulse Rate 76 62 Respiratory Rate 24 H 19 Blood Pressure 123/64 135/70 Pulse Oximetry 99 98 Oxygen Delivery Method Room Air Room Air BMI result Body Mass Index 15.7 Appearance: Alert. Oriented X3. No acute distress. Eyes: Pupils equal, round and reactive to light. ENT: Pharynx normal. Neck: Normal inspection. Neck supple. No lymph nodes noted. No crepitus CVS: Normal heart rate and rhythm. Pulses normal. Normal S1 and S2 Respiratory: No respiratory distress. Breath sounds normal. No Wheezing. No rales Abdomen: Soft and nontender. No rigidity. No distention. good BS x4 Skin: Skin warm and dry. Normal skin color. Normal skin turgor. Extremities: No lower extremity edema. Neurovascular intact to all extremities. No Lacerations. No Rash Neuro: Oriented X 3. No motor deficit. No sensory deficit. Moving all extermities. No slurred speech Medications Administered Discontinued Medications Generic Name Dose Route Start Last Admin Trade Name Freq PRN Reason Stop Dose Admin Hydromorphone HCl 0.5 mg 03/02/25 18:26 03/02/25 18:32 Hydromorphone Hcl 0.5 Mg/0.5 Ml Syringe IVPUSH 03/02/25 18:27 0.5 mg ONCE ONE Administration Protocol Sodium Chloride 1,000 mls @ 999 mls/hr 03/02/25 17:30 03/02/25 19:38 Ns IV 03/02/25 18:30 Infused .Q1H1M JUAN LUIS Infusion Sodium Chloride 1,000 mls @ 999 mls/hr 03/02/25 17:30 03/02/25 19:38 Ns IV 03/02/25 18:30 Infused .Q1H1M JUAN LUIS Infusion Iohexol 85 ml 03/02/25 18:21 03/02/25 18:26 Iohexol 350 Mg/Ml 100 Ml Infus..Btl IV 03/02/25 18:22 85 ml ONCE ONE Administration Ketorolac Tromethamine 15 mg 03/02/25 17:25 03/02/25 17:35 Ketorolac Tromethamine 15 Mg/Ml Vial IVPUSH 03/02/25 17:26 15 mg ONCE ONE Administration Ondansetron HCl 4 mg 03/02/25 17:23 03/02/25 17:35 Ondansetron Hcl 4 Mg/2 Ml Vial IVPUSH 03/02/25 17:24 4 mg ONCE ONE Administration Medical Decision Making Medical Decision Making [facility] Narrative: Positive diarrhea yellow in color. Generalized malaise weakness lower abdominal pain. No recent antibiotics no camping no traveling. Patient's CT scan of the abdomen showed no gross obstruction no abscess no perforation consistent with gastroenteritis. Lipase is normal no evidence for pancreatitis. Patient's white count is normal. Hemoglobin is 10.8. Patient is electrolytes showed some mild dehydration with sodium 147. LFTs are normal. Will discharge patient home. Close follow-up on an outpatient basis. Zofran for nausea. In stable condition. Lab Data [facility] Lab Attestation statement: I reviewed the patient's lab results. 03/02/25 16:43 03/02/25 16:43 Labs: Lab Results 03/02/25 03/02/25 Range/Units 16:43 19:05 WBC 5.1 (4.8-10.8) X10*3/uL RBC 3.56 L (4.20-5.50) X10*6/uL Hgb 10.8 L (12.0-16.0) g/dl Hct 32.8 L (37.0-47.0) % MCV 92.1 (80.0-98.0) fL MCH 30.3 (27.0-33.0) pg MCHC 32.9 (31.0-35.0) g/dl RDW 14.4 (11.0-16.0) % Plt Count 302 (160-400) X10*3/uL MPV 9.3 L (9.4-12.3) fL Immature Gran % (Auto) 0.2 (0.0-0.4) % Neut % (Auto) 69.2 (45-73) % Lymph % (Auto) 19.3 L (20-40) % Harney % (Auto) 8.4 (2-11) % Eos % (Auto) 2.5 (0-4) % Baso % (Auto) 0.4 (0-2) % Lymph # (Auto) 1.0 L (1.2-4.9) X10*3/uL Harney # (Auto) 0.4 (0.1-1.2) X10*3/uL Eos # (Auto) 0.1 (0.0-0.4) X10*3/uL Baso # (Auto) 0.0 (0.0-0.2) X10*3/uL Abs Immat Gran (auto) 0.01 (0.00-0.03) X10*3/uL Absolute Neuts (auto) 3.5 (2.0-8.3) x10*3/uL Absolute Nucleated RBC 0.000 (0.0-0.012) X10*3/uL Nucleated RBC % (auto) 0.0 (0.0-0.2) /100WBC Sodium 147 H (135-145) mmol/L Potassium 3.7 (3.3-5.1) mmol/L Chloride 111 H (96-108) mmol/L Carbon Dioxide 31 H (22-29) mmol/L Anion Gap 9 L (12-20) BUN 11 (9-16) mg/dL Creatinine 0.62 (0.5-1.4) mg/dL Estim Creat Clear Calc 71.7 Estimated GFR > 60 Random Glucose 91 (60-115) mg/dL Calcium 8.6 (8.4-10.2) mg/dL Total Bilirubin 0.1 (0.0-1.0) mg/dL AST 24 (5-31) U/L ALT 15 (0-31) U/L Alkaline Phosphatase 66 (39-117) U/L Total Protein 5.6 L (6.5-8.0) g/dL Albumin 3.0 L (3.5-5.0) g/dL Lipase 13 (8-78) U/L Stool Occult Blood NEGATIVE (NEGATIVE) Blood Type O Positive Antibody Screen NEGATIVE Independent Interpretation I performed an independent interpretation of an: CT Scan Radiology Impression Discussion of test interpretation with radiology: I have reviewed the radiologist's reading. Discharge Plan Discharge Clinical Impression: Gastroenteritis Patient Disposition: Home, Self-Care Instructions: Acute Diarrhea (ED) Prescriptions: New ondansetron 4 mg tablet,disintegrating 4 mg PO TID PRN (Reason: nausea and vomiting) 5 Days Qty: 10 0RF No Action trazodone 50 mg tablet 50 mg PO BEDTIME sertraline 100 mg tablet 100 mg PO DAILY nicotine 21 mg/24 hr patch 24 hour 1 patch topical DAILY PRN (Reason: Smoking Cessation) albuterol sulfate [Ventolin HFA] 90 mcg/actuation HFA aerosol inhaler 2 puff INHALATION QID PRN (Reason: Shortness Of Breath Or Wheezing) fluticasone propionate 50 mcg/actuation spray,suspension 1 spray intranasal BID PRN (Reason: Allergy Symptoms) loratadine 10 mg tablet 10 mg PO DAILY Arnuity Ellipta 100 mcg/actuation blister with device 1 inh INHALATION DAILY omeprazole 20 mg Capsule,Delayed Release(Dr/Ec) 20 mg PO DAILY@0630 Qty: 60 0RF ondansetron 4 mg tablet,disintegrating 4 mg PO Q8H PRN (Reason: nausea and vomiting) Qty: 10 0RF albuterol sulfate 2.5 mg /3 mL (0.083 %) solution for nebulization 3 mg inhalation BID PRN (Reason: sort) melatonin 3 mg tablet 3 mg PO BEDTIME PRN (Reason: insomnia) mirtazapine 15 mg tablet 15 mg PO BEDTIME prazosin 2 mg capsule 2 mg PO BEDTIME aripiprazole 15 mg tablet 15 mg PO DAILY Spectravite Women 50 Plus 8 mg iron-400 mcg-50 mcg tablet 1 tab PO DAILY tramadol 50 mg Tablet 25 mg PO Q6H PRN (Reason: Pain, Severe (Pain Scale 7-10)) Qty: 20 0RF hydrocortisone [Proctozone-HC] 2.5 % Cream With Perineal Applicator 1 appl WI BEDTIME Qty: 2 0RF magnesium gluconate 12.5 mg magne- sium (250 mg) tablet 250 mg PO BID Qty: 20 0RF lidocaine HCl-menthol 4-1 % adhesive patch,medicated 1 patch topical BID Qty: 5 0RF Rx Instructions: may leave on area for up to 8 hrs acetaminophen [Tylenol] 325 mg tablet 650 mg PO Q6H PRN (Reason: pain) Qty: 14 0RF Referrals: July Aguirre MD [Primary Care Provider] - 03/04/25 Print Language: [place] Island[place]
[2025-03-02] MEDS: iohexoL 350 MG/ML 100 ML INFUS..BTL 85 ML IV (18:26)
[2025-03-02] MEDS: HYDROmorphone HCl 0.5 MG/0.5 ML SYRINGE IVPUSH (18:32)
[2025-03-02 19:12] LABS: OBS Int Ctl Valid YES; OBS1 NEGATIVE (NEGATIVE)
[2025-03-02 19:16] VITALS: BP 135/70; PULSE 62; RESP 19; TEMP 36.7; O2SAT 98
--- NOTE | 2025-03-02 21:17 | PC.NURSE ---
Reviewed discharge instructions with pt. pt verbalized understanding, no sign of distress.
--- NOTE | 2025-03-02 21:18 | PC.NURSE ---
Took over care from VANDANA Blackmon at 1900.
[2025-03-02 21:19] VITALS: BP 135/70; PULSE 62; RESP 19; TEMP 36.7; O2SAT 98
[2025-03-03 10:20] LABS: Adenovirus F 40/41 Not Detected (Not Detect.); Astrovirus Not Detected (Not Detect.); Campylobacter Not Detected (Not Detect.); Cryptosporidium Not Detected (Not Detect.); Cyclospora cayetanensis Not Detected (Not Detect.); E. coli EAEC Not Detected (Not Detect.); E. coli EPEC Not Detected (Not Detect.); E. coli ETEC Not Detected (Not Detect.); E. coli STEC Not Detected (Not Detect.); Entamoeba histolytica Not Detected (Not Detect.); Giardia lamblia Not Detected (Not Detect.); Norovirus GI/GII Not Detected (Not Detect.); Plesiomonas shigelloides Not Detected (Not Detect.); Rotavirus A Not Detected (Not Detect.); Salmonella Not Detected (Not Detect.); Sapovirus Not Detected (Not Detect.); Shigella sp./EIEC Not Detected (Not Detect.); Vibrio Not Detected (Not Detect.); Vibrio Cholerae Not Detected (Not Detect.); Yersinia enterocolitica Not Detected (Not Detect.)
== END 2025-03-02 21:20 | disposition home or self-care (01) ==
PROVIDERS: Emergency Provider Emergency Medicine Emergency Medical Services; PCP Internal Medicine
DX: K52.9 Noninfective gastroenteritis and colitis, unspecified (principal); R10.30 Lower abdominal pain, unspecified; C20 Malignant neoplasm of rectum; F17.210 Nicotine dependence, cigarettes, uncomplicated
CPT/HCPCS: 36415; 74177; 80053; 82272; 83690; 85025; 86850; 86900; 86901; 87507; 93005; 96361; 96374; 96375; 99285; J1171; J1885; J2405; Q9967

== ENCOUNTER → 2025-03-02 16:44 | Outpatient (BNV) | payer OTHER, SELFPAY | PROVIDERS: Emergency Provider Emergency Medicine Emergency Medical Services; PCP Internal Medicine; Visit Provider Internal Medicine Cardiovascular Disease | DX: R94.31 Abnormal electrocardiogram [ECG] [EKG] (principal); R42 Dizziness and giddiness | CPT/HCPCS: 93010 ==

== ENCOUNTER → 2025-03-02 17:24 | Outpatient (BNV) | payer OTHER, SELFPAY | PROVIDERS: Emergency Provider Emergency Medicine Emergency Medical Services; PCP Internal Medicine; Visit Provider Radiology Diagnostic Radiology | DX: K52.89 Other specified noninfective gastroenteritis and colitis (principal) | CPT/HCPCS: 74177 ==

== ENCOUNTER → 2025-03-04 14:51 | Outpatient (BNV) | payer OTHER, SELFPAY | PROVIDERS: Visit Provider Internal Medicine Medical Oncology | DX: C20 Malignant neoplasm of rectum (principal) | CPT/HCPCS: 99213 ==

== ENCOUNTER 2025-04-05 12:09 | Outpatient (AMB) | payer OTHER, SELFPAY ==
--- NOTE | 2025-04-05 12:19 | A.OFFVIS_ITS ---
Vital Signs 04/05/25 12:41 Height 5 ft 7 in Weight 99 lb 3.328 oz BMI 15.5 BP 98/62 Blood Pressure Location Lt brachial Position Sitting Pulse 65 Intake Visit Reasons: Gastroenteritis - ED f/u Intake Note: Yamileth presents in the office as a follow up for Gastroenteritis. CC: Patient seen in the ED and here for a follow up. She states that she is having diarrhea and says she is always having it. Duct Layer Supervisor Required: No Allergies Milk Containing Products (Dairy) Adverse Reaction (Severe, Verified 04/05/25 12:41) Diarrhea HPI HPI Gastroenteritis - ED f/u: Details: 59-year-old female with past medical history of rectal cancer treated with chemo and radiation, GI bleed, chronic low back pain, unexplained weight loss, sciatica, depression and anxiety with history of suicidal ideations and inpatient psychiatric admission, recent cocaine use via inhalation, history of alcohol abuse, tobacco use 2-3 cigarettes per day, COPD/emphysema, UTI, poor dentition, lactose intolerance who I am seeing for f/u RECAP: Seen as in patient: 02/07 Patient had been having intermittent diarrhea and blood in the stool for about 4 d. She also noted worsening lower back pain. She had also been having worsening weight loss over 6 months. Patient denied any fever or chills, chest pain, shortness of breath at rest or with exertion, passing gas IMAGING: CT: gastritis/enteritis but partial small-bowel obstruction or ileus also possible with dialted jejunal loops. colo 01/28/25: polyp removed, TA, otherwise bx samples nml INTERIM: she feels like is still losing weight appetite fair no abdominal pain no n/v EXAM: GENERAL: The patient is thin VITAL SIGNS:see workflow HEENT: Nonicteric sclerae, PERRLA, EOMI. Oropharynx clear. Moist mucous membranes. Conjunctivae appear well perfused. No thyroid mass. CHEST: Chest wall is nontender. HEART: Regular rate and rhythm without murmurs. LUNGS: Clear to auscultation bilaterally. ABDOMEN: Soft, positive bowel sounds, nontender, no organomegaly.no flank tenderness SKIN: No rash, no excessive bruising, petechiae, or purpura. NEUROLOGIC: Cranial nerves II-XII intact without motor/sensory deficit. Psych: normal affect A?P: 1/ weight loss, imaging with enteritis--maybe crohns PLAN: 1/ fecal lactoferrin, fecal fat 2/ EGD 3/ CXR PFSH Medical History Hypomagnesemia Diarrhea Abdominal pain Enterocolitis Occult GI bleeding Abdominal pain Asthma Colon cancer Surgical History (Updated 04/05/25 @ 12:41 by YAEL Wyatt) Hx of colonoscopy History of esophagogastroduodenoscopy (EGD) H/O tubal ligation Family History (Updated 04/05/25 @ 12:42 by YAEL Wyatt) Mother Breast cancer Father Colon cancer Social History Household Members: Family and Other Household Members Other:: sister Housing: House Are you a primary manager medicare marketing to a significant other at home: No Do you presently have visiting nurse or other home services: No Alcohol intake: never Patient Tobacco Use Status: Current everyday Tobacco user Tobacco use type: Cigarette Years Smoked: 40 e-Cigarette/Vaping Use: Currently Using Second Hand Smoke Exposure: No Substance Use Type: Marijuana and Other service: No Physical Exam Vital Signs: Last Vital Signs Pulse 65 04/05/25 12:41 BP 98/62 04/05/25 12:41 BMI result Body Mass Index 15.5 Assessment & Plan Assessment & Plan (1) Smoker: Code(s): F17.200 - Nicotine dependence, unspecified, uncomplicated Category: Social Hx Plan: as above (2) Rectal cancer: Code(s): C20 - Malignant neoplasm of rectum Category: Medical Plan: see above Orders: Orders XR chest 2V 04/05/25 F17.200 - Nicotine dependence, unspecified, uncomplicated Fecal Fat Qualitative 04/05/25 C20 - Malignant neoplasm of rectum Coding Level of Care Code Est Pt Level 3 (74269) Diagnoses Smoker F17.200 Rectal cancer C20
[2025-04-05 12:41] VITALS: BP 98/62; PULSE 65; BMI 15.5
== END 2025-04-05 13:12 | disposition home or self-care (01) ==
LOC: HO.HGI 12:10
PROVIDERS: PCP Internal Medicine; Visit Provider Internal Medicine Gastroenterology
DX: F17.200 Nicotine dependence, unspecified, uncomplicated (principal); C20 Malignant neoplasm of rectum
CPT/HCPCS: 99213

== ENCOUNTER → 2025-04-05 12:09 | Outpatient (BNVA) | payer OTHER, SELFPAY | PROVIDERS: PCP Internal Medicine; Visit Provider Internal Medicine Gastroenterology | DX: M54.50 Low back pain, unspecified (principal); F17.200 Nicotine dependence, unspecified, uncomplicated; R19.7 Diarrhea, unspecified; Z85.048 Personal history of other malignant neoplasm of rectum, rectosigmoid junction, and anus; R63.4 Abnormal weight loss | CPT/HCPCS: 99212 ==

== ENCOUNTER 2025-05-26 09:46 | Outpatient (REF) | payer OTHER, SELFPAY ==
--- NOTE | ~2025-05-26 | XR_ITS ---
EXAMINATION: XR ABDOMEN KUB CLINICAL INDICATION: T18.9XXA - Foreign body of alimentary tract, part unspecified, initial e... COMPARISON: December 13, 2024. Correlated to CT abdomen and pelvis dated March 02, 2025. TECHNIQUE: AP view of the abdomen. FINDINGS: No metallic or radiopaque foreign body in the abdomen and pelvis. No intestinal obstruction pattern. Transpedicular screws right side of L5-S1 and intervertebral body disc spacer L5-S1. Marginal osteophyte formation and endplate sclerosis subchondral cyst formation at L4-5 and L5-S1. Degenerative changes in both coxofemoral joints and sacroiliac joints. XR/XR KUB IMPRESSION: No metallic or radiopaque foreign body. No intestinal obstruction pattern. Electronically signed by: Thang Johnson MD 05/26/2025 10:06 AM EDT
== END 2025-05-26 09:47 | disposition home or self-care (01) ==
LOC: HO.XRAY 09:46
PROVIDERS: PCP Internal Medicine; Visit Provider Internal Medicine Gastroenterology
DX: T18.9XXA Foreign body of alimentary tract, part unspecified, initial encounter (principal)
CPT/HCPCS: 74018

== ENCOUNTER → 2025-05-26 09:48 | Outpatient (BNV) | payer OTHER, SELFPAY | PROVIDERS: PCP Internal Medicine; Visit Provider Radiology Diagnostic Radiology | DX: T18.9XXA Foreign body of alimentary tract, part unspecified, initial encounter (principal) | CPT/HCPCS: 74018 ==

== ENCOUNTER 2025-07-26 15:00 | Outpatient (AMB) | payer OTHER, SELFPAY ==
--- NOTE | 2025-07-26 15:32 | A.OFFVIS_ITS ---
Vital Signs 07/26/25 15:34 Height 5 ft 7 in Weight 103 lb 9.876 oz BMI 16.2 BP 109/67 Blood Pressure Location Lt brachial Position Sitting Pulse 75 Intake Visit Reasons: 4 month f/u Intake Note: Yamileth presents in the office as a 4 month follow up. CC: diarrhea but states she is used to it at this point this is her normal. Pharmacy Operations Specialist Required: No Allergies peanut Allergy (Mild, Verified 07/26/25 15:35) Unknown Milk Containing Products (Dairy) Adverse Reaction (Severe, Verified 04/05/25 12:41) Diarrhea red meat Allergy (Mild, Uncoded 07/26/25 15:35) Unknown HPI HPI 4 month f/u: Details: 59-year-old female with past medical history of rectal cancer treated with chemo and radiation, GI bleed, chronic low back pain, unexplained weight loss, sciatica, depression and anxiety with history of suicidal ideations and inpatient psychiatric admission, recent cocaine use via inhalation, history of alcohol abuse, tobacco use 2-3 cigarettes per day, COPD/emphysema, UTI, poor dentition, lactose intolerance who I am seeing for f/u RECAP: Seen as in patient: 02/07 Patient had been having intermittent diarrhea and blood in the stool for about 4 d. She also noted worsening lower back pain. She had also been having worsening weight loss over 6 months. Patient denied any fever or chills, chest pain, shortness of breath at rest or with exertion, passing gas IMAGING: CT: gastritis/enteritis but partial small-bowel obstruction or ileus also possible with dilaled jejunal loops. colo 01/28/25: polyp removed, TA, otherwise bx samples nml INTERIM: appetite fair no abdominal pain she has nausea weight is going up she has acid reflux, can be bad at times she is taking pantoprazole not sure how good it is no dysphagia EXAM: GENERAL: The patient is thin VITAL SIGNS:see workflow HEENT: Nonicteric sclerae, PERRLA, EOMI. Oropharynx clear. Moist mucous membranes. Conjunctivae appear well perfused. No thyroid mass. CHEST: Chest wall is nontender. HEART: Regular rate and rhythm without murmurs. LUNGS: Clear to auscultation bilaterally. ABDOMEN: Soft, positive bowel sounds, nontender, no organomegaly.no flank tenderness SKIN: No rash, no excessive bruising, petechiae, or purpura. NEUROLOGIC: Cranial nerves II-XII intact without motor/sensory deficit. Psych: normal affect A?P: 1/ Worsening reflux, with nausea, weight and appetite fair. ddx: PUD, gastroparesis, GOO, pancreatic biliary disease PLAN: 1/ fecal lactoferrin, fecal fat r/o IBD or pancreatic malabsorption 2/ EGD 3/ CXR--smoker, r/o any lung mass lesion PFSH Medical History (Updated 07/26/25 @ 15:44 by Donavon George MD) Hypomagnesemia Diarrhea Abdominal pain Enterocolitis Occult GI bleeding Abdominal pain Asthma Colon cancer Surgical History (Updated 07/26/25 @ 15:34 by YAEL Wyatt) History of back surgery Hx of colonoscopy History of esophagogastroduodenoscopy (EGD) H/O tubal ligation Family History Mother Breast cancer Father Colon cancer Social History Household Members: Family and Other Household Members Other:: sister Housing: House Are you a primary daytime caregiver to a significant other at home: No Do you presently have visiting nurse or other home services: No Alcohol intake: never Patient Tobacco Use Status: Current everyday Tobacco user Tobacco use type: Cigarette Years Smoked: 40 e-Cigarette/Vaping Use: Currently Using Second Hand Smoke Exposure: No Substance Use Type: Marijuana and Other service: No Physical Exam Vital Signs: Last Vital Signs Pulse 75 07/26/25 15:34 BP 109/67 07/26/25 15:34 BMI result Body Mass Index 16.2 Assessment & Plan Assessment & Plan (1) Rectal cancer: Code(s): C20 - Malignant neoplasm of rectum Category: Medical Plan: as above (2) GERD (gastroesophageal reflux disease): Code(s): K21.9 - Gastro-esophageal reflux disease without esophagitis Category: Medical Plan: above Orders: Referrals GI Procedure Notification C20 - Malignant neoplasm of rectum, K21.9 - Gastro- esophageal reflux disease without esophagitis Medications: New sod sulf-pot chloride-mag sulf 1.479-0.188- 0.225 gram (Sutab) PO PER PKG DIR 24 tabs 0RF Coding Level of Care Code Est Pt Level 4 (21743) Diagnoses Rectal cancer C20 GERD (gastroesophageal reflux disease) K21.9
[2025-07-26 15:34] VITALS: BP 109/67; PULSE 75; BMI 16.2
== END 2025-07-26 15:45 | disposition home or self-care (01) ==
LOC: HO.HGI 15:01
PROVIDERS: PCP Internal Medicine; Visit Provider Internal Medicine Gastroenterology
DX: C20 Malignant neoplasm of rectum (principal); K21.9 Gastro-esophageal reflux disease without esophagitis
CPT/HCPCS: 99214

== ENCOUNTER → 2025-07-26 15:00 | Outpatient (BNVA) | payer OTHER, SELFPAY | PROVIDERS: PCP Internal Medicine; Visit Provider Internal Medicine Gastroenterology | DX: K21.9 Gastro-esophageal reflux disease without esophagitis (principal); C20 Malignant neoplasm of rectum | CPT/HCPCS: 99212 ==